=== PATIENT | female | born 1965 | race Caucasian/White ===

== ENCOUNTER → 2018-05-23 08:25 | Outpatient (CLI) | payer OTHER, SELFPAY ==
--- NOTE | 2018-05-23 | DI.MG.S_ITS ---
BILATERAL DIGITAL SCREENING MAMMOGRAM 3D/2D WITH CAD: 05/23/2018 CLINICAL: Routine screening. Comparison is made to exams dated: 05/15/2017 mammogram, 04/25/2016 mammogram, and 04/23/2015 mammogram - [facility]. The tissue of both breasts is predominantly fatty. Current study was also evaluated with a Computer Aided Detection (CAD) system. No significant masses, calcifications, or other findings are seen in either breast. There has been no significant interval change. IMPRESSION: NEGATIVE There is no mammographic evidence of malignancy. A 1 year screening mammogram is recommended. This exam was interpreted at Station ID: [id number]. NOTE: For mammograms, a report in lay terms will be sent to the patient. Approximately 15% of breast malignancies will not be visualized mammographically. In the management of a palpable breast mass, a negative mammogram must not discourage biopsy of a clinically suspicious lesion. Electronically Signed By: Salima [email or web address]/[email or web address]:05/23/2018 09:59:20 letter sent: Normal Exam ACR BI-RADS Category 1: Negative [id number]
== END ==
PROVIDERS: PCP Internal Medicine; Visit Provider Family Medicine
DX: Z12.31 Encounter for screening mammogram for malignant neoplasm of breast (principal)
CPT/HCPCS: 77063; 77067

== ENCOUNTER → 2018-08-14 10:08 | Outpatient (CLI) | payer OTHER, SELFPAY ==
[2018-08-14 10:50] LABS: Add Manual Diff / Slide Review NO; Basophils Percent Auto 0.9 % (0-2); Eosinophils Percent Auto 2.8 % (2-4); Hematocrit 39.8 % (36-46); Hemoglobin 13.4 g/dL (12.0-16.0); Lymphocytes Percent Auto 28.5 % (25-40); Mean Corpuscular HGB Conc 33.7 % (30-36); Mean Corpuscular Hemoglobin 30.6 PG (26-34); Mean Corpuscular Volume 90.7 fL (80-100); Monocytes Percent Auto 7.7 % (3-14); Neutrophils Absolute Auto 4700 /uL (3000-5900); Neutrophils Percent Auto 60.1 % (50-75); Platelet Count 350 X10^3/uL (150-400); Red Blood Cell Count 4.39 X10^6/uL (4.0-5.2); Red Cell Distribution Width 12.7 % (11.6-14.8); White Blood Cell Count 7.8 X10^3/uL (4.5-11.0)
[2018-08-14 10:58] LABS: Chloride 103 mmol/L (98-107); HEMOLYSIS < 15 (0-50)
[2018-08-14 10:59] LABS: Alanine Aminotransferase 28 IU/L (9-52); Albumin 4.4 g/dL (3.5-5.0); Albumin Globulin Ratio 1.4 (1.0-2.8); Alkaline Phosphatase 57 U/L (38-126); Aspartate Aminotransferase 20 IU/L (14-36); BUN Creatinine Ratio 41.7 (6-22); Bilirubin Total 0.3 mg/dL (0.2-1.3); Blood Urea Nitrogen 25 mg/dL (7-17); Calcium 9.9 mg/dL (8.4-10.2); Carbon Dioxide 32 mmol/L (22-32); Estimated Glomerular Filt Rate > 60.0 mL/min (>60); Globulin 3.1 g/dL (1.7-4.1); Glucose 96 mg/dL (70-100); Potassium 4.4 mmol/L (3.4-5.1); Sodium 144 mmol/L (137-145); Total Protein 7.5 g/dL (6.3-8.2)
[2018-08-14 11:51] LABS: Vitamin D 25 Hydroxy (D3) 44.5 ng/mL (30.0-100.0)
== END ==
PROVIDERS: PCP Family Medicine; Visit Provider Family Medicine
DX: R53.83 Other fatigue (principal)
CPT/HCPCS: 36415; 80053; 82306; 85025

== ENCOUNTER → 2019-01-22 14:11 | Outpatient (CLI) | payer OTHER, SELFPAY ==
[2019-01-22 15:37] LABS: Thyroid Stimulating Hormone 1.67 uIU/mL (0.47-4.68)
== END ==
PROVIDERS: PCP Family Medicine; Visit Provider Family Medicine
DX: E03.9 Hypothyroidism, unspecified (principal)
CPT/HCPCS: 36415; 84443

== ENCOUNTER → 2019-03-05 12:10 | Outpatient (CLI) | payer OTHER, SELFPAY ==
--- NOTE | 2019-03-05 12:11 | DI.RAD.S_ITS ---
PROCEDURE: XR CHEST 2V INDICATIONS: cough TECHNIQUE: 2 views of the chest were acquired. COMPARISON: [facility], , CHEST 1 VIEW, 02/17/2017, 2:59. FINDINGS: Surgical changes and devices: None. Lungs and pleura: Lungs are clear. No pleural effusions or pneumothorax. Mediastinum: Mediastinal contours are normal. Heart size is normal. Bones and chest wall: No suspicious bony abnormalities. Soft tissues appear unremarkable. IMPRESSION: No acute cardiopulmonary disease. Dictated by: Hiren Richard M.D. on 03/05/2019 at 13:32 Approved by: Hiren Richard M.D. on 03/05/2019 at 13:32
== END ==
PROVIDERS: PCP Family Medicine; Visit Provider Family Medicine
DX: R05 Cough (principal)
CPT/HCPCS: 71046

== ENCOUNTER → 2019-03-26 13:01 | Outpatient (CLI) | payer OTHER, SELFPAY ==
[2019-03-26 13:46] LABS: Add Manual Diff / Slide Review NO; Basophils Absolute Auto 100 /uL (0-100); Basophils Percent Auto 1.4 % (0-2); Eosinophils Absolute Auto 100 /uL (0-450); Eosinophils Percent Auto 1.7 % (2-4); Hematocrit 39.6 % (36-46); Hemoglobin 13.2 g/dL (12.0-16.0); Lymphocytes Absolute Auto 2000 /uL (1100-4500); Lymphocytes Percent Auto 28.7 % (25-40); Mean Corpuscular HGB Conc 33.3 % (30-36); Mean Corpuscular Hemoglobin 30.1 PG (26-34); Mean Corpuscular Volume 90.6 fL (80-100); Monocytes Absolute Auto 500 /uL (0-900); Monocytes Percent Auto 7.4 % (3-14); Neutrophils Absolute Auto 4300 /uL (1500-7000); Neutrophils Percent Auto 60.8 % (50-75); Platelet Count 386 X10^3/uL (150-400); Red Blood Cell Count 4.37 X10^6/uL (4.0-5.2); Red Cell Distribution Width 12.9 % (11.6-14.8); White Blood Cell Count 7.1 X10^3/uL (4.5-11.0)
[2019-03-26 14:40] LABS: Alanine Aminotransferase 30 IU/L (9-52); Albumin 4.3 g/dL (3.5-5.0); Albumin Globulin Ratio 1.4 (1.0-2.8); Alkaline Phosphatase 58 U/L (38-126); Aspartate Aminotransferase 23 IU/L (14-36); BUN Creatinine Ratio 32.9 (6-22); Bilirubin Total 0.3 mg/dL (0.2-1.3); Blood Urea Nitrogen 23 mg/dL (7-17); Calcium 9.9 mg/dL (8.4-10.2); Carbon Dioxide 28 mmol/L (22-32); Chloride 103 mmol/L (98-107); Estimated Glomerular Filt Rate > 60.0 mL/min (>60); Glucose 106 mg/dL (70-100); HEMOLYSIS < 15 (0-50); Potassium 4.4 mmol/L (3.4-5.1); Sodium 140 mmol/L (137-145); Total Protein 7.3 g/dL (6.3-8.2)
== END ==
PROVIDERS: Family Provider Surgery; PCP Family Medicine; Visit Provider Physician Assistant
DX: Z86.010 Personal history of colon polyps (principal); Z80.0 Family history of malignant neoplasm of digestive organs; K58.0 Irritable bowel syndrome with diarrhea; K21.9 Gastro-esophageal reflux disease without esophagitis; R13.10 Dysphagia, unspecified; K62.3 Rectal prolapse
CPT/HCPCS: 36415; 80053; 85025; 87177; 87493

== ENCOUNTER → 2019-05-28 09:22 | Outpatient (CLI) | payer OTHER, SELFPAY ==
--- NOTE | 2019-05-28 | DI.MG.S_ITS ---
BILATERAL DIGITAL SCREENING MAMMOGRAM 3D/2D WITH CAD: 05/28/2019 CLINICAL: Routine screening. Comparison is made to exams dated: 05/23/2018 mammogram, 05/15/2017 mammogram, 04/25/2016 mammogram, and 04/23/2015 mammogram - [facility]. The tissue of both breasts is predominantly fatty. Current study was also evaluated with a Computer Aided Detection (CAD) system. No significant masses, calcifications, or other findings are seen in either breast. There has been no significant interval change. IMPRESSION: NEGATIVE There is no mammographic evidence of malignancy. A 1 year screening mammogram is recommended. This exam was interpreted at Station ID: [id number]. NOTE: For mammograms, a report in lay terms will be sent to the patient. Approximately 15% of breast malignancies will not be visualized mammographically. In the management of a palpable breast mass, a negative mammogram must not discourage biopsy of a clinically suspicious lesion. Electronically Signed By: Kris connolly/alex:05/28/2019 17:03:35 letter sent: Normal Exam ACR BI-RADS Category 1: Negative [id number]
== END ==
PROVIDERS: PCP Family Medicine; Visit Provider Family Medicine
DX: Z12.31 Encounter for screening mammogram for malignant neoplasm of breast (principal)
CPT/HCPCS: 77063; 77067

== ENCOUNTER 2019-06-04 11:15 | Outpatient (RCR) | payer OTHER, SELFPAY ==
--- NOTE | 2019-05-22 10:04 | PT.OIE ---
Current Diagnoses Irritable bowel syndrome with diarrhea (05/22/19) Rectal prolapse (05/22/19) Past Medical History (Last Reviewed 10/23/18 @ 16:38 by Heladio Parkinson MD) Obstructive sleep apnea of adult (Chronic) Hypothyroidism (Chronic ~2003) Depression (Chronic 1998) Insomnia (Chronic 06/21/16) ADHD (attention deficit hyperactivity disorder) (Chronic 1962) Acne (Chronic 1975) Anxiety (Chronic 1998) Back tightness (Chronic) Chronic back pain (Chronic 1994) Chronic headaches (Chronic 1991) Fibromyalgia (Chronic 1997) GERD (gastroesophageal reflux disease) (Chronic 1997) Hayfever (Chronic ~1991) Hearing loss (Chronic 2011) IBS (irritable bowel syndrome) (Chronic 1962) Migraines (Chronic 2009) Neck tightness (Chronic) Plantar warts (Chronic 1991) Shoulder pain (Chronic 1994) Abnormal Pap smear of cervix (Resolved 1995) Chicken pox (Resolved) Colon polyps (Resolved) Precancerous changes of the cervix (Resolved 1995) Villous adenoma of right colon (Resolved 2010) Past Surgical History (Last Reviewed 10/23/18 @ 16:38 by Heladio Parkinson MD) Anesthesia (Resolved) History of colonoscopy (Resolved 08/2012) History of partial colectomy (Resolved 2010) Status post appendectomy (Resolved) Status post vaginal hysterectomy (Resolved 1995) Status post colectomy (2011) Provider Visit Care Team Role Provider Type Li Avila MD Primary Care Provider Physician Specialty: Family Practice Address: [address] [place] [address], [employer] Email: [email or web address] Hailey Chiang PA-C Attending Provider Non-Staff Specialty: Medical Address: [address] [place] [address], [facility] Email: Physical Therapy Initial Evaluation PT-OP-A Visit Information Start: 05/14/19 10:55 Freq: Status: Active Protocol: Document 05/14/19 11:15 [facility] (Rec: 05/21/19 13:09 [facility] [email or web address]) Out-Patient Physical Therapy Visit Information Visit Information Visit Type Initial Evaluation Visit Note 53 year old female with rectal prolapse and irritable bowel syndrome. She has history of a colon resection in 2011 and notes she has been gassy since this time and it is difficult for her to control flatulence. She reports stool incontinence without warming. She is scheduled for anterior posterior repair on 06/11/19 and is doing PT preoperatively to gain pelvic floor strength prior to surgery. Visit Start Time 11:15 Visit Stop Time 12:00 Total Visit Minutes 45 Visit Number 1 Evaluation Information Evaluation Date 05/14/19 PT-OP-B Current Condition Start: 05/14/19 10:55 Freq: Status: Active Protocol: Document 05/14/19 11:15 [facility] (Rec: 05/21/19 13:09 [facility] [email or web address]) Current Condition History of Current Condition Onset Date 2011 Current Complaints stool incontinence and rectal prolapse making it difficult to fully empty History of Current Condition 53 year old female with rectal prolapse and irritable bowel syndrome. She has history of a colon resection in 2011 and notes seh has been gassy since this time and it is difficult for her to control flattulance. She reports stool incontinence without warming. She is scheduled for anterior posterior repair on 06/11/19 and is doing PT preoperatively to gain pelvic floor strength prior to surgery. Treatment Goals Patient/Caregiver Goals To improve pelvic floor strength prior to surgery and eliminate stool incontinence Current Functional Impairments (Reported) Functional Limitations- Recreation/ inability to engage in Hobbies intercourse at this time due to pain and prolapse PT-OP-I Pelvic Floor Start: 05/14/19 10:55 Freq: Status: Active Protocol: Document 05/14/19 11:15 [facility] (Rec: 05/21/19 13:14 [facility] [email or web address]) Pelvic Floor Assessment Urine Pelvic Floor Surgery No Urinary Symptoms Prolapse Incomplete Emptying Other Urinary Symptoms constant leakage of urine of little drips throughout the day Leakage Size Small Other Leakage Causes constant leakage throughout the day and made worse with cough, sneeze, laugh Leaks Per Day constant Voiding Frequency 4 times Nocturia 1 Urine Pad Type Panty Liner Bowel Bowel Surgery Yes Bowel Symptoms Fecal Leakage Uncontrolled Flatulence Other Bowel Symptoms Gracy reports she feels as if she doesn't have the muscle control to stop flatulence or stool leakage. This began after her colon resection in 2011 [place] Stool Chart Type 1-7 6 [place] Stool Chart Comments soft stool with IBS Pelvic Clock Pelvic Clock 12-3 Atrophy Pelvic Clock 3-6 Atrophy Pelvic Clock 6-9 Atrophy Pelvic Clock 9-12 Atrophy Prolapse Cystocele Grade 2 Rectocele Grade 2 Contraction Ability Voluntary Contraction Weak Voluntary Relaxation Weak Manual Muscle Testing Left 1 Manual Muscle Testing Right 2 Manual Muscle Testing Anterior 1 Manual Muscle Testing Posterior 1 PT-OP-J Posture/Palpation/Skin Start: 05/14/19 10:55 Freq: Status: Active Protocol: Document 05/14/19 11:15 [facility] (Rec: 05/22/19 10:03 [facility] [email or web address]) Palpation Assessment Location Two Palpation Location piriformis L>R Palpation Findings Spasm Muscle Guarding Tenderness One Palpation Location tenderness to palpation bilateral coccyx Palpation Findings Soft Tissue Tightness Tenderness PT-OP-Q Treatments Start: 05/14/19 10:55 Freq: Status: Active Protocol: Document 05/14/19 11:30 [facility] (Rec: 05/22/19 09:54 [facility] [email or web address]) Therapeutic Exercises Supine Exercises 2 Supine Exercise Name ball squeeze to facilitate pelvic floor contraction 1 Supine Exercise Name pelvic floor long holds 10 sec hold x 10 second relax Side bilateral Reps/Minutes 3x 10 per day Self-Care/Home Management Treatment Education Patient Education Home Exercise Program Other Education ILU self colon massage PT-OP-T Assessment and Plan Start: 05/14/19 10:55 Freq: Status: Active Protocol: Document 05/14/19 11:15 [facility] (Rec: 05/22/19 10:03 [facility] [email or web address]) Physical Therapy Assessment Rehab Potential Rehabilitation Potential Good Evaluation Complexity Number of Personal Factors/Comorbidities 0 Number of Body Systems Impaired 1-2 Clinical Presentation at Evaluation Stable Impairments Impairments Activity Tolerance Functional Activities Pain Soft Tissue Mobility Strength Tone Other Impairments urinary and fecal incontinence Goals Three Impairment Gracy lacks a home program for pelvic floor and core strengthening Chipper Operator Goal (LTG) Gracy is independent with a home program for pelvic floor strengthening that sheis able to work on pre and post surgery LTG Duration 6-8 weeks Two Impairment poor endurance of the pelvic floor < 5 seconds Short Term Goal (STG) Gracy demonstrates improved endurance of her pelvic floor and she is able to sustain a pelvic floor contraction x 10 seconds in supine STG Duration 5 weeks One Impairment pelvic floor weakness 1/5 MMT anterior, left, posterior, 2/5 right Short Term Goal (STG) Gracy is able to facilitate all parts of her pelvic floor and improve her sensation of her pelvic floor STG Duration 4 weeks Longterm Goal (LTG) Gracy is educated on pelvic floor muscle strength and she is able to raise her strength by one muscle grade on MMT LTG Duration 8 weeks Assessment Summary Assessment Gracy presents to physical therapy today asd a pre op visit for pelvic floor strengthening. She will be having a rectocele repair June 11. With examinationt today, Gracy is very weak in her levator ani musculature. She test 1/5 MMT for anterior, left, and posterior patten and 2/5 MMT for right lateral wall. Her endurance is very limited < 5 seconds. She is tight in her piriformis musculature and experiences coccyx pain. She reports in the last couple of years she has began to notice that stool will slide out. She also reports that since her colon resection in 2011 she has uncontrolled flatulence. Gracy is a good candidate for PT for strengthening pre and post surgery. Physical Therapy Plan Frequency and Duration Frequency of Treatment 1x/Week Duration of Treatment 8 weeks Plan of Care Start Date 05/14/19 Plan of Care End Date 07/09/19 Therapeutic Interventions Therapeutic Interventions Home Exercise Program Manual Therapy Neuromuscular Re-education Patient/Caregiver Education Self-Care/Home Management Therapeutic Exercises Modalities Biofeedback Electric Stimulation Next Visit Focus/Plan Next Note Type Treatment Note Next Visit Plan Begin EMG biofeedback for pelvic floor neuro re- education next visit
--- NOTE | 2019-05-22 10:05 | PT.OPPOC ---
Current Diagnoses Irritable bowel syndrome with diarrhea (05/22/19) Rectal prolapse (05/22/19) Provider Visit Care Team Role Provider Type Li Avila MD Primary Care Provider Physician Specialty: Family Practice Address: [address] [place] [address], [id number] Email: [email or web address] Hailey Chiang PA-C Attending Provider Non-Staff Specialty: Medical Address: [address] [place] [address], [id number] Email: Plan Of Care PT-OP-T Assessment and Plan Start: 05/14/19 10:55 Freq: Status: Active Protocol: Document 05/14/19 11:15 [facility] (Rec: 05/22/19 10:03 [facility] [email or web address]) Physical Therapy Assessment Rehab Potential Rehabilitation Potential Good Evaluation Complexity Number of Personal Factors/Comorbidities 0 Number of Body Systems Impaired 1-2 Clinical Presentation at Evaluation Stable Impairments Impairments Activity Tolerance Functional Activities Pain Soft Tissue Mobility Strength Tone Other Impairments urinary and fecal incontinence Goals Three Impairment Gracy lacks a home program for pelvic floor and core strengthening Senior Living Goal (LTG) Gracy is independent with a home program for pelvic floor strengthening that she is able to work on pre and post surgery LTG Duration 6-8 weeks Two Impairment poor endurance of the pelvic floor < 5 seconds Short Term Goal (STG) Gracy demonstrates improved endurance of her pelvic floor and she is able to sustain a pelvic floor contraction x 10 seconds in supine STG Duration 5 weeks One Impairment pelvic floor weakness 1/5 MMT anterior, left, posterior, 2/5 right Short Term Goal (STG) Gracy is able to facilitate all parts of her pelvic floor and improve her sensation of her pelvic floor STG Duration 4 weeks Senior Living Goal (LTG) Gracy is educated on pelvic floor muscle strength and she is able to raise her strength by one muscle grade on MMT LTG Duration 8 weeks Assessment Summary Assessment Gracy presents to physical therapy today as a pre op visit for pelvic floor strengthening. She will be having a rectocele repair June 11. With examination today, Gracy is very weak in her levator ani musculature. She test 1/5 MMT for anterior, left, and posterior patten and 2/5 MMT for right lateral wall. Her endurance is very limited < 5 seconds. She is tight in her piriformis musculature and experiences coccyx pain. She reports in the last couple of years she has began to notice that stool will slide out. She also reports that since her colon resection in 2011 she has uncontrolled flatulence. Gracy is a good candidate for PT for strengthening pre and post surgery. Physical Therapy Plan Frequency and Duration Frequency of Treatment 1x/Week Duration of Treatment 8 weeks Plan of Care Start Date 05/14/19 Plan of Care End Date 07/09/19 Therapeutic Interventions Therapeutic Interventions Home Exercise Program Manual Therapy Neuromuscular Re-education Patient/Caregiver Education Self-Care/Home Management Therapeutic Exercises Modalities Biofeedback Electric Stimulation Next Visit Focus/Plan Next Note Type Treatment Note Next Visit Plan Begin EMG biofeedback for pelvic floor neuro re- education next visit Plan of Care Dates Plan of Care Start Date 05/14/19 Plan of Care End Date 07/09/19 Please Sign and Return: I have reviewed this Plan of Care and certify that the skilled therapy services above are required to meet the patient?s needs. Physician Signature Date Printed Name and Credentials Clinical Instructor Signature Printed Name and Credentials
--- NOTE | 2019-05-29 13:10 | PT.OTN ---
Current Diagnoses Irritable bowel syndrome with diarrhea (05/28/19) Rectal prolapse (05/28/19) Physical Therapy Treatment Note PT-OP-A Visit Information Start: 05/14/19 10:55 Freq: Status: Active Protocol: Document 05/28/19 13:02 [facility] (Rec: 05/29/19 13:08 [facility] [email or web address]) Out-Patient Physical Therapy Visit Information Visit Information Visit Type Treatment Note Visit Start Time 11:15 Visit Stop Time 12:00 Total Visit Minutes 45 Visit Number 2 Number of FUEL MANAGEMENT HANDLER Visits 0 PT-OP-B Current Condition Start: 05/14/19 10:55 Freq: Status: Active Protocol: Document 05/14/19 11:15 [facility] (Rec: 05/21/19 13:09 [facility] [email or web address]) Current Condition History of Current Condition Onset Date 2011 Current Complaints stool incontinence and rectal prolapse making it difficult to fully empty History of Current Condition 53 year old female with rectal prolapse and irritable bowel syndrome. She has history of a colon resection in 2011 and notes seh has been gassy since this time and it is difficult for her to control flattulance. She reports stool incontinence without warming. She is scheduled for anterior posterior repair on 06/11/19 and is doing PT preoperatively to gain pelvic floor strength prior to surgery. Treatment Goals Patient/Caregiver Goals To improve pelvic floor strength prior to surgery and eliminate stool incontinence Current Functional Impairments (Reported) Functional Limitations- Recreation/ inability to engage in Hobbies intercourse at this time due to pain and prolapse PT-OP-C Subjective Start: 05/14/19 10:55 Freq: Status: Active Protocol: Document 05/28/19 13:09 [facility] (Rec: 05/29/19 13:10 [facility] [email or web address]) OP-PT Subjective Patient Comments Patient Comments Gracy reports she has been working on her exercises. Her surgery is still scheduled for 06/11/19. She reports that the surgery will be the rectal repair only now and not include the bladder. She is experiencing tailbone pain as well that is workse as she goes up and down stairs Patient Reported Progress Same PT-OP-I Pelvic Floor Start: 05/14/19 10:55 Freq: Status: Active Protocol: Document 05/14/19 11:15 [facility] (Rec: 05/21/19 13:14 [facility] [email or web address]) Pelvic Floor Assessment Urine Pelvic Floor Surgery No Urinary Symptoms Prolapse Incomplete Emptying Other Urinary Symptoms constant leakage of urine of little drips throughout the day Leakage Size Small Other Leakage Causes constant leakage throughout the day and made worse with cough, sneeze, laugh Leaks Per Day constant Voiding Frequency 4 times Nocturia 1 Urine Pad Type Panty Liner Bowel Bowel Surgery Yes Bowel Symptoms Fecal Leakage Uncontrolled Flatulence Other Bowel Symptoms Gracy reports she feels as if she doesn't have the muscle control to stop flatulence or stool leakage. This began after her colon resection in 2011 [place] Stool Chart Type 1-7 6 [place] Stool Chart Comments soft stool with IBS Pelvic Clock Pelvic Clock 12-3 Atrophy Pelvic Clock 3-6 Atrophy Pelvic Clock 6-9 Atrophy Pelvic Clock 9-12 Atrophy Prolapse Cystocele Grade 2 Rectocele Grade 2 Contraction Ability Voluntary Contraction Weak Voluntary Relaxation Weak Manual Muscle Testing Left 1 Manual Muscle Testing Right 2 Manual Muscle Testing Anterior 1 Manual Muscle Testing Posterior 1 PT-OP-J Posture/Palpation/Skin Start: 05/14/19 10:55 Freq: Status: Active Protocol: Document 05/14/19 11:15 [facility] (Rec: 05/22/19 10:03 [facility] [email or web address]) Palpation Assessment Location Two Palpation Location piriformis L>R Palpation Findings Spasm Muscle Guarding Tenderness One Palpation Location tenderness to palpation bilateral coccyx Palpation Findings Soft Tissue Tightness Tenderness PT-OP-Q Treatments Start: 05/14/19 10:55 Freq: Status: Active Protocol: Document 05/28/19 13:02 [facility] (Rec: 05/29/19 13:08 [facility] [email or web address]) Therapeutic Exercises Supine Exercises 4 Supine Exercise Name roll outs with theraband Reps/Minutes 3 x 10 reps 3 Supine Exercise Name quick pelvic floor facilitation Reps/Minutes 10 reps 2 sec hold x 4 sec relaxation 2 Supine Exercise Name ball squeeze to facilitate pelvic floor contraction 1 Supine Exercise Name pelvic floor long holds 10 sec hold x 10 second relax Side bilateral Reps/Minutes 3x 10 per day Neuro Re-Education Treatment Other Activities 1 Details EMG biofeedback for pelvic neuromuscular re-ed Comments EMG biofeedback was initiated for pelvic floor neuro re-ed. Gracy was eduated on pelvic floor facilitation and nuero awareness of the pelvic floor. We worked on how to recruit her lateral and anterior patten of her levator ani musculature. PT-OP-T Assessment and Plan Start: 05/14/19 10:55 Freq: Status: Active Protocol: Document 05/28/19 13:02 [facility] (Rec: 05/29/19 13:08 [facility] [email or web address]) Physical Therapy Assessment Assessment Summary Assessment Average EMG facilitation ws 6. 1 uv and max was 30 uv today. Endurance training will be a focus and improving average contraction of the pelvic floor. Good tolerance for EMG biofeedback this visit Physical Therapy Plan Frequency and Duration Frequency of Treatment 1x/Week Duration of Treatment 8 weeks Plan of Care Start Date 05/14/19 Plan of Care End Date 07/09/19 Therapeutic Interventions Therapeutic Interventions Home Exercise Program Manual Therapy Neuromuscular Re-education Patient/Caregiver Education Self-Care/Home Management Therapeutic Exercises Modalities Biofeedback Electric Stimulation Next Visit Focus/Plan Next Note Type Treatment Note Next Visit Plan add in stretches for the tailbone pain Gracy is experiencing and continue to work on pelvic floor strengthening
--- NOTE | 2019-06-04 12:22 | PT.OTN ---
Current Diagnoses Irritable bowel syndrome with diarrhea (06/04/19) Rectal prolapse (06/04/19) Physical Therapy Treatment Note PT-OP-A Visit Information Start: 05/14/19 10:55 Freq: Status: Active Protocol: Document 06/04/19 12:14 [facility] (Rec: 06/04/19 12:22 [facility] [email or web address]) Out-Patient Physical Therapy Visit Information Visit Information Visit Type Treatment Note Visit Start Time 11:15 Visit Stop Time 12:00 Total Visit Minutes 45 Visit Number 3 Number of TOOL DESIGN CHECKER Visits 0 PT-OP-B Current Condition Start: 05/14/19 10:55 Freq: Status: Active Protocol: Document 05/14/19 11:15 [facility] (Rec: 05/21/19 13:09 [facility] [email or web address]) Current Condition History of Current Condition Onset Date 2011 Current Complaints stool incontinence and rectal prolapse making it difficult to fully empty History of Current Condition 53 year old female with rectal prolapse and irritable bowel syndrome. She has history of a colon resection in 2011 and notes seh has been gassy since this time and it is difficult for her to control flattulance. She reports stool incontinence without warming. She is scheduled for anterior posterior repair on 06/11/19 and is doing PT preoperatively to gain pelvic floor strength prior to surgery. Treatment Goals Patient/Caregiver Goals To improve pelvic floor strength prior to surgery and eliminate stool incontinence Current Functional Impairments (Reported) Functional Limitations- Recreation/ inability to engage in Hobbies intercourse at this time due to pain and prolapse PT-OP-C Subjective Start: 05/14/19 10:55 Freq: Status: Active Protocol: Document 06/04/19 12:14 [facility] (Rec: 06/04/19 12:22 [facility] [email or web address]) OP-PT Subjective Patient Comments Patient Comments Gracy has been working on her home exercise program. She has home care in now for her . Surgery is scheduled for June 11 PT-OP-I Pelvic Floor Start: 05/14/19 10:55 Freq: Status: Active Protocol: Document 05/14/19 11:15 [facility] (Rec: 05/21/19 13:14 [facility] [email or web address]) Pelvic Floor Assessment Urine Pelvic Floor Surgery No Urinary Symptoms Prolapse Incomplete Emptying Other Urinary Symptoms constant leakage of urine of little drips throughout the day Leakage Size Small Other Leakage Causes constant leakage throughout the day and made worse with cough, sneeze, laugh Leaks Per Day constant Voiding Frequency 4 times Nocturia 1 Urine Pad Type Panty Liner Bowel Bowel Surgery Yes Bowel Symptoms Fecal Leakage Uncontrolled Flatulence Other Bowel Symptoms Gracy reports she feels as if she doesn't have the muscle control to stop flatulence or stool leakage. This began after her colon resection in 2011 [place] Stool Chart Type 1-7 6 [place] Stool Chart Comments soft stool with IBS Pelvic Clock Pelvic Clock 12-3 Atrophy Pelvic Clock 3-6 Atrophy Pelvic Clock 6-9 Atrophy Pelvic Clock 9-12 Atrophy Prolapse Cystocele Grade 2 Rectocele Grade 2 Contraction Ability Voluntary Contraction Weak Voluntary Relaxation Weak Manual Muscle Testing Left 1 Manual Muscle Testing Right 2 Manual Muscle Testing Anterior 1 Manual Muscle Testing Posterior 1 PT-OP-J Posture/Palpation/Skin Start: 05/14/19 10:55 Freq: Status: Active Protocol: Document 05/14/19 11:15 [facility] (Rec: 05/22/19 10:03 [facility] [email or web address]) Palpation Assessment Location Two Palpation Location piriformis L>R Palpation Findings Spasm Muscle Guarding Tenderness One Palpation Location tenderness to palpation bilateral coccyx Palpation Findings Soft Tissue Tightness Tenderness PT-OP-Q Treatments Start: 05/14/19 10:55 Freq: Status: Active Protocol: Document 06/04/19 12:14 [facility] (Rec: 06/04/19 12:22 [facility] [email or web address]) Therapeutic Exercises Supine Exercises 5 Supine Exercise Name templates for eccentric control and lengthening 3 Supine Exercise Name quick pelvic floor facilitation Reps/Minutes 10 reps 2 sec hold x 4 sec relaxation 1 Supine Exercise Name pelvic floor long holds 10 sec hold x 10 second relax Side bilateral Reps/Minutes 3x 10 per day 10 second hold and 10 second relax Neuro Re-Education Treatment Other Activities 2 Details NMES x 10 min Comments NMES for pelvic floor facilitation Self-Care/Home Management Treatment Education Other Education body mechanics for lifting and pelvic floor facilitation with transfering her . I did talk to Gracy about trying to avoid lifting activities after her surgery to make the surgery more of a success for her. PT-OP-T Assessment and Plan Start: 05/14/19 10:55 Freq: Status: Active Protocol: Document 06/04/19 12:14 [facility] (Rec: 06/04/19 12:22 [facility] [email or web address]) Physical Therapy Assessment Assessment Summary Assessment Gracy did well with NMES today, she may benfit from a home rental after surgery. She is independent with her exercises now and will be discharged now as she is having surgery for posterior repair next week Physical Therapy Plan Discharge Physical Therapy Discharge Reasons Goals Met Discharge Comments Pt scheduled for surgery for rectal prolapse repair
== END 2019-06-06 10:18 | disposition home or self-care (01) ==
LOC: PHYS 11:15
PROVIDERS: PCP Family Medicine; Visit Provider Physician Assistant
DX: K58.0 Irritable bowel syndrome with diarrhea (principal); K62.3 Rectal prolapse
CPT/HCPCS: 97110; 97112; 97161

== ENCOUNTER 2019-07-28 10:57 | Emergency (ER) | payer OTHER, SELFPAY ==
[2019-07-28] VITALS (7 sets, daily range): BP systolic 99–121; BP diastolic 60–77; PULSE 80–102; RESP 12–22; TEMP 36.8; O2SAT 97–100; BMI 30.7
[2019-07-28 12:09] LABS: Add Manual Diff / Slide Review NO; Basophils Absolute Auto 100 /uL (0-100); Basophils Percent Auto 0.6 % (0-2); Eosinophils Absolute Auto 100 /uL (0-450); Hematocrit 36.2 % (36-46); Hemoglobin 12.2 g/dL (12.0-16.0); Lymphocytes Absolute Auto 2300 /uL (1100-4500); Lymphocytes Percent Auto 16.9 % (25-40); Mean Corpuscular HGB Conc 33.6 % (30-36); Mean Corpuscular Hemoglobin 30.1 PG (26-34); Mean Corpuscular Volume 89.6 fL (80-100); Monocytes Absolute Auto 1300 /uL (0-900); Neutrophils Absolute Auto 9600 /uL (1500-7000); Neutrophils Percent Auto 71.5 % (50-75); Platelet Count 325 X10^3/uL (150-400); Red Blood Cell Count 4.04 X10^6/uL (4.0-5.2); Red Cell Distribution Width 13.2 % (11.6-14.8); White Blood Cell Count 13.5 X10^3/uL (4.5-11.0)
[2019-07-28 12:17] LABS: INR 1.1 (0.9-1.3); Prothrombin Time 12.2 SECONDS (10.1-12.7)
[2019-07-28 12:19] LABS: PTT Partial Thromboplastin Tim 28 SECONDS (26.4-36.2)
[2019-07-28 12:22] LABS: Albumin 4.2 g/dL (3.5-5.0); Albumin Globulin Ratio 1.2 (1.0-2.8); Alkaline Phosphatase 70 U/L (38-126); Aspartate Aminotransferase 16 IU/L (14-36); Bilirubin Total 0.5 mg/dL (0.2-1.3); Blood Urea Nitrogen 16 mg/dL (7-17); Calcium 10.2 mg/dL (8.4-10.2); Carbon Dioxide 27 mmol/L (22-32); Chloride 100 mmol/L (98-107); Estimated Glomerular Filt Rate > 60.0 mL/min (>60); Globulin 3.4 g/dL (1.7-4.1); Glucose 105 mg/dL (70-100); HEMOLYSIS < 15 (0-50); Lipase 54 U/L (23-300); Potassium 3.1 mmol/L (3.4-5.1); Sodium 141 mmol/L (137-145); Total Protein 7.6 g/dL (6.3-8.2)
[2019-07-28 12:24] LABS: Lactate (Lactic Acid) 1.2 mmol/L (0.7-2.1)
[2019-07-28 12:30] LABS: Alanine Aminotransferase 15 IU/L (9-52)
[2019-07-28 13:16] LABS: Bacteria Urine Few (2-10); RBC Urine 1-5/HPF (0-5/HPF); Squamous Epithelial Cell Urine 1-5 /HPF (0-5/HPF); WBC Urine 1-5/HPF (0-5/HPF)
[2019-07-28 13:17] LABS: Culture Indicated Urine Specimen Cultured
--- NOTE | 2019-07-28 13:19 | DI.CT.S_ITS ---
PROCEDURE: CT ABDOMEN PELVIS W CON INDICATIONS: s/p mesh ventural mesh procedure. c/o fever and pain in cocy TECHNIQUE: After the administration of intravenous contrast, 5 mm thick sections acquired from the diaphragm to the symphysis. 5 mm coronal and sagittal reformats were acquired. For radiation dose reduction, the following was used: automated exposure control, adjustment of mA and/or kV according to patient size. COMPARISON: None. FINDINGS: Image quality: Excellent. ABDOMEN: Lung bases: Mild bibasilar atelectasis. Heart size is normal. Solid organs: Liver is normal in size and enhancement. There are a few scattered subcentimeter hepatic hypodensities which are too small to accurately characterize but likely represent cysts versus hemangiomas. Gallbladder gallbladder is decompressed.. Biliary system is non dilated. Pancreas enhances normally. Spleen is normal in size and enhancement. No adrenal nodules. Kidneys demonstrate normal size and enhancement, without hydronephrosis. Peritoneum and bowel: There are postoperative changes from prior appendectomy. Postoperative changes from prior partial colectomy with suture line noted in the right lower abdomen. Scattered colonic diverticula without acute diverticulitis. No evidence for bowel obstruction. Adjacent to the right side of the distal rectum, there is a heterogeneous oblong/irregular fluid collection containing fluid and small locules of air with moderate surrounding inflammatory stranding and a small amount of reactive pelvic free fluid. This measures approximately 3.7 cm x 1.9 cm in transverse dimension and 6.2 cm in AP dimension. There is incomplete enhancement. There is suggestion of a small separate component extending more cephalad and in close proximity to the anterior margin of the L5-S1 interspace. This may represent a decompressed loop of distal sigmoid colon with associated inflammatory stranding. Nodes and vessels: No retroperitoneal or mesenteric adenopathy by size criteria. Aorta and inferior vena cava are normal in size. Miscellaneous: No ventral hernias. PELVIS: Genitourinary: Bladder wall thickness is normal. Miscellaneous: No inguinal hernias or adenopathy. Bones: No suspicious bony lesions. No vertebral body compression fractures. IMPRESSION: 1. There is a 3.7 x 1.9 x 6.2 cm heterogeneous fluid collection adjacent to the right side of the proximal rectum and rectosigmoid junction, abutting the wall of the bowel. There is suggestion of a few locules of air. There is incomplete rim enhancement. Findings may represent phlegmon versus early abscess formation at the colorectal junction. There is also a second focus of inflammatory fluid with air extending from the colorectal junction to the anterior margin of the proximal sacrum near the level of L5-S1 which may represent another focus of phlegmon versus early abscess formation. There is moderate surrounding inflammatory stranding. Of note, patient reports recent colorectal mesh repair in the region for rectal prolapse. 2. Multiple hepatic hypodensities too small to accurately characterize but likely represent cysts versus hemangiomas. 3. Postoperative changes from previous hemicolectomy in the right lower abdomen. 4. Other chronic findings as above. Findings discussed with ordering provider, Jonathan Laird. Recommend surgical consultation. Dictated by: Oj Armijo M.D. on 07/28/2019 at 13:17 Approved by: Oj Armijo M.D. on 07/28/2019 at 13:45
[2019-07-28] MEDS: POTASSIUM CHLORIDE 20 MEQ TAB 40 MEQ PO (14:01)
[2019-07-28] MEDS: KETOROLAC 60 MG/2 ML VIAL 30 MG IV (14:03)
--- NOTE | 2019-07-28 15:15 | ED.ABDPAIN ---
HPI - Abdominal Pain <MARTIN Gross - Last Filed: 07/29/19 00:50> General Chief Complaint: Abdominal Pain Stated Complaint: Headaches, abd pain shooting down leg Time Seen by Provider: 07/28/19 12:04 Source: patient and family Mode of arrival: ambulatory Limitations: no limitations History of Present Illness HPI narrative: This is a 53-year-old female, nonsmoker, who presents to ED with her significant other with chief complain of tailbone pain with mild fever, Tmax as 100.6, and chills, nausea. Patient also states she has cramping bilateral low abdominal discomfort, diarrhea 4 days ago for 1 day which has resolved at this time. Patient reports pain increases with bending over and squatting and the pain radiates to up and down her posterior legs. Patient reports urinary frequency and voids small amount each time but there is no other urinary burning sensation and no abnormal vaginal discharge. On 06/25/19, she had ventral mesh rectopexy repair done for pre-existing rectal prolapse and fecal incontinence problem. 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 Related Data Home Medications Medication Instructions Recorded Confirmed Acetaminophen/Aspirin/Caffei 1 tab PO QDAY #0 11/08/12 02/05/19 (#EXCEDRIN 250 MG-250 MG-65 MG) dextroamphetamine-amphetamine ER 15 mg PO QPM cap 12/03/18 12/03/18 15 mg 24hr capsule,extend release duloxetine 30 mg capsule,delayed 30 mg PO DAILY 12/03/18 02/05/19 release nortriptyline 25 mg capsule 25 mg PO BEDTIME 12/03/18 02/05/19 dextroamphetamine-amphetamine ER 30 mg PO QAM cap 02/05/19 15 mg 24hr capsule,extend release nortriptyline 10 mg capsule 10 mg PO BEDTIME 03/06/19 03/06/19 Previous Rx's Medication Instructions Recorded hyoscyamine sulfate 0.125 mg 0.125 mg SUBLINGUAL PRN PRN #50 tab 05/03/18 disintegrating tablet pantoprazole 40 mg tablet,delayed 40 mg PO DAILY #90 tab 12/03/18 release levothyroxine 75 mcg tablet 75 mcg PO QAM #90 tab 01/23/19 duloxetine 60 mg capsule,delayed 60 mg PO DAILY #90 cap 02/08/19 release albuterol sulfate 90 mcg/actuation 2 puff INHALATION Q4-6H PRN #18 02/25/19 aerosol inhaler gram fluticasone propionate 110 1 puff INHALATION BID #12 gram 03/06/19 mcg/actuation HFA aerosol inhaler pilocarpine HCl 5 mg tablet 5 mg PO QID #120 tab 03/06/19 atorvastatin 10 mg tablet 10 mg PO HS #90 tab 03/29/19 Allergies Allergy/AdvReac Type Severity Reaction Status Date / Time adhesive [ADHESIVE] Allergy Unknown rash Unverified 07/28/19 11:30 COLONOSCOPY PREP Allergy Severe ITCHING Uncoded 07/28/19 11:30 Review of Systems <MARTIN Gross - Last Filed: 07/29/19 00:50> Review of Systems Narrative: General: See HPI HEENT: Denies sinus pain, ear pain, sore throat, difficulty swallowing, dizziness. Respiratory: Denies dyspnea, cough, wheezing, hemoptysis, sputum. Cardiovascular: Denies chest pain, palpitations, orthopnea, edema. Gastrointestinal: See HPI : Reports urinary frequency. Denies dysuria, incontinence, hematuria, urinary retention. Musculoskeletal: Denies weakness, joint pain or bony pain. Skin: Denies rash, skin lesions, or other. Neurologic: Denies weakness, headache, numbness, change in speech, confusion, seizures, incoordination. Psychiatric: No concerning psychosocial issues. 12-point review of systems is negative except for those stated above. PFS <MARTIN Gross - Last Filed: 07/29/19 00:50> Medical History Abnormal Pap smear of cervix (Resolved 1995) Acne (Chronic 1975) ADHD (attention deficit hyperactivity disorder) (Chronic 1962) Anxiety (Chronic 1998) Back tightness (Chronic) Chicken pox (Resolved) Chronic back pain (Chronic 1994) Chronic headaches (Chronic 1991) Colon polyps (Resolved) Depression (Chronic 1998) Fibromyalgia (Chronic 1997) GERD (gastroesophageal reflux disease) (Chronic 1997) Hayfever (Chronic ~1991) Hearing loss (Chronic 2011) Hypothyroidism (Chronic ~2003) IBS (irritable bowel syndrome) (Chronic 1962) Insomnia (Chronic 06/21/16) Migraines (Chronic 2009) Neck tightness (Chronic) Obstructive sleep apnea of adult (Chronic) Plantar warts (Chronic 1991) Precancerous changes of the cervix (Resolved 1995) Shoulder pain (Chronic 1994) Villous adenoma of right colon (Resolved 2010) Surgical History Anesthesia (Resolved) History of colonoscopy (Resolved 08/2012) History of partial colectomy (Resolved 2010) Status post appendectomy (Resolved) Status post colectomy (2012) Status post vaginal hysterectomy (Resolved 1995) Family History Brother Coronary artery disease Father Coronary artery disease Grandfather Stroke Grandmother Cancer Colon cancer Mother Cancer Mental health problem Anxiety Dementia Fibromyalgia Colon cancer Grandmother Diabetes mellitus Grandfather No problems noted. Family/Other Colon cancer Social History (Updated 11/27/18 @ 18:58 by MARTIN Manley) marital status: details: rebecca Parson number of children: 2 household members: spouse lives independently: Yes caregiver/support person: No housing: house Smoking Status: Never smoker substance use type: does not use additional social history: Eb is wheelchair bound with Multiple Sclerosis. Patient's best friend this year. Family History Brother Coronary artery disease Father Coronary artery disease Grandfather Stroke Grandmother Cancer Colon cancer Mother Cancer Mental health problem Anxiety Dementia Fibromyalgia Colon cancer Grandmother Diabetes mellitus Grandfather No problems noted. Family/Other Colon cancer Social History marital status: details: rebecca Parson number of children: 2 household members: spouse lives independently: Yes caregiver/support person: No housing: house Smoking Status: Never smoker substance use type: does not use additional social history: Eb is wheelchair bound with Multiple Sclerosis. Patient's best friend this year. Exam <MARTIN Gross - Last Filed: 07/29/19 00:50> Narrative Exam Narrative: GEN: Alert, oriented x 3, well appearing and nourished, and in no acute distress. Head: Normal cephalic, atraumatic. No scalp or temporal tenderness, palpable mass or rash. EYES: Pupils are equal, round, and reactive to light and accommodation. Extraocular muscles are intact bilaterally. There is no subconjunctival hemorrhage, exudate and sclera non-icteric. ENT: Bilateral auditory canals and tympanic membranes clear. Hearing grossly intact. Nose without bleeding, purulent discharge or deviation. Facial sinuses nontender to palpate. Mucous membrane moist, no mucosal lesion. Throat without erythema, tonsillar hypertrophy or exudate. Uvula in midline, airway patent. Neck: Trachea in midline. No JVD, non-tender without lymphadenopathy. No masses or thyroid megaly. Supple, non-tender and no meningeal signs. CARDIAC: Normal regular rate and rhythm without murmurs, gallops, or rubs. No chest wall tenderness. No peripheral edema, cyanosis or pallor. Capillary refill is less than 2 seconds. RESPIRATORY: Lungs are cleat to auscultate bilaterally. No cough, wheezes, rales, or rhonchi. No stridor, respiratory distress, increase work of breathing, or accessary muscle used. ABD: Tender to palpate in bilateral lower abdomen. Abdomen soft and non-distended. No guarding or rebound tenderness to palpate. Bowel sounds are normal in all 4 quadrants. There is no palpable masses or organomegaly. EXT: Reports bilateral posterior all thigh. There is no redness, swelling, ecchymosis noted. Full ROM of all extremities with no loss of sensation, strength, effusion or edema. SKIN: 4x surgical wounds on transverse abdomen without signs of infection. Warm, dry, normal color for patient. No erythema, lesions or rash over other visible areas. BACK: Tender to palpate and coccyx. No redness or swelling noted. Nontender without deformity or crepitance. No flank tenderness. NEUROLOGICAL: Alert and oriented to place, time and person. Sensation and motor function intact bilaterally. No facial droops, dysphasia. PSYCHIATRIC: Good judgement and reason, without hallucinations, abnormal affect or abnormal behaviors during the examination. Patient is not suicidal. Initial Vital Signs Initial Vital Signs: Vital Signs Temperature 98.2 F 07/28/19 11:28 Pulse Rate 102 H 07/28/19 11:28 Respiratory Rate 12 07/28/19 11:28 Blood Pressure 99/60 07/28/19 11:28 Pulse Oximetry 97 07/28/19 11:28 <Ashwini Stovall DO - Last Filed: 07/30/19 18:37> Initial Vital Signs Initial Vital Signs: Vital Signs Temperature 98.2 F 07/28/19 11:28 Pulse Rate 102 H 07/28/19 11:28 Respiratory Rate 12 07/28/19 11:28 Blood Pressure 99/60 07/28/19 11:28 Pulse Oximetry 97 07/28/19 11:28 Scores <MARTIN Gross - Last Filed: 07/29/19 00:50> GCS [place] coma scale eye opening: Spontaneous [place] coma scale verbal response: Orientated [place] coma scale motor response: Obey commands Francis coma scale total score: 15 Course <MARTIN Gross - Last Filed: 07/29/19 00:50> Orders Ordered: Discontinued Medications Metronidazole (Flagyl) 500 mg in 100 mls @ 100 mls/hr IV NOW ONE Stop: 07/28/19 16:15 Last Infusion: 07/28/19 17:19 Dose: 0 mls/hr Documented by: Admin: 07/28/19 16:14 Dose: 100 mls/hr Documented by: BOB Piperacillin/Tazobactam/Dextrose (Zosyn) 3.375 gm in 50 mls @ 100 mls/hr IV NOW ONE Stop: 07/28/19 15:45 Last Infusion: 07/28/19 16:15 Dose: 0 mls/hr Documented by: Admin: 07/28/19 15:27 Dose: 100 mls/hr Documented by: BOB Sodium Chloride (Normal Saline 0.9%) 1,000 mls @ 150 mls/hr IV CONT URSULA Last Infusion: 07/28/19 17:25 Dose: 150 mls/hr Documented by: Admin: 07/28/19 17:00 Dose: 150 mls/hr Documented by: BOB Ketorolac Tromethamine (Toradol) 30 mg IV NOW ONE Stop: 07/28/19 13:01 Last Admin: 07/28/19 14:03 Dose: 30 mg Documented by: BOB Potassium Chloride (Klor-Con M20) 40 meq PO NOW ONE Stop: 07/28/19 13:01 Last Admin: 07/28/19 14:01 Dose: 40 meq Documented by: BOB Vital Signs Vital signs: Vital Signs - 8 hr 07/28/19 17:02 Pulse Rate 90 Pulse Oximetry 100 <Ashwini Stovall DO - Last Filed: 07/30/19 18:37> Orders Ordered: Discontinued Medications Metronidazole (Flagyl) 500 mg in 100 mls @ 100 mls/hr IV NOW ONE Stop: 07/28/19 16:15 Last Infusion: 07/28/19 17:19 Dose: 0 mls/hr Documented by: Admin: 07/28/19 16:14 Dose: 100 mls/hr Documented by: BOB Piperacillin/Tazobactam/Dextrose (Zosyn) 3.375 gm in 50 mls @ 100 mls/hr IV NOW ONE Stop: 07/28/19 15:45 Last Infusion: 07/28/19 16:15 Dose: 0 mls/hr Documented by: Admin: 07/28/19 15:27 Dose: 100 mls/hr Documented by: BOB Sodium Chloride (Normal Saline 0.9%) 1,000 mls @ 150 mls/hr IV CONT URSULA Last Infusion: 07/28/19 17:25 Dose: 150 mls/hr Documented by: Admin: 07/28/19 17:00 Dose: 150 mls/hr Documented by: BOB Ketorolac Tromethamine (Toradol) 30 mg IV NOW ONE Stop: 07/28/19 13:01 Last Admin: 07/28/19 14:03 Dose: 30 mg Documented by: BOB Potassium Chloride (Klor-Con M20) 40 meq PO NOW ONE Stop: 07/28/19 13:01 Last Admin: 07/28/19 14:01 Dose: 40 meq Documented by: BOB Vital Signs Vital signs: Vital Signs - 8 hr 07/28/19 17:02 Pulse Rate 90 Pulse Oximetry 100 MDM - Abdominal Pain <MARTIN Gross - Last Filed: 07/29/19 00:50> Differential Diagnosis Differential diagnosis: Likely abdominal pain and other (post surgical abscess) Medical Records Attestation: I reviewed the patient's medical records. Lab Data Attestation: I reviewed the patient's lab results. Result diagrams: 07/28/19 11:40 07/28/19 11:40 Labs: Lab Results 07/28/19 07/28/19 07/28/19 Range/Units 11:40 11:40 11:40 WBC 13.5 H (4.5-11.0) X10^3/uL RBC 4.04 (4.0-5.2) X10^6/uL Hgb 12.2 (12.0-16.0) g/dL Hct 36.2 (36-46) % MCV 89.6 (80-100) fL MCH 30.1 (26-34) PG MCHC 33.6 (30-36) % RDW 13.2 (11.6-14.8) % Plt Count 325 (150-400) X10^3/uL Neut % (Auto) 71.5 (50-75) % Lymph % (Auto) 16.9 L (25-40) % [place] % (Auto) 10.0 (3-14) % Eos % (Auto) 1.0 L (2-4) % Baso % (Auto) 0.6 (0-2) % Neut # (Auto) 9600 H (6260-5732) /uL Lymph # (Auto) 2300 (4423-7112) /uL [place] # (Auto) 1300 H (0-900) /uL Eos # (Auto) 100 (0-450) /uL Baso # (Auto) 100 (0-100) /uL PT 12.2 (10.1-12.7) SECONDS INR 1.1 (0.9-1.3) APTT 28 (26.4-36.2) SECONDS Sodium 141 (137-145) mmol/L Potassium 3.1 L (3.4-5.1) mmol/L Chloride 100 (98-107) mmol/L Carbon Dioxide 27 (22-32) mmol/L BUN 16 (7-17) mg/dL Creatinine 0.50 L (0.52-1.04) mg/dL Estimated GFR > 60.0 (>60) mL/min BUN/Creatinine Ratio 32.0 H (6-22) Glucose 105 H (70-100) mg/dL Lactate (0.7-2.1) mmol/L Calcium 10.2 (8.4-10.2) mg/dL Total Bilirubin 0.5 (0.2-1.3) mg/dL AST 16 (14-36) IU/L ALT 15 (9-52) IU/L Alkaline Phosphatase 70 (38-126) U/L Total Protein 7.6 (6.3-8.2) g/dL Albumin 4.2 (3.5-5.0) g/dL Globulin 3.4 (1.7-4.1) g/dL Albumin/Globulin Ratio 1.2 (1.0-2.8) Lipase 54 (23-300) U/L Urine RBC (0-5/HPF) Urine WBC (0-5/HPF) Ur Squamous Epith Cells (0-5/HPF) Urine Bacteria (None) Ur Culture Indicated? 07/28/19 07/28/19 Range/Units 11:40 12:50 WBC (4.5-11.0) X10^3/uL RBC (4.0-5.2) X10^6/uL Hgb (12.0-16.0) g/dL Hct (36-46) % MCV (80-100) fL MCH (26-34) PG MCHC (30-36) % RDW (11.6-14.8) % Plt Count (150-400) X10^3/uL Neut % (Auto) (50-75) % Lymph % (Auto) (25-40) % [place] % (Auto) (3-14) % Eos % (Auto) (2-4) % Baso % (Auto) (0-2) % Neut # (Auto) (7735-4539) /uL Lymph # (Auto) (0553-1153) /uL [place] # (Auto) (0-900) /uL Eos # (Auto) (0-450) /uL Baso # (Auto) (0-100) /uL PT (10.1-12.7) SECONDS INR (0.9-1.3) APTT (26.4-36.2) SECONDS Sodium (137-145) mmol/L Potassium (3.4-5.1) mmol/L Chloride (98-107) mmol/L Carbon Dioxide (22-32) mmol/L BUN (7-17) mg/dL Creatinine (0.52-1.04) mg/dL Estimated GFR (>60) mL/min BUN/Creatinine Ratio (6-22) Glucose (70-100) mg/dL Lactate 1.2 (0.7-2.1) mmol/L Calcium (8.4-10.2) mg/dL Total Bilirubin (0.2-1.3) mg/dL AST (14-36) IU/L ALT (9-52) IU/L Alkaline Phosphatase (38-126) U/L Total Protein (6.3-8.2) g/dL Albumin (3.5-5.0) g/dL Globulin (1.7-4.1) g/dL Albumin/Globulin Ratio (1.0-2.8) Lipase (23-300) U/L Urine RBC 1-5/hpf (0-5/HPF) Urine WBC 1-5/hpf (0-5/HPF) Ur Squamous Epith Cells 1-5 /hpf (0-5/HPF) Urine Bacteria Few (2-10) H (None) Ur Culture Indicated? Specimen cultured Point of care testing: Urine Dip Bedside Urine Glucose Negative Bedside Urine Bilirubin - Negative Bedside Urine Ketone - Negative Urine Specific [place] 1.005 Bedside Urine Occult Blood + Bedside Urine pH 6.0 Bedside Urine Protein - Negative Bedside Urine Urobilinogen - Negative Bedside Urine Nitrite - Negative Bedside Urine Leukocytes + [address] scan - abdomen: Radiologist's impression: [address] [address] [address] Scan Report Signed Patient: Gracy Benites LMR#: [id number] : 1965Acct:[id number] Age/Sex: 53 / FDate of Service: 07/28/19 Loc: ED Accession Number: [id number] Procedure: CT abdomen pelvis w con Ordering Provider: Jonathan Laird PROCEDURE: CT ABDOMEN PELVIS W CON INDICATIONS: s/p mesh ventural mesh procedure. c/o fever and pain in cocy TECHNIQUE: After the administration of intravenous contrast, 5 mm thick sections acquired from the diaphragm to the symphysis. 5 mm coronal and sagittal reformats were acquired. For radiation dose reduction, the following was used: automated exposure control, adjustment of mA and/or kV according to patient size. COMPARISON: None. FINDINGS: Image quality: Excellent. ABDOMEN: Lung bases: Mild bibasilar atelectasis. Heart size is normal. Solid organs: Liver is normal in size and enhancement. There are a few scattered subcentimeter hepatic hypodensities which are too small to accurately characterize but likely represent cysts versus hemangiomas. Gallbladder gallbladder is decompressed.. Biliary system is non dilated. Pancreas enhances normally. Spleen is normal in size and enhancement. No adrenal nodules. Kidneys demonstrate normal size and enhancement, without hydronephrosis. Peritoneum and bowel: There are postoperative changes from prior appendectomy. Postoperative changes from prior partial colectomy with suture line noted in the right lower abdomen. Scattered colonic diverticula without acute diverticulitis. No evidence for bowel obstruction. Adjacent to the right side of the distal rectum, there is a heterogeneous oblong/irregular fluid collection containing fluid and small locules of air with moderate surrounding inflammatory stranding and a small amount of reactive pelvic free fluid. This measures approximately 3.7 cm x 1.9 cm in transverse dimension and 6.2 cm in AP dimension. There is incomplete enhancement. There is suggestion of a small separate component extending more cephalad and in close proximity to the anterior margin of the L5-S1 interspace. This may represent a decompressed loop of distal sigmoid colon with associated inflammatory stranding. Nodes and vessels: No retroperitoneal or mesenteric adenopathy by size criteria. Aorta and inferior vena cava are normal in size. Miscellaneous: No ventral hernias. PELVIS: Genitourinary: Bladder wall thickness is normal. Miscellaneous: No inguinal hernias or adenopathy. Bones: No suspicious bony lesions. No vertebral body compression fractures. IMPRESSION: 1. There is a 3.7 x 1.9 x 6.2 cm heterogeneous fluid collection adjacent to the right side of the proximal rectum and rectosigmoid junction, abutting the wall of the bowel. There is suggestion of a few locules of air. There is incomplete rim enhancement. Findings may represent phlegmon versus early abscess formation at the colorectal junction. There is also a second focus of inflammatory fluid with air extending from the colorectal junction to the anterior margin of the proximal sacrum near the level of L5-S1 which may represent another focus of phlegmon versus early abscess formation. There is moderate surrounding inflammatory stranding. Of note, patient reports recent colorectal mesh repair in the region for rectal prolapse. 2. Multiple hepatic hypodensities too small to accurately characterize but likely represent cysts versus hemangiomas. 3. Postoperative changes from previous hemicolectomy in the right lower abdomen. 4. Other chronic findings as above. Findings discussed with ordering provider, Jonathan Laird. Recommend surgical consultation. Dictated by: Oj Armijo M.D. on 07/28/2019 at 13:17 Approved by: Oj Armijo M.D. on 07/28/2019 at 13:45 [facility] [place] Narrative Medical decision making narrative: This patient had post surgical procedure of ventral mesh rectopexy repair done on 06/25/2019. She was doing relatively well and had a 1st follow-up postop appointment with PA at the office. According to the record, she had expressed mild weakness on her bilateral legs with sacrum/coccyx discomfort and MRI has been scheduled in 4 days to evaluate this. Since then, patient is having increasing discomfort on her sacrum/coccyx region with generalize not feeling well with mild fever and chills and nausea. Lab test shows white count of 13.5 with neutrophil of 9600. The potassium was 3.1 and he was replaced with 40 mEq of p.o. KCl. It showed +70 leukocytes esterase in her urine and and micro urine test shows few bacteria and is being cultured at this time. CT of abdomen pelvis test was done and radiologist you call the ED to inform that There is a 3.7 x 1.9 x 6.2 cm heterogeneous fluid collection adjacent to the right side of the proximal rectum and rectosigmoid junction, abutting the wall of the bowel. There is suggestion of a few locules of air. Also, a second focus of inflammatory fluid with air extending from the colorectal junction to the anterior margin of the proximal sacrum near the level of L5-S1 which may represent another focus of phlegmon versus early abscess formation. Dr. Donaldson, [facility] general surgeon, was contacted and was suggested to contact [facility] where she had a surgical procedure done to follow-up. Dr. Amezcua at [facility] kindly accepted the patient to manage her condition. Patient is being medicated with IV Flagyl, Zosyn and gentle hydration. Patient was medicated with Zofran and told are for discomfort which improved her nausea and discomfort at this time. Patient and significant other informed of CT findings and they both agree with treatment and transfer plan. All require paper documentation been completed and waiting for transfer team to arrive around at 5:30 p.m.. <Ashwini Stovall, DO - Last Filed: 07/30/19 18:37> Lab Data Labs: Lab Results 07/28/19 07/28/19 07/28/19 Range/Units 11:40 11:40 11:40 WBC 13.5 H (4.5-11.0) X10^3/uL RBC 4.04 (4.0-5.2) X10^6/uL Hgb 12.2 (12.0-16.0) g/dL Hct 36.2 (36-46) % MCV 89.6 (80-100) fL MCH 30.1 (26-34) PG MCHC 33.6 (30-36) % RDW 13.2 (11.6-14.8) % Plt Count 325 (150-400) X10^3/uL Neut % (Auto) 71.5 (50-75) % Lymph % (Auto) 16.9 L (25-40) % [place] % (Auto) 10.0 (3-14) % Eos % (Auto) 1.0 L (2-4) % Baso % (Auto) 0.6 (0-2) % Neut # (Auto) 9600 H (0507-6311) /uL Lymph # (Auto) 2300 (7591-0483) /uL [place] # (Auto) 1300 H (0-900) /uL Eos # (Auto) 100 (0-450) /uL Baso # (Auto) 100 (0-100) /uL PT 12.2 (10.1-12.7) SECONDS INR 1.1 (0.9-1.3) APTT 28 (26.4-36.2) SECONDS Sodium 141 (137-145) mmol/L Potassium 3.1 L (3.4-5.1) mmol/L Chloride 100 (98-107) mmol/L Carbon Dioxide 27 (22-32) mmol/L BUN 16 (7-17) mg/dL Creatinine 0.50 L (0.52-1.04) mg/dL Estimated GFR > 60.0 (>60) mL/min BUN/Creatinine Ratio 32.0 H (6-22) Glucose 105 H (70-100) mg/dL Lactate (0.7-2.1) mmol/L Calcium 10.2 (8.4-10.2) mg/dL Total Bilirubin 0.5 (0.2-1.3) mg/dL AST 16 (14-36) IU/L ALT 15 (9-52) IU/L Alkaline Phosphatase 70 (38-126) U/L Total Protein 7.6 (6.3-8.2) g/dL Albumin 4.2 (3.5-5.0) g/dL Globulin 3.4 (1.7-4.1) g/dL Albumin/Globulin Ratio 1.2 (1.0-2.8) Lipase 54 (23-300) U/L Urine RBC (0-5/HPF) Urine WBC (0-5/HPF) Ur Squamous Epith Cells (0-5/HPF) Urine Bacteria (None) Ur Culture Indicated? 07/28/19 07/28/19 Range/Units 11:40 12:50 WBC (4.5-11.0) X10^3/uL RBC (4.0-5.2) X10^6/uL Hgb (12.0-16.0) g/dL Hct (36-46) % MCV (80-100) fL MCH (26-34) PG MCHC (30-36) % RDW (11.6-14.8) % Plt Count (150-400) X10^3/uL Neut % (Auto) (50-75) % Lymph % (Auto) (25-40) % [place] % (Auto) (3-14) % Eos % (Auto) (2-4) % Baso % (Auto) (0-2) % Neut # (Auto) (6899-5011) /uL Lymph # (Auto) (9657-3798) /uL [place] # (Auto) (0-900) /uL Eos # (Auto) (0-450) /uL Baso # (Auto) (0-100) /uL PT (10.1-12.7) SECONDS INR (0.9-1.3) APTT (26.4-36.2) SECONDS Sodium (137-145) mmol/L Potassium (3.4-5.1) mmol/L Chloride (98-107) mmol/L Carbon Dioxide (22-32) mmol/L BUN (7-17) mg/dL Creatinine (0.52-1.04) mg/dL Estimated GFR (>60) mL/min BUN/Creatinine Ratio (6-22) Glucose (70-100) mg/dL Lactate 1.2 (0.7-2.1) mmol/L Calcium (8.4-10.2) mg/dL Total Bilirubin (0.2-1.3) mg/dL AST (14-36) IU/L ALT (9-52) IU/L Alkaline Phosphatase (38-126) U/L Total Protein (6.3-8.2) g/dL Albumin (3.5-5.0) g/dL Globulin (1.7-4.1) g/dL Albumin/Globulin Ratio (1.0-2.8) Lipase (23-300) U/L Urine RBC 1-5/hpf (0-5/HPF) Urine WBC 1-5/hpf (0-5/HPF) Ur Squamous Epith Cells 1-5 /hpf (0-5/HPF) Urine Bacteria Few (2-10) H (None) Ur Culture Indicated? Specimen cultured Point of care testing: Urine Dip Bedside Urine Glucose Negative Bedside Urine Bilirubin - Negative Bedside Urine Ketone - Negative Urine Specific [place] 1.005 Bedside Urine Occult Blood + Bedside Urine pH 6.0 Bedside Urine Protein - Negative Bedside Urine Urobilinogen - Negative Bedside Urine Nitrite - Negative Bedside Urine Leukocytes + 70 Esterase Discharge Plan Departure Patient Disposition: [facility] Clinical Impression: Abscess after procedure Postoperative surgical complication involving digestive system associated with digestive system procedure Qualifiers: Surgical complication type: unspecified Qualified Code(s): K91.89 - Other postprocedural complications and disorders of digestive system Discharge Date/Time: 07/28/19 17:28 Instructions: DI for Abdominal Pain-Adult Prescriptions: No Action nortriptyline 10 mg capsule 10 mg PO BEDTIME RF: 0 pilocarpine HCl 5 mg tablet 5 mg PO QID Qty: 120 RF: 2 Flovent HFA 110 mcg/actuation HFA aerosol inhaler 1 puff INHALATION BID Qty: 12 RF: 2 Acetaminophen/Aspirin/Caffei (#EXCEDRIN 250 MG-250 MG-65 MG) 1 tab PO QDAY Qty: 0 RF: 0 hyoscyamine sulfate 0.125 mg tablet,disintegrating 0.125 mg Sublingual PRN PRN (Reason: cramps) Qty: 50 RF: 1 levothyroxine [Synthroid] 75 mcg tablet 75 mcg PO QAM Qty: 90 RF: 1 duloxetine 60 mg capsule,delayed release(DR/EC) 60 mg PO DAILY Qty: 90 RF: 3 albuterol sulfate [Ventolin HFA] 90 mcg/actuation HFA aerosol inhaler 2 puff INHALATION Q4-6H PRN (Reason: cough) Qty: 18 RF: 0 atorvastatin [Lipitor] 10 mg tablet 10 mg PO HS Qty: 90 RF: 3 duloxetine 30 mg capsule,delayed release(DR/EC) 30 mg PO DAILY RF: 0 nortriptyline 25 mg capsule 25 mg PO BEDTIME RF: 0 dextroamphetamine-amphetamine [Adderall XR] 15 mg capsule,extended release 24hr 15 mg PO QPM RF: 0 pantoprazole 40 mg tablet,delayed release (DR/EC) 40 mg PO DAILY Qty: 90 RF: 3 dextroamphetamine-amphetamine [Adderall XR] 15 mg capsule,extended release 24hr 30 mg PO QAM RF: 0 Referrals: Li Avila MD [Primary Care Provider] -
[2019-07-28] MEDS: PIPERACILLIN-TAZO 3.375 GM/50 ML FROZ.PIGGY IV (15:27)
[2019-07-28] MEDS: metroNIDAZOLE 500 MG/100 ML PIGGYBACK 100 MG IV (16:14)
[2019-07-28] MEDS: SODIUM CHLORIDE 0.9% 1,000 ML 150 ML IV (17:00)
== END 2019-07-28 17:28 | disposition short-term general hospital (02) ==
PROVIDERS: Emergency Medicine; Emergency Provider Nurse Practitioner Family; Family Provider General Practice; PCP Family Medicine
DX: T81.49XA Infection following a procedure, other surgical site, initial encounter (principal); K91.89 Other postprocedural complications and disorders of digestive system
CPT/HCPCS: 36591; 74177; 80053; 81003; 81015; 83605; 83690; 85025; 85610; 85730; 87086; 96365; 96367; 96375; 99284; 99285; J1885; J2543; Q9967

== ENCOUNTER 2019-11-07 09:44 | Emergency (ER) | payer OTHER, SELFPAY ==
[2019-11-07] VITALS (7 sets, daily range): BP systolic 105–131; BP diastolic 56–71; PULSE 87–101; RESP 16; TEMP 36.9; O2SAT 96–100; BMI 29.1
[2019-11-07] MEDS: KETOROLAC 60 MG/2 ML VIAL 30 MG IV (12:06)
[2019-11-07] MEDS: ACETAMINOPHEN 325 MG TABLET 650 MG PO (12:06)
--- NOTE | 2019-11-07 12:10 | DI.MRI.S_ITS ---
PROCEDURE: MR LUMBAR SPINE WO/W CON INDICATIONS: leg weakness, urinary incontinence, severe pain in L sacrum TECHNIQUE: Noncontrast sagittal T1 spin echo and T2 fast spin echo, sagittal STIR, axial T1 and T2 fast spin echo through the lumbar spine. In cases with scoliosis, additional coronal T2 fast spin echo may be performed. After the administration of contrast, sagittal and axial T1 spin echo with fat saturation through the lumbar spine. COMPARISON: [facility], CT, CT KUB, 10/26/2019, 16:51. [facility], CT, CT PELVIS WITH CONTRAST, 08/15/2019, 12:59. [facility], MR, MR LUMBAR SPINE WITH/WITHOUT CONTRAST, 08/01/2019, 13:50. FINDINGS: Image quality: Excellent. Alignment and curvature: Trace anterolisthesis of L3 on 4. Marrow: New abnormal marrow edema and enhancement anteriorly in L5 and S1. Spinal cord: Conus medullaris terminates at the L1 level. Visualized spinal cord demonstrates normal signal, without suspicious enhancement. Paraspinous soft tissues: There has been interval development of increased enhancement along the ventral thecal sac at the L5-S1 level. There is chronic enhancement and postsurgical changes at the apex of the rectum which is in close proximity with the anterior aspect of S1. Mild enhancement along the presacral fascia is present. L1-L2: Normal appearance. L2-L3: Minor disc desiccation and circumferential disc bulge.. L3-L4: Trace anterolisthesis, mild disc height loss and desiccation. Moderate facet arthropathy and central canal stenosis. L4-L5: Mild disc height loss and broad-based right lateral/foraminal disc bulge resulting in mild right lateral recess and foraminal narrowing. Moderate facet arthropathy. L5-S1: The disc height is preserved. There has been interval development of bone edema along the anterior aspect of L5 and S1 as well as diffusely along the endplates. Mild circumferential disc bulge. Mild irregularity of the disc margin and moderate enhancement in the ruby-disc soft tissues including the ventral epidural fat. Mild enhancement extends along the exiting L5 nerve root sheaths, left greater than right. There is no mass effect on the lateral recess nerve roots or thecal sac. No discrete epidural fluid collection. IMPRESSION: 1. Marrow signal changes and enhancement suspicious for discitis/osteomyelitis involving the L5-S1 level. 2. There is enhancement along the posterior aspect of vertebral bodies at this level without mass effect, thecal sac, or nerve root compression. No definite epidural abscess at this point. 3. There are chronic inflammatory changes seen in the posterior pelvis including the rectum which may indicate an underlying etiology for potential infection. 4. Degenerative facet arthropathy mainly at the L3-4 and L4-5 levels without significant progression. 5. Findings called to MARTIN Gross in the emergency room at 1340 hrs. Dictated by: Rosio Golden M.D. on 11/07/2019 at 13:28 Approved by: Rosio Golden M.D. on 11/07/2019 at 13:55
--- NOTE | 2019-11-07 12:13 | PC.NURSE ---
Attempt to administer ordered medications. Pt cries when i tell her she is getting Tylenol. I explain that it will work in conjunction with the Tordol for her pain and that she can try the two together and we will reassess her pain after they have some time to work. Pt states she feels like she isn't getting what she wants and is not receiving the care she wants. I told her that the provider did order medications to help with her pain and that she did order the MRI as requested. Pt requests food and water because she hasn't eaten. I provided her with crackers and water and let her know we need to wait for the imaging prior to having anything else. pt verbalizes understanding of above and still continues to cry. I informed her will will reassess her pain in 30 minutes.
[2019-11-07 12:22] LABS: Add Manual Diff / Slide Review NO; Basophils Absolute Auto 100 /uL (0-100); Basophils Percent Auto 0.8 % (0-2); Eosinophils Absolute Auto 300 /uL (0-450); Eosinophils Percent Auto 2.6 % (2-4); Hematocrit 34.1 % (36-46); Hemoglobin 11.2 g/dL (12.0-16.0); Lymphocytes Absolute Auto 2300 /uL (1100-4500); Lymphocytes Percent Auto 21.5 % (25-40); Mean Corpuscular HGB Conc 32.9 % (30-36); Mean Corpuscular Hemoglobin 28.9 PG (26-34); Mean Corpuscular Volume 87.8 fL (80-100); Monocytes Absolute Auto 800 /uL (0-900); Monocytes Percent Auto 7.7 % (3-14); Neutrophils Absolute Auto 7200 /uL (1500-7000); Neutrophils Percent Auto 67.4 % (50-75); Platelet Count 488 X10^3/uL (150-400); Red Blood Cell Count 3.88 X10^6/uL (4.0-5.2); Red Cell Distribution Width 13.6 % (11.6-14.8); White Blood Cell Count 10.6 X10^3/uL (4.5-11.0)
[2019-11-07 12:27] LABS: Blood Urea Nitrogen 19 mg/dL (7-17); Calcium 9.1 mg/dL (8.4-10.2); Carbon Dioxide 29 mmol/L (22-32); Chloride 103 mmol/L (98-107); Estimated Glomerular Filt Rate > 60.0 mL/min (>60); Glucose 107 mg/dL (70-100); HEMOLYSIS < 15 (0-50); Potassium 4.1 mmol/L (3.4-5.1); Sodium 138 mmol/L (137-145)
--- NOTE | 2019-11-07 13:45 | ED_ITS ---
HPI - Back Pain/Injury <MARTIN Gross - Last Filed: 11/07/19 18:52> General Chief Complaint: Back Pain/Injury Stated Complaint: Back pain Time Seen by Provider: 11/07/19 11:35 Source: patient and EMS Mode of arrival: EMS Limitations: no limitations History of Present Illness HPI Narrative: This is a 54-year-old female, nonsmoker, who presents to ED with excruciating tailbone pain, worse in Left side, which has been going on for last several weeks. Patient reports pain increases with movement, sitting and even coughing. Patient reports occasional discomfort in right groin area. Patient reports increasing numbness to bilateral lower extremities. Patient reports she used to have leaky bladder but appears to be this is gotten worse and she has some urinary incontinence at times. Patient states it has been takes about 3 hours for her to get out of bed in the morning and has been using her 's walker at home due to pain. Patient denies fever, chills, nausea or vomiting. Patient just recently stop taking gabapentin due to it was causing bilateral foot burning sensation and also amitriptyline for fibromyalgia or symptoms. Patient reports nothing helps with the pain and she has been taking ibuprofen 800 mg as needed for pain which she started about 1.5 day ago. Patient has multiple abdominal surgeries in the past including appendectomy, hysterectomy, chronic IBS and recent ventral mesh rectopexy repair in 06/25/19 at [facility]. Patient states her back pain gotten worse after about a month after this surgery. Patient states she has an follow-up appointment with Dr. Dye at [facility] at the end of November and has Lumbar MRI order inplaced at [facility] a couple of days ago for this pain. Related Data Home Medications Medication Instructions Recorded Confirmed lisdexamfetamine 60 mg capsule 60 mg PO DAILY 08/30/19 11/07/19 atorvastatin [Lipitor] 10 mg PO BEDTIME 11/07/19 11/07/19 levothyroxine 75 mcg PO DAILY 11/07/19 11/07/19 Previous Rx's Medication Instructions Recorded duloxetine 60 mg capsule,delayed 60 mg PO DAILY #90 cap 02/08/19 release albuterol sulfate 90 mcg/actuation 2 puff INHALATION Q4-6H PRN #18 02/25/19 aerosol inhaler gram fluticasone propionate 110 1 puff INHALATION BID #12 gram 03/06/19 mcg/actuation HFA aerosol inhaler hyoscyamine sulfate 0.125 mg 0.125 mg SUBLINGUAL PRN PRN #50 tab 08/30/19 disintegrating tablet pantoprazole 40 mg tablet,delayed 40 mg PO DAILY #90 tab 08/30/19 release pilocarpine HCl 5 mg tablet 5 mg PO QID #120 tab 08/30/19 Allergies Allergy/AdvReac Type Severity Reaction Status Date / Time adhesive [ADHESIVE] Allergy Unknown rash Unverified 08/30/19 13:49 COLONOSCOPY PREP Allergy Severe ITCHING Uncoded 08/30/19 13:49 Review of Systems <MARTIN Gross - Last Filed: 11/07/19 18:52> Review of Systems Narrative: General: Denies fever, chills, fatigue, malaise, sweats. HEENT: Denies sinus pain, ear pain, sore throat, difficulty swallowing, dizziness. Respiratory: Denies dyspnea, cough, wheezing, hemoptysis, sputum. Cardiovascular: Denies chest pain, palpitations, orthopnea, edema. Gastrointestinal: Denies nausea, vomiting, abdominal pain, diarrhea, constipation, melena. : Denies dysuria, frequency, incontinence, hematuria, urinary retention. Musculoskeletal: See HPI Skin: Denies rash, skin lesions, or other. Neurologic: Denies weakness, headache, numbness, change in speech, confusion, seizures, incoordination. Psychiatric: No concerning psychosocial issues. 12-point review of systems is negative except for those stated above. Patient History <MARTIN Gross - Last Filed: 11/07/19 18:52> Medical History (Updated 11/07/19 @ 18:00 by MARTIN Gross) Abnormal Pap smear of cervix (Resolved 1995) Acne (Chronic 1975) ADHD (attention deficit hyperactivity disorder) (Chronic 1962) Anxiety (Chronic 1998) Back tightness (Chronic) Chicken pox (Resolved) Chronic back pain (Chronic 1994) Chronic headaches (Chronic 1991) Colon polyps (Resolved) Depression (Chronic 1998) Fibromyalgia (Chronic 1997) GERD (gastroesophageal reflux disease) (Chronic 1997) Hayfever (Chronic ~1991) Hearing loss (Chronic 2011) Hypothyroidism (Chronic ~2003) IBS (irritable bowel syndrome) (Chronic 1962) Insomnia (Chronic 06/21/16) Migraines (Chronic 2009) Neck tightness (Chronic) Obstructive sleep apnea of adult (Chronic) Plantar warts (Chronic 1991) Precancerous changes of the cervix (Resolved 1995) Prolapse of intestine (Acute) Shoulder pain (Chronic 1994) Villous adenoma of right colon (Resolved 2010) Surgical History Anesthesia (Resolved) History of colonoscopy (Resolved 08/2012) History of partial colectomy (Resolved 2010) History of rectopexy (Acute) Status post appendectomy (Resolved) Status post colectomy (2012) Status post vaginal hysterectomy (Resolved 1995) Family History Brother Coronary artery disease Father Coronary artery disease Grandfather Stroke Grandmother Cancer Colon cancer Mother Cancer Mental health problem Anxiety Dementia Fibromyalgia Colon cancer Grandmother Diabetes mellitus Grandfather No problems noted. Family/Other Colon cancer Social History marital status: details: rebecca Parson number of children: 2 household members: spouse lives independently: Yes caregiver/support person: No housing: house Smoking Status: Never smoker substance use type: does not use additional social history: Eb is wheelchair bound with Multiple Sclerosis. Patient's best friend this year. Smoking Status: Never smoker Substance Use Type: does not use Exam <MARTIN Gross - Last Filed: 11/07/19 18:52> Narrative Exam Narrative: GEN: Alert, oriented x 3, well appearing and nourished, and in no acute distress. Head: Normal cephalic, atraumatic. No scalp or temporal tenderness, palpable mass or rash. EYES: Pupils are equal, round, and reactive to light and accommodation. Extraocular muscles are intact bilaterally. There is no subconjunctival hemorrhage, exudate and sclera non-icteric. ENT: Bilateral auditory canals and tympanic membranes clear. Hearing grossly intact. Nose without bleeding, purulent discharge or deviation. Facial sinuses nontender to palpate. Mucous membrane moist, no mucosal lesion. Throat without erythema, tonsillar hypertrophy or exudate. Uvula in midline, airway patent. Neck: Trachea in midline. No JVD, non-tender without lymphadenopathy. No masses or thyroid megaly. Supple, non-tender and no meningeal signs. CARDIAC: Normal regular rate and rhythm without murmurs, gallops, or rubs. No chest wall tenderness. No peripheral edema, cyanosis or pallor. Capillary refill is less than 2 seconds. RESPIRATORY: Lungs are clear to auscultate bilaterally. No cough, wheezes, rale s, or rhonchi. No stridor, respiratory distress, increase work of breathing, or accessary muscle used. ABD: Abdomen soft, nontender and non-distended. No guarding or rebound tenderness to palpate. Bowel sounds are normal in all 4 quadrants. There is no palpable masses or organomegaly. EXT: Full painless ROM of all extremities with no loss of sensation, strength, effusion or edema. SKIN: Warm, dry, normal color for patient. No erythema, lesions or rash over visible areas. BACK: Tender on L sacrum to palpate without deformity or crepitance. No erythema, warmth, swelling noted. No flank tenderness. NEUROLOGICAL: Alert and oriented to place, time and person. Sensation and motor function intact bilaterally. No facial droops, dysphasia. PSYCHIATRIC: Good judgement and reason, without hallucinations, abnormal affect or abnormal behaviors during the examination. Patient is not suicidal. Initial Vital Signs Initial Vital Signs: Vital Signs Temperature 98.5 F 11/07/19 09:56 Pulse Rate 87 11/07/19 09:56 Respiratory Rate 16 11/07/19 09:56 Blood Pressure 114/61 11/07/19 09:56 Pulse Oximetry 97 11/07/19 09:56 <Ruma Esteves DO - Last Filed: 11/08/19 07:33> Initial Vital Signs Initial Vital Signs: Vital Signs Temperature 98.5 F 11/07/19 09:56 Pulse Rate 87 11/07/19 09:56 Respiratory Rate 16 11/07/19 09:56 Blood Pressure 114/61 11/07/19 09:56 Pulse Oximetry 97 11/07/19 09:56 Course <MARTIN Gross - Last Filed: 11/07/19 18:52> Course Course Narrative: Dr. Golden Radiologist called to inform MRI Lumbar test result concerning Discitis and Osteomylitis and changes noticed per MRI from 07/2019. Decision to Admit time: 13:46 Orders Ordered: Discontinued Medications Acetaminophen (Tylenol) 650 mg PO NOW ONE Stop: 11/07/19 12:00 Last Admin: 11/07/19 12:06 Dose: 650 mg Documented by: STEFF Diphenhydramine HCl (Benadryl) 25 mg IV NOW ONE Stop: 11/07/19 16:05 Last Admin: 11/07/19 16:07 Dose: 25 mg Documented by: STEFF Hydromorphone HCl (Dilaudid) 0.5 mg IV NOW ONE Stop: 11/07/19 16:05 Last Admin: 11/07/19 16:08 Dose: 0.5 mg Documented by: STEFF Sodium Chloride (Normal Saline 0.9%) 1,000 mls @ 150 mls/hr IV CONT URSULA Last Infusion: 11/07/19 18:00 Dose: 0 mls/hr Documented by: Admin: 11/07/19 14:09 Dose: 150 mls/hr Documented by: STEFF Ketorolac Tromethamine (Toradol) 30 mg IV NOW ONE Stop: 11/07/19 12:00 Last Admin: 11/07/19 12:06 Dose: 30 mg Documented by: STEFF Morphine Sulfate (Morphine) 4 mg IV NOW ONE Stop: 11/07/19 14:01 Last Admin: 11/07/19 14:10 Dose: 4 mg Documented by: STEFF Consultations Consultation #1: Dr. Borden informed about the MRI findings over the phone. He called back after speaking with back specialist and suggested that it'd be beneficial to have CT guided biopsy which [facility] does not offer. Contacted [facility] and spoke with DR. Escobar, hospitalist and instructed to call IR department. Spoke with Dr. Loya as IR in [facility]. After reviewing the MRI, he was suggested that the procedure could be done tomorrow and Dr. Loya would like to speak with Dr. Escobar directly to inform Dr. Escobar how to order the test for tomorrow. No IV antibiotic medication administration until the biopsy per Dr. escobar at this time. Vital Signs Vital signs: Vital Signs - 8 hr 11/07/19 11:00 11/07/19 12:00 11/07/19 13:10 Pulse Rate 88 88 101 H Blood Pressure [Left Arm] 116/66 131/71 117/70 Pulse Oximetry 100 99 98 11/07/19 13:30 11/07/19 15:00 11/07/19 16:30 Pulse Rate 90 89 89 Blood Pressure [Left Arm] 110/61 112/56 L 105/62 Pulse Oximetry 99 98 96 <Ruma Esteves, DO - Last Filed: 11/08/19 07:33> Orders Ordered: Discontinued Medications Acetaminophen (Tylenol) 650 mg PO NOW ONE Stop: 11/07/19 12:00 Last Admin: 11/07/19 12:06 Dose: 650 mg Documented by: STEFF Diphenhydramine HCl (Benadryl) 25 mg IV NOW ONE Stop: 11/07/19 16:05 Last Admin: 11/07/19 16:07 Dose: 25 mg Documented by: STEFF Hydromorphone HCl (Dilaudid) 0.5 mg IV NOW ONE Stop: 11/07/19 16:05 Last Admin: 11/07/19 16:08 Dose: 0.5 mg Documented by: STEFF Sodium Chloride (Normal Saline 0.9%) 1,000 mls @ 150 mls/hr IV CONT URSULA Last Infusion: 11/07/19 18:00 Dose: 0 mls/hr Documented by: Admin: 11/07/19 14:09 Dose: 150 mls/hr Documented by: STEFF Ketorolac Tromethamine (Toradol) 30 mg IV NOW ONE Stop: 11/07/19 12:00 Last Admin: 11/07/19 12:06 Dose: 30 mg Documented by: STEFF Morphine Sulfate (Morphine) 4 mg IV NOW ONE Stop: 11/07/19 14:01 Last Admin: 11/07/19 14:10 Dose: 4 mg Documented by: STEFF Vital Signs Vital signs: Vital Signs - 8 hr 11/07/19 11:00 11/07/19 12:00 11/07/19 13:10 Pulse Rate 88 88 101 H Blood Pressure [Left Arm] 116/66 131/71 117/70 Pulse Oximetry 100 99 98 11/07/19 13:30 11/07/19 15:00 11/07/19 16:30 Pulse Rate 90 89 89 Blood Pressure [Left Arm] 110/61 112/56 L 105/62 Pulse Oximetry 99 98 96 MDM - Back Pain/Injury <Jonathan Laird [employer] PRODUCT ADVISOR - Last Filed: 11/07/19 18:52> Differential Diagnosis Differential diagnosis: Likely lumbar radiculopathy and other (lumbar/sacral hemotoma, abcess) Medical Records Attestation: I reviewed the patient's medical records. Lab Data Attestation: I reviewed the patient's lab results. Result diagrams: 11/07/19 09:50 11/07/19 09:50 Labs: Lab Results 11/07/19 11/07/19 11/07/19 Range/Units 09:50 09:50 14:07 WBC 10.6 (4.5-11.0) X10^3/uL RBC 3.88 L (4.0-5.2) X10^6/uL Hgb 11.2 L (12.0-16.0) g/dL Hct 34.1 L (36-46) % MCV 87.8 (80-100) fL MCH 28.9 (26-34) PG MCHC 32.9 (30-36) % RDW 13.6 (11.6-14.8) % Plt Count 488 H (150-400) X10^3/uL Neut % (Auto) 67.4 (50-75) % Lymph % (Auto) 21.5 L (25-40) % [place] % (Auto) 7.7 (3-14) % Eos % (Auto) 2.6 (2-4) % Baso % (Auto) 0.8 (0-2) % Neut # (Auto) 7200 H (1926-9722) /uL Lymph # (Auto) 2300 (2675-2939) /uL [place] # (Auto) 800 (0-900) /uL Eos # (Auto) 300 (0-450) /uL Baso # (Auto) 100 (0-100) /uL ESR 53 H (0-20) MM/HR Sodium 138 (137-145) mmol/L Potassium 4.1 (3.4-5.1) mmol/L Chloride 103 (98-107) mmol/L Carbon Dioxide 29 (22-32) mmol/L BUN 19 H (7-17) mg/dL Creatinine 0.50 L (0.52-1.04) mg/dL Estimated GFR > 60.0 (>60) mL/min BUN/Creatinine Ratio 38.0 H (6-22) Glucose 107 H (70-100) mg/dL Lactate (0.7-2.1) mmol/L Calcium 9.1 (8.4-10.2) mg/dL C-Reactive Protein (<1.0) mg/dL Procalcitonin (<0.5) ng/mL 11/07/19 11/07/19 11/07/19 Range/Units 14:07 14:07 14:07 WBC (4.5-11.0) X10^3/uL RBC (4.0-5.2) X10^6/uL Hgb (12.0-16.0) g/dL Hct (36-46) % MCV (80-100) fL MCH (26-34) PG MCHC (30-36) % RDW (11.6-14.8) % Plt Count (150-400) X10^3/uL Neut % (Auto) (50-75) % Lymph % (Auto) (25-40) % [place] % (Auto) (3-14) % Eos % (Auto) (2-4) % Baso % (Auto) (0-2) % Neut # (Auto) (5015-5103) /uL Lymph # (Auto) (6873-4636) /uL [place] # (Auto) (0-900) /uL Eos # (Auto) (0-450) /uL Baso # (Auto) (0-100) /uL ESR (0-20) MM/HR Sodium (137-145) mmol/L Potassium (3.4-5.1) mmol/L Chloride (98-107) mmol/L Carbon Dioxide (22-32) mmol/L BUN (7-17) mg/dL Creatinine (0.52-1.04) mg/dL Estimated GFR (>60) mL/min BUN/Creatinine Ratio (6-22) Glucose (70-100) mg/dL Lactate 0.9 (0.7-2.1) mmol/L Calcium (8.4-10.2) mg/dL C-Reactive Protein 6.2 H (<1.0) mg/dL Procalcitonin < 0.05 (<0.5) ng/mL Urine Dip Bedside Urine Glucose Negative Bedside Urine Bilirubin - Negative Bedside Urine Ketone - Negative Urine Specific [place] 1.015 Bedside Urine Occult Blood +/- Bedside Urine pH 8.0 Bedside Urine Protein - Negative Bedside Urine Urobilinogen - Negative Bedside Urine Nitrite - Negative Bedside Urine Leukocytes - Negative Esterase Imaging Data MRI Lumbar w/ and w/o : Radiologist's Impression: [address] [address] Magnetic Resonance Report Signed Patient: Gracy Benites LMR#: [id number] : 1965Acct:[id number] Age/Sex: 54 / FDate of Service: 11/07/19 Loc: ED Accession Number: [id number] Procedure: MR lumbar spine wo/w con Ordering Provider: Jonathan Laird PROCEDURE: MR LUMBAR SPINE WO/W CON INDICATIONS: leg weakness, urinary incontinence, severe pain in L sacrum TECHNIQUE: Noncontrast sagittal T1 spin echo and T2 fast spin echo, sagittal STIR, axial T1 and T2 fast spin echo through the lumbar spine. In cases with scoliosis, additional coronal T2 fast spin echo may be performed. After the administration of contrast, sagittal and axial T1 spin echo with fat saturation through the lumbar spine. COMPARISON: [facility], CT, CT KUB, 10/26/2019, 16:51. [facility], CT, CT PELVIS WITH CONTRAST, 08/15/2019, 12:59. [facility], MR, MR LUMBAR SPINE WITH/WITHOUT CONTRAST, 08/01/2019, 13:50. FINDINGS: Image quality: Excellent. Alignment and curvature: Trace anterolisthesis of L3 on 4. Marrow: New abnormal marrow edema and enhancement anteriorly in L5 and S1. Spinal cord: Conus medullaris terminates at the L1 level. Visualized spinal cord demonstrates normal signal, without suspicious enhancement. Paraspinous soft tissues: There has been interval development of increased enhancement along the ventral thecal sac at the L5-S1 level. There is chronic enhancement and postsurgical changes at the apex of the rectum which is in close proximity with the anterior aspect of S1. Mild enhancement along the presacral fascia is present. L1-L2: Normal appearance. L2-L3: Minor disc desiccation and circumferential disc bulge.. L3-L4: Trace anterolisthesis, mild disc height loss and desiccation. Moderate facet arthropathy and central canal stenosis. L4-L5: Mild disc height loss and broad-based right lateral/foraminal disc bulge resulting in mild right lateral recess and foraminal narrowing. Moderate facet arthropathy. L5-S1: The disc height is preserved. There has been interval development of bone edema along the anterior aspect of L5 and S1 as well as diffusely along the endplates. Mild circumferential disc bulge. Mild irregularity of the disc margin and moderate enhancement in the ruby-disc soft tissues including the ventral epidural fat. Mild enhancement extends along the exiting L5 nerve root sheaths, left greater than right. There is no mass effect on the lateral recess nerve roots or thecal sac. No discrete epidural fluid collection. IMPRESSION: 1. Marrow signal changes and enhancement suspicious for discitis/osteomyelitis involving the L5-S1 level. 2. There is enhancement along the posterior aspect of vertebral bodies at this l evel without mass effect, thecal sac, or nerve root compression. No definite epidural abscess at this point. 3. There are chronic inflammatory changes seen in the posterior pelvis including the rectum which may indicate an underlying etiology for potential infection. 4. Degenerative facet arthropathy mainly at the L3-4 and L4-5 levels without significant progression. 5. Findings called to MARTIN Gross in the emergency room at 1340 hrs. Dictated by: Rosio Golden M.D. on 11/07/2019 at 13:28 Approved by: Rosio Golden M.D. on 11/07/2019 at 13:55 MDM Narrative Medical decision making narrative: This is a 54-year-old female who return to ED with similar pain in her sacrum area from 3 months ago but this has been worse last several days so much that she is difficult time getting out of bed or with ambulation.. Patient reports her pain has been excruciating, increased bilateral leg weakness and urinary incontinence. Patient denies constitutional symptoms. Patient had multiple occasions of CT and MRI test done in the past. Dr. Dye at [facility] ordered Lumbar MRI for the patient to f/u and has a f/u appointment at the end of November. Patient has history of IBS, ventral mesh rectopexy repair in 06/25/19 at [facility]. Today's lab test shows mildly decreased H/H of 11.2 and 34.1; neutrophils 7200. Chemistry test was unremarkable. CRP was 6.2 and ESR of 53 and normal lactate and procalcitonin. Lumbar MRI test showed marrow signal changes and enhancement of suspicious for diskitis versus osteomyelitis involving L5 through S1. There was no obvious mass noted. There is chronic inflammatory changes seen in the posterior pelvis including in the rectum area which may indicating underlying etiology for potential infection. Findings were discussed with Dr. Borden (orthopedist) and he had contacted medical logistics specialist prior to giving me a call back. Dr. Borden suggested CT guided biopsy on affected site for a proper treatment. Dr. Escobar at [facility] consulted and he kindly accepted patient's care with understanding of IR procedure tomorrow by Dr. Loya for disc aspiration. Patient's vital signs has been stable and afebrile. IV antibiotic medication is held till tomorrow's see procedure. Patient verbalized understanding with the care plan and agrees with the transfer to [facility] for further testing. All required documents has been completed. <Ruma Esteves, DO - Last Filed: 11/08/19 07:33> Lab Data Labs: Lab Results 11/07/19 11/07/19 11/07/19 Range/Units 09:50 09:50 14:07 WBC 10.6 (4.5-11.0) X10^3/uL RBC 3.88 L (4.0-5.2) X10^6/uL Hgb 11.2 L (12.0-16.0) g/dL Hct 34.1 L (36-46) % MCV 87.8 (80-100) fL MCH 28.9 (26-34) PG MCHC 32.9 (30-36) % RDW 13.6 (11.6-14.8) % Plt Count 488 H (150-400) X10^3/uL Neut % (Auto) 67.4 (50-75) % Lymph % (Auto) 21.5 L (25-40) % [place] % (Auto) 7.7 (3-14) % Eos % (Auto) 2.6 (2-4) % Baso % (Auto) 0.8 (0-2) % Neut # (Auto) 7200 H (9124-6275) /uL Lymph # (Auto) 2300 (8013-2895) /uL [place] # (Auto) 800 (0-900) /uL Eos # (Auto) 300 (0-450) /uL Baso # (Auto) 100 (0-100) /uL ESR 53 H (0-20) MM/HR Sodium 138 (137-145) mmol/L Potassium 4.1 (3.4-5.1) mmol/L Chloride 103 (98-107) mmol/L Carbon Dioxide 29 (22-32) mmol/L BUN 19 H (7-17) mg/dL Creatinine 0.50 L (0.52-1.04) mg/dL Estimated GFR > 60.0 (>60) mL/min BUN/Creatinine Ratio 38.0 H (6-22) Glucose 107 H (70-100) mg/dL Lactate (0.7-2.1) mmol/L Calcium 9.1 (8.4-10.2) mg/dL C-Reactive Protein (<1.0) mg/dL Procalcitonin (<0.5) ng/mL 11/07/19 11/07/19 11/07/19 Range/Units 14:07 14:07 14:07 WBC (4.5-11.0) X10^3/uL RBC (4.0-5.2) X10^6/uL Hgb (12.0-16.0) g/dL Hct (36-46) % MCV (80-100) fL MCH (26-34) PG MCHC (30-36) % RDW (11.6-14.8) % Plt Count (150-400) X10^3/uL Neut % (Auto) (50-75) % Lymph % (Auto) (25-40) % [place] % (Auto) (3-14) % Eos % (Auto) (2-4) % Baso % (Auto) (0-2) % Neut # (Auto) (2394-5080) /uL Lymph # (Auto) (1106-3030) /uL [place] # (Auto) (0-900) /uL Eos # (Auto) (0-450) /uL Baso # (Auto) (0-100) /uL ESR (0-20) MM/HR Sodium (137-145) mmol/L Potassium (3.4-5.1) mmol/L Chloride (98-107) mmol/L Carbon Dioxide (22-32) mmol/L BUN (7-17) mg/dL Creatinine (0.52-1.04) mg/dL Estimated GFR (>60) mL/min BUN/Creatinine Ratio (6-22) Glucose (70-100) mg/dL Lactate 0.9 (0.7-2.1) mmol/L Calcium (8.4-10.2) mg/dL C-Reactive Protein 6.2 H (<1.0) mg/dL Procalcitonin < 0.05 (<0.5) ng/mL Urine Dip Bedside Urine Glucose Negative Bedside Urine Bilirubin - Negative Bedside Urine Ketone - Negative Urine Specific [place] 1.015 Bedside Urine Occult Blood +/- Bedside Urine pH 8.0 Bedside Urine Protein - Negative Bedside Urine Urobilinogen - Negative Bedside Urine Nitrite - Negative Bedside Urine Leukocytes - Negative Esterase Discharge Plan Departure Patient Disposition: [facility] Clinical Impression: Acute osteomyelitis of lumbar spine Discharge Date/Time: 11/07/19 18:05 Prescriptions: No Action Flovent HFA 110 mcg/actuation HFA aerosol inhaler 1 puff INHALATION BID Qty: 12 RF: 2 Vyvanse 60 mg capsule 60 mg PO DAILY RF: 0 hyoscyamine sulfate 0.125 mg tablet,disintegrating 0.125 mg Sublingual PRN PRN (Reason: cramps) Qty: 50 RF: 1 pilocarpine HCl 5 mg tablet 5 mg PO QID Qty: 120 RF: 2 pantoprazole 40 mg tablet,delayed release (DR/EC) 40 mg PO DAILY Qty: 90 RF: 3 duloxetine 60 mg capsule,delayed release(DR/EC) 60 mg PO DAILY Qty: 90 RF: 3 albuterol sulfate [Ventolin HFA] 90 mcg/actuation HFA aerosol inhaler 2 puff INHALATION Q4-6H PRN (Reason: cough) Qty: 18 RF: 0 atorvastatin [Lipitor] 10 mg tablet 10 mg PO BEDTIME RF: 0 levothyroxine 75 mcg tablet 75 mcg PO DAILY RF: 0 Referrals: Li Avila MD [Primary Care Provider] -
[2019-11-07] MEDS: SODIUM CHLORIDE 0.9% 1,000 ML 150 ML IV (14:09)
[2019-11-07] MEDS: MORPHINE 4 MG/ML INJ IV (14:10)
[2019-11-07 14:29] LABS: Lactate (Lactic Acid) 0.9 mmol/L (0.7-2.1)
[2019-11-07 14:31] LABS: Erythrocyte Sedimentation Rate 53 MM/HR (0-20)
[2019-11-07 14:32] LABS: C-Reactive Protein Quant 6.2 mg/dL (<1.0)
[2019-11-07 14:49] LABS: Procalcitonin < 0.05 ng/mL (<0.5)
[2019-11-07] MEDS: diphenhydrAMINE 50 MG/ML VIAL 25 MG IV (16:07)
[2019-11-07] MEDS: HYDROMORPHONE 0.5 MG INJ IV (16:08)
--- NOTE | 2019-11-07 17:17 | PC.NURSE ---
Pt feeling generalized itching. Jonathan aware,will cotinue to monitor for signs of allergic reaction/ Pt aware to notify of any diffiulty breathing,swalloing or swelling
== END 2019-11-07 18:05 | disposition short-term general hospital (02) ==
PROVIDERS: Emergency Provider Nurse Practitioner Family; Family Provider General Practice; PCP Family Medicine
DX: M46.26 Osteomyelitis of vertebra, lumbar region (principal)
CPT/HCPCS: 36415; 72158; 80048; 81003; 83605; 84145; 85025; 85651; 86140; 87040; 96361; 96374; 96375; 99283; 99284; J1170; J1200; J1885; J2270

== ENCOUNTER → 2020-03-03 15:12 | Outpatient (CLI) | payer OTHER, SELFPAY ==
[2020-03-03 16:17] LABS: Appearance Urine UA CLEAR; Bilirubin Urine UA NEGATIVE (NEGATIVE); Color Urine UA YELLOW; Glucose Urine UA NEGATIVE (Negative); Ketones Urine UA TRACE (NEGATIVE); Leukocyte Esterase Urine UA 1+ (NEGATIVE); Nitrite Urine UA NEGATIVE (Negative); Occult Blood Urine UA 1+ (Negative); Protein Urine UA 1+ (Negative); Specific Gravity Urine UA >=1.030 (1.000-1.035); Urobilinogen Urine UA 0.2 E.U./dL (0.2)
[2020-03-03 16:40] LABS: Bacteria Urine Occasional (0-1); Culture Indicated Urine Specimen Cultured; Mucus Urine 2+ (Negative); RBC Urine 5-10/HPF (0-5/HPF); Squamous Epithelial Cell Urine 1-5 /HPF (0-5/HPF); Transitional Epi Cells Urine 1-5/HPF (0-5/HPF); WBC Urine 10-30/HPF (0-5/HPF)
== END ==
PROVIDERS: Family Provider General Practice; PCP Family Medicine; Referring Provider Family Medicine; Visit Provider Family Medicine
DX: R30.0 Dysuria (principal)
CPT/HCPCS: 81001; 87077; 87086; 87186

== ENCOUNTER → 2020-03-11 15:42 | Outpatient (CLI) | payer OTHER, SELFPAY ==
[2020-03-11 15:57] LABS: Bacteria Urine None Seen
[2020-03-11 16:33] LABS: Appearance Urine UA CLEAR; Bilirubin Urine UA NEGATIVE (NEGATIVE); Color Urine UA YELLOW; Glucose Urine UA NEGATIVE (Negative); Ketones Urine UA TRACE (NEGATIVE); Leukocyte Esterase Urine UA NEGATIVE (NEGATIVE); Nitrite Urine UA NEGATIVE (Negative); Occult Blood Urine UA 1+ (Negative); Protein Urine UA TRACE (Negative); Specific Gravity Urine UA 1.025 (1.000-1.035); Urobilinogen Urine UA 0.2 E.U./dL (0.2)
[2020-03-11 16:56] LABS: Calcium Oxalate Crystals Urine Many; RBC Urine 1-5/HPF (0-5/HPF); Squamous Epithelial Cell Urine 0-1 /HPF (0-5/HPF); WBC Urine 0-1/HPF (0-5/HPF)
[2020-03-11 16:57] LABS: Culture Indicated Urine Cult Not Indicated; Mucus Urine 1+ (Negative)
== END ==
PROVIDERS: Family Provider General Practice; PCP Family Medicine; Referring Provider Family Medicine; Visit Provider Family Medicine
DX: N39.0 Urinary tract infection, site not specified (principal)
CPT/HCPCS: 81001

== ENCOUNTER → 2020-03-17 09:09 | Outpatient (CLI) | payer OTHER, SELFPAY ==
--- NOTE | 2020-03-17 09:10 | DI.US.S_ITS ---
PROCEDURE: US RENAL COMPLETE INDICATIONS: CALCIUM IN URINE TECHNIQUE: Real-time scanning was performed of the kidneys and bladder, with image documentation. COMPARISON: US, ABDOMEN COMPLETE, 07/23/2010, 9:02. [facility], CT, CT KUB, 10/26/2019, 16:51. FINDINGS: Kidneys: Kidneys are normal in size. Right kidney measures 10.6 cm long; left kidney measures 10.6 cm long. Right renal cortical thickness is 1.7 cm; left renal cortical thickness is 1.7 cm. Renal cortical echotexture is normal. No hydronephrosis or nephrolithiasis. No suspicious solid mass lesions. Bladder: Pre-void bladder is empty. On pre-void images, neither ureteral jets are noted with color Doppler interrogation. (Of note, ureteral jets may not be detectable in up to 25% of cases due to insufficient differences in specific gravity between ureteral and bladder urine). Miscellaneous: No free pelvic fluid. IMPRESSION: Normal ultrasound appearance of kidneys. No renal stone or hydronephrosis seen on ultrasound. Dictated by: Hiren Richard M.D. on 03/17/2020 at 14:56 Approved by: Hiren Richard M.D. on 03/17/2020 at 14:59
== END ==
PROVIDERS: Family Provider General Practice; PCP Family Medicine; Referring Provider Family Medicine; Visit Provider Family Medicine
DX: R82.998 Other abnormal findings in urine (principal)
CPT/HCPCS: 76770

== ENCOUNTER → 2020-03-18 11:29 | Outpatient (CLI) | payer OTHER, SELFPAY ==
[2020-03-18 13:26] LABS: Cholesterol 186 mg/dL (140-199); HDL Cholesterol 48 mg/dL (40-60); LDL Cholesterol Calculated 107 mg/dL (<100); Triglycerides 153 mg/dL (35-150)
[2020-03-18 13:52] LABS: Thyroid Stimulating Hormone 0.57 uIU/mL (0.47-4.68)
== END ==
PROVIDERS: Family Provider General Practice; PCP Family Medicine; Referring Provider Family Medicine; Visit Provider Family Medicine
DX: E03.9 Hypothyroidism, unspecified (principal); E78.5 Hyperlipidemia, unspecified
CPT/HCPCS: 36415; 80061; 84443

== ENCOUNTER → 2020-03-26 16:03 | Outpatient (CLI) | payer OTHER, SELFPAY ==
[2020-03-26 17:40] LABS: Add Manual Diff / Slide Review NO; Basophils Absolute Auto 100 /uL (0-100); Basophils Percent Auto 0.9 % (0-2); Eosinophils Absolute Auto 200 /uL (0-450); Eosinophils Percent Auto 2.1 % (2-4); Hematocrit 36.1 % (36-46); Hemoglobin 12.1 g/dL (12.0-16.0); Lymphocytes Absolute Auto 2500 /uL (1100-4500); Lymphocytes Percent Auto 30.9 % (25-40); Mean Corpuscular HGB Conc 33.4 % (30-36); Mean Corpuscular Hemoglobin 28.9 PG (26-34); Mean Corpuscular Volume 86.4 fL (80-100); Monocytes Absolute Auto 600 /uL (0-900); Monocytes Percent Auto 7.7 % (3-14); Neutrophils Absolute Auto 4800 /uL (1500-7000); Neutrophils Percent Auto 58.4 % (50-75); Platelet Count 423 X10^3/uL (150-400); Red Blood Cell Count 4.17 X10^6/uL (4.0-5.2); Red Cell Distribution Width 14.8 % (11.6-14.8); White Blood Cell Count 8.2 X10^3/uL (4.5-11.0)
[2020-03-26 17:59] LABS: C-Reactive Protein Quant < 0.5 mg/dL (<1.0)
[2020-03-26 18:03] LABS: Erythrocyte Sedimentation Rate 21 MM/HR (0-20)
== END ==
PROVIDERS: Family Provider General Practice; PCP Family Medicine; Referring Provider Family Medicine; Visit Provider Family Medicine
DX: R30.0 Dysuria (principal); M46.26 Osteomyelitis of vertebra, lumbar region
CPT/HCPCS: 36415; 85025; 85651; 86140; 87077; 87086; 87186

== ENCOUNTER → 2020-03-31 12:31 | Outpatient (CLI) | payer OTHER, SELFPAY ==
--- NOTE | 2020-03-31 12:34 | DI.MRI.S_ITS ---
PROCEDURE: MR PELVIS WO/W CON INDICATIONS: ongoing coccyx pain, s/p rectoplexy TECHNIQUE: Coronal HASTE, sagittal breath-hold T2 FSE; axial T1 FSE with and without fat saturation through the pelvis. Optional long- and short-axis uterine nonbreath-hold T2 FSE through the uterus. Sagittal or axial dynamic VIBE during administration of contrast. Post-contrast axial or coronal VIBE/2-D FLASH with fat saturation from the iliac crests to the symphysis. Optional diffusion weighted imaging and ADC may be performed. COMPARISON: [facility], MR, MR PELVIS WITH/WITHOUT CONTRAST, 12/25/2019, 14:34. FINDINGS: Image quality: Excellent. Uterus: The uterus is surgically absent. No suspicious fluid collections adjacent to the vaginal cuff. Adnexa: There are probable small diminutive ovaries demonstrated bilaterally. No adnexal masses. Urinary system: The urinary bladder is partially distended. Distal ureters are non distended. Urethra appears normal in morphology. Nodes and vessels: No pelvic or inguinal adenopathy by size criteria. Iliac vessels are normal in size. Bowel and peritoneum: No pathologic free pelvic fluid. There is segmental wall thickening in the sigmoid colon and rectum with mucosal enhancement and mild pericolonic fat stranding. A mildly prominent left mesorectal lymph node measuring up to 0.4 cm is demonstrated. The findings likely represent an infectious or inflammatory colitis. Soft tissues: No inguinal hernias. There is pelvic floor relaxation noted in the absence of provocation. Bones: Marrow demonstrates normal overall signal. At L5-S1, there is persistent irregularity and abnormal enhancement along the endplates, decreased from the prior study. There is also interval decreased fluid within the L5-S1 disc space. Mild adjacent soft tissue edema and enhancement is also decreased. The findings are compatible with resolving discitis/osteomyelitis. No discrete paravertebral abscess collection identified. IMPRESSION: 1. Resolving discitis/osteomyelitis at L5-S1 with residual mild enhancement and irregularity along the endplates. No paravertebral abscess collections. 2. Segmental wall thickening of the rectosigmoid colon with mucosal enhancement and pericolonic fat stranding consistent with an infectious or inflammatory colitis. Dictated by: Sergio Cifuentes M.D. on 03/31/2020 at 17:13 Approved by: Sergio Cifuentes M.D. on 03/31/2020 at 17:23
--- NOTE | 2020-03-31 12:34 | DI.MRI.S_ITS ---
PROCEDURE: MR LUMBAR SPINE WO/W CON INDICATIONS: f/u osteomyelitis, ongoing pain TECHNIQUE: Noncontrast sagittal T1 spin echo and T2 fast spin echo, sagittal STIR, axial T1 and T2 fast spin echo through the lumbar spine. In cases with scoliosis, additional coronal T2 fast spin echo may be performed. After the administration of contrast, sagittal and axial T1 spin echo with fat saturation through the lumbar spine. COMPARISON: [facility], MR, L-SPINE WITHOUT CONTRAST, 07/15/2016, 16:42. [facility], MR, MR LUMBAR SPINE WO/W CON, 11/07/2019, 12:18. [facility], MR, MR PELVIS WO/W CON, 03/31/2020, 13:29. FINDINGS: Image quality: Diagnostic, with note made of motion artifact. Alignment and curvature: There is minimal anterolisthesis seen at the L4-L5 level. Marrow: Marrow is of normal overall signal. No acute vertebral body compression fractures. No suspicious marrow enhancement. Spinal cord: Conus medullaris terminates at the T12-L1 level. Visualized spinal cord demonstrates normal signal, without suspicious enhancement. Paraspinous soft tissues: No paravertebral masses are seen. There is mild to moderate enhancement seen within the soft tissue surrounding the L5-S1 level. T12-L1: Normal appearance. L1-L2: Normal appearance. L2-L3: No significant abnormality is seen. L3-L4: The disc height is well-preserved. Loss of disc signal is seen at this level. Moderate disc osteophyte complex is seen, with a central disc protrusion. At least moderate facet hypertrophy is seen. Fluid is seen within the facet joints themselves. Moderate bilateral neural foraminal narrowing is seen. Moderate to severe central canal narrowing is seen. When comparison is made with the prior examination, these findings are similar. L4-L5: The disc height is well-preserved. Loss of disc signal is seen at this level. Moderate generalized disc bulge is seen. Moderate facet joint hypertrophy is seen. Moderate bilateral neural foraminal narrowing is seen. When comparison is made with the prior examination, these findings are similar. L5-S1: Moderate loss of disc height is now seen. This disc level demonstrates decreased T1 weighted signal and increased T2-weighted/STIR signal as well as increased enhancement. There is abnormal enhancement seen of the endplates. Reactive marrow endplate changes are seen which are hypointense on T1-weighted imaging and hyperintense on T2 weighted imaging, which is most consistent with edema (Modic type I changes). There is generalized enhancement seen posterior to the disc level. Moderate disc bulge is seen. Mild facet joint hypertrophy is seen. Moderate bilateral neural foraminal narrowing is seen. Minimal central canal narrowing is seen. The abnormal findings at this disc level have progressed compared to the prior examination. IMPRESSION: At L5-S1, there is worsening discitis and osteomyelitis compared to the 11/07/19 examination. There is prominent generalized enhancement seen posterior to this disc level, which is similar to the prior examination and most likely related to enhancing venous plexus. Differential diagnosis includes epidural abscess, yet this is considered to be less likely based upon imaging appearance. Lower lumbar spine degenerative changes are seen, which do not appear progressed in the interval. Dictated by: Zacarias Darby M.D. on 03/31/2020 at 14:50 Approved by: Zacarias Darby M.D. on 03/31/2020 at 14:56
== END ==
PROVIDERS: Family Provider General Practice; PCP Family Medicine; Referring Provider Family Medicine; Visit Provider Family Medicine
DX: M46.26 Osteomyelitis of vertebra, lumbar region (principal); M46.47 Discitis, unspecified, lumbosacral region; M47.816 Spondylosis without myelopathy or radiculopathy, lumbar region; M47.817 Spondylosis without myelopathy or radiculopathy, lumbosacral region
CPT/HCPCS: 72158; 72197

== ENCOUNTER → 2020-04-13 14:46 | Outpatient (CLI) | payer OTHER, SELFPAY ==
[2020-04-13 16:19] LABS: BUN Creatinine Ratio 27.6 (6-22); Blood Urea Nitrogen 16 mg/dL (7-17); Calcium 9.6 mg/dL (8.4-10.2); Carbon Dioxide 28 mmol/L (22-32); Chloride 102 mmol/L (98-107); Estimated Glomerular Filt Rate > 60.0 mL/min (>60); Glucose 89 mg/dL (70-100); HEMOLYSIS < 15 (0-50); Potassium 3.9 mmol/L (3.4-5.1); Sodium 140 mmol/L (137-145)
== END ==
PROVIDERS: Family Provider General Practice; PCP Family Medicine; Referring Provider Family Medicine; Visit Provider Family Medicine
DX: E87.6 Hypokalemia (principal); A04.72 Enterocolitis due to Clostridium difficile, not specified as recurrent
CPT/HCPCS: 36415; 80048

== ENCOUNTER → 2020-04-17 13:12 | Outpatient (CLI) | payer OTHER, SELFPAY ==
[2020-04-17 14:35] LABS: C-Reactive Protein Quant < 0.5 mg/dL (<1.0)
[2020-04-17 15:03] LABS: Erythrocyte Sedimentation Rate 33 MM/HR (0-20)
== END ==
PROVIDERS: Family Provider General Practice; PCP Family Medicine; Referring Provider Internal Medicine; Visit Provider Internal Medicine
DX: M46.28 Osteomyelitis of vertebra, sacral and sacrococcygeal region (principal)
CPT/HCPCS: 36415; 85651; 86140

== ENCOUNTER → 2020-05-06 13:42 | Outpatient (CLI) | payer OTHER, SELFPAY ==
[2020-05-06 13:50] LABS: WBC Urine None Seen (0-5/HPF)
[2020-05-06 14:52] LABS: Appearance Urine UA CLEAR; Bilirubin Urine UA NEGATIVE (NEGATIVE); Color Urine UA YELLOW; Glucose Urine UA NEGATIVE (Negative); Ketones Urine UA NEGATIVE (NEGATIVE); Leukocyte Esterase Urine UA NEGATIVE (NEGATIVE); Nitrite Urine UA NEGATIVE (Negative); Occult Blood Urine UA TRACE-LYSED (Negative); Protein Urine UA NEGATIVE (Negative); Specific Gravity Urine UA 1.015 (1.000-1.035); Urobilinogen Urine UA 0.2 E.U./dL (0.2)
[2020-05-06 15:10] LABS: Amorphous Sediment Urine 2+; Bacteria Urine Few (2-10); Culture Indicated Urine Cult Not Indicated; RBC Urine 0-1/HPF (0-5/HPF); Squamous Epithelial Cell Urine 5-10 /HPF (0-5/HPF)
== END ==
PROVIDERS: Internal Medicine; Family Provider General Practice; PCP Family Medicine; Referring Provider Family Medicine; Visit Provider Family Medicine
DX: A04.72 Enterocolitis due to Clostridium difficile, not specified as recurrent (principal); R30.0 Dysuria
CPT/HCPCS: 81001; 87493

== ENCOUNTER → 2020-05-15 15:19 | Outpatient (CLI) | payer OTHER, SELFPAY ==
[2020-05-15 16:06] LABS: C-Reactive Protein Quant < 0.5 mg/dL (<1.0)
[2020-05-15 16:36] LABS: Erythrocyte Sedimentation Rate 18 MM/HR (0-20)
== END ==
PROVIDERS: Family Provider General Practice; PCP Family Medicine; Referring Provider Internal Medicine; Visit Provider Internal Medicine
DX: M46.28 Osteomyelitis of vertebra, sacral and sacrococcygeal region (principal)
CPT/HCPCS: 36415; 85651; 86140

== ENCOUNTER 2020-05-26 13:56 | Emergency (ER) | payer OTHER, SELFPAY ==
[2020-05-26 14:05] VITALS: BP 146/65; PULSE 98; RESP 16; TEMP 37; O2SAT 98; BMI 29.2
[2020-05-26 17:13] LABS: Adenovirus F 40/41 Not Detected (Not Detect); Astrovirus Not Detected (Not Detect); Campylobacter Not Detected (Not Detect); Clostridium difficile toxin AB Detected (Not Detect); Cryptosporidium Not Detected (Not Detect); Cyclospora cayetanensis Not Detected (Not Detect); Entamoeba histolytica Not Detected (Not Detect); Enteroaggregative E.coli Not Detected (Not Detect); Enteropathogenic E.coli Not Detected (Not Detect); Enterotoxigenic E.coli It/st Not Detected (Not Detect); Giardia lamblia Not Detected (Not Detect); Norovirus GI/GII Not Detected (Not Detect); Plesiomonsa shigelloides Not Detected (Not Detect); Rotavirus A Not Detected (Not Detect); Salmonella Not Detected (Not Detect); Sapovirus Not Detected (Not Detect); Shiga-like toxin-prod E.coli Not Detected (Not Detect); Shigella/Enteroinvasive E.coli Not Detected (Not Detect); Vibrio Not Detected (Not Detect); Vibrio cholerae Not Detected (Not Detect); Yersinia enterocolitica Not Detected (Not Detect)
[2020-05-26 17:20] VITALS: BP 129/68; PULSE 91; O2SAT 98
[2020-05-26] MEDS: SODIUM CHLORIDE 0.9% 1,000 ML 1000 ML IV (17:20)
[2020-05-26] MEDS: ONDANSETRON 4 MG/2 ML INJ IV (17:20)
[2020-05-26 17:29] LABS: Add Manual Diff / Slide Review NO; Basophils Absolute Auto 100 /uL (0-100); Basophils Percent Auto 0.9 % (0-2); Eosinophils Absolute Auto 600 /uL (0-450); Eosinophils Percent Auto 5.1 % (2-4); Hematocrit 35.1 % (36-46); Hemoglobin 11.3 g/dL (12.0-16.0); Lymphocytes Absolute Auto 2300 /uL (1100-4500); Lymphocytes Percent Auto 18.8 % (25-40); Mean Corpuscular HGB Conc 32.1 % (30-36); Mean Corpuscular Hemoglobin 27.9 PG (26-34); Mean Corpuscular Volume 86.7 fL (80-100); Monocytes Absolute Auto 900 /uL (0-900); Neutrophils Absolute Auto 8300 /uL (1500-7000); Neutrophils Percent Auto 68.2 % (50-75); Platelet Count 402 X10^3/uL (150-400); Red Blood Cell Count 4.05 X10^6/uL (4.0-5.2); Red Cell Distribution Width 15.5 % (11.6-14.8); White Blood Cell Count 12.3 X10^3/uL (4.5-11.0)
[2020-05-26 17:43] LABS: Lactate (Lactic Acid) 0.8 mmol/L (0.7-2.1)
[2020-05-26 17:44] LABS: Albumin 4.1 g/dL (3.5-5.0); Albumin Globulin Ratio 1.3 (1.0-2.8); Alkaline Phosphatase 66 U/L (38-126); Amylase 59 U/L (30-110); Aspartate Aminotransferase 21 IU/L (14-36); BUN Creatinine Ratio 44.4 (6-22); Bilirubin Total 0.3 mg/dL (0.2-1.3); Blood Urea Nitrogen 24 mg/dL (7-17); Calcium 9.4 mg/dL (8.4-10.2); Carbon Dioxide 27 mmol/L (22-32); Chloride 101 mmol/L (98-107); Estimated Glomerular Filt Rate > 60.0 mL/min (>60); Globulin 3.1 g/dL (1.7-4.1); Glucose 96 mg/dL (70-100); Lipase 67 U/L (23-300); Magnesium 1.8 mg/dL (1.6-2.3); Potassium 3.5 mmol/L (3.4-5.1); Sodium 136 mmol/L (137-145); Total Protein 7.2 g/dL (6.3-8.2)
--- NOTE | 2020-05-26 17:57 | DI.CT.S_ITS ---
PROCEDURE: CT ABDOMEN PELVIS W CON INDICATIONS: abd pain, hx cdiff TECHNIQUE: After the administration of intravenous contrast, 5 mm thick sections acquired from the diaphragm to the symphysis. 5 mm coronal and sagittal reformats were acquired. For radiation dose reduction, the following was used: automated exposure control, adjustment of mA and/or kV according to patient size. COMPARISON: [facility], CT, CT ABDOMEN PELVIS W CON, 07/28/2019, 13:43. FINDINGS: Image quality: Excellent. ABDOMEN: Lung bases: Bibasilar atelectasis. Heart size is normal. Solid organs: Liver is normal in size and enhancement. Multiple scattered hepatic hypodensities are stable. Gallbladder is unremarkable . Biliary system is non dilated. Pancreas enhances normally. Spleen is normal in size and enhancement. No adrenal nodules. Kidneys demonstrate normal size and enhancement, without hydronephrosis. Tiny punctate nonobstructing right nephrolith. Peritoneum and bowel: Stable postsurgical changes from previous hemicolectomy in the right lower abdomen. There is circumferential wall thickening of the descending colon, sigmoid colon, and rectum with mild pericolonic inflammatory stranding. Remainder of the visualized bowel loops demonstrate normal wall thickness and caliber. No free fluid or air. Nodes and vessels: No retroperitoneal or mesenteric adenopathy by size criteria. Aorta and inferior vena cava are normal in size. Miscellaneous: No ventral hernias. PELVIS: Genitourinary: Bladder wall thickness is normal. Miscellaneous: No inguinal hernias or adenopathy. Bones: No suspicious bony lesions. No acute vertebral body compression fractures. Progression of lower lumbar spondylosis most severe at L5-S1. IMPRESSION: 1. Colitis involving the descending colon, sigmoid colon and rectum, likely inflammatory/infectious in etiology. 2. Tiny punctate nonobstructing right nephrolith. Other chronic findings as above. Dictated by: Oj Armijo M.D. on 05/26/2020 at 18:53 Approved by: Oj Armijo M.D. on 05/26/2020 at 18:59
[2020-05-26 18:28] LABS: Bacteria Urine Few (2-10); Culture Indicated Urine Specimen Cultured; Mucus Urine 2+ (Negative); RBC Urine 5-10/HPF (0-5/HPF); Squamous Epithelial Cell Urine 1-5 /HPF (0-5/HPF); Transitional Epi Cells Urine 1-5/HPF (0-5/HPF); WBC Urine 5-10/HPF (0-5/HPF)
[2020-05-26 19:31] VITALS: BP 119/62; PULSE 89; RESP 18; O2SAT 99
--- NOTE | 2020-05-26 19:55 | ED_ITS ---
HPI - Abdominal Pain <Ashwini Camargomer, SYSTEMS DESIGN ENGINEER-BC - Last Filed: 05/26/20 20:02> General Chief Complaint: Abdominal Pain Stated Complaint: 'pretty sure my cdiff is back' Time Seen by Provider: 05/26/20 16:04 Source: patient Mode of arrival: Ambulatory Limitations: no limitations History of Present Illness HPI narrative: The patient is a 54-year-old female nonsmoker with history of C diff in osteomyelitis who presents with a chief complaint of ?I think I have C diff again.She states that she has had mucousy stools for the past week, and she got much worse on Monday. She was seen at an outside facility yesterday, who ordered lab work. She denies any fevers, does complain of nausea but no v omiting. She states she has had multiple mucousy stools today. She states she is plane developed C diff after a long course of IV antibiotics for osteomyelitis. She denies any current dysuria urgency or frequency. She denies any flank pain. She denies muscle aches at this point time. She denies any cough or congestion. She denies any chest pain or shortness of breath. The patient presents with her daughter, who is an RN Related Data Home Medications Medication Instructions Recorded Confirmed levothyroxine 75 mcg PO DAILY 11/07/19 05/11/20 duloxetine 60 mg capsule,delayed 90 mg PO DAILY cap 12/17/19 05/11/20 release methylphenidate HCl 20 mg biphasic 20 mg PO DAILY 12/17/19 05/11/20 50-50 capsule,extended release Previous Rx's Medication Instructions Recorded albuterol sulfate 90 mcg/actuation 2 puff INHALATION Q4-6H PRN #18 02/25/19 aerosol inhaler gram fluticasone propionate 110 1 puff INHALATION BID #12 gram 03/06/19 mcg/actuation HFA aerosol inhaler hyoscyamine sulfate 0.125 mg 0.125 mg SUBLINGUAL PRN PRN #50 tab 08/30/19 disintegrating tablet pantoprazole 40 mg tablet,delayed 40 mg PO DAILY #90 tab 08/30/19 release pilocarpine HCl 5 mg tablet 5 mg PO QID #360 tab 12/05/19 ondansetron 4 mg disintegrating 4 mg PO Q4H PRN #90 tab 12/10/19 tablet cyclobenzaprine 10 mg tablet 10 mg PO TID PRN #30 tab 12/20/19 ondansetron 4 mg PO Q6H PRN #20 tab 05/26/20 vancomycin 125 mg PO QID 10 Days #200 ml 05/26/20 Allergies Allergy/AdvReac Type Severity Reaction Status Date / Time vancomycin Allergy Intermediate ITCHING Verified 05/11/20 12:18 adhesive [ADHESIVE] Allergy Unknown rash Unverified 03/26/20 15:30 morphine AdvReac Mild pt Verified 05/11/20 12:18 becomes loopy COLONOSCOPY PREP Allergy Severe ITCHING Uncoded 03/26/20 15:30 Review of Systems <LUIS Sin - Last Filed: 05/26/20 20:02> Review of Systems Narrative: GENERAL: Denies chills, fatigue, malaise, fever, sweats. HEENT: Denies sinus pain, ear pain, sore throat, difficulty swallowing, dizziness. RESPIRATORY: Denies dyspnea, cough, wheezing, hemoptysis, sputum. CARDIOVASCULAR: Denies chest pain, palpitations, orthopnea, edema, GASTROINTESTINAL: See HPI : Denies dysuria, frequency, incontinence, hematuria, urinary retention. MUSCULOSKELETAL: denies weakness, joint pain, or bony pain SKIN: Denies rash, skin lesions, or other NEUROLOGIC: Denies weakness, headache, numbness, change in speech, confusion, seizures, incoordination. PSYCHIATRIC: No concerning psychosocial issues. 12 point review of systems is negative except for those stated above Patient History <LUIS Sin - Last Filed: 05/26/20 20:02> Medical History Abnormal Pap smear of cervix (Resolved 1995) Acne (Chronic 1975) ADHD (attention deficit hyperactivity disorder) (Chronic 1962) Anxiety (Chronic 1998) Back tightness (Chronic) Chicken pox (Resolved) Chronic back pain (Chronic 1994) Chronic headaches (Chronic 1991) Coccydynia (Acute) Colon polyps (Resolved) Depression (Chronic 1998) Facet arthropathy, lumbar (Acute) Fibromyalgia (Chronic 1997) GERD (gastroesophageal reflux disease) (Chronic 1997) Hayfever (Chronic ~1991) Hearing loss (Chronic 2011) Hypothyroidism (Chronic ~2003) IBS (irritable bowel syndrome) (Chronic 1962) Insomnia (Chronic 06/21/16) Migraines (Chronic 2009) Neck tightness (Chronic) Obstructive sleep apnea of adult (Chronic) Osteomyelitis of lumbar spine (Acute) Pelvic pain in female (Acute) Plantar warts (Chronic 1991) Precancerous changes of the cervix (Resolved 1995) Prolapse of intestine (Acute) Shoulder pain (Chronic 1994) Villous adenoma of right colon (Resolved 2010) Surgical History Anesthesia (Resolved) History of colonoscopy (Resolved 08/2012) History of partial colectomy (Resolved 2010) History of rectopexy (Acute) Status post appendectomy (Resolved) Status post colectomy (2012) Status post vaginal hysterectomy (Resolved 1995) Family History Brother Coronary artery disease Father Coronary artery disease Grandfather Stroke Grandmother Cancer Colon cancer Mother Cancer Mental health problem Anxiety Dementia Fibromyalgia Colon cancer Grandmother Diabetes mellitus Grandfather No problems noted. Family/Other Colon cancer Social History marital status: details: rebecca Parson number of children: 2 household members: spouse lives independently: Yes caregiver/support person: No housing: house Smoking Status: Never smoker substance use type: does not use additional social history: Eb is wheelchair bound with Multiple Sclerosis. Patient's best friend this year. Smoking Status: Never smoker Substance Use Type: does not use Exam <LUIS Sin - Last Filed: 05/26/20 20:02> Narrative Exam Narrative: GENERAL: This is a well-nourished, well-developed patient, in no acute distress HEAD: Atraumatic. Normocephalic. No temporal or scalp tenderness. EYES: Pupils equal round and reactive. Extraocular motions intact. No scleral icterus. No injection or drainage. ENT: Nose without bleeding, purulent drainage or septal hematoma. Throat without erythema, tonsillar hypertrophy or exudate. Uvula midline. Airway patent. NECK: Trachea midline. No JVD or lymphadenopathy. Supple, nontender, no meningeal signs. CARDIOVASCULAR: Regular rate and rhythm without murmurs, gallops, or rubs. RESPIRATORY: Clear to auscultation. Breath sounds equal bilaterally. No wheezes, rales, or rhonchi. GASTROINTESTINAL: Abdomen soft, diffusely tender, nondistended. No hepato-splenomegaly, or palpable masses. No guarding. Active bowel sounds all 4 quadrants EXTREMITIES: No clubbing, cyanosis, or edema. No joint tenderness, effusion, or edema noted. BACK: Nontender to palpation of CT or L-spine. No visual abnormality. No palpable step-offs or deformities NEURO: AOx3. SKIN: No rash or erythema on visible skin Initial Vital Signs Initial Vital Signs: Vital Signs Temperature 98.6 F 05/26/20 14:05 Pulse Rate 98 H 05/26/20 14:05 Respiratory Rate 16 05/26/20 14:05 Blood Pressure 146/65 H 05/26/20 14:05 Pulse Oximetry 98 05/26/20 14:05 <Iam Morse MD - Last Filed: 05/27/20 08:00> Initial Vital Signs Initial Vital Signs: Vital Signs Temperature 98.6 F 05/26/20 14:05 Pulse Rate 98 H 05/26/20 14:05 Respiratory Rate 16 05/26/20 14:05 Blood Pressure 146/65 H 05/26/20 14:05 Pulse Oximetry 98 05/26/20 14:05 Scores <LUIS Sin - Last Filed: 05/26/20 20:02> GCS [place] coma scale eye opening: Spontaneous [place] coma scale verbal response: Orientated Francis coma scale motor response: Obey commands [place] coma scale total score: 15 Course <LUIS Sin - Last Filed: 05/26/20 20:02> Orders Ordered: Discontinued Medications Sodium Chloride (Normal Saline 0.9%) 1,000 mls @ 1,000 mls/hr IV BOLUS ONE Stop: 05/26/20 17:33 Last Infusion: 05/26/20 19:38 Dose: 0 mls/hr Documented by: Admin: 05/26/20 17:20 Dose: 1,000 mls/hr Documented by: WES Ondansetron HCl (Zofran) 4 mg IV NOW ONE Stop: 05/26/20 16:35 Last Admin: 05/26/20 17:20 Dose: 4 mg Documented by: WES Vital Signs Vital signs: Vital Signs - 8 hr 05/26/20 14:05 05/26/20 17:20 05/26/20 19:31 Temperature 98.6 F Pulse Rate 98 H 91 H 89 Respiratory Rate 16 18 Blood Pressure 146/65 H 129/68 119/62 Pulse Oximetry 98 98 99 <Iam Morse MD - Last Filed: 05/27/20 08:00> Orders Ordered: Discontinued Medications Sodium Chloride (Normal Saline 0.9%) 1,000 mls @ 1,000 mls/hr IV BOLUS ONE Stop: 05/26/20 17:33 Last Infusion: 05/26/20 19:38 Dose: 0 mls/hr Documented by: Admin: 05/26/20 17:20 Dose: 1,000 mls/hr Documented by: WES Ondansetron HCl (Zofran) 4 mg IV NOW ONE Stop: 05/26/20 16:35 Last Admin: 05/26/20 17:20 Dose: 4 mg Documented by: WES Vital Signs Vital signs: Vital Signs - 8 hr 05/26/20 14:05 05/26/20 17:20 05/26/20 19:31 Temperature 98.6 F Pulse Rate 98 H 91 H 89 Respiratory Rate 16 18 Blood Pressure 146/65 H 129/68 119/62 Pulse Oximetry 98 98 99 MDM - Abdominal Pain <LUIS Sin - Last Filed: 05/26/20 20:02> Lab Data Result diagrams: 05/26/20 17:03 05/26/20 17:03 Labs: Lab Results 05/26/20 05/26/20 05/26/20 Range/Units 15:00 17:03 17:03 WBC 12.3 H (4.5-11.0) X10^3/uL RBC 4.05 (4.0-5.2) X10^6/uL Hgb 11.3 L (12.0-16.0) g/dL Hct 35.1 L (36-46) % MCV 86.7 (80-100) fL MCH 27.9 (26-34) PG MCHC 32.1 (30-36) % RDW 15.5 H (11.6-14.8) % Plt Count 402 H (150-400) X10^3/uL Neut % (Auto) 68.2 (50-75) % Lymph % (Auto) 18.8 L (25-40) % [place] % (Auto) 7.0 (3-14) % Eos % (Auto) 5.1 H (2-4) % Baso % (Auto) 0.9 (0-2) % Neut # (Auto) 8300 H (6248-7020) /uL Lymph # (Auto) 2300 (7646-0527) /uL [place] # (Auto) 900 (0-900) /uL Eos # (Auto) 600 H (0-450) /uL Baso # (Auto) 100 (0-100) /uL Sodium (137-145) mmol/L Potassium (3.4-5.1) mmol/L Chloride (98-107) mmol/L Carbon Dioxide (22-32) mmol/L BUN (7-17) mg/dL Creatinine (0.52-1.04) mg/dL Estimated GFR (>60) mL/min BUN/Creatinine Ratio (6-22) Glucose (70-100) mg/dL Lactate (0.7-2.1) mmol/L Calcium (8.4-10.2) mg/dL Magnesium (1.6-2.3) mg/dL Total Bilirubin (0.2-1.3) mg/dL AST (14-36) IU/L Alkaline Phosphatase (38-126) U/L Total Protein (6.3-8.2) g/dL Albumin (3.5-5.0) g/dL Globulin (1.7-4.1) g/dL Albumin/Globulin Ratio (1.0-2.8) Amylase 59 (30-110) U/L Lipase 67 (23-300) U/L Urine RBC (0-5/HPF) Urine WBC (0-5/HPF) Ur Squamous Epith Cells (0-5/HPF) Ur Transition Epith Cell (0-5/HPF) Urine Bacteria (None) Urine Mucus (Negative) Ur Culture Indicated? Stl C. cayetanensis PCR Not detected (Not Detect) Stool Rotavirus (PCR) Not detected (Not Detect) Stool Adenovirus (PCR) Not detected (Not Detect) Stool Astrovirus (PCR) Not detected (Not Detect) Stool Cryptosporidium PCR Not detected (Not Detect) Stl E.coli Shiga Tox PCR Not detected (Not Detect) St Sh/Enteroin Ecoli PCR Not detected (Not Detect) Stool E coli O157 PCR Not detected (Not Detect) Stl Enterotoxigenic E PCR Not detected (Not Detect) Stool EPEC (PCR) Not detected (Not Detect) Stl E. histolytica PCR Not detected (Not Detect) Stool Giardia Lamblia PCR Not detected (Not Detect) Stool Sapovirus (PCR) Not detected (Not Detect) Stl P. shigelloides PCR Not detected (Not Detect) St Y.enterocolitica PCR Not detected (Not Detect) Stool Vibrio (PCR) Not detected (Not Detect) Stl Vibrio cholerae PCR Not detected (Not Detect) Stl Enteroaggr Ecoli PCR Not detected (Not Detect) Stl Norovirus GI/GII PCR Not detected (Not Detect) Campylobacter (PCR) Not detected (Not Detect) C. difficile Tox (PCR) Detected H (Not Detect) Salmonella (PCR) Not detected (Not Detect) 05/26/20 05/26/20 05/26/20 Range/Units 17:03 17:03 17:50 WBC (4.5-11.0) X10^3/uL RBC (4.0-5.2) X10^6/uL Hgb (12.0-16.0) g/dL Hct (36-46) % MCV (80-100) fL MCH (26-34) PG MCHC (30-36) % RDW (11.6-14.8) % Plt Count (150-400) X10^3/uL Neut % (Auto) (50-75) % Lymph % (Auto) (25-40) % [place] % (Auto) (3-14) % Eos % (Auto) (2-4) % Baso % (Auto) (0-2) % Neut # (Auto) (3656-6038) /uL Lymph # (Auto) (9510-8956) /uL [place] # (Auto) (0-900) /uL Eos # (Auto) (0-450) /uL Baso # (Auto) (0-100) /uL Sodium 136 L (137-145) mmol/L Potassium 3.5 (3.4-5.1) mmol/L Chloride 101 (98-107) mmol/L Carbon Dioxide 27 (22-32) mmol/L BUN 24 H (7-17) mg/dL Creatinine 0.54 (0.52-1.04) mg/dL Estimated GFR > 60.0 (>60) mL/min BUN/Creatinine Ratio 44.4 H (6-22) Glucose 96 (70-100) mg/dL Lactate 0.8 (0.7-2.1) mmol/L Calcium 9.4 (8.4-10.2) mg/dL Magnesium 1.8 (1.6-2.3) mg/dL Total Bilirubin 0.3 (0.2-1.3) mg/dL AST 21 (14-36) IU/L Alkaline Phosphatase 66 (38-126) U/L Total Protein 7.2 (6.3-8.2) g/dL Albumin 4.1 (3.5-5.0) g/dL Globulin 3.1 (1.7-4.1) g/dL Albumin/Globulin Ratio 1.3 (1.0-2.8) Amylase (30-110) U/L Lipase (23-300) U/L Urine RBC 5-10/hpf H (0-5/HPF) Urine WBC 5-10/hpf H (0-5/HPF) Ur Squamous Epith Cells 1-5 /hpf (0-5/HPF) Ur Transition Epith Cell 1-5/hpf (0-5/HPF) Urine Bacteria Few (2-10) H (None) Urine Mucus 2+ H (Negative) Ur Culture Indicated? Specimen cultured Stl C. cayetanensis PCR (Not Detect) Stool Rotavirus (PCR) (Not Detect) Stool Adenovirus (PCR) (Not Detect) Stool Astrovirus (PCR) (Not Detect) Stool Cryptosporidium PCR (Not Detect) Stl E.coli Shiga Tox PCR (Not Detect) St Sh/Enteroin Ecoli PCR (Not Detect) Stool E coli O157 PCR (Not Detect) Stl Enterotoxigenic E PCR (Not Detect) Stool EPEC (PCR) (Not Detect) Stl E. histolytica PCR (Not Detect) Stool Giardia Lamblia PCR (Not Detect) Stool Sapovirus (PCR) (Not Detect) Stl P. shigelloides PCR (Not Detect) St Y.enterocolitica PCR (Not Detect) Stool Vibrio (PCR) (Not Detect) Stl Vibrio cholerae PCR (Not Detect) Stl Enteroaggr Ecoli PCR (Not Detect) Stl Norovirus GI/GII PCR (Not Detect) Campylobacter (PCR) (Not Detect) C. difficile Tox (PCR) (Not Detect) Salmonella (PCR) (Not Detect) Point of care testing: Urine Dip Bedside Urine Glucose Negative Bedside Urine Bilirubin - Negative Bedside Urine Ketone ++ 40 Urine Specific [place] 1.030 Bedside Urine Occult Blood ++ Bedside Urine pH 5.5 Bedside Urine Protein +/- 15 Bedside Urine Urobilinogen - Negative Bedside Urine Nitrite - Negative Bedside Urine Leukocytes - Negative Esterase Imaging Data CT scan - abdomen/pelvis: Radiologist's Impression: [address] [place] [id number] Scan Report Signed Patient: Gracy Benites LMR#: [id number] : 1965Acct:[id number] Age/Sex: 54 / FDate of Service: 05/26/20 Loc: ED Accession Number: [id number] Procedure: CT abdomen pelvis w con Ordering Provider: Ashwini Boss SYSTEMS DESIGN ENGINEER-BC PROCEDURE: CT ABDOMEN PELVIS W CON INDICATIONS: abd pain, hx cdiff TECHNIQUE: After the administration of intravenous contrast, 5 mm thick sections acquired from the diaphragm to the symphysis. 5 mm coronal and sagittal reformats were acquired. For radiation dose reduction, the following was used: automated exposure control, adjustment of mA and/or kV according to patient size. COMPARISON: [facility], CT, CT ABDOMEN PELVIS W CON, 07/28/2019, 13:43. FINDINGS: Image quality: Excellent. ABDOMEN: Lung bases: Bibasilar atelectasis. Heart size is normal. Solid organs: Liver is normal in size and enhancement. Multiple scattered hepatic hypodensities are stable. Gallbladder is unremarkable . Biliary system is non dilated. Pancreas enhances normally. Spleen is normal in size and enhancement. No adrenal nodules. Kidneys demonstrate normal size and enhancement, without hydronephrosis. Tiny punctate nonobstructing right nephrolith. Peritoneum and bowel: Stable postsurgical changes from previous hemicolectomy in the right lower abdomen. There is circumferential wall thickening of the descending colon, sigmoid colon, and rectum with mild pericolonic inflammatory stranding. Remainder of the visualized bowel loops demonstrate normal wall thickness and caliber. No free fluid or air. Nodes and vessels: No retroperitoneal or mesenteric adenopathy by size criteria. Aorta and inferior vena cava are normal in size. Miscellaneous: No ventral hernias. PELVIS: Genitourinary: Bladder wall thickness is normal. Miscellaneous: No inguinal hernias or adenopathy. Bones: No suspicious bony lesions. No acute vertebral body compression fractures. Progression of lower lumbar spondylosis most severe at L5-S1. IMPRESSION: 1. Colitis involving the descending colon, sigmoid colon and rectum, likely inflammatory/infectious in etiology. 2. Tiny punctate nonobstructing right nephrolith. Other chronic findings as above. Dictated by: Oj Armijo M.D. on 05/26/2020 at 18:53 Approved by: Oj Armijo M.D. on 05/26/2020 at 18:59 MDM Narrative Medical decision making narrative: The patient is a 54-year-old female who presents with a chief complaint of ?I think I have C diff. She does test positive for C diff, so I spoke with Infectious Disease. Dr. Patel was on-call for her infectious disease doctor, . Will start patient on oral vancomycin. She states she is allergic to capsules, and needs solution, which was ordered accordingly. She has no lactate, is able to eat and drink, does have a urine culture pending. She had some concerning findings on her urinalysis including bacteria, though denies any current symptoms we will hold off on urine culture at this point time. Discussed at length very strict return precautions the emergency department p.o. also encouraged follow-up with primary care provider and Infectious Disease tomorrow. Patient has no questions or concerns upon discharge and states understanding of return precautions as well as follow-up care <Iam Morse MD - Last Filed: 05/27/20 08:00> Lab Data Labs: Lab Results 05/26/20 05/26/20 05/26/20 Range/Units 15:00 17:03 17:03 WBC 12.3 H (4.5-11.0) X10^3/uL RBC 4.05 (4.0-5.2) X10^6/uL Hgb 11.3 L (12.0-16.0) g/dL Hct 35.1 L (36-46) % MCV 86.7 (80-100) fL MCH 27.9 (26-34) PG MCHC 32.1 (30-36) % RDW 15.5 H (11.6-14.8) % Plt Count 402 H (150-400) X10^3/uL Neut % (Auto) 68.2 (50-75) % Lymph % (Auto) 18.8 L (25-40) % [place] % (Auto) 7.0 (3-14) % Eos % (Auto) 5.1 H (2-4) % Baso % (Auto) 0.9 (0-2) % Neut # (Auto) 8300 H (4034-4856) /uL Lymph # (Auto) 2300 (6111-0157) /uL [place] # (Auto) 900 (0-900) /uL Eos # (Auto) 600 H (0-450) /uL Baso # (Auto) 100 (0-100) /uL Sodium (137-145) mmol/L Potassium (3.4-5.1) mmol/L Chloride (98-107) mmol/L Carbon Dioxide (22-32) mmol/L BUN (7-17) mg/dL Creatinine (0.52-1.04) mg/dL Estimated GFR (>60) mL/min BUN/Creatinine Ratio (6-22) Glucose (70-100) mg/dL Lactate (0.7-2.1) mmol/L Calcium (8.4-10.2) mg/dL Magnesium (1.6-2.3) mg/dL Total Bilirubin (0.2-1.3) mg/dL AST (14-36) IU/L Alkaline Phosphatase (38-126) U/L Total Protein (6.3-8.2) g/dL Albumin (3.5-5.0) g/dL Globulin (1.7-4.1) g/dL Albumin/Globulin Ratio (1.0-2.8) Amylase 59 (30-110) U/L Lipase 67 (23-300) U/L Urine RBC (0-5/HPF) Urine WBC (0-5/HPF) Ur Squamous Epith Cells (0-5/HPF) Ur Transition Epith Cell (0-5/HPF) Urine Bacteria (None) Urine Mucus (Negative) Ur Culture Indicated? Stl C. cayetanensis PCR Not detected (Not Detect) Stool Rotavirus (PCR) Not detected (Not Detect) Stool Adenovirus (PCR) Not detected (Not Detect) Stool Astrovirus (PCR) Not detected (Not Detect) Stool Cryptosporidium PCR Not detected (Not Detect) Stl E.coli Shiga Tox PCR Not detected (Not Detect) St Sh/Enteroin Ecoli PCR Not detected (Not Detect) Stool E coli O157 PCR Not detected (Not Detect) Stl Enterotoxigenic E PCR Not detected (Not Detect) Stool EPEC (PCR) Not detected (Not Detect) Stl E. histolytica PCR Not detected (Not Detect) Stool Giardia Lamblia PCR Not detected (Not Detect) Stool Sapovirus (PCR) Not detected (Not Detect) Stl P. shigelloides PCR Not detected (Not Detect) St Y.enterocolitica PCR Not detected (Not Detect) Stool Vibrio (PCR) Not detected (Not Detect) Stl Vibrio cholerae PCR Not detected (Not Detect) Stl Enteroaggr Ecoli PCR Not detected (Not Detect) Stl Norovirus GI/GII PCR Not detected (Not Detect) Campylobacter (PCR) Not detected (Not Detect) C. difficile Tox (PCR) Detected H (Not Detect) Salmonella (PCR) Not detected (Not Detect) 05/26/20 05/26/20 05/26/20 Range/Units 17:03 17:03 17:50 WBC (4.5-11.0) X10^3/uL RBC (4.0-5.2) X10^6/uL Hgb (12.0-16.0) g/dL Hct (36-46) % MCV (80-100) fL MCH (26-34) PG MCHC (30-36) % RDW (11.6-14.8) % Plt Count (150-400) X10^3/uL Neut % (Auto) (50-75) % Lymph % (Auto) (25-40) % [place] % (Auto) (3-14) % Eos % (Auto) (2-4) % Baso % (Auto) (0-2) % Neut # (Auto) (9651-7553) /uL Lymph # (Auto) (7017-0986) /uL [place] # (Auto) (0-900) /uL Eos # (Auto) (0-450) /uL Baso # (Auto) (0-100) /uL Sodium 136 L (137-145) mmol/L Potassium 3.5 (3.4-5.1) mmol/L Chloride 101 (98-107) mmol/L Carbon Dioxide 27 (22-32) mmol/L BUN 24 H (7-17) mg/dL Creatinine 0.54 (0.52-1.04) mg/dL Estimated GFR > 60.0 (>60) mL/min BUN/Creatinine Ratio 44.4 H (6-22) Glucose 96 (70-100) mg/dL Lactate 0.8 (0.7-2.1) mmol/L Calcium 9.4 (8.4-10.2) mg/dL Magnesium 1.8 (1.6-2.3) mg/dL Total Bilirubin 0.3 (0.2-1.3) mg/dL AST 21 (14-36) IU/L Alkaline Phosphatase 66 (38-126) U/L Total Protein 7.2 (6.3-8.2) g/dL Albumin 4.1 (3.5-5.0) g/dL Globulin 3.1 (1.7-4.1) g/dL Albumin/Globulin Ratio 1.3 (1.0-2.8) Amylase (30-110) U/L Lipase (23-300) U/L Urine RBC 5-10/hpf H (0-5/HPF) Urine WBC 5-10/hpf H (0-5/HPF) Ur Squamous Epith Cells 1-5 /hpf (0-5/HPF) Ur Transition Epith Cell 1-5/hpf (0-5/HPF) Urine Bacteria Few (2-10) H (None) Urine Mucus 2+ H (Negative) Ur Culture Indicated? Specimen cultured Stl C. cayetanensis PCR (Not Detect) Stool Rotavirus (PCR) (Not Detect) Stool Adenovirus (PCR) (Not Detect) Stool Astrovirus (PCR) (Not Detect) Stool Cryptosporidium PCR (Not Detect) Stl E.coli Shiga Tox PCR (Not Detect) St Sh/Enteroin Ecoli PCR (Not Detect) Stool E coli O157 PCR (Not Detect) Stl Enterotoxigenic E PCR (Not Detect) Stool EPEC (PCR) (Not Detect) Stl E. histolytica PCR (Not Detect) Stool Giardia Lamblia PCR (Not Detect) Stool Sapovirus (PCR) (Not Detect) Stl P. shigelloides PCR (Not Detect) St Y.enterocolitica PCR (Not Detect) Stool Vibrio (PCR) (Not Detect) Stl Vibrio cholerae PCR (Not Detect) Stl Enteroaggr Ecoli PCR (Not Detect) Stl Norovirus GI/GII PCR (Not Detect) Campylobacter (PCR) (Not Detect) C. difficile Tox (PCR) (Not Detect) Salmonella (PCR) (Not Detect) Point of care testing: Urine Dip Bedside Urine Glucose Negative Bedside Urine Bilirubin - Negative Bedside Urine Ketone ++ 40 Urine Specific [place] 1.030 Bedside Urine Occult Blood ++ Bedside Urine pH 5.5 Bedside Urine Protein +/- 15 Bedside Urine Urobilinogen - Negative Bedside Urine Nitrite - Negative Bedside Urine Leukocytes - Negative Esterase Discharge Plan Departure Patient Disposition: Home Clinical Impression: C. difficile colitis, Right nephrolithiasis Discharge Date/Time: 05/26/20 20:04 Instructions: DI for Clostridium difficile Infection Activity Restrictions/Additional Instructions: Thank you for trusting us with your care today. I am sorry you are feeling poorly and hope that you have a speedy recovery. As discussed, you tested positive for C difficile today. You had an incidental finding of a tiny stone in your right kidney. This should not be causing pain. Please follow-up with primary care provider as well as your infectious disease provider. I sent 2 prescriptions to [facility]. This includes vancomycin solution as you prefer and Zofran for nausea Please come back to the emergency department for any acute concerns. Prescriptions: New ondansetron 4 mg tablet,disintegrating 4 mg PO Q6H PRN (Reason: nausea and vomiting) Qty: 20 RF: 0 vancomycin 25 mg/mL recon soln 125 mg PO QID 10 Days Qty: 200 RF: 0 No Action Flovent HFA 110 mcg/actuation HFA aerosol inhaler 1 puff INHALATION BID Qty: 12 RF: 2 duloxetine 60 mg capsule,delayed release(DR/EC) 90 mg PO DAILY RF: 0 methylphenidate HCl [Ritalin LA] 20 mg capsule,ER biphasic 50-50 20 mg PO DAILY RF: 0 hyoscyamine sulfate 0.125 mg tablet,disintegrating 0.125 mg Sublingual PRN PRN (Reason: cramps) Qty: 50 RF: 1 pantoprazole 40 mg tablet,delayed release (DR/EC) 40 mg PO DAILY Qty: 90 RF: 3 albuterol sulfate [Ventolin HFA] 90 mcg/actuation HFA aerosol inhaler 2 puff INHALATION Q4-6H PRN (Reason: cough) Qty: 18 RF: 0 pilocarpine HCl 5 mg tablet 5 mg PO QID Qty: 360 RF: 3 ondansetron 4 mg tablet,disintegrating 4 mg PO Q4H PRN (Reason: nausea and vomiting) Qty: 90 RF: 1 cyclobenzaprine 10 mg tablet 10 mg PO TID PRN (Reason: muscle spasm) Qty: 30 RF: 1 levothyroxine 75 mcg tablet 75 mcg PO DAILY RF: 0 Referrals: Li Avila MD [Primary Care Provider] - Lillian Lew [Non-Staff] - <Iam Morse MD - Last Filed: 05/27/20 08:00> Cosign ED Attending Cosignature Attestation: I was immediately available in the department for consultation. This documentation has been reviewed and I agree with assessment and plan. Supervised by Iam Morse MD
[2020-05-27 14:36] LABS: Alanine Aminotransferase 15 IU/L (<35); HEMOLYSIS 15 (0-50)
== END 2020-05-26 20:04 | disposition home or self-care (01) ==
PROVIDERS: Emergency Provider Nurse Practitioner Family; Family Provider General Practice; PCP Family Medicine
DX: A04.71 Enterocolitis due to Clostridium difficile, recurrent (principal); N20.0 Calculus of kidney
CPT/HCPCS: 36415; 74177; 80053; 81003; 81015; 82150; 83605; 83690; 83735; 85025; 87086; 87507; 96361; 96374; 99284; J2405; Q9967

== ENCOUNTER → 2020-06-18 13:25 | Outpatient (CLI) | payer OTHER, SELFPAY ==
[2020-06-18 14:39] LABS: Hemoglobin A1C% w Est Avg Glu 5.8 % (4.0-6.0)
[2020-06-18 15:58] LABS: Vitamin B12 690 pg/mL (239-931)
== END ==
PROVIDERS: Family Provider General Practice; PCP Family Medicine; Referring Provider Family Medicine; Visit Provider Family Medicine
DX: R20.0 Anesthesia of skin (principal)
CPT/HCPCS: 36415; 82607; 83036

== ENCOUNTER → 2020-07-24 08:30 | Outpatient (CLI) | payer OTHER, SELFPAY ==
--- NOTE | 2020-07-24 08:40 | DI.MG.S_ITS ---
Patient Name: MILTON CHEEK date: 1965 Sex: F Attending Physician: Austin Indications: Date: 07/24/2020 08:34 At the request of: VINAY FUENTES Procedure: MM screening mammo BI BILATERAL DIGITAL SCREENING MAMMOGRAM 3D/2D WITH CAD: 07/24/2020 CLINICAL: Routine screening. Comparison is made to exams dated: 05/28/2019 mammogram, 05/23/2018 mammogram, and 05/15/2017 mammogram - [facility]. The tissue of both breasts is predominantly fatty. Current study was also evaluated with a Computer Aided Detection (CAD) system. No significant masses, calcifications, or other findings are seen in either breast. There has been no significant interval change. IMPRESSION: NEGATIVE There is no mammographic evidence of malignancy. A 1 year screening mammogram is recommended. This exam was interpreted at Station ID: [id number]. NOTE: For mammograms, a report in lay terms will be sent to the patient. Approximately 15% of breast malignancies will not be visualized mammographically. In the management of a palpable breast mass, a negative mammogram must not discourage biopsy of a clinically suspicious lesion. Electronically Signed By: Jim matt/alex:07/24/2020 08:55:44 letter sent: Normal Exam ACR BI-RADS Category 1: Negative [id number]
[2020-07-24 13:17] LABS: Clostridium Difficile Tox PCR Positive for C. diff
[2020-07-25 17:37] LABS: C difficie Toxins A and B, EIA Positive (Negative)
== END ==
PROVIDERS: Internal Medicine; Family Provider General Practice; PCP Family Medicine; Referring Provider Family Medicine; Visit Provider Family Medicine
DX: Z12.31 Encounter for screening mammogram for malignant neoplasm of breast (principal); A04.72 Enterocolitis due to Clostridium difficile, not specified as recurrent
CPT/HCPCS: 77063; 77067; 87493

== ENCOUNTER → 2020-09-03 10:55 | Oncology outpatient (ONC) | payer OTHER, SELFPAY ==
[2020-09-03 11:28] VITALS: BP 126/77; PULSE 104; RESP 18; TEMP 36.8; O2SAT 95
[2020-09-03] MEDS: SODIUM CHLORIDE 0.9% IV (12:12)
[2020-09-03] MEDS: BEZLOTOXUMAB IV (12:12)
== END ==
PROVIDERS: PCP Family Medicine; Referring Provider Internal Medicine; Visit Provider Internal Medicine
DX: A04.71 Enterocolitis due to Clostridium difficile, recurrent (principal)
CPT/HCPCS: 96413; 96415; J0565

== ENCOUNTER → 2020-09-23 14:38 | Outpatient (CLI) | payer OTHER, SELFPAY | PROVIDERS: PCP Family Medicine; Visit Provider Specialist | DX: R39.11 Hesitancy of micturition (principal) | CPT/HCPCS: 87086 ==

== ENCOUNTER 2020-10-29 10:30 | Outpatient (RCR) | payer OTHER, SELFPAY ==
--- NOTE | 2020-10-05 17:28 | PT.OIE ---
Current Diagnoses Pain in left shoulder (10/05/20) Sacrococcygeal disorders, not elsewhere classified (10/05/20) Low back pain (10/05/20) Past Medical History (Last Reviewed 05/26/20 @ 19:57 by Ashwini Boss [facility]) Abnormal Pap smear of cervix (1995) Acne (1975) ADHD (attention deficit hyperactivity disorder) (1962) Anxiety (1998) Back tightness Chicken pox Chronic back pain (1994) Chronic headaches (1991) Coccydynia Colon polyps Depression (1998) Facet arthropathy, lumbar Fibromyalgia (1997) GERD (gastroesophageal reflux disease) (1997) Hayfever (~1991) Hearing loss (2011) Hypothyroidism (~2003) IBS (irritable bowel syndrome) (1962) Insomnia (06/21/16) Migraines (2009) Neck tightness Obstructive sleep apnea of adult Osteomyelitis of lumbar spine Pelvic pain in female Plantar warts (1991) Precancerous changes of the cervix (1995) Prolapse of intestine Shoulder pain (1994) Villous adenoma of right colon (2010) Past Surgical History (Last Reviewed 05/26/20 @ 19:57 by Ashwini Boss [facility]) Anesthesia History of colonoscopy (08/2012) History of partial colectomy (2010) History of rectopexy Status post appendectomy Status post colectomy (2011) Status post vaginal hysterectomy (1995) Visit Care Team Role Provider Type Li Avila MD Attending Provider Physician Primary Care Provider Referring Provider Specialty: Family Practice Address: [address] [place] [address], [facility] Email: [email or web address] Physical Therapy Initial Evaluation PT-OP-A Visit Information Start: 10/05/20 14:54 Freq: Status: Active Protocol: Document 10/05/20 10:36 (Rec: 10/05/20 15:08 [email or web address]) Out-Patient Physical Therapy Visit Information Visit Information Visit Type Initial Evaluation Visit Start Time 10:36 Visit Stop Time 11:15 Total Visit Minutes 39 Visit Number 1 Number of MEDICAL LAB TECHNOLOGIST Visits 0 Evaluation Information Evaluation Date 10/05/20 Precautions Precautions fibromyalgia PT-OP-B Current Condition Start: 10/05/20 14:54 Freq: Status: Active Protocol: Document 10/05/20 10:36 (Rec: 10/05/20 15:08 [email or web address]) Current Condition History of Current Condition Onset Date many years ago Current Complaints Chronic LBP (R > L) and L shoulder pain History of Current Condition Pt is a 54yo female here for her chronic LBP (R>L) and L shoulder pain. Pt stated they both started after she had her colon lifted surgery in d/t previous uterus, cervix , appendix and part of colon removed from many years ago. She believes those events weakend her abdominal and trunk significantly. She also reports that when she bends over, she feels very tight and has significant discomfort in her lower back, sacral and hamstrings area ( (pain 4/10). She also has discomfort in the area when seated, particularly on firmer surface . She also reports that she has left shoulder pain and weakness since being hospitalized in November. Has difficulty to raise the arm above her head and shoulder internal rotation. Pt also has had multiple course of hospitalization d/t recurrent C-diff colitis multiple times. Prior Treatments and Tests Osteomyelitis of lumbar spine (Acute) History of colonoscopy ( Resolved 08/2012) History of partial colectomy ( Resolved 2010) History of rectopexy (Acute) Status post appendectomy ( Resolved) Status post colectomy (2012) Status post vaginal hysterectomy (Resolved 1995) Treatment Goals Patient/Caregiver Goals 1. To be able to bend over without much discomfort 2. Reduce her LBP and L shoulder pain during daily activities Prior Functional Status Baseline Function- ADL's Independent Baseline Function- Mobility Independent Current Functional Impairments (Reported) Functional Limitations- Mobility/Gait Pt stated she is mostly homebound d/t her weakness and pain. Pt needs to use her bed rail for supine to sit, use of hands to push off from knees for STS, bending over and recovering from a flexed trunk position. Personal Factors Other Personal Factors That May Effect Anxiety, ADD, depression Therapy/Recovery fibromyalgia social hx: Eb is wheelchair bound with Multiple Sclerosis. Patient's best friend this year PT-OP-C Subjective Start: 10/05/20 14:54 Freq: Status: Active Protocol: Document 10/05/20 10:36 (Rec: 10/05/20 17:27 [email or web address]) Patient Questionnaires Oswestry Low Back Index Oswestry Score 42 Oswestry Impairment 40 to 59% Impaired (Score 40- 59) Quick Dash- Upper Extremity Quick Dash UE Score 18 Quick Dash UE Impairment 1 to 19% Impaired (Score 1-19) OP-PT Pain Assessment Location LBP Intensity 4 Scale Used Numeric (0 - 10) Description Aching Frequency Frequent Pain Aggravating Factors Sitting,Bending,Lifting Pain Alleviating Factors Inactivity,Position L shoulder Intensity 3 Scale Used Numeric (0 - 10) Description Aching Frequency Frequent Pain Aggravating Factors Lifting Other Pain Aggravating Factors reaching overhead Pain Alleviating Factors Inactivity PT-OP-E Functional Tests Start: 10/05/20 14:54 Freq: Status: Active Protocol: Document 10/05/20 10:36 HH (Rec: 10/05/20 17:27 [email or web address]) Functional Tests Apley's Scratch Test Action 1- Left pain at AC joint area Action 1- Right no pain Action 2- Left T3 but slowly Action 2- Right T3 Action 3- Left T6 but slowly Action 3- Right T6 PT-OP-F Manual Assessment Start: 10/05/20 14:54 Freq: Status: Active Protocol: Document 10/05/20 10:36 HH (Rec: 10/05/20 17:27 [email or web address]) Manual Assessments Soft Tissue Assessment Soft Tissue Mobility Assessment significant tenderness at proximal gluteal insertion and adjacent area bilaterally L worse than R PT-OP-G Mobility & Gait Start: 10/05/20 14:54 Freq: Status: Active Protocol: Document 10/05/20 10:36 HH (Rec: 10/05/20 17:27 [email or web address]) OP Mobility Evaluation Bed Mobility Rolling pt roll to both side very slowly Supine to and from Sit log roll to SL position to push up slowly Transfers Sit to Stand with UE support on knees. PT-OP-K Range of Motion Start: 10/05/20 14:54 Freq: Status: Active Protocol: Document 10/05/20 10:36 HH (Rec: 10/05/20 17:27 [email or web address]) Lumbar Spine Range of Motion Lumbar Spine Active Percentage Testing Position Standing Comments toe touch test= 2 inches off floor with aberrant sign (UE support to descend and ascend) + knee bent lateral flexion to L= 20 inches lateral flexion to R= 18.5 inches extension= shoulders unable to clear heels pain for extension > flexion > L lateral flexion Shoulder Goniometric Range of Motion Shoulder Left Active Shoulder ROM WFL Yes Testing Position Standing Comments patient's ROM= WFL but move slowly d/t increase pain with painful arc Hip Goniometric Range of Motion Hip Right Active Hip ROM WFL Yes Straight Leg Raise 90 Internal Rotation 50 External Rotation 60 Comments figure 4 position - lateral knee = 2 inches off table Left Active Hip ROM WFL Yes Straight Leg Raise 90 Internal Rotation 60 External Rotation 45 Comments figure 4 position - lateral knee = 5 inches off table PT-OP-L Special Tests Start: 10/05/20 14:54 Freq: Status: Active Protocol: Document 10/05/20 10:36 (Rec: 10/05/20 17:27 [email or web address]) Special Tests Lumbar Spine Special Tests Prone Instability Test Comments unable to test d/t weak hip extensors Slump Test Results +VE B Comments reports pain/ pulling discomfort at LB Straight Leg Raise Test Results -ve B Shoulder Special Tests Neer Impingement Test Results +VE L IR/Horizontal ADD Impingement Test Results +VE L Empty Can Test Results +VE L PT-OP-M Strength Start: 10/05/20 14:54 Freq: Status: Active Protocol: Document 10/05/20 10:36 HH (Rec: 10/05/20 17:27 [email or web address]) Shoulder Strength Shoulder Manual Muscle Testing Right Flexion 4+ Good+ Extension 4+ Good+ Abduction (C5) 4+ Good+ Adduction 4+ Good+ External Rotation 4+ Good+ Internal Rotation 4+ Good+ Left Flexion 4 Good Extension 4+ Good+ Abduction (C5) 4- Good- Adduction 4- Good- External Rotation 3+ Fair+ Internal Rotation 4 Good Hip Strength Hip Manual Muscle Testing Right Flexion (L2) 4- Good- Extension (S1) 4- Good- Abduction 4- Good- Adduction 4- Good- Left Flexion (L2) 3+ Fair+ Extension (S1) 3 Fair Abduction 3+ Fair+ Adduction 3+ Fair+ Knee Strength Knee Manual Muscle Testing Right Flexion (S2) 4 Good Extension (L3) 4 Good Left Flexion (S2) 4- Good- Extension (L3) 4- Good- PT-OP-T Assessment and Plan Start: 10/05/20 14:54 Freq: Status: Active Protocol: Document 10/05/20 10:36 (Rec: 11/23/20 17:27 HH [email or web address]) Physical Therapy Assessment Rehab Potential Rehabilitation Potential Good Evaluation Complexity Number of Personal Factors/Comorbidities 3 or More Number of Body Systems Impaired 3 Clinical Presentation at Evaluation Stable Impairments Impairments Activity Tolerance,Balance, Functional Activities, Functional Mobility,Gait,Pain, Posture,ROM,Soft Tissue Mobility,Strength,Transfers Goals L shoulder Impairment pain with shoulder ABD, ER and reaching voer Mcfp Goal (LTG) pt will have no pain reaching overhead so she can reach for things in cupboard at home LTG Duration 10 weeks pain Impairment pt shows aberrant signs for bend over/ STS d/t pain Short Term Goal (STG) pt will be able to roll in bed and complete supine to sit with pain no more than 2/10 STG Duration 6 weeks Rn Call Center Goal (LTG) pt will be able to bend over and recover without using her UEs support on knees with no pain no more than 2/10. Therefore, she could perform functional activities such as cleaning, getting in and out of chairs. LTG Duration 12 weeks Quickdash Impairment pt scores 18 on quickdash for her L shoulder Mcfp Goal (LTG) pt will score <10 on quickdash for her L shoulder to indicated improved quality of life LTG Duration 12 weeks Oswestry LBP Impairment pt scores 42 on Oswestry Short Term Goal (STG) Pt will score < 35 for Oswestry LBP questionnaire to improve her quality of life STG Duration 6 weeks Mcfp Goal (LTG) Pt will score < 30 for Oswestry LBP questionnaire to improve her quality of life LTG Duration 12 weeks Assessment Summary Assessment This is a high complexity evaluation for this 54 yo female with complicated medical hx. (multiple abdominal surgeries, see above ). Pt's major c/o is LBP L>R and L shoulder pain. Upon assessment, pt presents high pain sensitivity mostly at SIJ region without radiating pain . She shows aberrant signs for bend over / STS activities. Pt does have limited L hip ER with tightness at L glutes and piriformis. In addition, pt has significant weakness for both hips (L>R) and poor abdominal and trunk strnegth. Besides, she also presents symptoms of L shoulder impingement whose pain is worse with shoulder IR, ABD. In my professional opinion, pt will benefit from skilled therapy but this is possibly going to be a long rehab d/t her ongoing medical conditions along with her complicated medical hx. POC includes manual therapy, improving L hip stability and strength, abdominand and trunk stability training, L shoulder strengthening in order for her to fully participate daily activities safely with min discomfort. Physical Therapy Plan Frequency and Duration Frequency of Treatment 2x/Week Duration of Treatment 12 weeks Plan of Care Start Date 10/05/20 Plan of Care End Date 01/03/21 Therapeutic Interventions Therapeutic Interventions Aquatic Therapy,Balance Training,Gait Training,Home Exercise Program,Joint Mobilizations,Manual Therapy, Neuromuscular Re-education, Orthotic/Prosthetic Management ,Patient/Caregiver Education, Self-Care/Home Management,Soft Tissue Mobilization,Taping, Therapeutic Activities, Therapeutic Exercises Modalities Biofeedback,Cold Pack/Ice Massage,Electric Stimulation, Hot Packs,Infrared Therapy, Traction- Mechanical, Ultrasound Next Visit Focus/Plan Next Note Type Treatment Note Next Visit Plan manual therapy on glute, piriformis, pecs, RTC L hip ER , figure 4 and knee opp chest stretch pelvic tilt bridging beverly
--- NOTE | 2020-10-05 17:28 | PT.OPPOC ---
Physical, Occupational & Speech Therapy At [facility] Current Diagnoses Pain in left shoulder (10/05/20) Sacrococcygeal disorders, not elsewhere classified (10/05/20) Low back pain (10/05/20) Visit Care Team Role Provider Type Li Avila MD Attending Provider Physician Primary Care Provider Referring Provider Specialty: Family Practice Address: [address] [place] [address], [place], [place], [facility] Email: [email or web address] Plan Of Care PT-OP-T Assessment and Plan Start: 10/05/20 14:54 Freq: Status: Active Protocol: Document 10/05/20 10:36 HH (Rec: 10/05/20 17:27 HH [email or web address]) Physical Therapy Assessment Rehab Potential Rehabilitation Potential Good Evaluation Complexity Number of Personal Factors/Comorbidities 3 or More Number of Body Systems Impaired 3 Clinical Presentation at Evaluation Stable Impairments Impairments Activity Tolerance,Balance, Functional Activities, Functional Mobility,Gait,Pain, Posture,ROM,Soft Tissue Mobility,Strength,Transfers Goals L shoulder Impairment pain with shoulder ABD, ER and reaching voer Milling Machine Operator Goal (LTG) pt will have no pain reaching overhead so she can reach for things in cupboard at home LTG Duration 10 weeks pain Impairment pt shows aberrant signs for bend over/ STS d/t pain Short Term Goal (STG) pt will be able to roll in bed and complete supine to sit with pain no more than 2/10 STG Duration 6 weeks Skilled Nursing Goal (LTG) pt will be able to bend over and recover without using her UEs support on knees with no pain no more than 2/10. Therefore, she could perform functional activities such as cleaning, getting in and out of chairs. LTG Duration 12 weeks Quickdash Impairment pt scores 18 on quickdash for her L shoulder Milling Machine Operator Goal (LTG) pt will score <10 on quickdash for her L shoulder to indicated improved quality of life LTG Duration 12 weeks Oswestry LBP Impairment pt scores 42 on Oswestry Short Term Goal (STG) Pt will score < 35 for Oswestry LBP questionnaire to improve her quality of life STG Duration 6 weeks Milling Machine Operator Goal (LTG) Pt will score < 30 for Oswestry LBP questionnaire to improve her quality of life LTG Duration 12 weeks Assessment Summary Assessment This is a high complexity evaluation for this 54 yo female with complicated medical hx. (multiple abdominal surgeries, see above ). Pt's major c/o is LBP L>R and L shoulder pain. Upon assessment, pt presents high pain sensitivity mostly at SIJ region without radiating pain . She shows aberrant signs for bend over / STS activities. Pt does have limited L hip ER with tightness at L glutes and piriformis. In addition, pt has significant weakness for both hips (L>R) and poor abdominal and trunk strnegth. Besides, she also presents symptoms of L shoulder impingement whose pain is worse with shoulder IR, ABD. In my professional opinion, pt will benefit from skilled therapy but this is possibly going to be a long rehab d/t her ongoing medical conditions along with her complicated medical hx. POC includes manual therapy, improving L hip stability and strength, abdominand and trunk stability training, L shoulder strengthening in order for her to fully participate daily activities safely with min discomfort. Physical Therapy Plan Frequency and Duration Frequency of Treatment 2x/Week Duration of Treatment 12 weeks Plan of Care Start Date 10/05/20 Plan of Care End Date 01/03/21 Therapeutic Interventions Therapeutic Interventions Aquatic Therapy,Balance Training,Gait Training,Home Exercise Program,Joint Mobilizations,Manual Therapy, Neuromuscular Re-education, Orthotic/Prosthetic Management ,Patient/Caregiver Education, Self-Care/Home Management,Soft Tissue Mobilization,Taping, Therapeutic Activities, Therapeutic Exercises Modalities Biofeedback,Cold Pack/Ice Massage,Electric Stimulation, Hot Packs,Infrared Therapy, Traction- Mechanical, Ultrasound Next Visit Focus/Plan Next Note Type Treatment Note Next Visit Plan manual therapy on glute, piriformis, pecs, RTC L hip ER , figure 4 and knee opp chest stretch pelvic tilt bridging beverly Plan of Care Dates Plan of Care Start Date 10/05/20 Plan of Care End Date 01/03/21 Electronically Signed by: Haroon Ortiz PT 10/05/20 [id number] Please Sign and Return: I have reviewed this Plan of Care and certify that the skilled therapy services above are required to meet the patient?s needs. Physician Signature Date Printed Name and Credentials Clinical Instructor Signature Printed Name and Credentials
--- NOTE | 2020-10-06 10:35 | PT.OTN ---
Current Diagnoses Pain in left shoulder (10/06/20) Sacrococcygeal disorders, not elsewhere classified (10/06/20) Low back pain (10/06/20) Physical Therapy Treatment Note PT-OP-A Visit Information Start: 10/05/20 14:54 Freq: Status: Active Protocol: Document 10/06/20 09:50 HH (Rec: 10/06/20 10:35 [id number]) Out-Patient Physical Therapy Visit Information Visit Information Visit Type Treatment Note Visit Start Time 09:48 Visit Stop Time 10:30 Total Visit Minutes 42 Visit Number 2 Number of FAMILY LIVING EDUCATOR Visits 0 PT-OP-B Current Condition Start: 10/05/20 14:54 Freq: Status: Active Protocol: Document 10/05/20 10:36 HH (Rec: 10/05/20 15:08 [email or web address]) Current Condition History of Current Condition Onset Date many years ago Current Complaints Chronic LBP (R > L) and L shoulder pain History of Current Condition Pt is a 54yo female here for her chronic LBP (R>L) and L shoulder pain. Pt stated they both started after she had her colon lifted surgery in d/t previous uterus, cervix , appendix and part of colon removed from many years ago. She believes those events weakend her abdominal and trunk significantly. She also reports that when she bends over, she feels very tight and has significant discomfort in her lower back, sacral and hamstrings area ( (pain 4/10). She also has discomfort in the area when seated, particularly on firmer surface . She also reports that she has left shoulder pain and weakness since being hospitalized in November. Has difficulty to raise the arm above her head and shoulder internal rotation. Pt also has had multiple course of hospitalization d/t recurrent C-diff colitis multiple times. Prior Treatments and Tests Osteomyelitis of lumbar spine (Acute) History of colonoscopy ( Resolved 08/2012) History of partial colectomy ( Resolved 2010) History of rectopexy (Acute) Status post appendectomy ( Resolved) Status post colectomy (2012) Status post vaginal hysterectomy (Resolved 1995) Treatment Goals Patient/Caregiver Goals 1. To be able to bend over without much discomfort 2. Reduce her LBP and L shoulder pain during daily activities Prior Functional Status Baseline Function- ADL's Independent Baseline Function- Mobility Independent Current Functional Impairments (Reported) Functional Limitations- Mobility/Gait Pt stated she is mostly homebound d/t her weakness and pain. Pt needs to use her bed rail for supine to sit, use of hands to push off from knees for STS, bending over and recovering from a flexed trunk position. Personal Factors Other Personal Factors That May Effect Anxiety, ADD, depression Therapy/Recovery fibromyalgia social hx: Eb is wheelchair bound with Multiple Sclerosis. Patient's best friend this year PT-OP-C Subjective Start: 10/05/20 14:54 Freq: Status: Active Protocol: Document 10/06/20 09:50 HH (Rec: 10/06/20 10:35 HH [id number]) OP-PT Subjective Patient Comments Patient Comments Im excited to start therapy PT-OP-E Functional Tests Start: 10/05/20 14:54 Freq: Status: Active Protocol: Document 10/05/20 10:36 HH (Rec: 10/05/20 17:27 HH [email or web address]) Functional Tests Apley's Scratch Test Action 1- Left pain at AC joint area Action 1- Right no pain Action 2- Left T3 but slowly Action 2- Right T3 Action 3- Left T6 but slowly Action 3- Right T6 PT-OP-F Manual Assessment Start: 10/05/20 14:54 Freq: Status: Active Protocol: Document 10/05/20 10:36 HH (Rec: 10/05/20 17:27 [email or web address]) Manual Assessments Soft Tissue Assessment Soft Tissue Mobility Assessment significant tenderness at proximal gluteal insertion and adjacent area bilaterally L worse than R PT-OP-G Mobility & Gait Start: 10/05/20 14:54 Freq: Status: Active Protocol: Document 10/05/20 10:36 HH (Rec: 10/05/20 17:27 [email or web address]) OP Mobility Evaluation Bed Mobility Rolling pt roll to both side very slowly Supine to and from Sit log roll to SL position to push up slowly Transfers Sit to Stand with UE support on knees. PT-OP-K Range of Motion Start: 10/05/20 14:54 Freq: Status: Active Protocol: Document 10/05/20 10:36 HH (Rec: 10/05/20 17:27 [email or web address]) Lumbar Spine Range of Motion Lumbar Spine Active Percentage Testing Position Standing Comments toe touch test= 2 inches off floor with aberrant sign (UE support to descend and ascend) + knee bent lateral flexion to L= 20 inches lateral flexion to R= 18.5 inches extension= shoulders unable to clear heels pain for extension > flexion > L lateral flexion Shoulder Goniometric Range of Motion Shoulder Left Active Shoulder ROM WFL Yes Testing Position Standing Comments patient's ROM= WFL but move slowly d/t increase pain with painful arc Hip Goniometric Range of Motion Hip Right Active Hip ROM WFL Yes Straight Leg Raise 90 Internal Rotation 50 External Rotation 60 Comments figure 4 position - lateral knee = 2 inches off table Left Active Hip ROM WFL Yes Straight Leg Raise 90 Internal Rotation 60 External Rotation 45 Comments figure 4 position - lateral knee = 5 inches off table PT-OP-L Special Tests Start: 10/05/20 14:54 Freq: Status: Active Protocol: Document 10/05/20 10:36 HH (Rec: 10/05/20 17:27 HH [email or web address]) Special Tests Lumbar Spine Special Tests Prone Instability Test Comments unable to test d/t weak hip extensors Slump Test Results +VE B Comments reports pain/ pulling discomfort at LB Straight Leg Raise Test Results -ve B Shoulder Special Tests Neer Impingement Test Results +VE L IR/Horizontal ADD Impingement Test Results +VE L Empty Can Test Results +VE L PT-OP-M Strength Start: 10/05/20 14:54 Freq: Status: Active Protocol: Document 10/05/20 10:36 HH (Rec: 10/05/20 17:27 HH [email or web address]) Shoulder Strength Shoulder Manual Muscle Testing Right Flexion 4+ Good+ Extension 4+ Good+ Abduction (C5) 4+ Good+ Adduction 4+ Good+ External Rotation 4+ Good+ Internal Rotation 4+ Good+ Left Flexion 4 Good Extension 4+ Good+ Abduction (C5) 4- Good- Adduction 4- Good- External Rotation 3+ Fair+ Internal Rotation 4 Good Hip Strength Hip Manual Muscle Testing Right Flexion (L2) 4- Good- Extension (S1) 4- Good- Abduction 4- Good- Adduction 4- Good- Left Flexion (L2) 3+ Fair+ Extension (S1) 3 Fair Abduction 3+ Fair+ Adduction 3+ Fair+ Knee Strength Knee Manual Muscle Testing Right Flexion (S2) 4 Good Extension (L3) 4 Good Left Flexion (S2) 4- Good- Extension (L3) 4- Good- PT-OP-Q Treatments Start: 10/05/20 14:54 Freq: Status: Active Protocol: Document 10/06/20 09:50 HH (Rec: 10/06/20 10:35 HH [id number]) Therapeutic Exercises Supine Exercises LTR Side bilateral Equipment Used for HEP Reps/Minutes 8 Comments cues on eccentric control knee to opp chest Supine Exercise Name piriformis stretch Side bilateral Reps/Minutes 10 sec x 5 tennis ball release Supine Exercise Name at glutes SIJ region Comments for HEP knee to chest Side bilateral Reps/Minutes 8 Comments for HEP Sidelying Exercises open book Side bilateral Reps/Minutes 8 x1 Comments for HEP clamshell Side bilateral Reps/Minutes 8 x1 Comments for HEP Manual Therapy Treatment Soft Tissue Mobilization RTC Mobilization Type Sustained Pressure,Trigger Point Release Intensity/Depth Moderate Body Position Sidelying Comments infraspinatus > teres minor glutes and pirirformis Mobilization Type Sustained Pressure,Trigger Point Release Intensity/Depth Moderate Body Position Sidelying Comments L SIJ region, significant tenderness noted. pecs Mobilization Type Sustained Pressure,Trigger Point Release Intensity/Depth Moderate Body Position Supine Comments mild tenderness noted. PT-OP-T Assessment and Plan Start: 10/05/20 14:54 Freq: Status: Active Protocol: Document 10/06/20 09:50 HH (Rec: 10/06/20 10:35 [id number]) Physical Therapy Assessment Goals L shoulder Impairment pain with shoulder ABD, ER and reaching voer Prison Goal (LTG) pt will have no pain reaching overhead so she can reach for things in cupboard at home LTG Duration 10 weeks pain Impairment pt shows aberrant signs for bend over/ STS d/t pain Short Term Goal (STG) pt will be able to roll in bed and complete supine to sit with pain no more than 2/10 STG Duration 6 weeks Prison Goal (LTG) pt will be able to bend over and recover without using her UEs support on knees with no pain no more than 2/10. Therefore, she could perform functional activities such as cleaning, getting in and out of chairs. LTG Duration 12 weeks Quickdash Impairment pt scores 18 on quickdash for her L shoulder Prison Goal (LTG) pt will score <10 on quickdash for her L shoulder to indicated improved quality of life LTG Duration 12 weeks Oswestry LBP Impairment pt scores 42 on Oswestry Short Term Goal (STG) Pt will score < 35 for Oswestry LBP questionnaire to improve her quality of life STG Duration 6 weeks Watch Engineer Goal (LTG) Pt will score < 30 for Oswestry LBP questionnaire to improve her quality of life LTG Duration 12 weeks Assessment Summary Assessment Pt korey session very well. She has significant tenderness to pressure at RTC, pecs and glutes /piriformis but she felt better at the end of session. Pt is very hypermobile with low muscle tone in general. Physical Therapy Plan Frequency and Duration Frequency of Treatment 2x/Week Duration of Treatment 12 weeks Plan of Care Start Date 10/05/20 Plan of Care End Date 01/03/21 Next Visit Focus/Plan Next Note Type Treatment Note Next Visit Plan manual therapy on glute, piriformis, pecs, RTC L hip ER , figure 4 and knee opp chest stretch pelvic tilt bridging beverly
--- NOTE | 2020-10-12 12:08 | PT.OTN ---
Current Diagnoses Pain in left shoulder (10/12/20) Sacrococcygeal disorders, not elsewhere classified (10/12/20) Low back pain (10/12/20) Physical Therapy Treatment Note PT-OP-A Visit Information Start: 10/05/20 14:54 Freq: Status: Active Protocol: Document 10/12/20 10:35 HH (Rec: 10/12/20 12:08 [id number]) Out-Patient Physical Therapy Visit Information Visit Information Visit Type Treatment Note Visit Start Time 10:34 Visit Stop Time 11:15 Total Visit Minutes 41 Visit Number 3 Number of DIRECTOR OF BUSINESS SERVICES Visits 0 PT-OP-B Current Condition Start: 10/05/20 14:54 Freq: Status: Active Protocol: Document 10/05/20 10:36 HH (Rec: 10/05/20 15:08 [email or web address]) Current Condition History of Current Condition Onset Date many years ago Current Complaints Chronic LBP (R > L) and L shoulder pain History of Current Condition Pt is a 54yo female here for her chronic LBP (R>L) and L shoulder pain. Pt stated they both started after she had her colon lifted surgery in d/t previous uterus, cervix , appendix and part of colon removed from many years ago. She believes those events weakend her abdominal and trunk significantly. She also reports that when she bends over, she feels very tight and has significant discomfort in her lower back, sacral and hamstrings area ( (pain 4/10). She also has discomfort in the area when seated, particularly on firmer surface . She also reports that she has left shoulder pain and weakness since being hospitalized in November. Has difficulty to raise the arm above her head and shoulder internal rotation. Pt also has had multiple course of hospitalization d/t recurrent C-diff colitis multiple times. Prior Treatments and Tests Osteomyelitis of lumbar spine (Acute) History of colonoscopy ( Resolved 08/2012) History of partial colectomy ( Resolved 2010) History of rectopexy (Acute) Status post appendectomy ( Resolved) Status post colectomy (2012) Status post vaginal hysterectomy (Resolved 1995) Treatment Goals Patient/Caregiver Goals 1. To be able to bend over without much discomfort 2. Reduce her LBP and L shoulder pain during daily activities Prior Functional Status Baseline Function- ADL's Independent Baseline Function- Mobility Independent Current Functional Impairments (Reported) Functional Limitations- Mobility/Gait Pt stated she is mostly homebound d/t her weakness and pain. Pt needs to use her bed rail for supine to sit, use of hands to push off from knees for STS, bending over and recovering from a flexed trunk position. Personal Factors Other Personal Factors That May Effect Anxiety, ADD, depression Therapy/Recovery fibromyalgia social hx: Eb is wheelchair bound with Multiple Sclerosis. Patient's best friend this year PT-OP-C Subjective Start: 10/05/20 14:54 Freq: Status: Active Protocol: Document 10/12/20 10:35 HH (Rec: 10/12/20 12:08 HH [id number]) OP-PT Subjective Patient Comments Patient Comments Laura seen an OMT on monday and all 2 treatments from PT and OMT allowed me to sleep on my L side for a little bit Patient Reported Progress Improving PT-OP-E Functional Tests Start: 10/05/20 14:54 Freq: Status: Active Protocol: Document 10/05/20 10:36 HH (Rec: 10/05/20 17:27 HH [email or web address]) Functional Tests Apley's Scratch Test Action 1- Left pain at AC joint area Action 1- Right no pain Action 2- Left T3 but slowly Action 2- Right T3 Action 3- Left T6 but slowly Action 3- Right T6 PT-OP-F Manual Assessment Start: 10/05/20 14:54 Freq: Status: Active Protocol: Document 10/05/20 10:36 HH (Rec: 10/05/20 17:27 HH [email or web address]) Manual Assessments Soft Tissue Assessment Soft Tissue Mobility Assessment significant tenderness at proximal gluteal insertion and adjacent area bilaterally L worse than R PT-OP-G Mobility & Gait Start: 10/05/20 14:54 Freq: Status: Active Protocol: Document 10/05/20 10:36 HH (Rec: 10/05/20 17:27 HH [email or web address]) OP Mobility Evaluation Bed Mobility Rolling pt roll to both side very slowly Supine to and from Sit log roll to SL position to push up slowly Transfers Sit to Stand with UE support on knees. PT-OP-K Range of Motion Start: 10/05/20 14:54 Freq: Status: Active Protocol: Document 10/05/20 10:36 HH (Rec: 10/05/20 17:27 HH [email or web address]) Lumbar Spine Range of Motion Lumbar Spine Active Percentage Testing Position Standing Comments toe touch test= 2 inches off floor with aberrant sign (UE support to descend and ascend) + knee bent lateral flexion to L= 20 inches lateral flexion to R= 18.5 inches extension= shoulders unable to clear heels pain for extension > flexion > L lateral flexion Shoulder Goniometric Range of Motion Shoulder Left Active Shoulder ROM WFL Yes Testing Position Standing Comments patient's ROM= WFL but move slowly d/t increase pain with painful arc Hip Goniometric Range of Motion Hip Right Active Hip ROM WFL Yes Straight Leg Raise 90 Internal Rotation 50 External Rotation 60 Comments figure 4 position - lateral knee = 2 inches off table Left Active Hip ROM WFL Yes Straight Leg Raise 90 Internal Rotation 60 External Rotation 45 Comments figure 4 position - lateral knee = 5 inches off table PT-OP-L Special Tests Start: 10/05/20 14:54 Freq: Status: Active Protocol: Document 10/05/20 10:36 HH (Rec: 10/05/20 17:27 HH [email or web address]) Special Tests Lumbar Spine Special Tests Prone Instability Test Comments unable to test d/t weak hip extensors Slump Test Results +VE B Comments reports pain/ pulling discomfort at LB Straight Leg Raise Test Results -ve B Shoulder Special Tests Neer Impingement Test Results +VE L IR/Horizontal ADD Impingement Test Results +VE L Empty Can Test Results +VE L PT-OP-M Strength Start: 10/05/20 14:54 Freq: Status: Active Protocol: Document 10/05/20 10:36 HH (Rec: 10/05/20 17:27 [email or web address]) Shoulder Strength Shoulder Manual Muscle Testing Right Flexion 4+ Good+ Extension 4+ Good+ Abduction (C5) 4+ Good+ Adduction 4+ Good+ External Rotation 4+ Good+ Internal Rotation 4+ Good+ Left Flexion 4 Good Extension 4+ Good+ Abduction (C5) 4- Good- Adduction 4- Good- External Rotation 3+ Fair+ Internal Rotation 4 Good Hip Strength Hip Manual Muscle Testing Right Flexion (L2) 4- Good- Extension (S1) 4- Good- Abduction 4- Good- Adduction 4- Good- Left Flexion (L2) 3+ Fair+ Extension (S1) 3 Fair Abduction 3+ Fair+ Adduction 3+ Fair+ Knee Strength Knee Manual Muscle Testing Right Flexion (S2) 4 Good Extension (L3) 4 Good Left Flexion (S2) 4- Good- Extension (L3) 4- Good- PT-OP-Q Treatments Start: 10/05/20 14:54 Freq: Status: Active Protocol: Document 10/12/20 10:35 HH (Rec: 10/12/20 12:08 HH [id number]) Cardio Equipment Recumbent Stepper (Sci-Fit) Duration (Minutes) 5 Resistance 5 Therapeutic Exercises Supine Exercises ab curl Equipment Used red therapy ball Reps/Minutes 8 x2 Comments cues on eccentric control LTR Side bilateral Equipment Used red therapy ball Reps/Minutes 8 x 2 Comments cues on eccentric control Sidelying Exercises open book Side bilateral Reps/Minutes 8 x2 Comments less discomfort at L chest today. clamshell Side bilateral Reps/Minutes 8 x1 Comments for HEP Manual Therapy Treatment Soft Tissue Mobilization RTC Mobilization Type Sustained Pressure,Trigger Point Release Intensity/Depth Moderate Body Position Sidelying Comments infraspinatus > teres minor improved pain sensitivity glutes and pirirformis Mobilization Type Sustained Pressure,Trigger Point Release Intensity/Depth Moderate Body Position Sidelying Comments L SIJ region, significant tenderness noted. pecs Mobilization Type Sustained Pressure,Trigger Point Release Intensity/Depth Moderate Body Position Supine Comments improved pain sensitivity PT-OP-T Assessment and Plan Start: 10/05/20 14:54 Freq: Status: Active Protocol: Document 10/12/20 10:35 HH (Rec: 10/12/20 12:08 [id number]) Physical Therapy Assessment Goals L shoulder Impairment pain with shoulder ABD, ER and reaching voer Residential Goal (LTG) pt will have no pain reaching overhead so she can reach for things in cupboard at home LTG Duration 10 weeks pain Impairment pt shows aberrant signs for bend over/ STS d/t pain Short Term Goal (STG) pt will be able to roll in bed and complete supine to sit with pain no more than 2/10 STG Duration 6 weeks Pnp Goal (LTG) pt will be able to bend over and recover without using her UEs support on knees with no pain no more than 2/10. Therefore, she could perform functional activities such as cleaning, getting in and out of chairs. LTG Duration 12 weeks Quickdash Impairment pt scores 18 on quickdash for her L shoulder Pnp Goal (LTG) pt will score <10 on quickdash for her L shoulder to indicated improved quality of life LTG Duration 12 weeks Oswestry LBP Impairment pt scores 42 on Oswestry Short Term Goal (STG) Pt will score < 35 for Oswestry LBP questionnaire to improve her quality of life STG Duration 6 weeks Pnp Goal (LTG) Pt will score < 30 for Oswestry LBP questionnaire to improve her quality of life LTG Duration 12 weeks Assessment Summary Assessment improved pain sensitivity on L shoulder today but pt cont to be very uncomfortable during bed mobility (rolling and supine to sit). Added supine ab curl and LTR for trunk stability therex. Physical Therapy Plan Frequency and Duration Frequency of Treatment 2x/Week Duration of Treatment 12 weeks Plan of Care Start Date 10/05/20 Plan of Care End Date 01/03/21 Next Visit Focus/Plan Next Note Type Treatment Note Next Visit Plan manual therapy on glute, piriformis, pecs, RTC L hip ER , figure 4 and knee opp chest stretch pelvic tilt bridging, leg press beverly
--- NOTE | 2020-10-15 11:28 | PT.OTN ---
Current Diagnoses Pain in left shoulder (10/15/20) Sacrococcygeal disorders, not elsewhere classified (10/15/20) Low back pain (10/15/20) Physical Therapy Treatment Note PT-OP-A Visit Information Start: 10/05/20 14:54 Freq: Status: Active Protocol: Document 10/15/20 10:36 HH (Rec: 10/15/20 11:28 [id number]) Out-Patient Physical Therapy Visit Information Visit Information Visit Type Treatment Note Visit Start Time 10:33 Visit Stop Time 11:15 Total Visit Minutes 42 Visit Number 4 Number of DATA PROCESSOR Visits 0 PT-OP-B Current Condition Start: 10/05/20 14:54 Freq: Status: Active Protocol: Document 10/05/20 10:36 (Rec: 10/05/20 15:08 [email or web address]) Current Condition History of Current Condition Onset Date many years ago Current Complaints Chronic LBP (R > L) and L shoulder pain History of Current Condition Pt is a 54yo female here for her chronic LBP (R>L) and L shoulder pain. Pt stated they both started after she had her colon lifted surgery in d/t previous uterus, cervix , appendix and part of colon removed from many years ago. She believes those events weakend her abdominal and trunk significantly. She also reports that when she bends over, she feels very tight and has significant discomfort in her lower back, sacral and hamstrings area ( (pain 4/10). She also has discomfort in the area when seated, particularly on firmer surface . She also reports that she has left shoulder pain and weakness since being hospitalized in November. Has difficulty to raise the arm above her head and shoulder internal rotation. Pt also has had multiple course of hospitalization d/t recurrent C-diff colitis multiple times. Prior Treatments and Tests Osteomyelitis of lumbar spine (Acute) History of colonoscopy ( Resolved 08/2012) History of partial colectomy ( Resolved 2010) History of rectopexy (Acute) Status post appendectomy ( Resolved) Status post colectomy (2012) Status post vaginal hysterectomy (Resolved 1995) Treatment Goals Patient/Caregiver Goals 1. To be able to bend over without much discomfort 2. Reduce her LBP and L shoulder pain during daily activities Prior Functional Status Baseline Function- ADL's Independent Baseline Function- Mobility Independent Current Functional Impairments (Reported) Functional Limitations- Mobility/Gait Pt stated she is mostly homebound d/t her weakness and pain. Pt needs to use her bed rail for supine to sit, use of hands to push off from knees for STS, bending over and recovering from a flexed trunk position. Personal Factors Other Personal Factors That May Effect Anxiety, ADD, depression Therapy/Recovery fibromyalgia social hx: Eb is wheelchair bound with Multiple Sclerosis. Patient's best friend this year PT-OP-C Subjective Start: 10/05/20 14:54 Freq: Status: Active Protocol: Document 10/15/20 10:36 HH (Rec: 10/15/20 11:28 [id number]) OP-PT Subjective Patient Comments Patient Comments Laying on the massage table is very uncomfortable PT-OP-E Functional Tests Start: 10/05/20 14:54 Freq: Status: Active Protocol: Document 10/05/20 10:36 HH (Rec: 10/05/20 17:27 [email or web address]) Functional Tests Apley's Scratch Test Action 1- Left pain at AC joint area Action 1- Right no pain Action 2- Left T3 but slowly Action 2- Right T3 Action 3- Left T6 but slowly Action 3- Right T6 PT-OP-F Manual Assessment Start: 10/05/20 14:54 Freq: Status: Active Protocol: Document 10/05/20 10:36 HH (Rec: 10/05/20 17:27 [email or web address]) Manual Assessments Soft Tissue Assessment Soft Tissue Mobility Assessment significant tenderness at proximal gluteal insertion and adjacent area bilaterally L worse than R PT-OP-G Mobility & Gait Start: 10/05/20 14:54 Freq: Status: Active Protocol: Document 10/05/20 10:36 HH (Rec: 10/05/20 17:27 [email or web address]) OP Mobility Evaluation Bed Mobility Rolling pt roll to both side very slowly Supine to and from Sit log roll to SL position to push up slowly Transfers Sit to Stand with UE support on knees. PT-OP-K Range of Motion Start: 10/05/20 14:54 Freq: Status: Active Protocol: Document 10/05/20 10:36 HH (Rec: 10/05/20 17:27 [email or web address]) Lumbar Spine Range of Motion Lumbar Spine Active Percentage Testing Position Standing Comments toe touch test= 2 inches off floor with aberrant sign (UE support to descend and ascend) + knee bent lateral flexion to L= 20 inches lateral flexion to R= 18.5 inches extension= shoulders unable to clear heels pain for extension > flexion > L lateral flexion Shoulder Goniometric Range of Motion Shoulder Left Active Shoulder ROM WFL Yes Testing Position Standing Comments patient's ROM= WFL but move slowly d/t increase pain with painful arc Hip Goniometric Range of Motion Hip Right Active Hip ROM WFL Yes Straight Leg Raise 90 Internal Rotation 50 External Rotation 60 Comments figure 4 position - lateral knee = 2 inches off table Left Active Hip ROM WFL Yes Straight Leg Raise 90 Internal Rotation 60 External Rotation 45 Comments figure 4 position - lateral knee = 5 inches off table PT-OP-L Special Tests Start: 10/05/20 14:54 Freq: Status: Active Protocol: Document 10/05/20 10:36 HH (Rec: 10/05/20 17:27 HH [email or web address]) Special Tests Lumbar Spine Special Tests Prone Instability Test Comments unable to test d/t weak hip extensors Slump Test Results +VE B Comments reports pain/ pulling discomfort at LB Straight Leg Raise Test Results -ve B Shoulder Special Tests Neer Impingement Test Results +VE L IR/Horizontal ADD Impingement Test Results +VE L Empty Can Test Results +VE L PT-OP-M Strength Start: 10/05/20 14:54 Freq: Status: Active Protocol: Document 10/05/20 10:36 HH (Rec: 10/05/20 17:27 HH [email or web address]) Shoulder Strength Shoulder Manual Muscle Testing Right Flexion 4+ Good+ Extension 4+ Good+ Abduction (C5) 4+ Good+ Adduction 4+ Good+ External Rotation 4+ Good+ Internal Rotation 4+ Good+ Left Flexion 4 Good Extension 4+ Good+ Abduction (C5) 4- Good- Adduction 4- Good- External Rotation 3+ Fair+ Internal Rotation 4 Good Hip Strength Hip Manual Muscle Testing Right Flexion (L2) 4- Good- Extension (S1) 4- Good- Abduction 4- Good- Adduction 4- Good- Left Flexion (L2) 3+ Fair+ Extension (S1) 3 Fair Abduction 3+ Fair+ Adduction 3+ Fair+ Knee Strength Knee Manual Muscle Testing Right Flexion (S2) 4 Good Extension (L3) 4 Good Left Flexion (S2) 4- Good- Extension (L3) 4- Good- PT-OP-Q Treatments Start: 10/05/20 14:54 Freq: Status: Active Protocol: Document 10/15/20 10:36 (Rec: 10/15/20 11:28 [id number]) Gym Equipment Shuttle Rebound SL squat Reps/Duration #37 Comments 8 x2 Therapeutic Exercises Supine Exercises PPT Side bilateral Reps/Minutes 12 x 2 Comments painful at sacrum with bridging. uni hip ER Side bilateral Equipment Used yellow band Reps/Minutes 10 x 2 Comments R = 30 % stronger. ab curl Equipment Used red therapy ball Reps/Minutes 8 x2 Comments cues on eccentric control LTR Side bilateral Equipment Used red therapy ball Reps/Minutes 8 x 2 Comments cues on eccentric control knee to chest Side bilateral Reps/Minutes 8 Comments for HEP Manual Therapy Treatment Soft Tissue Mobilization RTC Mobilization Type Sustained Pressure,Trigger Point Release Intensity/Depth Moderate Body Position Sidelying Comments infraspinatus > teres minor improved pain sensitivity glutes and pirirformis Mobilization Type Sustained Pressure,Trigger Point Release Intensity/Depth Moderate Body Position Sidelying Comments L SIJ region, significant tenderness noted. pecs Mobilization Type Sustained Pressure,Trigger Point Release Intensity/Depth Moderate Body Position Supine Comments improved pain sensitivity PT-OP-T Assessment and Plan Start: 10/05/20 14:54 Freq: Status: Active Protocol: Document 10/15/20 10:36 (Rec: 10/15/20 11:28 [id number]) Physical Therapy Assessment Goals L shoulder Impairment pain with shoulder ABD, ER and reaching voer Student Support Services Director Goal (LTG) pt will have no pain reaching overhead so she can reach for things in cupboard at home LTG Duration 10 weeks pain Impairment pt shows aberrant signs for bend over/ STS d/t pain Short Term Goal (STG) pt will be able to roll in bed and complete supine to sit with pain no more than 2/10 STG Duration 6 weeks Fpc Goal (LTG) pt will be able to bend over and recover without using her UEs support on knees with no pain no more than 2/10. Therefore, she could perform functional activities such as cleaning, getting in and out of chairs. LTG Duration 12 weeks Quickdash Impairment pt scores 18 on quickdash for her L shoulder Fpc Goal (LTG) pt will score <10 on quickdash for her L shoulder to indicated improved quality of life LTG Duration 12 weeks Oswestry LBP Impairment pt scores 42 on Oswestry Short Term Goal (STG) Pt will score < 35 for Oswestry LBP questionnaire to improve her quality of life STG Duration 6 weeks Fpc Goal (LTG) Pt will score < 30 for Oswestry LBP questionnaire to improve her quality of life LTG Duration 12 weeks Physical Therapy Plan Frequency and Duration Frequency of Treatment 2x/Week Duration of Treatment 12 weeks Plan of Care Start Date 10/05/20 Plan of Care End Date 01/03/21 Next Visit Focus/Plan Next Note Type Treatment Note Next Visit Plan manual therapy on glute, piriformis, pecs, RTC L hip ER , figure 4 and knee opp chest stretch pelvic tilt bridging, leg press beverly
--- NOTE | 2020-10-19 13:10 | PT.OTN ---
Current Diagnoses Pain in left shoulder (10/19/20) Sacrococcygeal disorders, not elsewhere classified (10/19/20) Low back pain (10/19/20) Physical Therapy Treatment Note PT-OP-A Visit Information Start: 10/05/20 14:54 Freq: Status: Active Protocol: Document 10/19/20 10:31 HH (Rec: 10/19/20 13:10 [email or web address]) Out-Patient Physical Therapy Visit Information Visit Information Visit Type Treatment Note Visit Start Time 10:32 Visit Stop Time 11:15 Total Visit Minutes 43 Visit Number 5 Number of WIGS SALESPERSON Visits 0 PT-OP-B Current Condition Start: 10/05/20 14:54 Freq: Status: Active Protocol: Document 10/05/20 10:36 HH (Rec: 10/05/20 15:08 [email or web address]) Current Condition History of Current Condition Onset Date many years ago Current Complaints Chronic LBP (R > L) and L shoulder pain History of Current Condition Pt is a 54yo female here for her chronic LBP (R>L) and L shoulder pain. Pt stated they both started after she had her colon lifted surgery in d/t previous uterus, cervix , appendix and part of colon removed from many years ago. She believes those events weakend her abdominal and trunk significantly. She also reports that when she bends over, she feels very tight and has significant discomfort in her lower back, sacral and hamstrings area ( (pain 4/10). She also has discomfort in the area when seated, particularly on firmer surface . She also reports that she has left shoulder pain and weakness since being hospitalized in November. Has difficulty to raise the arm above her head and shoulder internal rotation. Pt also has had multiple course of hospitalization d/t recurrent C-diff colitis multiple times. Prior Treatments and Tests Osteomyelitis of lumbar spine (Acute) History of colonoscopy ( Resolved 08/2012) History of partial colectomy ( Resolved 2010) History of rectopexy (Acute) Status post appendectomy ( Resolved) Status post colectomy (2012) Status post vaginal hysterectomy (Resolved 1995) Treatment Goals Patient/Caregiver Goals 1. To be able to bend over without much discomfort 2. Reduce her LBP and L shoulder pain during daily activities Prior Functional Status Baseline Function- ADL's Independent Baseline Function- Mobility Independent Current Functional Impairments (Reported) Functional Limitations- Mobility/Gait Pt stated she is mostly homebound d/t her weakness and pain. Pt needs to use her bed rail for supine to sit, use of hands to push off from knees for STS, bending over and recovering from a flexed trunk position. Personal Factors Other Personal Factors That May Effect Anxiety, ADD, depression Therapy/Recovery fibromyalgia social hx: Eb is wheelchair bound with Multiple Sclerosis. Patient's best friend this year PT-OP-C Subjective Start: 10/05/20 14:54 Freq: Status: Active Protocol: Document 10/19/20 10:31 HH (Rec: 10/19/20 13:10 [id number]) OP-PT Subjective Patient Comments Patient Comments I was doing okay from last time and my L shoulder and hip still tight Patient Reported Progress Same PT-OP-E Functional Tests Start: 10/05/20 14:54 Freq: Status: Active Protocol: Document 10/05/20 10:36 HH (Rec: 10/05/20 17:27 [email or web address]) Functional Tests Apley's Scratch Test Action 1- Left pain at AC joint area Action 1- Right no pain Action 2- Left T3 but slowly Action 2- Right T3 Action 3- Left T6 but slowly Action 3- Right T6 PT-OP-F Manual Assessment Start: 10/05/20 14:54 Freq: Status: Active Protocol: Document 10/05/20 10:36 HH (Rec: 10/05/20 17:27 HH [email or web address]) Manual Assessments Soft Tissue Assessment Soft Tissue Mobility Assessment significant tenderness at proximal gluteal insertion and adjacent area bilaterally L worse than R PT-OP-G Mobility & Gait Start: 10/05/20 14:54 Freq: Status: Active Protocol: Document 10/05/20 10:36 HH (Rec: 10/05/20 17:27 HH [email or web address]) OP Mobility Evaluation Bed Mobility Rolling pt roll to both side very slowly Supine to and from Sit log roll to SL position to push up slowly Transfers Sit to Stand with UE support on knees. PT-OP-K Range of Motion Start: 10/05/20 14:54 Freq: Status: Active Protocol: Document 10/05/20 10:36 HH (Rec: 10/05/20 17:27 [email or web address]) Lumbar Spine Range of Motion Lumbar Spine Active Percentage Testing Position Standing Comments toe touch test= 2 inches off floor with aberrant sign (UE support to descend and ascend) + knee bent lateral flexion to L= 20 inches lateral flexion to R= 18.5 inches extension= shoulders unable to clear heels pain for extension > flexion > L lateral flexion Shoulder Goniometric Range of Motion Shoulder Left Active Shoulder ROM WFL Yes Testing Position Standing Comments patient's ROM= WFL but move slowly d/t increase pain with painful arc Hip Goniometric Range of Motion Hip Right Active Hip ROM WFL Yes Straight Leg Raise 90 Internal Rotation 50 External Rotation 60 Comments figure 4 position - lateral knee = 2 inches off table Left Active Hip ROM WFL Yes Straight Leg Raise 90 Internal Rotation 60 External Rotation 45 Comments figure 4 position - lateral knee = 5 inches off table PT-OP-L Special Tests Start: 10/05/20 14:54 Freq: Status: Active Protocol: Document 10/05/20 10:36 HH (Rec: 10/05/20 17:27 HH [email or web address]) Special Tests Lumbar Spine Special Tests Prone Instability Test Comments unable to test d/t weak hip extensors Slump Test Results +VE B Comments reports pain/ pulling discomfort at LB Straight Leg Raise Test Results -ve B Shoulder Special Tests Neer Impingement Test Results +VE L IR/Horizontal ADD Impingement Test Results +VE L Empty Can Test Results +VE L PT-OP-M Strength Start: 10/05/20 14:54 Freq: Status: Active Protocol: Document 10/05/20 10:36 HH (Rec: 10/05/20 17:27 HH [email or web address]) Shoulder Strength Shoulder Manual Muscle Testing Right Flexion 4+ Good+ Extension 4+ Good+ Abduction (C5) 4+ Good+ Adduction 4+ Good+ External Rotation 4+ Good+ Internal Rotation 4+ Good+ Left Flexion 4 Good Extension 4+ Good+ Abduction (C5) 4- Good- Adduction 4- Good- External Rotation 3+ Fair+ Internal Rotation 4 Good Hip Strength Hip Manual Muscle Testing Right Flexion (L2) 4- Good- Extension (S1) 4- Good- Abduction 4- Good- Adduction 4- Good- Left Flexion (L2) 3+ Fair+ Extension (S1) 3 Fair Abduction 3+ Fair+ Adduction 3+ Fair+ Knee Strength Knee Manual Muscle Testing Right Flexion (S2) 4 Good Extension (L3) 4 Good Left Flexion (S2) 4- Good- Extension (L3) 4- Good- PT-OP-Q Treatments Start: 10/05/20 14:54 Freq: Status: Active Protocol: Document 10/19/20 10:31 (Rec: 10/19/20 13:10 [id number]) Cardio Equipment Upper Body Ergometer (UBE) Duration (Minutes) 5 RPM 60 Height 12 Gym Equipment Shuttle Rebound SL squat Reps/Duration #37 Comments 10 x2 Therapeutic Exercises Supine Exercises bridging 2 Equipment Used green ball at knees Reps/Minutes 10 x2 Comments half bridge with hip adductors engagement bridging Equipment Used yellow band on knees Reps/Minutes 1 0x2 Comments half bridge PPT Side bilateral Reps/Minutes 12 x 2 Comments painful at sacrum with bridging. uni hip ER Side bilateral Equipment Used yellow band Reps/Minutes 10 x 2 Comments R = 30 % stronger. ab curl Equipment Used red therapy ball Reps/Minutes 8 x2 Comments cues on eccentric control LTR Side bilateral Equipment Used red therapy ball Reps/Minutes 8 x 2 Comments cues on eccentric control Therapeutic Activity Therapeutic Activity log roll Name log roll and SL to sit Reps/Minutes 8 mins Comments educated pt to log roll at one unit followed by dangling her legs off table while SL to sit. Manual Therapy Treatment Soft Tissue Mobilization RTC Mobilization Type Sustained Pressure,Trigger Point Release Intensity/Depth Moderate Body Position Sidelying Comments infraspinatus > teres minor improved pain sensitivity glutes and pirirformis Mobilization Type Sustained Pressure,Trigger Point Release Intensity/Depth Moderate Body Position Sidelying Comments L SIJ region, significant tenderness noted. PT-OP-T Assessment and Plan Start: 10/05/20 14:54 Freq: Status: Active Protocol: Document 10/19/20 10:31 (Rec: 10/19/20 13:10 [id number]) Physical Therapy Assessment Goals L shoulder Impairment pain with shoulder ABD, ER and reaching voer Longterm Goal (LTG) pt will have no pain reaching overhead so she can reach for things in cupboard at home LTG Duration 10 weeks pain Impairment pt shows aberrant signs for bend over/ STS d/t pain Short Term Goal (STG) pt will be able to roll in bed and complete supine to sit with pain no more than 2/10 STG Duration 6 weeks Longterm Goal (LTG) pt will be able to bend over and recover without using her UEs support on knees with no pain no more than 2/10. Therefore, she could perform functional activities such as cleaning, getting in and out of chairs. LTG Duration 12 weeks Quickdash Impairment pt scores 18 on quickdash for her L shoulder Longterm Goal (LTG) pt will score <10 on quickdash for her L shoulder to indicated improved quality of life LTG Duration 12 weeks Oswestry LBP Impairment pt scores 42 on Oswestry Short Term Goal (STG) Pt will score < 35 for Oswestry LBP questionnaire to improve her quality of life STG Duration 6 weeks Rn Diabetes Goal (LTG) Pt will score < 30 for Oswestry LBP questionnaire to improve her quality of life LTG Duration 12 weeks Assessment Summary Assessment Pt reports she tolerated well from last visit. Added glute bridges today and she felt okay. Spent time educating pt to do log roll for bed mobility to minimize her pain at hip and low back. Physical Therapy Plan Frequency and Duration Frequency of Treatment 2x/Week Duration of Treatment 12 weeks Plan of Care Start Date 10/05/20 Plan of Care End Date 01/03/21 Next Visit Focus/Plan Next Note Type Treatment Note Next Visit Plan manual therapy on glute, piriformis, pecs, RTC L hip ER , figure 4 and knee opp chest stretch pelvic tilt bridging, leg press beverly
--- NOTE | 2020-10-22 11:25 | PT.OTN ---
Current Diagnoses Pain in left shoulder (10/22/20) Sacrococcygeal disorders, not elsewhere classified (10/22/20) Low back pain (10/22/20) Physical Therapy Treatment Note PT-OP-A Visit Information Start: 10/05/20 14:54 Freq: Status: Active Protocol: Document 10/22/20 10:36 HH (Rec: 10/22/20 11:25 [id number]) Out-Patient Physical Therapy Visit Information Visit Information Visit Type Treatment Note Visit Start Time 10:34 Visit Stop Time 11:16 Total Visit Minutes 42 Visit Number 6 Number of JAVA SYSTEMS ANALYST Visits 0 PT-OP-B Current Condition Start: 10/05/20 14:54 Freq: Status: Active Protocol: Document 10/05/20 10:36 HH (Rec: 10/05/20 15:08 [email or web address]) Current Condition History of Current Condition Onset Date many years ago Current Complaints Chronic LBP (R > L) and L shoulder pain History of Current Condition Pt is a 54yo female here for her chronic LBP (R>L) and L shoulder pain. Pt stated they both started after she had her colon lifted surgery in d/t previous uterus, cervix , appendix and part of colon removed from many years ago. She believes those events weakend her abdominal and trunk significantly. She also reports that when she bends over, she feels very tight and has significant discomfort in her lower back, sacral and hamstrings area ( (pain 4/10). She also has discomfort in the area when seated, particularly on firmer surface . She also reports that she has left shoulder pain and weakness since being hospitalized in November. Has difficulty to raise the arm above her head and shoulder internal rotation. Pt also has had multiple course of hospitalization d/t recurrent C-diff colitis multiple times. Prior Treatments and Tests Osteomyelitis of lumbar spine (Acute) History of colonoscopy ( Resolved 08/2012) History of partial colectomy ( Resolved 2010) History of rectopexy (Acute) Status post appendectomy ( Resolved) Status post colectomy (2012) Status post vaginal hysterectomy (Resolved 1995) Treatment Goals Patient/Caregiver Goals 1. To be able to bend over without much discomfort 2. Reduce her LBP and L shoulder pain during daily activities Prior Functional Status Baseline Function- ADL's Independent Baseline Function- Mobility Independent Current Functional Impairments (Reported) Functional Limitations- Mobility/Gait Pt stated she is mostly homebound d/t her weakness and pain. Pt needs to use her bed rail for supine to sit, use of hands to push off from knees for STS, bending over and recovering from a flexed trunk position. Personal Factors Other Personal Factors That May Effect Anxiety, ADD, depression Therapy/Recovery fibromyalgia social hx: Eb is wheelchair bound with Multiple Sclerosis. Patient's best friend this year PT-OP-C Subjective Start: 10/05/20 14:54 Freq: Status: Active Protocol: Document 10/22/20 10:36 HH (Rec: 10/22/20 11:25 [id number]) OP-PT Subjective Patient Comments Patient Comments I was a bit sore yesterday but i felt okay. I have been playing with my grandkids all day yesterday so i feel quite sore today PT-OP-E Functional Tests Start: 10/05/20 14:54 Freq: Status: Active Protocol: Document 10/05/20 10:36 HH (Rec: 10/05/20 17:27 HH [email or web address]) Functional Tests Apley's Scratch Test Action 1- Left pain at AC joint area Action 1- Right no pain Action 2- Left T3 but slowly Action 2- Right T3 Action 3- Left T6 but slowly Action 3- Right T6 PT-OP-F Manual Assessment Start: 10/05/20 14:54 Freq: Status: Active Protocol: Document 10/05/20 10:36 HH (Rec: 10/05/20 17:27 [email or web address]) Manual Assessments Soft Tissue Assessment Soft Tissue Mobility Assessment significant tenderness at proximal gluteal insertion and adjacent area bilaterally L worse than R PT-OP-G Mobility & Gait Start: 10/05/20 14:54 Freq: Status: Active Protocol: Document 10/05/20 10:36 HH (Rec: 10/05/20 17:27 [email or web address]) OP Mobility Evaluation Bed Mobility Rolling pt roll to both side very slowly Supine to and from Sit log roll to SL position to push up slowly Transfers Sit to Stand with UE support on knees. PT-OP-K Range of Motion Start: 10/05/20 14:54 Freq: Status: Active Protocol: Document 10/05/20 10:36 HH (Rec: 10/05/20 17:27 [email or web address]) Lumbar Spine Range of Motion Lumbar Spine Active Percentage Testing Position Standing Comments toe touch test= 2 inches off floor with aberrant sign (UE support to descend and ascend) + knee bent lateral flexion to L= 20 inches lateral flexion to R= 18.5 inches extension= shoulders unable to clear heels pain for extension > flexion > L lateral flexion Shoulder Goniometric Range of Motion Shoulder Left Active Shoulder ROM WFL Yes Testing Position Standing Comments patient's ROM= WFL but move slowly d/t increase pain with painful arc Hip Goniometric Range of Motion Hip Right Active Hip ROM WFL Yes Straight Leg Raise 90 Internal Rotation 50 External Rotation 60 Comments figure 4 position - lateral knee = 2 inches off table Left Active Hip ROM WFL Yes Straight Leg Raise 90 Internal Rotation 60 External Rotation 45 Comments figure 4 position - lateral knee = 5 inches off table PT-OP-L Special Tests Start: 10/05/20 14:54 Freq: Status: Active Protocol: Document 10/05/20 10:36 HH (Rec: 10/05/20 17:27 HH [email or web address]) Special Tests Lumbar Spine Special Tests Prone Instability Test Comments unable to test d/t weak hip extensors Slump Test Results +VE B Comments reports pain/ pulling discomfort at LB Straight Leg Raise Test Results -ve B Shoulder Special Tests Neer Impingement Test Results +VE L IR/Horizontal ADD Impingement Test Results +VE L Empty Can Test Results +VE L PT-OP-M Strength Start: 10/05/20 14:54 Freq: Status: Active Protocol: Document 10/05/20 10:36 HH (Rec: 10/05/20 17:27 [email or web address]) Shoulder Strength Shoulder Manual Muscle Testing Right Flexion 4+ Good+ Extension 4+ Good+ Abduction (C5) 4+ Good+ Adduction 4+ Good+ External Rotation 4+ Good+ Internal Rotation 4+ Good+ Left Flexion 4 Good Extension 4+ Good+ Abduction (C5) 4- Good- Adduction 4- Good- External Rotation 3+ Fair+ Internal Rotation 4 Good Hip Strength Hip Manual Muscle Testing Right Flexion (L2) 4- Good- Extension (S1) 4- Good- Abduction 4- Good- Adduction 4- Good- Left Flexion (L2) 3+ Fair+ Extension (S1) 3 Fair Abduction 3+ Fair+ Adduction 3+ Fair+ Knee Strength Knee Manual Muscle Testing Right Flexion (S2) 4 Good Extension (L3) 4 Good Left Flexion (S2) 4- Good- Extension (L3) 4- Good- PT-OP-Q Treatments Start: 10/05/20 14:54 Freq: Status: Active Protocol: Document 10/22/20 10:36 HH (Rec: 10/22/20 11:25 [id number]) Cardio Equipment Upper Body Ergometer (UBE) Duration (Minutes) 5 RPM 60 Height 12 Gym Equipment Shuttle Rebound SL squat Reps/Duration #37 Comments 10 x2 Therapeutic Exercises Supine Exercises bridging 2 Equipment Used green ball at knees Reps/Minutes 10 x2 Comments half bridge with hip adductors engagement bridging Equipment Used yellow band on knees Reps/Minutes 1 0x2 Comments half bridge uni hip ER Side bilateral Equipment Used yellow band Reps/Minutes 10 x 2 Comments R = 30 % stronger. ab curl Equipment Used red therapy ball Reps/Minutes 8 x2 Comments cues on eccentric control Sitting Exercises seated trunk flexion Sitting Exercise Name full trunk flexion Side bilateral Equipment Used ashby therapy ball Manual Therapy Treatment Soft Tissue Mobilization RTC Mobilization Type Sustained Pressure,Trigger Point Release Intensity/Depth Moderate Body Position Sidelying Comments infraspinatus > teres minor improved pain sensitivity glutes and pirirformis Mobilization Type Sustained Pressure,Trigger Point Release Intensity/Depth Moderate Body Position Sidelying Comments L SIJ region, significant tenderness noted. pecs Mobilization Type Sustained Pressure,Trigger Point Release Intensity/Depth Moderate Body Position Supine PT-OP-T Assessment and Plan Start: 10/05/20 14:54 Freq: Status: Active Protocol: Document 10/22/20 10:36 HH (Rec: 10/22/20 11:25 [id number]) Physical Therapy Assessment Goals L shoulder Impairment pain with shoulder ABD, ER and reaching voer Nursing Home Goal (LTG) pt will have no pain reaching overhead so she can reach for things in cupboard at home LTG Duration 10 weeks pain Impairment pt shows aberrant signs for bend over/ STS d/t pain Short Term Goal (STG) pt will be able to roll in bed and complete supine to sit with pain no more than 2/10 STG Duration 6 weeks Nursing Home Goal (LTG) pt will be able to bend over and recover without using her UEs support on knees with no pain no more than 2/10. Therefore, she could perform functional activities such as cleaning, getting in and out of chairs. LTG Duration 12 weeks Quickdash Impairment pt scores 18 on quickdash for her L shoulder Agency Manager Goal (LTG) pt will score <10 on quickdash for her L shoulder to indicated improved quality of life LTG Duration 12 weeks Oswestry LBP Impairment pt scores 42 on Oswestry Short Term Goal (STG) Pt will score < 35 for Oswestry LBP questionnaire to improve her quality of life STG Duration 6 weeks Nursing Home Goal (LTG) Pt will score < 30 for Oswestry LBP questionnaire to improve her quality of life LTG Duration 12 weeks Assessment Summary Assessment Pt has increased discomfort at her sacrum region today but she korey all therex very well. Pt tends to be very focused on her muscle aches throughout the body and needed reassurance often regarding benefits of exercising. Physical Therapy Plan Frequency and Duration Frequency of Treatment 2x/Week Duration of Treatment 12 weeks Plan of Care Start Date 10/05/20 Plan of Care End Date 01/03/21 Next Visit Focus/Plan Next Note Type Treatment Note Next Visit Plan manual therapy on glute, piriformis, pecs, RTC L hip ER , figure 4 and knee opp chest stretch pelvic tilt bridging, leg press beverly
--- NOTE | 2020-10-26 11:28 | PT.OTN ---
Current Diagnoses Pain in left shoulder (10/26/20) Sacrococcygeal disorders, not elsewhere classified (10/26/20) Low back pain (10/26/20) Physical Therapy Treatment Note PT-OP-A Visit Information Start: 10/05/20 14:54 Freq: Status: Active Protocol: Document 10/26/20 10:33 HH (Rec: 10/26/20 11:28 [id number]) Out-Patient Physical Therapy Visit Information Visit Information Visit Type Treatment Note Visit Start Time 11:18 Visit Stop Time 12:00 Total Visit Minutes 42 Visit Number 7 Number of PRINT MACHINE OPERATOR Visits 0 PT-OP-B Current Condition Start: 10/05/20 14:54 Freq: Status: Active Protocol: Document 10/05/20 10:36 HH (Rec: 10/05/20 15:08 [email or web address]) Current Condition History of Current Condition Onset Date many years ago Current Complaints Chronic LBP (R > L) and L shoulder pain History of Current Condition Pt is a 54yo female here for her chronic LBP (R>L) and L shoulder pain. Pt stated they both started after she had her colon lifted surgery in d/t previous uterus, cervix , appendix and part of colon removed from many years ago. She believes those events weakend her abdominal and trunk significantly. She also reports that when she bends over, she feels very tight and has significant discomfort in her lower back, sacral and hamstrings area ( (pain 4/10). She also has discomfort in the area when seated, particularly on firmer surface . She also reports that she has left shoulder pain and weakness since being hospitalized in November. Has difficulty to raise the arm above her head and shoulder internal rotation. Pt also has had multiple course of hospitalization d/t recurrent C-diff colitis multiple times. Prior Treatments and Tests Osteomyelitis of lumbar spine (Acute) History of colonoscopy ( Resolved 08/2012) History of partial colectomy ( Resolved 2010) History of rectopexy (Acute) Status post appendectomy ( Resolved) Status post colectomy (2012) Status post vaginal hysterectomy (Resolved 1995) Treatment Goals Patient/Caregiver Goals 1. To be able to bend over without much discomfort 2. Reduce her LBP and L shoulder pain during daily activities Prior Functional Status Baseline Function- ADL's Independent Baseline Function- Mobility Independent Current Functional Impairments (Reported) Functional Limitations- Mobility/Gait Pt stated she is mostly homebound d/t her weakness and pain. Pt needs to use her bed rail for supine to sit, use of hands to push off from knees for STS, bending over and recovering from a flexed trunk position. Personal Factors Other Personal Factors That May Effect Anxiety, ADD, depression Therapy/Recovery fibromyalgia social hx: Eb is wheelchair bound with Multiple Sclerosis. Patient's best friend this year PT-OP-C Subjective Start: 10/05/20 14:54 Freq: Status: Active Protocol: Document 10/26/20 10:33 HH (Rec: 10/26/20 11:28 HH [id number]) OP-PT Subjective Patient Comments Patient Comments I feel pretty good so far cause i can walk without being limping as much now. Patient Reported Progress Improving PT-OP-E Functional Tests Start: 10/05/20 14:54 Freq: Status: Active Protocol: Document 10/05/20 10:36 HH (Rec: 10/05/20 17:27 HH [email or web address]) Functional Tests Apley's Scratch Test Action 1- Left pain at AC joint area Action 1- Right no pain Action 2- Left T3 but slowly Action 2- Right T3 Action 3- Left T6 but slowly Action 3- Right T6 PT-OP-F Manual Assessment Start: 10/05/20 14:54 Freq: Status: Active Protocol: Document 10/05/20 10:36 HH (Rec: 10/05/20 17:27 HH [email or web address]) Manual Assessments Soft Tissue Assessment Soft Tissue Mobility Assessment significant tenderness at proximal gluteal insertion and adjacent area bilaterally L worse than R PT-OP-G Mobility & Gait Start: 10/05/20 14:54 Freq: Status: Active Protocol: Document 10/05/20 10:36 HH (Rec: 10/05/20 17:27 HH [email or web address]) OP Mobility Evaluation Bed Mobility Rolling pt roll to both side very slowly Supine to and from Sit log roll to SL position to push up slowly Transfers Sit to Stand with UE support on knees. PT-OP-K Range of Motion Start: 10/05/20 14:54 Freq: Status: Active Protocol: Document 10/05/20 10:36 HH (Rec: 10/05/20 17:27 [email or web address]) Lumbar Spine Range of Motion Lumbar Spine Active Percentage Testing Position Standing Comments toe touch test= 2 inches off floor with aberrant sign (UE support to descend and ascend) + knee bent lateral flexion to L= 20 inches lateral flexion to R= 18.5 inches extension= shoulders unable to clear heels pain for extension > flexion > L lateral flexion Shoulder Goniometric Range of Motion Shoulder Left Active Shoulder ROM WFL Yes Testing Position Standing Comments patient's ROM= WFL but move slowly d/t increase pain with painful arc Hip Goniometric Range of Motion Hip Right Active Hip ROM WFL Yes Straight Leg Raise 90 Internal Rotation 50 External Rotation 60 Comments figure 4 position - lateral knee = 2 inches off table Left Active Hip ROM WFL Yes Straight Leg Raise 90 Internal Rotation 60 External Rotation 45 Comments figure 4 position - lateral knee = 5 inches off table PT-OP-L Special Tests Start: 10/05/20 14:54 Freq: Status: Active Protocol: Document 10/05/20 10:36 HH (Rec: 10/05/20 17:27 HH [email or web address]) Special Tests Lumbar Spine Special Tests Prone Instability Test Comments unable to test d/t weak hip extensors Slump Test Results +VE B Comments reports pain/ pulling discomfort at LB Straight Leg Raise Test Results -ve B Shoulder Special Tests Neer Impingement Test Results +VE L IR/Horizontal ADD Impingement Test Results +VE L Empty Can Test Results +VE L PT-OP-M Strength Start: 10/05/20 14:54 Freq: Status: Active Protocol: Document 10/05/20 10:36 HH (Rec: 10/05/20 17:27 HH [email or web address]) Shoulder Strength Shoulder Manual Muscle Testing Right Flexion 4+ Good+ Extension 4+ Good+ Abduction (C5) 4+ Good+ Adduction 4+ Good+ External Rotation 4+ Good+ Internal Rotation 4+ Good+ Left Flexion 4 Good Extension 4+ Good+ Abduction (C5) 4- Good- Adduction 4- Good- External Rotation 3+ Fair+ Internal Rotation 4 Good Hip Strength Hip Manual Muscle Testing Right Flexion (L2) 4- Good- Extension (S1) 4- Good- Abduction 4- Good- Adduction 4- Good- Left Flexion (L2) 3+ Fair+ Extension (S1) 3 Fair Abduction 3+ Fair+ Adduction 3+ Fair+ Knee Strength Knee Manual Muscle Testing Right Flexion (S2) 4 Good Extension (L3) 4 Good Left Flexion (S2) 4- Good- Extension (L3) 4- Good- PT-OP-Q Treatments Start: 10/05/20 14:54 Freq: Status: Active Protocol: Document 10/26/20 10:33 (Rec: 10/26/20 11:28 [id number]) Cardio Equipment Upper Body Ergometer (UBE) Duration (Minutes) 5 RPM 60 Height 12 Gym Equipment Shuttle Rebound B squat Exercise Details # 50 Reps/Duration 10 x2 Comments with green ball in between legs SL squat Reps/Duration #37 Comments 10 x2 Therapeutic Exercises Supine Exercises bridging 2 Equipment Used green ball at knees Reps/Minutes 10 x2 Comments half bridge with hip adductors engagement uni hip ER Side bilateral Equipment Used Green band Reps/Minutes 10 x 2 Comments R = 30 % stronger. Sitting Exercises seated OH press Sitting Exercise Name PVC Side bilateral Reps/Minutes 8 x 2 seated SB Sitting Exercise Name R SB Side bilateral Reps/Minutes 8 x2 Comments pt feels L stretching. OH pulleys Sitting Exercise Name flexion and abduction Side bilateral Equipment Used pulleys Reps/Minutes 2 mins seated trunk flexion Sitting Exercise Name full trunk flexion Side bilateral Equipment Used ashby therapy ball Manual Therapy Treatment Soft Tissue Mobilization glutes and pirirformis Mobilization Type Sustained Pressure,Trigger Point Release Intensity/Depth Moderate Body Position Sidelying Comments L SIJ region, significant tenderness noted. pecs Mobilization Type Sustained Pressure,Trigger Point Release Intensity/Depth Moderate Body Position Supine PT-OP-T Assessment and Plan Start: 10/05/20 14:54 Freq: Status: Active Protocol: Document 10/26/20 10:33 (Rec: 10/26/20 11:28 [id number]) Physical Therapy Assessment Goals L shoulder Impairment pain with shoulder ABD, ER and reaching voer Nursing Home Goal (LTG) pt will have no pain reaching overhead so she can reach for things in cupboard at home LTG Duration 10 weeks pain Impairment pt shows aberrant signs for bend over/ STS d/t pain Short Term Goal (STG) pt will be able to roll in bed and complete supine to sit with pain no more than 2/10 STG Duration 6 weeks Operations Support Analyst Goal (LTG) pt will be able to bend over and recover without using her UEs support on knees with no pain no more than 2/10. Therefore, she could perform functional activities such as cleaning, getting in and out of chairs. LTG Duration 12 weeks Quickdash Impairment pt scores 18 on quickdash for her L shoulder Operations Support Analyst Goal (LTG) pt will score <10 on quickdash for her L shoulder to indicated improved quality of life LTG Duration 12 weeks Oswestry LBP Impairment pt scores 42 on Oswestry Short Term Goal (STG) Pt will score < 35 for Oswestry LBP questionnaire to improve her quality of life STG Duration 6 weeks Nursing Home Goal (LTG) Pt will score < 30 for Oswestry LBP questionnaire to improve her quality of life LTG Duration 12 weeks Assessment Summary Assessment Pt reports she has improved strength and walking stability . She also preformed better with log roll and supine to sit today. Added some shoulder ex today and she korey okay d/t fatigue. Physical Therapy Plan Frequency and Duration Frequency of Treatment 2x/Week Duration of Treatment 12 weeks Plan of Care Start Date 10/05/20 Plan of Care End Date 01/03/21 Next Visit Focus/Plan Next Note Type Treatment Note Next Visit Plan hip and leg focused next time
--- NOTE | 2020-10-29 12:10 | PT.OTN ---
Current Diagnoses Pain in left shoulder (10/29/20) Sacrococcygeal disorders, not elsewhere classified (10/29/20) Low back pain (10/29/20) Physical Therapy Treatment Note PT-OP-A Visit Information Start: 10/05/20 14:54 Freq: Status: Active Protocol: Document 10/29/20 10:31 HH (Rec: 10/29/20 12:10 [id number]) Out-Patient Physical Therapy Visit Information Visit Information Visit Type Treatment Note Visit Start Time 10:32 Visit Stop Time 11:15 Total Visit Minutes 43 Visit Number 8 Number of ARCHAEOLOGIST Visits 0 PT-OP-B Current Condition Start: 10/05/20 14:54 Freq: Status: Active Protocol: Document 10/05/20 10:36 HH (Rec: 10/05/20 15:08 [email or web address]) Current Condition History of Current Condition Onset Date many years ago Current Complaints Chronic LBP (R > L) and L shoulder pain History of Current Condition Pt is a 54yo female here for her chronic LBP (R>L) and L shoulder pain. Pt stated they both started after she had her colon lifted surgery in d/t previous uterus, cervix , appendix and part of colon removed from many years ago. She believes those events weakend her abdominal and trunk significantly. She also reports that when she bends over, she feels very tight and has significant discomfort in her lower back, sacral and hamstrings area ( (pain 4/10). She also has discomfort in the area when seated, particularly on firmer surface . She also reports that she has left shoulder pain and weakness since being hospitalized in November. Has difficulty to raise the arm above her head and shoulder internal rotation. Pt also has had multiple course of hospitalization d/t recurrent C-diff colitis multiple times. Prior Treatments and Tests Osteomyelitis of lumbar spine (Acute) History of colonoscopy ( Resolved 08/2012) History of partial colectomy ( Resolved 2010) History of rectopexy (Acute) Status post appendectomy ( Resolved) Status post colectomy (2012) Status post vaginal hysterectomy (Resolved 1995) Treatment Goals Patient/Caregiver Goals 1. To be able to bend over without much discomfort 2. Reduce her LBP and L shoulder pain during daily activities Prior Functional Status Baseline Function- ADL's Independent Baseline Function- Mobility Independent Current Functional Impairments (Reported) Functional Limitations- Mobility/Gait Pt stated she is mostly homebound d/t her weakness and pain. Pt needs to use her bed rail for supine to sit, use of hands to push off from knees for STS, bending over and recovering from a flexed trunk position. Personal Factors Other Personal Factors That May Effect Anxiety, ADD, depression Therapy/Recovery fibromyalgia social hx: Eb is wheelchair bound with Multiple Sclerosis. Patient's best friend this year PT-OP-C Subjective Start: 10/05/20 14:54 Freq: Status: Active Protocol: Document 10/29/20 10:31 HH (Rec: 10/29/20 12:10 [id number]) OP-PT Subjective Patient Comments Patient Comments I did feel sore yesterday but it does feel better today. Patient Reported Progress Improving PT-OP-E Functional Tests Start: 10/05/20 14:54 Freq: Status: Active Protocol: Document 10/05/20 10:36 HH (Rec: 10/05/20 17:27 HH [email or web address]) Functional Tests Apley's Scratch Test Action 1- Left pain at AC joint area Action 1- Right no pain Action 2- Left T3 but slowly Action 2- Right T3 Action 3- Left T6 but slowly Action 3- Right T6 PT-OP-F Manual Assessment Start: 10/05/20 14:54 Freq: Status: Active Protocol: Document 10/05/20 10:36 HH (Rec: 10/05/20 17:27 HH [email or web address]) Manual Assessments Soft Tissue Assessment Soft Tissue Mobility Assessment significant tenderness at proximal gluteal insertion and adjacent area bilaterally L worse than R PT-OP-G Mobility & Gait Start: 10/05/20 14:54 Freq: Status: Active Protocol: Document 10/05/20 10:36 HH (Rec: 10/05/20 17:27 HH [email or web address]) OP Mobility Evaluation Bed Mobility Rolling pt roll to both side very slowly Supine to and from Sit log roll to SL position to push up slowly Transfers Sit to Stand with UE support on knees. PT-OP-K Range of Motion Start: 10/05/20 14:54 Freq: Status: Active Protocol: Document 10/05/20 10:36 HH (Rec: 10/05/20 17:27 [email or web address]) Lumbar Spine Range of Motion Lumbar Spine Active Percentage Testing Position Standing Comments toe touch test= 2 inches off floor with aberrant sign (UE support to descend and ascend) + knee bent lateral flexion to L= 20 inches lateral flexion to R= 18.5 inches extension= shoulders unable to clear heels pain for extension > flexion > L lateral flexion Shoulder Goniometric Range of Motion Shoulder Left Active Shoulder ROM WFL Yes Testing Position Standing Comments patient's ROM= WFL but move slowly d/t increase pain with painful arc Hip Goniometric Range of Motion Hip Right Active Hip ROM WFL Yes Straight Leg Raise 90 Internal Rotation 50 External Rotation 60 Comments figure 4 position - lateral knee = 2 inches off table Left Active Hip ROM WFL Yes Straight Leg Raise 90 Internal Rotation 60 External Rotation 45 Comments figure 4 position - lateral knee = 5 inches off table PT-OP-L Special Tests Start: 10/05/20 14:54 Freq: Status: Active Protocol: Document 10/05/20 10:36 HH (Rec: 10/05/20 17:27 HH [email or web address]) Special Tests Lumbar Spine Special Tests Prone Instability Test Comments unable to test d/t weak hip extensors Slump Test Results +VE B Comments reports pain/ pulling discomfort at LB Straight Leg Raise Test Results -ve B Shoulder Special Tests Neer Impingement Test Results +VE L IR/Horizontal ADD Impingement Test Results +VE L Empty Can Test Results +VE L PT-OP-M Strength Start: 10/05/20 14:54 Freq: Status: Active Protocol: Document 10/05/20 10:36 HH (Rec: 10/05/20 17:27 HH [email or web address]) Shoulder Strength Shoulder Manual Muscle Testing Right Flexion 4+ Good+ Extension 4+ Good+ Abduction (C5) 4+ Good+ Adduction 4+ Good+ External Rotation 4+ Good+ Internal Rotation 4+ Good+ Left Flexion 4 Good Extension 4+ Good+ Abduction (C5) 4- Good- Adduction 4- Good- External Rotation 3+ Fair+ Internal Rotation 4 Good Hip Strength Hip Manual Muscle Testing Right Flexion (L2) 4- Good- Extension (S1) 4- Good- Abduction 4- Good- Adduction 4- Good- Left Flexion (L2) 3+ Fair+ Extension (S1) 3 Fair Abduction 3+ Fair+ Adduction 3+ Fair+ Knee Strength Knee Manual Muscle Testing Right Flexion (S2) 4 Good Extension (L3) 4 Good Left Flexion (S2) 4- Good- Extension (L3) 4- Good- PT-OP-Q Treatments Start: 10/05/20 14:54 Freq: Status: Active Protocol: Document 10/29/20 10:31 (Rec: 10/29/20 12:10 [id number]) Cardio Equipment Recumbent Stepper (Sci-Fit) Duration (Minutes) 5 Resistance 2 Seat Position 10 Therapeutic Exercises Supine Exercises bridging 2 Equipment Used green ball at knees Reps/Minutes 10 x2 Comments half bridge with hip adductors engagement bridging Equipment Used yellow band on knees Reps/Minutes 1 0x2 Comments half bridge uni hip ER Side bilateral Equipment Used Green band Reps/Minutes 10 x 2 Comments R = 30 % stronger. Sitting Exercises seated pelvic tilt Equipment Used on green therapy ball Reps/Minutes 10 x2 Standing Exercises hip abd Side bilateral Reps/Minutes 6 x2 Comments pt shows significant weakness and needed trunk lean for compensation marching in place Side bilateral Reps/Minutes 10 x2 Comments pt shows slight trendelenburg sign Manual Therapy Treatment Soft Tissue Mobilization RTC Mobilization Type Sustained Pressure,Trigger Point Release Intensity/Depth Moderate Body Position Sidelying Comments infraspinatus > teres minor improved pain sensitivity glutes and pirirformis Mobilization Type Sustained Pressure,Trigger Point Release Intensity/Depth Moderate Body Position Sidelying Comments L SIJ region, mod tenderness noted. PT-OP-T Assessment and Plan Start: 10/05/20 14:54 Freq: Status: Active Protocol: Document 10/29/20 10:31 (Rec: 10/29/20 12:10 [id number]) Physical Therapy Assessment Goals L shoulder Impairment pain with shoulder ABD, ER and reaching voer Mail Distribution Clerk Goal (LTG) pt will have no pain reaching overhead so she can reach for things in cupboard at home LTG Duration 10 weeks pain Impairment pt shows aberrant signs for bend over/ STS d/t pain Short Term Goal (STG) pt will be able to roll in bed and complete supine to sit with pain no more than 2/10 STG Duration 6 weeks [employer] Distribution Clerk Goal (LTG) pt will be able to bend over and recover without using her UEs support on knees with no pain no more than 2/10. Therefore, she could perform functional activities such as cleaning, getting in and out of chairs. LTG Duration 12 weeks Quickdash Impairment pt scores 18 on quickdash for her L shoulder Long-Term Goal (LTG) pt will score <10 on quickdash for her L shoulder to indicated improved quality of life LTG Duration 12 weeks Oswestry LBP Impairment pt scores 42 on Oswestry Short Term Goal (STG) Pt will score < 35 for Oswestry LBP questionnaire to improve her quality of life STG Duration 6 weeks Long-Term Goal (LTG) Pt will score < 30 for Oswestry LBP questionnaire to improve her quality of life LTG Duration 12 weeks Assessment Summary Assessment This session focused on LE today. Pt korey session well but noticed she has very poor hip abduction strength and SL stability. Pt tends to hyperextend her knees and use upper trunk to compensate for weak hip abduction ex. Physical Therapy Plan Frequency and Duration Frequency of Treatment 2x/Week Duration of Treatment 12 weeks Plan of Care Start Date 10/05/20 Plan of Care End Date 01/03/21 Next Visit Focus/Plan Next Note Type Treatment Note Next Visit Plan hip and leg focused next time
--- NOTE | 2021-03-17 09:20 | PT.OPDS ---
Current Diagnoses Pain in left shoulder (10/29/20) Sacrococcygeal disorders, not elsewhere classified (10/29/20) Low back pain (10/29/20) Visit Care Team Role Provider Type Li Avila MD Attending Provider Physician Primary Care Provider Referring Provider Specialty: Family Practice Address: [address] [place] [address], [facility] Email: [email or web address] Visit Number Visit Number 8 Discharge Summary PT-OP-T Assessment and Plan Start: 10/05/20 14:54 Freq: Status: Active Protocol: Document 03/17/21 09:19 (Rec: 03/17/21 09:20 [email or web address]) Physical Therapy Plan Discharge Physical Therapy Discharge Reasons No Longer Attending PT Discharge Comments pt no longer attending PT. DC today
== END 2021-03-17 14:09 ==
LOC: PHYS 10:30
PROVIDERS: PCP Family Medicine; Referring Provider Family Medicine; Visit Provider Family Medicine
DX: M25.512 Pain in left shoulder (principal); M54.5 Low back pain; M53.3 Sacrococcygeal disorders, not elsewhere classified
CPT/HCPCS: 97110; 97140; 97163; 97530

== ENCOUNTER → 2020-12-14 13:23 | Outpatient (CLI) | payer OTHER, SELFPAY ==
[2020-12-14 13:27] LABS: Bacteria Urine None Seen
[2020-12-14 15:19] LABS: Appearance Urine UA CLEAR; Bilirubin Urine UA NEGATIVE (NEGATIVE); Color Urine UA YELLOW; Glucose Urine UA NEGATIVE (Negative); Ketones Urine UA NEGATIVE (NEGATIVE); Leukocyte Esterase Urine UA TRACE (NEGATIVE); Nitrite Urine UA NEGATIVE (Negative); Occult Blood Urine UA TRACE-LYSED (Negative); Protein Urine UA TRACE (Negative); Specific Gravity Urine UA >=1.030 (1.000-1.035); Urobilinogen Urine UA 0.2 E.U./dL (0.2)
[2020-12-14 15:20] LABS: pH Urine UA 5.5 (4.5-8.0)
[2020-12-14 15:29] LABS: Amorphous Sediment Urine 2+; Calcium Oxalate Crystals Urine Many; Culture Indicated Urine Specimen Cultured; RBC Urine 1-5/HPF (0-5/HPF); WBC Urine 5-10/HPF (0-5/HPF)
== END ==
PROVIDERS: PCP Family Medicine; Referring Provider Family Medicine; Visit Provider Family Medicine
DX: R30.0 Dysuria (principal); R35.0 Frequency of micturition; R82.90 Unspecified abnormal findings in urine
CPT/HCPCS: 81001; 87077; 87086

== ENCOUNTER → 2020-12-25 16:15 | Outpatient (CLI) | payer OTHER, SELFPAY ==
[2020-12-25 17:00] LABS: Add Manual Diff / Slide Review NO; Basophils Absolute Auto 100 /uL (0-100); Basophils Percent Auto 0.8 % (0-2); Eosinophils Absolute Auto 200 /uL (0-450); Eosinophils Percent Auto 1.8 % (2-4); Hemoglobin 11.4 g/dL (12.0-16.0); Lymphocytes Absolute Auto 2300 /uL (1100-4500); Lymphocytes Percent Auto 25.4 % (25-40); Mean Corpuscular HGB Conc 32.6 % (30-36); Mean Corpuscular Hemoglobin 28.3 PG (26-34); Mean Corpuscular Volume 86.9 fL (80-100); Monocytes Absolute Auto 600 /uL (0-900); Monocytes Percent Auto 6.5 % (3-14); Neutrophils Absolute Auto 5900 /uL (1500-7000); Neutrophils Percent Auto 65.5 % (50-75); Platelet Count 358 X10^3/uL (150-400); Red Blood Cell Count 4.03 X10^6/uL (4.0-5.2); Red Cell Distribution Width 14.5 % (11.6-14.8); White Blood Cell Count 9.1 X10^3/uL (4.5-11.0)
[2020-12-25 17:07] LABS: Alanine Aminotransferase 17 IU/L (<35); Albumin 4.2 g/dL (3.5-5.0); Albumin Globulin Ratio 1.4 (1.0-2.8); Alkaline Phosphatase 61 U/L (38-126); Aspartate Aminotransferase 21 IU/L (14-36); BUN Creatinine Ratio 44.1 (6-22); Bilirubin Total 0.2 mg/dL (0.2-1.3); Blood Urea Nitrogen 26 mg/dL (7-17); Calcium 9.2 mg/dL (8.4-10.2); Carbon Dioxide 29 mmol/L (22-32); Chloride 105 mmol/L (98-107); Estimated Glomerular Filt Rate > 60.0 mL/min (>60); Globulin 3.1 g/dL (1.7-4.1); Glucose 99 mg/dL (70-100); HEMOLYSIS < 15 (0-50); Magnesium 1.9 mg/dL (1.6-2.3); Potassium 3.3 mmol/L (3.4-5.1); Sodium 138 mmol/L (137-145); Total Protein 7.3 g/dL (6.3-8.2)
[2020-12-25 18:25] LABS: Thyroid Stimulating Hormone 1.75 uIU/mL (0.47-4.68)
== END ==
PROVIDERS: PCP Family Medicine; Referring Provider Family Medicine; Visit Provider Family Medicine
DX: R25.2 Cramp and spasm (principal)
CPT/HCPCS: 36415; 80053; 83735; 84443; 85025

== ENCOUNTER → 2021-01-01 08:04 | Outpatient (CLI) | payer OTHER, SELFPAY ==
[2021-01-01 08:12] LABS: RBC Urine None Seen (0-5/HPF)
[2021-01-01 08:35] LABS: Appearance Urine UA CLEAR; Bilirubin Urine UA NEGATIVE (NEGATIVE); Color Urine UA YELLOW; Glucose Urine UA NEGATIVE (Negative); Ketones Urine UA NEGATIVE (NEGATIVE); Leukocyte Esterase Urine UA NEGATIVE (NEGATIVE); Nitrite Urine UA NEGATIVE (Negative); Occult Blood Urine UA NEGATIVE (Negative); Protein Urine UA NEGATIVE (Negative); Specific Gravity Urine UA 1.015 (1.000-1.035); Urobilinogen Urine UA 0.2 E.U./dL (0.2)
[2021-01-01 09:28] LABS: pH Urine UA 6.5 (4.5-8.0)
[2021-01-01 09:29] LABS: Bacteria Urine Occasional (0-1); Culture Indicated Urine Cult Not Indicated; WBC Urine 0-1/HPF (0-5/HPF)
== END ==
PROVIDERS: PCP Family Medicine; Referring Provider Family Medicine; Visit Provider Family Medicine
DX: R30.0 Dysuria (principal); N39.0 Urinary tract infection, site not specified
CPT/HCPCS: 81001; 87086

== ENCOUNTER → 2021-01-14 11:13 | Outpatient (CLI) | payer OTHER, SELFPAY ==
--- NOTE | 2021-01-14 11:14 | DI.US.S_ITS ---
PROCEDURE: US RENAL COMPLETE INDICATIONS: R abdominal pain, urinary urgency TECHNIQUE: Real-time scanning was performed of the kidneys and bladder, with image documentation. COMPARISON: [facility], , RENAL COMPLETE, 03/17/2020, 9:19. FINDINGS: Kidneys: Kidneys are normal in size. Right kidney measures 10.2 cm long; left kidney measures 11.5 cm long. Right renal cortical thickness is 1.6 cm; left renal cortical thickness is 1.8 cm. Renal cortical echotexture is normal. No hydronephrosis or nephrolithiasis. No suspicious solid mass lesions. 4 Bladder: Pre-void bladder volume is 19.0 mL. Post-void residual is 3.5 mL. Pre-void images demonstrate no intraluminal masses or stones. On pre-void images, neither ureteral jets are noted with color Doppler interrogation. (Of note, ureteral jets may not be detectable in up to 25% of cases due to insufficient differences in specific gravity between ureteral and bladder urine). Miscellaneous: No free pelvic fluid. IMPRESSION: No hydronephrosis or nephrolithiasis found. Normal bladder function. No urinary tract inflammation is seen. Dictated by: Ignacio Siegel M.D. on 01/14/2021 at 13:17 Approved by: Ignacio Siegel M.D. on 01/14/2021 at 13:48
== END ==
PROVIDERS: PCP Family Medicine; Referring Provider Family Medicine; Visit Provider Family Medicine
DX: R10.31 Right lower quadrant pain (principal); R39.15 Urgency of urination
CPT/HCPCS: 76770

== ENCOUNTER → 2021-03-17 12:27 | Outpatient (CLI) | payer OTHER, SELFPAY ==
--- NOTE | 2021-03-17 12:28 | DI.RAD.S_ITS ---
PROCEDURE: XR LUMBAR SPINE MIN 4V INDICATIONS: BACK PAIN TECHNIQUE: 5 views of the lumbar spine were acquired, including bilateral oblique views. COMPARISON: [facility], , L-SPINE 2-3 VIEWS, 06/21/2016, 10:02. FINDINGS: Bones: No fracture. Grade 1 anterolisthesis of L3 on L4. Trace anterolisthesis of L4 on L5. Multilevel spondylosis/endplate changes. Diffuse facet arthropathy. Moderate to severe narrowing of the L5-S1 disc space. Remaining disc spaces appear preserved. Soft tissues: Overlying bowel gas pattern is normal. No suspicious soft tissue calcifications. Oblique images: No pars defects. IMPRESSION: Multilevel spondylolisthesis as above. Interval progression of L5-S1 spondylosis and facet disease since 06/21/16. Dictated by: Asael Pearl M.D. on 03/17/2021 at 15:44 Approved by: Asael Pearl M.D. on 03/17/2021 at 15:45
== END ==
PROVIDERS: PCP Family Medicine; Referring Provider Physical Medicine & Rehabilitation; Visit Provider Physical Medicine & Rehabilitation
DX: M47.816 Spondylosis without myelopathy or radiculopathy, lumbar region (principal); M47.817 Spondylosis without myelopathy or radiculopathy, lumbosacral region; M46.26 Osteomyelitis of vertebra, lumbar region; M43.16 Spondylolisthesis, lumbar region; M53.3 Sacrococcygeal disorders, not elsewhere classified; R10.2 Pelvic and perineal pain
CPT/HCPCS: 72110; 99214

== ENCOUNTER → 2021-03-26 08:49 | Outpatient (CLI) | payer OTHER, SELFPAY ==
--- NOTE | 2021-03-26 08:51 | DI.MRI.S_ITS ---
PROCEDURE: MR PELIS WO/W CON INDICATIONS: HISTORY OF OSTEOMYELITIS, COCCYDYNIA TECHNIQUE: Noncontrast coronal oblique T1 and STIR, axial oblique T1 and STIR obtained through the sacrum. After the administration of contrast, axial/sagittal/coronal T1 with fat saturation through the sacrum. COMPARISON: [facility], CR, XR LUMBAR SPINE MIN 4V, 03/17/2021, 12:33. [facility], CT, CT ABDOMEN PELVIS W CON, 05/26/2020, 18:16. [facility], CT, CT ABDOMEN PELVIS WITH CONTRAST, 04/06/2020, 2:52. [facility], MR, MR PELVIS WO/W CON, 03/31/2020, 13:29. FINDINGS: Image quality: Post-contrast images limited by mild motion artifact as well as image noise. Patient was unable to tolerate repeat imaging. Bones: The visualized bone marrow demonstrates normal overall signal with heterogeneity of the visualized marrow likely representing hematopoietic marrow reconversion. No fractures or bone contusions. No definite bony erosions or periosteal reaction. Evaluation of the coccyx is limited on post-contrast images but precontrast imaging demonstrates no associated abnormal signal. The sacroiliac joints appear preserved without ankylosis. No periarticular edema, erosions, or sclerosis. There is mild bony irregularity along the L5-S1 endplates redemonstrated without associated bone marrow edema or enhancement. Findings are compatible with sequelae of prior discitis. There is mild to moderate loss of disc height at L5-S1 with mild enhancement of the disc. There is mild facet arthropathy at L5-S1. Soft tissues: No soft tissue masses identified in the visualized pelvis. The scanned muscles demonstrate normal overall bulk and internal signal. No intraperitoneal free fluid within the visualized pelvis. Visualized bowel loops appear normal in caliber. IMPRESSION: 1. No definite evidence of osteomyelitis in the sacrum, with evaluation slightly limited as described. 2. Bony irregularity along the L5-S1 endplates likely represents sequelae of prior discitis. No associated bone marrow edema or enhancement to suggest an acute osteomyelitis. Dictated by: Sergio Cifuentes M.D. on 03/26/2021 at 10:37 Approved by: Sergio Cifuentes M.D. on 03/26/2021 at 11:02
== END ==
PROVIDERS: PCP Family Medicine; Referring Provider Physical Medicine & Rehabilitation; Visit Provider Physical Medicine & Rehabilitation
DX: M53.3 Sacrococcygeal disorders, not elsewhere classified (principal); M47.816 Spondylosis without myelopathy or radiculopathy, lumbar region
CPT/HCPCS: 72197

== ENCOUNTER → 2021-04-05 08:27 | Outpatient (CLI) | payer OTHER, SELFPAY ==
[2021-04-05 16:03] LABS: COVID19 -Nasal RAPID Negative (Negative)
== END ==
PROVIDERS: PCP Family Medicine; Visit Provider Physical Medicine & Rehabilitation
DX: Z20.822 Contact with and (suspected) exposure to COVID-19 (principal)
CPT/HCPCS: 87635; C9803

== ENCOUNTER 2021-04-06 15:24 | Outpatient (CLI) | payer OTHER, SELFPAY ==
[2021-04-06] VITALS (7 sets, daily range): BP systolic 118–134; BP diastolic 58–83; PULSE 90–102; RESP 16–25; TEMP 36.8; O2SAT 97–100
--- NOTE | 2021-04-06 15:25 | DI.RAD.S_ITS ---
PROCEDURE: PAIN SI JOINT INJECTION INDICATIONS: COCCYX DYSFUNCTION COMPARISON: None. FINDINGS: Fluoroscopic spot filming was performed to verify placement of spinal needles at the coccyx level(s), as labeled on the films. Appropriate location(s) of the needle tip(s) was confirmed by injection of iodinated contrast. Dictated by: Asael Pearl M.D. on 04/06/2021 at 17:00 Approved by: Asael Pearl M.D. on 04/06/2021 at 17:01
--- NOTE | 2021-04-06 16:11 | PM.PROC.IR.1 ---
Date/Time/Diagnoses Date of procedure: 04/06/21 Time of procedure: 16:12 Pre-procedure diagnosis: Cocyx Joint Pain/DJD Post-procedure diagnosis: same Procedure Notes Procedure: Fluoroscopically guided contrast controlled cocyx joint injection Indications: The patient is referred by for treatment of coccydynia Physician: Heladio Hill Total Fluoroscopy time (seconds): 5 Total sedation minutes: 7 Complications: none Procedure in detail & Post-procedure care: DESCRIPTION OF PROCEDURE Fluoroscopic guided, contrast controlled coccyx injection Following review of allergies and review of potential side effects and complications, including, but not necessarily limited to, infection, allergic reaction, local tissue breakdown, temporary as well as permanent nerve injury, paralysis, stroke and possible , the patient indicated that they understood and agreed to proceed. An informed consent was signed by the patient, witnessed by a nurse, and placed in the patient's chart. Additionally, other treatment options including modalities, medications, and physical therapy were reviewed with the patient. After review of previous anaesthesic history and IV conscious sedation the patient was deemed safe to proceed with today?s procedure with IV conscious sedation as ASA class II designation. Safety time-out was performed to confirm patient ID, procedure to be performed and site of procedure. IV sedation was accomplished with a combination of 3mg of Versed administered by the RN after DO order, titrated to patient comfort during the course of the procedure while the patient remained responsive to all verbal commands. In the prone position following sterile prep and drape of the pelvic region, the hyper lucency on in the inferior aspect of the coccyx joint was identified fluoroscopically the skin was anesthetized be a 25 gauge 1 eventual with approximately 2cc of 1% lidocaine solution. At this point, a 22 gauge 3inch spinal needle was atraumatically introduced and advanced under fluoroscopic guidance into the inferior aspect of the left sacroiliac joint. Following negative aspiration, approximately 0.3cc of [id number]-300 was injected confirming intra-articular placement without vascular uptake. Radiographic data, including multiple fluoroscopic views of the pelvis, reveals a spinal needle in the coccyx. Subsequent view show flow contrast tear superiorly and inferiorly within the joint capsule without vascular intrathecal uptake. At this point a total of 1cc or 0.5% Marcaine was combined with 1cc of 6mg of betamethasone was injected without incident. The patient tolerated the procedure well without signs or symptoms of complications prior to transfer to the recovery area for further monitoring. The patient was then transferred to the recovery area with a bur observed for an appropriate time after the injection. The patient reverted a vas score of 7 prior to the procedure and postprocedure vas of 1. POSTOP INSTRUCTIONS The patient was provided with a pain like to continue to record the patient's response to the target specific procedure prior to the patient's follow-up visit with the referring physician. Additionally, specific post injection care instructions and a contact number to our office were provided if concerns arise regarding the possible complications associated with procedure are suspected.
[2021-04-06] MEDS: MIDAZOLAM 5 MG/5 ML VIAL IV (16:18)
[2021-04-06] MEDS: IOPAMIDOL 15 ML VIAL 3 ML INJ (16:20)
[2021-04-06] MEDS: BETAMETHASONE 30 MG/5 ML MDV 12 MG INJ (16:20)
[2021-04-06] MEDS: BUPIVACAINE 0.5% (PF) VIAL 2 ML INJ (16:21)
== END 2021-04-06 16:48 | disposition home or self-care (01) ==
PROVIDERS: PCP Family Medicine; Referring Provider Physical Medicine & Rehabilitation; Visit Provider Physical Medicine & Rehabilitation
DX: M53.3 Sacrococcygeal disorders, not elsewhere classified (principal); M47.898 Other spondylosis, sacral and sacrococcygeal region
CPT/HCPCS: 27096; J0702; J2250; J3010

== ENCOUNTER 2021-04-15 15:27 | Emergency (ER) | payer OTHER, SELFPAY ==
[2021-04-15 15:33] VITALS: BP 129/70; PULSE 120; RESP 14; TEMP 37.1; O2SAT 99; BMI 29.4
--- NOTE | 2021-04-15 15:38 | DI.RAD.S_ITS ---
PROCEDURE: XR CHEST 2V INDICATIONS: cough TECHNIQUE: 2 views of the chest were acquired. COMPARISON: [facility], CR, XR CHEST 2V, 03/05/2019, 12:19. FINDINGS: Surgical changes and devices: None. Lungs and pleura: Minimal patchy infiltrate, left lung base. No pleural effusions or pneumothorax. Mediastinum: Mediastinal contours are normal. Heart size is normal. Bones and chest wall: No suspicious bony abnormalities. Soft tissues appear unremarkable. IMPRESSION: Minimal patchy infiltrate, left lung base. Comment: Progress films are recommended until clear. Dictated by: Sadi Loya M.D. on 04/15/2021 at 16:31 Approved by: Sadi Loya M.D. on 04/15/2021 at 16:32
[2021-04-15 17:47] VITALS: BP 112/55; PULSE 104; RESP 20; O2SAT 96
[2021-04-15 18:00] VITALS: BP 103/55; PULSE 108; O2SAT 100
[2021-04-15 18:30] VITALS: BP 115/55; PULSE 102; O2SAT 99
[2021-04-15 18:46] LABS: COVID19 -Nasal RAPID Negative (Negative)
[2021-04-15 19:11] VITALS: PULSE 92; RESP 20; O2SAT 97
[2021-04-15] MEDS: ALBUTEROL HFA MDI 60 PUFF/8 GM INHALER INH (19:11)
[2021-04-15 19:54] VITALS: BP 116/56; PULSE 111; RESP 22; O2SAT 98
--- NOTE | 2021-04-15 20:01 | ED.URI ---
HPI - URI/Sore Throat <Ashwini Boss, HELPER/DRIVER-BC - Last Filed: 04/15/21 20:05> General Chief Complaint: Upper Respiratory Symptoms Stated Complaint: cough for a month, now productive Time Seen by Provider: 04/15/21 17:44 Source: patient Mode of arrival: Ambulatory Limitations: no limitations History of Present Illness HPI Narrative: The patient is a 55-year-old female nonsmoker with history of C diff who presents with a chief complaint of a cough for a month. She states that she saw somebody at a walk-in clinic prescribe antibiotics for sinus infection, though she was reluctant to start those antibiotics given her history of C diff. she denies any fevers muscle aches and chills, but states that she is tired and is having difficulty sleeping due to her cough. She tried to use her inhaler a few times to see if that would loosen up her cough, though states that it was so is not very helpful. She was tested for COVID about 10 days ago which was negative. She has been using neck: [id number] remedies to try to feel better. Related Data Home Medications Medication Instructions Recorded Confirmed duloxetine 60 mg capsule,delayed 90 mg PO DAILY cap 12/17/19 03/17/21 release Adderall DAILY 09/03/20 03/17/21 naltrexone 09/03/20 03/17/21 Previous Rx's Medication Instructions Recorded albuterol sulfate 90 mcg/actuation 2 puff INHALATION Q4-6H PRN #18 02/25/19 aerosol inhaler gram fluticasone propionate 110 1 puff INHALATION BID #12 gram 03/06/19 mcg/actuation HFA aerosol inhaler pilocarpine HCl 5 mg tablet 5 mg PO QID #360 tab 12/05/19 atorvastatin 20 mg tablet 20 mg PO BEDTIME #90 tab 06/05/20 ondansetron 8 mg disintegrating 8 mg PO Q4H PRN #90 tab 08/05/20 tablet hyoscyamine sulfate 0.125 mg See Rx Instructions .ROUTE 10/30/20 disintegrating tablet .COMPLEX #50 tab levothyroxine 75 mcg tablet See Rx Instructions .ROUTE 03/11/21 .COMPLEX #90 tab celecoxib 200 mg capsule 200 mg PO DAILY #90 cap 04/07/21 codeine-guaifenesin [Guaifenesin 10 ml PO Q4-6H PRN #120 ml 04/15/21 AC] doxycycline hyclate 100 mg PO BID #14 cap 04/15/21 Allergies Allergy/AdvReac Type Severity Reaction Status Date / Time vancomycin Allergy Intermediate ITCHING Verified 04/15/21 15:33 polyethylene glycol Allergy Verified 04/15/21 15:33 wheat Allergy Verified 04/15/21 15:33 morphine AdvReac Mild pt Verified 04/15/21 15:33 becomes loopy COLONOSCOPY PREP Allergy Severe ITCHING Uncoded 03/17/21 14:42 Review of Systems <LUIS Sin - Last Filed: 04/15/21 20:05> Review of Systems Narrative: GENERAL: Denies chills, fatigue, malaise, fever, sweats. HEENT: Denies sinus pain, ear pain, sore throat, difficulty swallowing, dizziness. RESPIRATORY: See HPI CARDIOVASCULAR: Denies chest pain, palpitations, orthopnea, edema, GASTROINTESTINAL: Denies nausea, vomiting, abdominal pain, diarrhea, constipation, melena. : Denies dysuria, frequency, incontinence, hematuria, urinary retention. MUSCULOSKELETAL: denies weakness, joint pain, or bony pain SKIN: Denies rash, skin lesions, or other NEUROLOGIC: Denies weakness, headache, numbness, change in speech, confusion, seizures, incoordination. PSYCHIATRIC: No concerning psychosocial issues. 12 point review of systems is negative except for those stated above Patient History <LUIS Sin - Last Filed: 04/15/21 20:05> Medical History Abnormal Pap smear of cervix (1995) Acne (1975) ADHD (attention deficit hyperactivity disorder) (1962) Anxiety (1998) Back tightness Chicken pox Chronic back pain (1994) Chronic headaches (1991) Coccydynia Colitis due to Clostridioides difficile Colon polyps Depression (1998) Facet arthropathy, lumbar Fibromyalgia (1997) GERD (gastroesophageal reflux disease) (1997) Hayfever (~1991) Hearing loss (2011) Hypothyroidism (~2003) IBS (irritable bowel syndrome) (1962) Insomnia (06/21/16) Migraines (2009) Neck tightness Obstructive sleep apnea of adult Osteomyelitis of lumbar spine Pelvic pain in female Plantar warts (1991) Precancerous changes of the cervix (1995) Prolapse of intestine Shoulder pain (1994) Villous adenoma of right colon (2010) Surgical History Anesthesia History of colonoscopy (08/2012) History of partial colectomy (2010) History of rectopexy Status post appendectomy Status post colectomy (2011) Status post vaginal hysterectomy (1995) Family History Brother Coronary artery disease Father Coronary artery disease Grandfather Stroke Grandmother Cancer Colon cancer Mother Cancer Mental health problem Anxiety Dementia Fibromyalgia Colon cancer Grandmother Diabetes mellitus Grandfather No problems noted. Family/Other Colon cancer Social History marital status: details: rebecca Parson number of children: 2 household members: spouse lives independently: Yes caregiver/support person: No housing: house Smoking Status: Never smoker substance use type: does not use additional social history: Eb is wheelchair bound with Multiple Sclerosis. Patient's best friend this year. Smoking Status: Never smoker alcohol intake frequency: holidays/special occasions only Substance Use Type: does not use Exam <LUIS Sin - Last Filed: 04/15/21 20:05> Narrative Exam Narrative: GENERAL: This is a well-nourished, well-developed patient, in no acute distress HEAD: Atraumatic. Normocephalic. No temporal or scalp tenderness. EYES: Pupils equal round and reactive. Extraocular motions intact. No scleral icterus. No injection or drainage. ENT: Nose without bleeding, purulent drainage or septal hematoma. Throat without erythema, tonsillar hypertrophy or exudate. Uvula midline. Airway patent. NECK: Trachea midline. No JVD or lymphadenopathy. Supple, nontender, no meningeal signs. CARDIOVASCULAR: Regular rate and rhythm RESPIRATORY: Coarse to auscultation. Breath sounds equal bilaterally. Profuse the cough, loosening during exam. Speaking full sentences. No acute distress. NEURO: AOx3. SKIN: No rash or erythema on visible skin Initial Vital Signs Initial Vital Signs: Vital Signs Temperature 98.8 F 04/15/21 15:33 Pulse Rate 120 H 06/03/21 15:33 Respiratory Rate 14 04/15/21 15:33 Blood Pressure 129/70 04/15/21 15:33 Pulse Oximetry 99 04/15/21 15:33 <DO Monique Beck Last Filed: 04/16/21 06:55> Initial Vital Signs Initial Vital Signs: Vital Signs Temperature 98.8 F 04/15/21 15:33 Pulse Rate 120 H 04/15/21 15:33 Respiratory Rate 14 04/15/21 15:33 Blood Pressure 129/70 04/15/21 15:33 Pulse Oximetry 99 04/15/21 15:33 Scores <LUIS Sin - Last Filed: 04/15/21 20:05> GCS Nitro coma scale eye opening: Spontaneous Nitro coma scale verbal response: Orientated Nitro coma scale motor response: Obey commands Francis coma scale total score: 15 Course <LUIS Sin - Last Filed: 04/15/21 20:05> Orders Ordered: Discontinued Medications Albuterol (Albuterol Hfa Mdi 60 Puff/8 Gm Inhaler) 2 puff INH NOW ONE Stop: 04/15/21 18:47 Last Admin: 04/15/21 19:11 Dose: 2 puff Documented by: TERESA Vital Signs Vital signs: Vital Signs - 8 hr 04/15/21 15:33 04/15/21 17:47 04/15/21 18:00 Temperature 98.8 F Pulse Rate 120 H 104 H 108 H Respiratory Rate 14 20 Blood Pressure 129/70 112/55 L 103/55 L Pulse Oximetry 99 96 100 04/15/21 18:30 04/15/21 19:11 04/15/21 19:54 Temperature Pulse Rate 102 H 92 H 111 H Respiratory Rate 20 22 Blood Pressure 115/55 L 116/56 L Pulse Oximetry 99 97 98 <DO Monique Beck Last Filed: 04/16/21 06:55> Orders Ordered: Discontinued Medications Albuterol (Albuterol Hfa Mdi 60 Puff/8 Gm Inhaler) 2 puff INH NOW ONE Stop: 04/15/21 18:47 Last Admin: 04/15/21 19:11 Dose: 2 puff Documented by: TERESA Vital Signs Vital signs: Vital Signs - 8 hr 04/15/21 15:33 04/15/21 17:47 04/15/21 18:00 Temperature 98.8 F Pulse Rate 120 H 104 H 108 H Respiratory Rate 14 20 Blood Pressure 129/70 112/55 L 103/55 L Pulse Oximetry 99 96 100 04/15/21 18:30 04/15/21 19:11 04/15/21 19:54 Temperature Pulse Rate 102 H 92 H 111 H Respiratory Rate 20 22 Blood Pressure 115/55 L 116/56 L Pulse Oximetry 99 97 98 MDM - URI/Sore Throat <Ashwini JUAN Boss-BC - Last Filed: 04/15/21 20:05> Lab Data Labs: Lab Results 04/15/21 Range/Units 18:16 SARS-CoV-2 (PCR) Negative (Negative) Imaging Data Chest x-ray: Radiologist's Impression: [address] [place] [id number] ReportSigned Patient: Gracy Benites LMR#: [id number]: 1965Acct:[id number]/Sex: 55 / FDate of Service: 04/15/21Loc: EDAccession Number: [id number] Procedure: XR chest 2V Ordering Provider: Blue Cade D.O. PROCEDURE: XR CHEST 2V INDICATIONS: cough TECHNIQUE: 2 views of the chest were acquired. COMPARISON: [facility], , XR CHEST 2V, 03/05/2019, 12:19. FINDINGS: Surgical changes and devices: None. Lungs and pleura: Minimal patchy infiltrate, left lung base. No pleural effusions or pneumothorax. Mediastinum: Mediastinal contours are normal. Heart size is normal. Bones and chest wall: No suspicious bony abnormalities. Soft tissues appear unremarkable. IMPRESSION: Minimal patchy infiltrate, left lung base. Comment: Progress films are recommended until clear. Dictated by: Sadi Loya M.D. on 04/15/2021 at 16:31 Approved by: Sadi Loya M.D. on 04/15/2021 at 16:32 [facility] Narrative Medical decision making narrative: The patient is a 55-year-old female who presents with a chief complaint of cough for a month. X-rays concerning for infiltrate left lower lobe. That combined with her profuse cough and fatigue and general malaise indicate pneumonia. Initiated treatment doxycycline. Patient states that she has another prescription for Dificid and will take that with her antibiotic. She was given guaifenesin with codeine to help sleep, saw a respiratory therapist in the emergency department to receive spacer teaching and has follow-up scheduled with her primary care provider on Monday. Fingers continue ykyv-wvt-[id number] remedies, pushing fluids and rest. Discussed all ED return precautions for any acute concerns. Patient has no questions or concerns upon discharge states understanding return precautions as well as follow-up care. Discussed risk of sun exposure antibiotic and patient states understanding <Blue Rayo, DO - Last Filed: 04/16/21 06:55> Lab Data Labs: Lab Results 04/15/21 Range/Units 18:16 SARS-CoV-2 (PCR) Negative (Negative) Discharge Plan Departure Patient Disposition: Home Clinical Impression: Pneumonia Qualifiers: Pneumonia type: due to unspecified organism Laterality: left Lung location: lower lobe of lung Qualified Code(s): J18.9 - Pneumonia, unspecified organism Instructions: DI for Pneumonia -- Adult Activity Restrictions/Additional Instructions: The thank you for trusting us with your care today As discussed, you have evidence of pneumonia in the left base of your lung I sent a prescription of an antibiotic to [facility]. Please take this with the other medications that has already been prescribed regarding her C diff. I also sent a prescription of cough syrup to help you sleep. Please use your inhaler every 4-6 hours as needed and able. Please use the spacer. Please come back to the emergency department for any acute concerns. Please follow-up with primary care provider as scheduled on Monday. Prescriptions: New doxycycline hyclate 100 mg capsule 100 mg PO BID Qty: 14 RF: 0 codeine-guaifenesin [Guaifenesin AC] 10-100 mg/5 mL liquid 10 ml PO Q4-6H PRN (Reason: cough) Qty: 120 RF: 0 No Action Flovent HFA 110 mcg/actuation HFA aerosol inhaler 1 puff INHALATION BID Qty: 12 RF: 2 duloxetine 60 mg capsule,delayed release(DR/EC) 90 mg PO DAILY RF: 0 atorvastatin 20 mg tablet 20 mg PO BEDTIME Qty: 90 RF: 3 albuterol sulfate [Ventolin HFA] 90 mcg/actuation HFA aerosol inhaler 2 puff INHALATION Q4-6H PRN (Reason: cough) Qty: 18 RF: 0 pilocarpine HCl 5 mg tablet 5 mg PO QID Qty: 360 RF: 3 ondansetron 8 mg tablet,disintegrating 8 mg PO Q4H PRN (Reason: nausea and vomiting) Qty: 90 RF: 1 hyoscyamine sulfate 0.125 mg tablet,disintegrating See Rx Instructions .ROUTE .COMPLEX Qty: 50 RF: 1 levothyroxine [Synthroid] 75 mcg tablet See Rx Instructions .ROUTE .COMPLEX Qty: 90 RF: 3 celecoxib [Celebrex] 200 mg capsule 200 mg PO DAILY Qty: 90 RF: 2 Adderall 30 mg tablet DAILY RF: 0 naltrexone 3 mg RF: 0 Referrals: Li Avila MD [Primary Care Provider] - <Blue Cade DO - Last Filed: 04/16/21 06:55> Cosign ED Attending Cosignature Attestation: Dr Cade Co-Sign Statement: I was available for consultation during this patient's emergency department visit. This chart is signed by myself for administrative purposes only. I did not have direct contact with this patient during this visit. They were seen independently by the APC.
== END 2021-04-15 19:55 | disposition home or self-care (01) ==
PROVIDERS: Emergency Provider Nurse Practitioner Family; PCP Family Medicine
DX: J18.9 Pneumonia, unspecified organism (principal); Z20.822 Contact with and (suspected) exposure to COVID-19
CPT/HCPCS: 71046; 87635; 94640; 99283; C9803; A9270

== ENCOUNTER → 2021-05-10 12:38 | Outpatient (CLI) | payer OTHER, SELFPAY ==
[2021-05-10 12:43] LABS: Bacteria Urine None Seen
[2021-05-10 13:08] LABS: Appearance Urine UA SL CLOUDY; Bilirubin Urine UA NEGATIVE (NEGATIVE); Color Urine UA YELLOW; Glucose Urine UA NEGATIVE (Negative); Ketones Urine UA NEGATIVE (NEGATIVE); Leukocyte Esterase Urine UA 2+ (NEGATIVE); Nitrite Urine UA NEGATIVE (Negative); Occult Blood Urine UA 3+ (Negative); Protein Urine UA 1+ (Negative); Specific Gravity Urine UA >=1.030 (1.000-1.035); Urobilinogen Urine UA 0.2 E.U./dL (0.2)
[2021-05-10 13:22] LABS: Calcium Oxalate Crystals Urine Moderate; Culture Indicated Urine Specimen Cultured; RBC Urine 10-30/HPF (0-5/HPF); WBC Urine 5-10/HPF (0-5/HPF)
== END ==
PROVIDERS: PCP Family Medicine; Referring Provider Family Medicine; Visit Provider Family Medicine
DX: R30.0 Dysuria (principal); R31.9 Hematuria, unspecified; R35.0 Frequency of micturition; R39.15 Urgency of urination
CPT/HCPCS: 81001; 87077; 87086; 87186

== ENCOUNTER → 2021-07-19 13:31 | Outpatient (CLI) | payer OTHER, SELFPAY ==
[2021-07-19 15:59] LABS: COVID19 -Nasal RAPID Negative (Negative)
== END ==
PROVIDERS: PCP Family Medicine; Visit Provider Nurse Practitioner Family
DX: Z01.812 Encounter for preprocedural laboratory examination (principal); Z20.822 Contact with and (suspected) exposure to COVID-19
CPT/HCPCS: 87635

== ENCOUNTER 2021-07-22 09:40 | Outpatient (CLI) | payer OTHER, SELFPAY ==
[2021-07-22] VITALS (9 sets, daily range): BP systolic 94–114; BP diastolic 53–66; PULSE 74–88; RESP 16–19; TEMP 36.8; O2SAT 95–100
--- NOTE | 2021-07-22 09:41 | DI.RAD.S_ITS ---
PROCEDURE: PAIN SI JOINT INJECTION ELBERT COMPARISON: [facility], MR, MR PELVIS WO/W CON, 03/26/2021, 9:17. [facility], CR, XR LUMBAR SPINE MIN 4V, 03/17/2021, 12:33. INDICATIONS: SACROILIAC DISORDER FINDINGS: 6 intraoperative images demonstrate localization and injection of the sacroiliac joints bilaterally. IMPRESSION: Fluoroscopy for pain management. Dictated by: Hiren Richard M.D. on 07/22/2021 at 17:42 Approved by: Hiren Richard M.D. on 07/22/2021 at 17:42
[2021-07-22] MEDS: fentaNYL 100 MCG/2 ML INJ 50 MCG IV (10:46)
[2021-07-22] MEDS: BUPIVACAINE 0.5% (PF) VIAL 5 ML INJ (10:51)
[2021-07-22] MEDS: IOPAMIDOL 15 ML VIAL 3 ML INJ (10:51)
[2021-07-22] MEDS: BETAMETHASONE 30 MG/5 ML MDV 12 MG INJ (10:51)
[2021-07-22] MEDS: MIDAZOLAM 5 MG/5 ML VIAL IV (10:55)
--- NOTE | 2021-07-22 11:01 | PM.PROC.IR.1 ---
Date/Time/Diagnoses Date of procedure: 07/22/21 Time of procedure: 11:01 Pre-procedure diagnosis: Sacroiliac joint pain/DJD Post-procedure diagnosis: same Procedure Notes Procedure: Fluoroscopic guided contrast controlled bilateral sacroiliac joint injection Indications: Gracy is referred by Dr. Avila for treatment of right sacroiliac joint DJD Physician: Heladio Hill Total Fluoroscopy time (seconds): 17 Total sedation minutes: 14 Complications: none Procedure in detail & Post-procedure care: Description of procedure Fluoroscopic guided, contrast controlled bilateral sacroiliac joint injection Following review of allergies and review of potential side effects and complications, including, but not necessarily limited to, infection, allergic reaction, local tissue breakdown, temporary as well as permanent nerve injury, paralysis, stroke and possible , the patient indicated that they understood and agreed to proceed. An informed consent was signed by the patient, witnessed by a nurse, and placed in the patient's chart. Additionally, other treatment options including modalities, medications, and physical therapy were reviewed with the patient. After review of previous anaesthesic history and IV conscious sedation the patient was deemed safe to proceed with today?s procedure with IV conscious sedation as ASA class II designation. Safety time-out was performed to confirm patient ID, procedure to be performed and site of procedure. IV sedation was accomplished with a combination of 3mg Versed and 50mcg of Fentanyl were administered by the RN after DO order, titrated to patient comfort during the course of the procedure while the patient remained responsive to all verbal commands In the prone position following sterile prep and drape of the pelvic region, the hyper lucency on in the inferior aspect of the sacroiliac joint was identified fluoroscopically the skin was anesthetized be a 25 gauge 1.5 inch needle with approximately 2cc of 1% lidocaine solution. At this point, a 22 gauge 3 in spinal needle was atraumatically introduced and advanced under fluoroscopic guidance into the inferior aspect of the right sacroiliac joint. Following negative aspiration, approximately 0.3cc of Isovue-300 was injected confirming intra-articular placement without vascular uptake. Radiographic data, including multiple fluoroscopic views of the pelvis, reveals a spinal needle in the sacroiliac joint hyper lucent zone. Subsequent view show flow contrast tear superiorly and inferiorly within the joint capsule without vascular intrathecal uptake. At this point a total of 1cc of 0.5% Marcaine was combined with 1cc of 6mg of betamethasone was injected without incident. Attention was then refocused the left sacroiliac joint where the procedure was replicated. The procedure tolerated the procedure well without signs or symptoms of complications prior to transfer to the recovery area continued monitoring without incident. The patient was then transferred to the recovery area with a bur observed for an appropriate time after the injection. The patient reverted a vas score of 7 prior to the procedure and post-procedure vas of 1. Postop instructions The patient was provided with a pain like to continue to record the patient's response to the target specific procedure prior to the patient's follow-up visit with the referring physician. Additionally, specific post injection care instructions and a contact number to our office were provided if concerns arise regarding the possible complications associated with procedure are suspected.
== END 2021-07-22 11:32 | disposition home or self-care (01) ==
LOC: RAD 09:40
PROVIDERS: PCP Family Medicine; Referring Provider Physical Medicine & Rehabilitation; Visit Provider Physical Medicine & Rehabilitation
DX: M53.3 Sacrococcygeal disorders, not elsewhere classified (principal); M46.1 Sacroiliitis, not elsewhere classified
CPT/HCPCS: 27096; 99152; J0702; J2250; J3010

== ENCOUNTER → 2021-07-26 08:18 | Outpatient (CLI) | payer OTHER, SELFPAY ==
[2021-07-26 08:52] LABS: Add Manual Diff / Slide Review NO; Basophils Absolute Auto 100 /uL (0-100); Basophils Percent Auto 0.5 % (0-2); Eosinophils Absolute Auto 200 /uL (0-450); Eosinophils Percent Auto 1.5 % (2-4); Hematocrit 35.9 % (36-46); Hemoglobin 11.3 g/dL (12.0-16.0); Lymphocytes Absolute Auto 4200 /uL (1100-4500); Lymphocytes Percent Auto 37.2 % (25-40); Mean Corpuscular HGB Conc 31.6 % (30-36); Mean Corpuscular Hemoglobin 27.5 PG (26-34); Mean Corpuscular Volume 86.9 fL (80-100); Monocytes Absolute Auto 800 /uL (0-900); Monocytes Percent Auto 6.7 % (3-14); Neutrophils Absolute Auto 6100 /uL (1500-7000); Neutrophils Percent Auto 54.1 % (50-75); Platelet Count 458 X10^3/uL (150-400); Red Blood Cell Count 4.13 X10^6/uL (4.0-5.2); Red Cell Distribution Width 14.1 % (11.6-14.8); White Blood Cell Count 11.3 X10^3/uL (4.5-11.0)
[2021-07-26 09:03] LABS: Alanine Aminotransferase 19 IU/L (<35); Albumin 4.3 g/dL (3.5-5.0); Albumin Globulin Ratio 1.4 (1.0-2.8); Alkaline Phosphatase 54 U/L (38-126); Aspartate Aminotransferase 22 IU/L (14-36); BUN Creatinine Ratio 47.2 (6-22); Bilirubin Total 0.4 mg/dL (0.2-1.3); Blood Urea Nitrogen 25 mg/dL (7-17); Calcium 9.3 mg/dL (8.4-10.2); Carbon Dioxide 29 mmol/L (22-32); Chloride 105 mmol/L (98-107); Cholesterol 182 mg/dL (140-199); Estimated Glomerular Filt Rate > 60.0 mL/min (>60); Globulin 3.1 g/dL (1.7-4.1); Glucose 93 mg/dL (70-100); HDL Cholesterol 60 mg/dL (40-60); HEMOLYSIS < 15 (0-50); LDL Cholesterol Calculated 84 mg/dL (<100); Potassium 4.1 mmol/L (3.4-5.1); Sodium 139 mmol/L (137-145); Total Protein 7.4 g/dL (6.3-8.2); Triglycerides 191 mg/dL (35-150)
[2021-07-26 11:04] LABS: Thyroid Stimulating Hormone 4.86 uIU/mL (0.47-4.68)
== END ==
PROVIDERS: PCP Family Medicine; Referring Provider Family Medicine; Visit Provider Family Medicine
DX: R23.2 Flushing (principal); E78.5 Hyperlipidemia, unspecified
CPT/HCPCS: 36415; 80053; 80061; 84443; 85025

== ENCOUNTER → 2021-08-14 14:50 | Outpatient (CLI) | payer OTHER, SELFPAY ==
--- NOTE | 2021-08-14 | DI.MG.S_ITS ---
BILATERAL DIGITAL SCREENING MAMMOGRAM 3D/2D WITH CAD: 08/14/2021 CLINICAL: Routine screening. Comparison is made to exams dated: 07/24/2020 mammogram, 05/28/2019 mammogram, and 05/23/2018 mammogram - [facility]. The tissue of both breasts is predominantly fatty. Current study was also evaluated with a Computer Aided Detection (CAD) system. No significant masses, calcifications, or other findings are seen in either breast. There has been no significant interval change. IMPRESSION: NEGATIVE There is no mammographic evidence of malignancy. A 1 year screening mammogram is recommended. This exam was interpreted at Station ID: [id number]. NOTE: For mammograms, a report in lay terms will be sent to the patient. Approximately 15% of breast malignancies will not be visualized mammographically. In the management of a palpable breast mass, a negative mammogram must not discourage biopsy of a clinically suspicious lesion. Electronically Signed By: Griffin Rolon M.D., jr/alex:08/16/2021 08:39:03 letter sent: Normal Exam ACR BI-RADS Category 1: Negative [id number]
== END ==
PROVIDERS: PCP Family Medicine; Referring Provider Family Medicine; Visit Provider Family Medicine
DX: Z12.31 Encounter for screening mammogram for malignant neoplasm of breast (principal)
CPT/HCPCS: 77063; 77067

== ENCOUNTER → 2021-09-10 11:44 | Outpatient (CLI) | payer OTHER, SELFPAY ==
[2021-09-10 12:35] LABS: Add Manual Diff / Slide Review NO; Basophils Absolute Auto 100 /uL (0-100); Basophils Percent Auto 1.1 % (0-2); Eosinophils Absolute Auto 200 /uL (0-450); Eosinophils Percent Auto 2.7 % (2-4); Hematocrit 34.8 % (36-46); Hemoglobin 11.3 g/dL (12.0-16.0); Lymphocytes Absolute Auto 1900 /uL (1100-4500); Lymphocytes Percent Auto 29.6 % (25-40); Mean Corpuscular HGB Conc 32.4 % (30-36); Mean Corpuscular Hemoglobin 27.9 PG (26-34); Monocytes Absolute Auto 500 /uL (0-900); Monocytes Percent Auto 7.3 % (3-14); Neutrophils Absolute Auto 3800 /uL (1500-7000); Neutrophils Percent Auto 59.3 % (50-75); Platelet Count 410 X10^3/uL (150-400); Red Blood Cell Count 4.05 X10^6/uL (4.0-5.2); Red Cell Distribution Width 14.7 % (11.6-14.8); White Blood Cell Count 6.4 X10^3/uL (4.5-11.0)
[2021-09-10 13:57] LABS: Thyroid Stimulating Hormone 0.415 uIU/mL (0.47-4.68)
== END ==
PROVIDERS: PCP Family Medicine; Referring Provider Family Medicine; Visit Provider Family Medicine
DX: E03.9 Hypothyroidism, unspecified (principal)
CPT/HCPCS: 36415; 84443; 85025

== ENCOUNTER → 2021-11-09 16:25 | Outpatient (CLI) | payer OTHER, SELFPAY ==
[2021-11-09 17:47] LABS: Influenza A - CEPHEID Flu A NEGATIVE (NEGATIVE); Influenza B - CEPHEID Flu B NEGATIVE (NEGATIVE)
[2021-11-09 17:54] LABS: COVID19 - ADMIT (NP swab/PCR) POSITIVE (Negative)
== END ==
PROVIDERS: Family Provider Family Medicine; PCP Family Medicine; Visit Provider Physician Assistant
DX: R05.9 Cough, unspecified (principal); R30.9 Painful micturition, unspecified; R35.0 Frequency of micturition
CPT/HCPCS: 87086; 87502; U0003

== ENCOUNTER → 2021-11-09 17:58 | Outpatient (CLI) | payer OTHER, SELFPAY ==
--- NOTE | 2021-11-09 18:01 | DI.RAD.S_ITS ---
PROCEDURE: XR CHEST 2V INDICATIONS: chest congestion COVID+ TECHNIQUE: 2 views of the chest were acquired. COMPARISON: [facility], CR, XR CHEST 2V, 04/15/2021, 15:52. FINDINGS: Surgical changes and devices: None. Lungs and pleura: Lungs are clear. No pleural effusions or pneumothorax. Mediastinum: Mediastinal contours are normal. Heart size is normal. Bones and chest wall: No suspicious bony abnormalities. Soft tissues appear unremarkable. IMPRESSION: Unremarkable chest radiographs_ Approved by: Oral Zarate M.D. on 11/09/2021 at 17:37
== END ==
PROVIDERS: Family Provider Family Medicine; PCP Family Medicine; Referring Provider Physician Assistant; Visit Provider Physician Assistant
DX: U07.1 COVID-19 (principal); R05.8 Other specified cough; R30.9 Painful micturition, unspecified; R35.0 Frequency of micturition
CPT/HCPCS: 71046; 87086; 87502; U0003

== ENCOUNTER → 2021-12-13 09:26 | Outpatient (CLI) | payer OTHER, SELFPAY ==
[2021-12-13 10:22] LABS: COVID19 -Nasal RAPID Negative (Negative)
== END ==
PROVIDERS: Family Provider Family Medicine; PCP Family Medicine; Referring Provider Internal Medicine; Visit Provider Internal Medicine
DX: Z20.822 Contact with and (suspected) exposure to COVID-19 (principal)
CPT/HCPCS: 87635; C9803

== ENCOUNTER → 2021-12-14 06:54 | Outpatient (CLI) | payer OTHER, SELFPAY ==
--- NOTE | 2021-12-22 07:35 | PM.PFT.1 ---
Pulmonary Function Test Referral & Results Date Patient Seen: 12/14/21 Requesting provider: Li Avila Indication: Recurrent bronchitis Results: The spirometry demonstrates an FVC of 3.44 L which is 85% of predicted. The FEV1 was measured at 2.98 L which is 97% of predicted. The FEV1/FVC ratio was 86 which is 113% of predicted. Following the administration of bronchodilator there was no appreciable change to above normal numbers Lung volumes show an SVC of 3.69 L which is 91% of predicted. The diffusing capacity was measured at 20.69 which is 80% of predicted. The maximum voluntary ventilation was minimally reduced Interpretation: This study demonstrates normal spirometry There may be a minimal reduction in diffusing capacity suggesting the possibility of disease at the capillary alveolar level, unless patient is anemic The minimally reduced maximum voluntary ventilation in the setting of normal spirometry would suggest the possibility of neuromuscular disease as well Clinical correlation suggested
== END ==
PROVIDERS: Family Provider Family Medicine; PCP Family Medicine; Referring Provider Family Medicine; Visit Provider Family Medicine
DX: J40 Bronchitis, not specified as acute or chronic (principal)
CPT/HCPCS: 94060; 94726; 94729

== ENCOUNTER → 2022-02-07 07:13 | Outpatient (CLI) | payer OTHER, SELFPAY ==
--- NOTE | 2022-02-07 07:16 | DI.MRI.S_ITS ---
PROCEDURE: MR LUMBAR SPINE WO/W CON INDICATIONS: Chronic progressive low back pain, history of diskitis L5-S1 TECHNIQUE: Noncontrast sagittal T1 spin echo and T2 fast spin echo, sagittal STIR, axial T1 and T2 fast spin echo through the lumbar spine. In cases with scoliosis, additional coronal T2 fast spin echo may be performed. After the administration of contrast, sagittal and axial T1 spin echo with fat saturation through the lumbar spine. COMPARISON: [facility], MR, MR LUMBAR SPINE WITH/WITHOUT CONTRAST, 11/22/2019, 12:16. [facility], MR, MR LUMBAR SPINE WITH/WITHOUT CONTRAST, 11/12/2019, 7:13. [facility], , MR LUMBAR SPINE WO/W CON, 11/07/2019, 12:18. [facility], MR, MR LUMBAR SPINE WITH/WITHOUT CONTRAST, 08/01/2019, 13:50. [facility], MR, MR LUMBAR SPINE WO/W CON, 03/31/2020, 13:16. [facility], CR, XR LUMBAR SPINE MIN 4V, 03/17/2021, 12:33. [facility], MR, L-SPINE WITHOUT CONTRAST, 07/15/2016, 16:42. FINDINGS: Image quality: Excellent. Alignment and curvature: There is normal bony alignment. Marrow: Marrow is of normal overall signal. No acute vertebral body compression fractures. No suspicious marrow enhancement. Spinal cord: Conus medullaris terminates at the T12-L1 level. Visualized spinal cord demonstrates normal signal, without suspicious enhancement. Paraspinous soft tissues: No paravertebral masses or abnormal enhancement. T12-L1: Normal appearance. L1-L2: Normal appearance. L2-L3: The disc height is well-preserved. Loss of disc signal is seen at this level. Mild generalized disc bulge is seen. There is a focal annular fissure seen posteriorly. Mild facet joint hypertrophy is seen. Mild to moderate bilateral neural foraminal narrowing can be seen. Moderate central canal narrowing is seen. When comparison is made with the prior images, these findings are similar. L3-L4: The disc height is well-preserved. Loss of disc signal is seen at this level. Moderate generalized disc bulge is seen. There is a superimposed central disc protrusion. At least moderate facet hypertrophy is seen. Associated hypertrophy of the ligamentum flavum can be seen. Fluid is seen within the facet joints themselves. There is at least moderate bilateral neural foraminal narrowing seen. Moderate to severe central canal narrowing is seen, as on series 5, image 21. These degenerative changes are minimally worse than on the prior MRI. L4-L5: The disc height is well-preserved. Loss of disc signal is seen at this level. At least moderate disc bulge is seen, which is eccentric to the right. Moderate to prominent facet hypertrophy is seen. There is moderate to severe bilateral neural foraminal narrowing seen, right worse than left. There is a degree of compression seen upon the exiting nerve roots. Moderate central canal narrowing is seen. These degenerative changes are overall slightly worse than on the most recent MRI. L5-S1: Moderate to severe loss of disc height and disc signal can be seen. Reactive marrow endplate changes are seen, which are hyperintense on T1-weighted and T2-weighted imaging and most consistent with fatty metaplasia (Modic type II changes). At least moderate disc bulge is seen, which is eccentric to the left. Mild to moderate facet hypertrophy is seen. There is [id number] left-sided and mild right-sided neural foraminal narrowing. No central canal narrowing is seen. The loss of disc height and the endplate fatty metaplasia are worse than in 2020. IMPRESSION: Multiple levels of lumbar spine degenerative change are seen, which are overall slightly worse than on the most recent prior 2020 MRI examination. No abnormal enhancement is seen. Dictated by: Zacarias Darby M.D. on 02/07/2022 at 9:03 Approved by: Zacarias Darby M.D. on 02/07/2022 at 9:11
== END ==
PROVIDERS: Family Provider Family Medicine; PCP Family Medicine; Referring Provider Physical Medicine & Rehabilitation; Visit Provider Physical Medicine & Rehabilitation
DX: M46.26 Osteomyelitis of vertebra, lumbar region (principal); M47.816 Spondylosis without myelopathy or radiculopathy, lumbar region; M47.817 Spondylosis without myelopathy or radiculopathy, lumbosacral region
CPT/HCPCS: 72158

== ENCOUNTER → 2022-03-14 11:34 | Outpatient (CLI) | payer OTHER, SELFPAY ==
[2022-03-14 14:10] LABS: COVID19 -Nasal RAPID Negative (Negative)
== END ==
PROVIDERS: Family Provider Family Medicine; PCP Family Medicine; Visit Provider Physical Medicine & Rehabilitation
DX: Z20.822 Contact with and (suspected) exposure to COVID-19 (principal)
CPT/HCPCS: 87635; C9803

== ENCOUNTER 2022-03-15 10:33 | Outpatient (CLI) | payer OTHER, SELFPAY ==
[2022-03-15] VITALS (8 sets, daily range): BP systolic 110–123; BP diastolic 56–80; PULSE 81–90; RESP 16–18; TEMP 37.1; O2SAT 97–100
--- NOTE | 2022-03-15 11:15 | DI.RAD.S_ITS ---
PROCEDURE: PAIN L INTERLAMINAR/CAUDAL INJ INDICATIONS: SPONDYLOSIS COMPARISON: [facility], XA, PAIN SI JOINT INJECTION ELBERT, 07/22/2021, 10:51. [facility], MR, MR LUMBAR SPINE WO/W CON, 02/07/2022, 7:31. FINDINGS: Fluoroscopic spot filming was performed to verify placement of a spinal needle at the L3-L4 level, as labeled on the films. Appropriate location of the needle tip was confirmed by injection of iodinated contrast. IMPRESSION: Intraprocedural examination within normal limits. Dictated by: Zacarias Darby M.D. on 03/15/2022 at 11:26 Approved by: Zacarias Darby M.D. on 03/15/2022 at 11:26
[2022-03-15] MEDS: MIDAZOLAM 2 MG/2 ML VIAL IV (11:52)
[2022-03-15] MEDS: BUPIVACAINE 0.25% (PF) VIAL 2 ML INJ (11:56)
[2022-03-15] MEDS: IOPAMIDOL 15 ML VIAL 3 ML INJ (11:56)
[2022-03-15] MEDS: BETAMETHASONE 30 MG/5 ML MDV 6 MG INJ (11:57)
[2022-03-15] MEDS: DEXAMETHASONE 10 MG/ML VIAL 20 MG INJ (11:57)
--- NOTE | 2022-03-15 12:04 | P.PCN_ITS ---
Date/Time/Diagnoses Date of procedure: 03/15/22 Time of procedure: 12:05 Pre-procedure diagnosis: 1. HNP WITH RADICULAR FEATURES, 2. MULTILEVEL CENTRAL STENOSIS, Post-procedure diagnosis: same Procedure Notes Procedure: 1. FLUOROSCOPICALLY GUIDED CONTRAST CONTROLLED INTERLAMINAR EPIDURAL STEROID INJECTION - L3/4 Indications: Gracy is referred by Dr. Avila for treatment of Bilateral Foraminal Stenosis L>R LE symptoms. Physician: Heladio Hill Total Fluoroscopy time (seconds): 7 Total sedation minutes: 8 Complications: none Procedure in detail & Post-procedure care: FINDINGS Multilevel Central Spinal Stenosis with Nerve Root Compression DESCRIPTION OF PROCEDURE Fluoroscopically guided, contrast-controlled L3/4 translaminar epidural steroid injection. Following review of allergy and review of potential side effects and complications, including, but not necessarily limited to, infection, allergic reaction, local tissue breakdown, temporary as well as permanent nerve injury, paralysis, stroke and possible , the patient indicated that the patient understood and agreed to proceed. An informed consent document was signed by the patient, witnessed by a nurse, and placed in the patient's chart. Additionally, other treatment options including modalities, medications, and physical therapy were reviewed with the patient. After review of previous anaesthesic history and IV conscious sedation the patient was deemed safe to proceed with today?s procedure with IV conscious sedation as ASA class II designation. Safety time-out was performed to confirm patient ID, procedure to be performed and site of procedure. IV sedation was accomplished with a combination of 2mg of Versed was administered by the RN after DO order, titrated to patient comfort during the course of the procedure while the patient remained responsive to all verbal commands. In the prone position, following sterile prep and drape of the lumbar region, the L3/4 translaminar space was identified fluoroscopically. The skin was anesthetized via a 25-gauge, 1.5-inch needle with 1% lidocaine solution. At this point, a 22-gauge short bevel spinal needle was atraumatically introduced and advanced under fluoroscopic guidance into the region of the L3/4 translaminar space. Depth was confirmed on lateral view. Radiological data, including multiple fluoroscopic views of the lumbar spine, reveal a spinal needle at the L3/4 translaminar space. Lateral views then show placement of the needle in the epidural space. Subsequent views show contrast material flowing superiorly and inferiorly in the epidural space. No vascular or intrathecal uptake is observed. At this point, using loss of resistance technique with saline and air, the epidural space was entered. This was confirmed following negative aspiration with injection of approximately 1.5 cc of Isovue 200, showing excellent epidural flow without vascular or intrathecal uptake. At this point, 1cc of 1% lidocaine solution combined with 3cc or 20mg of dexamethasone and 6mg of betamethasone was injected without incident. The patient tolerated the procedure well without signs or symptoms of complications prior to transfer to the recovery area continued monitoring without incident. The patient was then transferred to the recovery area where they were observed for an appropriate period of time after the injection. The patient reported a VAS score of 6 prior to the procedure and a post- procedure VAS of 0. POST OP INSTRUCTIONS The patient was provided a Pain Log to continue to record their response to the target-specific procedure prior to follow-up visit with their referring physician. Additionally, specific post-injection care instructions and a contact number to our office were provided if concerns arise regarding possible complications associated with the procedure are suspected.
== END 2022-03-15 12:30 | disposition home or self-care (01) ==
LOC: RAD 10:34
PROVIDERS: Family Provider Family Medicine; PCP Family Medicine; Referring Provider Physical Medicine & Rehabilitation; Visit Provider Physical Medicine & Rehabilitation
DX: M51.16 Intervertebral disc disorders with radiculopathy, lumbar region (principal); M48.061 Spinal stenosis, lumbar region without neurogenic claudication
CPT/HCPCS: 62323; J0702; J1100; J2250

== ENCOUNTER 2022-03-30 20:22 | Emergency (ER) | payer OTHER, SELFPAY ==
[2022-03-30 20:28] VITALS: BP 150/73; PULSE 86; RESP 18; TEMP 36.6; O2SAT 100; BMI 29.9
[2022-03-30 20:29] VITALS: PULSE 93; O2SAT 100
[2022-03-30 20:30] VITALS: BP 150/73; PULSE 88; O2SAT 99
--- NOTE | 2022-03-30 20:36 | DI.RAD.S_ITS ---
PROCEDURE: XR CHEST 1V INDICATIONS: chest pain TECHNIQUE: One view of the chest was acquired. COMPARISON: [facility], CR, XR CHEST 2V, 11/09/2021, 19:07. FINDINGS: Surgical changes and devices: None. Lungs and pleura: Lungs are clear. No pleural effusions or pneumothorax. Mediastinum: Mediastinal contours appear normal. Heart size is normal. Bones and chest wall: No suspicious bony lesions. Overlying soft tissues appear unremarkable. IMPRESSION: 1. No acute cardiopulmonary disease. Dictated by: Sergio Cifuentes M.D. on 03/30/2022 at 21:10 Approved by: Sergio Cifuentes M.D. on 03/30/2022 at 21:12
[2022-03-30 20:53] LABS: Add Manual Diff / Slide Review NO; Basophils Absolute Auto 100 /uL (0-100); Eosinophils Absolute Auto 300 /uL (0-450); Eosinophils Percent Auto 2.3 % (2-4); Hematocrit 32.8 % (36-46); Hemoglobin 10.8 g/dL (12.0-16.0); Lymphocytes Absolute Auto 3500 /uL (1100-4500); Lymphocytes Percent Auto 31.2 % (25-40); Mean Corpuscular HGB Conc 32.9 % (30-36); Mean Corpuscular Hemoglobin 27.7 PG (26-34); Mean Corpuscular Volume 84.1 fL (80-100); Monocytes Absolute Auto 700 /uL (0-900); Monocytes Percent Auto 6.6 % (3-14); Neutrophils Absolute Auto 6600 /uL (1500-7000); Neutrophils Percent Auto 58.9 % (50-75); Platelet Count 384 X10^3/uL (150-400); White Blood Cell Count 11.2 X10^3/uL (4.5-11.0)
[2022-03-30 21:00] VITALS: BP 121/73; PULSE 79; RESP 19; O2SAT 100
[2022-03-30 21:06] LABS: Bacteria Urine Occasional (0-1); Culture Indicated Urine Cult Not Indicated; Mucus Urine 1+ (Negative); RBC Urine 5-10/HPF (0-5/HPF); Squamous Epithelial Cell Urine 0-1 /HPF (0-5/HPF); WBC Urine 1-5/HPF (0-5/HPF)
[2022-03-30 21:07] LABS: Alanine Aminotransferase 40 IU/L (<35); Albumin 4.4 g/dL (3.5-5.0); Albumin Globulin Ratio 1.3 (1.0-2.8); Alkaline Phosphatase 61 U/L (38-126); Aspartate Aminotransferase 40 IU/L (14-36); BUN Creatinine Ratio 44.3 (6-22); Bilirubin Total 0.4 mg/dL (0.2-1.3); Blood Urea Nitrogen 31 mg/dL (7-17); Calcium 8.9 mg/dL (8.4-10.2); Carbon Dioxide 26 mmol/L (22-32); Chloride 103 mmol/L (98-107); Creatine Kinase 46 U/L (30-135); Estimated Glomerular Filt Rate > 60 mL/min (>60); Globulin 3.5 g/dL (1.7-4.1); Glucose 104 mg/dL (70-100); HEMOLYSIS 19 (0-50); Lipase 96 U/L (23-300); Magnesium 2.1 mg/dL (1.6-2.3); Potassium 3.9 mmol/L (3.4-5.1); Sodium 137 mmol/L (137-145); Total Protein 7.9 g/dL (6.3-8.2)
--- NOTE | 2022-03-30 21:12 | PC.NURSE ---
Pt reports a fluter in her chest, but states not my heart.
--- NOTE | 2022-03-30 21:16 | ED_ITS ---
HPI - Chest Pain General Chief Complaint: Chest Pain Stated Complaint: chest pain, back pain Time Seen by Provider: 03/30/22 21:15 Source: patient and family Mode of arrival: Ambulatory Limitations: no limitations Limitations: no limitations History of Present Illness HPI narrative: Prior to arrival here, patient was sitting at home watching TV. She developed midthoracic back pain, the radiated around to her sternum. She got up to move around. Pain resolved after 20 minutes. With the symptoms she experienced no dyspnea, dizziness, weakness or diaphoresis. She had no episodes of near- syncope. She denies recent illness. She has no headache, no sore throat no fever. She is nonsmoker. She does take albuterol. She has no underlying cardiac disease. She has a significant family history of her dad dying younger than the age of 50 due to coronary artery disease. Related Data Home Medications Medication Instructions Recorded Confirmed duloxetine 60 mg capsule,delayed 90 mg PO DAILY cap 12/17/19 02/23/22 release Adderall DAILY 09/03/20 02/23/22 naltrexone 09/03/20 02/23/22 famotidine 20 mg tablet (Pepcid) 20 mg PO BID 01/31/22 02/23/22 Previous Rx's Medication Instructions Recorded pilocarpine HCl 5 mg tablet 5 mg PO QID #360 tab 12/05/19 ondansetron 8 mg disintegrating 8 mg PO Q4H PRN #90 tab 08/05/20 tablet estradiol 10 mcg vaginal tablet 10 mcg VAGINAL .COMPLEX #20 tab 06/04/21 atorvastatin 20 mg tablet 20 mg PO BEDTIME #90 tab 07/16/21 Synthroid 75 mcg tablet 75 mcg PO DAILY #90 tab NS 10/05/21 (levothyroxine) albuterol sulfate 90 mcg/actuation 2 puff INHALATION Q4-6H PRN #18 11/04/21 aerosol inhaler (Ventolin HFA) gram fluticasone propionate 110 1 puff INHALATION BID #12 gram 11/08/21 mcg/actuation HFA aerosol inhaler (Flovent HFA) triamcinolone acetonide 0.1 % 1 applic TOPICAL BID #30 g 11/24/21 topical cream cyclobenzaprine 10 mg tablet 10 mg PO BID PRN #60 tab 01/31/22 fidaxomicin 200 mg tablet (Dificid) 200 mg PO BID PRN #12 tab 01/31/22 baclofen 10 mg tablet 10 mg PO TID #60 tab 02/23/22 diazepam 10 mg tablet (Valium) 10 mg PO .COMPLEX PRN #10 tab MDD 03/16/22 3 tabs Allergies Allergy/AdvReac Type Severity Reaction Status Date / Time vancomycin Allergy Intermediate ITCHING Verified 03/30/22 20:36 polyethylene glycol Allergy Verified 03/30/22 20:36 wheat Allergy Verified 03/30/22 20:36 nonoxynol 9 AdvReac Severe severe Verified 03/30/22 20:36 [From [place] Plus Spermicidal itching Jelly] morphine AdvReac Mild pt Verified 03/30/22 20:36 becomes loopy COLONOSCOPY PREP Allergy Severe ITCHING Uncoded 02/23/22 11:48 Review of Systems Constitutional Constitutional: Reports as per HPI, Denies anorexia, Denies body ache(s), Denies chills, Denies fatigue, Denies fever(s) and Denies night sweats Eyes Eyes: Denies change in vision ENT Ears, Nose, Mouth, and Throat: Denies vertigo, Denies dizziness, Denies otalgia, Denies neck pain and Denies sore throat Cardiovascular Cardiovascular: Denies chest pain, Denies syncope, Denies rapid heart rate and Denies dyspnea Respiratory Respiratory: Denies cough and Denies dyspnea Gastrointestinal Gastrointestinal: Denies abdominal pain, Denies dyspepsia and Denies nausea Musculoskeletal Musculoskeletal: Reports as per HPI, Reports back pain, Denies muscle weakness and Denies neck pain Integumentary/Breasts Skin/Breast: Denies rash Neurologic Neurologic: Denies vertigo, Denies dizziness and Denies syncope Endocrine Endocrine: Denies fatigue Hematologic/Lymphatic On Anticoagulants: No Patient History Medical History Abnormal Pap smear of cervix (1995) Acne (1975) ADHD (attention deficit hyperactivity disorder) (1962) Adhesive arachnoiditis Anxiety (1998) Back tightness Chicken pox Chronic back pain (1994) Chronic headaches (1991) Coccydynia Colitis due to Clostridioides difficile Colon polyps Depression (1998) Facet arthropathy, lumbar Fibromyalgia (1997) GERD (gastroesophageal reflux disease) (1997) Hayfever (~1991) Hearing loss (2011) Herniated nucleus pulposus, L3-4 left Hypothyroidism (~2003) IBS (irritable bowel syndrome) (1962) Insomnia (06/21/16) Migraines (2009) Neck tightness Obstructive sleep apnea of adult Osteomyelitis of lumbar spine Pelvic pain in female Plantar warts (1991) Precancerous changes of the cervix (1995) Prolapse of intestine Sacroiliac joint dysfunction Shoulder pain (1994) Villous adenoma of right colon (2010) Surgical History Anesthesia History of colonoscopy (08/2012) History of partial colectomy (2010) History of rectopexy Status post appendectomy Status post colectomy (2011) Status post vaginal hysterectomy (1995) Family History Brother Coronary artery disease Father Coronary artery disease Grandfather Stroke Grandmother Cancer Colon cancer Mother Cancer Mental health problem Anxiety Dementia Fibromyalgia Colon cancer Grandmother Diabetes mellitus Grandfather No problems noted. Family/Other Colon cancer Social History marital status: details: rebecca Parson number of children: 2 household members: spouse lives independently: Yes caregiver/support person: No housing: house Smoking Status: Never smoker substance use type: does not use additional social history: Eb is wheelchair bound with Multiple Sclerosis. Patient's best friend this year. Smoking Status: Never smoker alcohol intake frequency: holidays/special occasions only Substance Use Type: does not use Exam Initial Vital Signs Initial Vital Signs: Vital Signs Temperature 98 F 03/30/22 20:28 Pulse Rate 86 03/30/22 20:28 Respiratory Rate 18 03/30/22 20:28 Blood Pressure 150/73 H 03/30/22 20:28 Pulse Oximetry 100 03/30/22 20:28 Const General: cooperative, healthy appearing, comfortable, well developed and well groomed [facility] Head: normal to inspection, normocephalic and atraumatic Eyes General: Yes appearance normal, both eyes and all related structures Pupils: PERRL EOM: EOM intact bilaterally Neck Neck: No lymphadenopathy and No JVD Chest Chest: normal inspection of the chest Other: No sternal tenderness with palpation. Resp Effort & Inspection: normal respiratory effort Auscultation: clear to auscultation bilaterally Cardio Rate: regular rate Rhythm: regular rhythm Heart Sounds: S1 normal, S2 normal, no murmurs and no rubs GI Inspection: normal to inspection Palpation: soft and No tender Auscultation: normal bowel sounds Back/Spine/Pelvis Back: normal to inspection, No back tenderness and No crepitance Skin General: no rashes or lesions noted Neuro General: patient alert, patient awake, patient oriented x3 and no focal motor deficits Extrem General: normal to inspection, full ROM, no pedal edema and no calf tenderness Psych Mental Status: mental status grossly normal Course Orders Ordered: ED Orders 03/30/22 20:20 Urine Microscopic Stat 03/30/22 20:24 Complete Blood Count AUTO DIFF Stat Comprehensive Metabolic Panel Stat Lipase Stat Magnesium Stat Troponin & CK Cardiac Panel Stat 03/30/22 20:36 XR chest 1V Stat EKG-12 Lead Stat Discontinued Medications Aspirin (Aspirin 81 Mg Chew Tab) 324 mg PO NOW ONE Stop: 03/30/22 20:37 Last Admin: 03/30/22 20:39 Dose: Not Given Documented by: JUDE Vital Signs Vital signs: Vital Signs - 8 hr 03/30/22 20:28 03/30/22 20:29 03/30/22 20:30 Temperature 98 F Pulse Rate 86 93 H 88 Respiratory Rate 18 Blood Pressure 150/73 H 150/73 H Pulse Oximetry 100 100 99 03/30/22 21:00 03/30/22 21:30 Temperature Pulse Rate 79 82 Respiratory Rate 19 18 Blood Pressure 121/73 122/68 Pulse Oximetry 100 97 MDM - Chest Pain Lab Data Result diagrams: 03/30/22 20:24 03/30/22 20:24 Labs: Lab Results 03/30/22 03/30/22 03/30/22 Range/Units 20:20 20:24 20:24 WBC 11.2 H (4.5-11.0) X10^3/uL RBC 3.90 L (4.0-5.2) X10^6/uL Hgb 10.8 L (12.0-16.0) g/dL Hct 32.8 L (36-46) % MCV 84.1 (80-100) fL MCH 27.7 (26-34) PG MCHC 32.9 (30-36) % RDW 17.0 H (11.6-14.8) % Plt Count 384 (150-400) X10^3/uL Neut % (Auto) 58.9 (50-75) % Lymph % (Auto) 31.2 (25-40) % Kerr % (Auto) 6.6 (3-14) % Eos % (Auto) 2.3 (2-4) % Baso % (Auto) 1.0 (0-2) % Neut # (Auto) 6600 (1966-9949) /uL Lymph # (Auto) 3500 (0836-0267) /uL Kerr # (Auto) 700 (0-900) /uL Eos # (Auto) 300 (0-450) /uL Baso # (Auto) 100 (0-100) /uL Sodium 137 (137-145) mmol/L Potassium 3.9 (3.4-5.1) mmol/L Chloride 103 (98-107) mmol/L Carbon Dioxide 26 (22-32) mmol/L BUN 31 H (7-17) mg/dL Creatinine 0.70 (0.52-1.04) mg/dL Estimated GFR > 60 (>60) mL/min BUN/Creatinine Ratio 44.3 H (6-22) Glucose 104 H (70-100) mg/dL Calcium 8.9 (8.4-10.2) mg/dL Magnesium 2.1 (1.6-2.3) mg/dL Total Bilirubin 0.4 (0.2-1.3) mg/dL AST 40 H (14-36) IU/L ALT 40 H (<35) IU/L Alkaline Phosphatase 61 (38-126) U/L Total Creatine Kinase 46 (30-135) U/L CK-MB (CK-2) TNP CK-MB (CK-2) Rel Index TNP Troponin I < 0.012 (0.01-0.034) ng/mL Total Protein 7.9 (6.3-8.2) g/dL Albumin 4.4 (3.5-5.0) g/dL Globulin 3.5 (1.7-4.1) g/dL Albumin/Globulin Ratio 1.3 (1.0-2.8) Lipase 96 (23-300) U/L Urine RBC 5-10/hpf H (0-5/HPF) Urine WBC 1-5/hpf (0-5/HPF) Ur Squamous Epith Cells 0-1 /hpf (0-5/HPF) Urine Bacteria Occasional (0-1) (None) Urine Mucus 1+ H (Negative) Ur Culture Indicated? Cult not indicated Urine Dip Bedside Urine Glucose Negative Bedside Urine Bilirubin - Negative Bedside Urine Ketone +/- 5 Urine Specific [place] 1.030 Bedside Urine Occult Blood + Bedside Urine pH 6 Bedside Urine Protein +/- 15 Bedside Urine Urobilinogen - Negative Bedside Urine Nitrite - Negative Bedside Urine Leukocytes - Negative Esterase Imaging Data Chest x-ray: Radiologist's Impression: No acute cardiopulmonary process. ECG Data Attestation: I personally reviewed and interpreted this ECG as follows: (Normal sinus rhythm rate 79 beats per minute. Normal intervals. No ectopy. No acute ST T wave changes. Normal study.) Discharge Plan Departure Patient Disposition: Home Clinical Impression: Back pain Instructions: DI for Atypical Chest Pain Activity Restrictions/Additional Instructions: Your exam is reassuring. There is no evidence of active cardiac disease. Take Tylenol as needed for back pain. Due to your father's history, I would suggest follow-up with your PCM and discuss a possible cardiac stress test. Return here if symptoms return, especially if symptoms worsen. Prescriptions: No Action duloxetine 60 mg capsule,delayed release(DR/EC) 90 mg PO DAILY 0RF atorvastatin 20 mg tablet 20 mg PO BEDTIME Qty: 90 3RF triamcinolone acetonide 0.1 % cream 1 applic topical BID Qty: 30 2RF pilocarpine HCl 5 mg tablet 5 mg PO QID Qty: 360 3RF ondansetron 8 mg tablet,disintegrating 8 mg PO Q4H PRN (Reason: nausea and vomiting) Qty: 90 1RF levothyroxine [Synthroid] 75 mcg tablet 75 mcg PO DAILY Qty: 90 3RF albuterol sulfate [Ventolin HFA] 90 mcg/actuation HFA aerosol inhaler 2 puff INHALATION Q4-6H PRN (Reason: cough) Qty: 18 2RF Flovent HFA 110 mcg/actuation HFA aerosol inhaler 1 puff INHALATION BID Qty: 12 2RF diazepam [Valium] 10 mg tablet 10 mg PO .COMPLEX MDD 3 tabs PRN (Reason: 1-2 prior to MRI and for possible steroid flare) Qty: 10 0RF Rx Instructions: 10 mg PO PRN; estradiol 10 mcg tablet 10 mcg vaginal .COMPLEX Qty: 20 8RF Rx Instructions: 10 mcg vaginal; Place 1 tablet in vagina every night for 2 weeks then twice weekly Adderall 30 mg tablet DAILY 0RF Rx Instructions: 30 mg in the morning, PRN 15 mg evening naltrexone 3 mg 0RF famotidine [Pepcid] 20 mg tablet 20 mg PO BID 0RF Dificid 200 mg tablet 200 mg PO BID PRN (Reason: C diff infecton) Qty: 12 0RF cyclobenzaprine 10 mg tablet 10 mg PO BID PRN (Reason: muscle spasm) Qty: 60 1RF Hold Instructions: Home Medication placed on hold at Doctor's office baclofen 10 mg tablet 10 mg PO TID Qty: 60 1RF Referrals: Li Avila MD [Primary Care Provider] -
[2022-03-30 21:19] LABS: Troponin I < 0.012 ng/mL (0.01-0.034)
[2022-03-30 21:30] VITALS: BP 122/68; PULSE 82; RESP 18; O2SAT 97
== END 2022-03-30 21:53 | disposition home or self-care (01) ==
PROVIDERS: Emergency Provider Emergency Medicine; Family Provider Family Medicine; PCP Family Medicine
DX: M54.6 Pain in thoracic spine (principal); R07.9 Chest pain, unspecified
CPT/HCPCS: 36415; 71045; 80053; 81003; 81015; 82550; 83690; 83735; 84484; 85025; 93005; 93010; 99284

== ENCOUNTER → 2022-05-23 10:11 | Outpatient (CLI) | payer OTHER, SELFPAY ==
--- NOTE | 2022-05-23 10:12 | DI.RAD.S_ITS ---
PROCEDURE: XR CERVICAL SPINE 4V OR 5V INDICATIONS: Cervical radiculopathy TECHNIQUE: 5 views of the cervical spine acquired. COMPARISON: None. FINDINGS: Bones: Loss of normal cervical lordosis. 3 mm of anterolisthesis of C3 on C4. 4 mm of anterolisthesis of C4 on C5. 3 mm of anterolisthesis of C7 on T1. Multilevel disc space narrowing and endplate osteophyte formation. Facet hypertrophy throughout the cervical spine. Moderate foraminal stenoses bilaterally at C3-C4, C4-C5, C5-C6, and C6-C7. Soft tissues: No prevertebral soft tissue swelling. IMPRESSION: 1. Multilevel degenerative disc and facet disease. 2. No acute fracture. No osseous lesion. If symptoms and/or clinical suspicion for pathology persist, further assessment with repeat, or advanced imaging (e.g., CT, MRI, or bone scan) may be helpful for further assessment. Dictated by: Erica San M.D. on 05/23/2022 at 12:57 Approved by: Erica San M.D. on 05/23/2022 at 12:58
--- NOTE | 2022-05-23 10:12 | DI.RAD.S_ITS ---
PROCEDURE: XR LUMBAR SPINE MIN 4V INDICATIONS: Lumbar radiculopathy history of osteomyelitis TECHNIQUE: 5 views of the lumbar spine were acquired, including bilateral oblique views. COMPARISON: [facility], CR, XR LUMBAR SPINE MIN 4V, 03/17/2021, 12:33. FINDINGS: Bones: 5 nonrib-bearing vertebrae are present. There is 3 millimeter anterolisthesis of L3 on L4 and 6 millimeter anterolisthesis of L4 on L5 unchanged from prior study. No vertebral body compression fractures. Degenerative endplate changes and mild bilateral facet arthrosis at L2-3 through L5-S1 levels are seen. No suspicious bony lesions. Soft tissues: Overlying bowel gas pattern is normal. No suspicious soft tissue calcifications. Oblique images: No obvious pars defects. IMPRESSION: Stable grade 1 anterolisthesis of L3 on L4 and L4 on L5. No acute compression fracture. No obvious pars defects. Mild degenerative disc disease throughout lumbar spine. Dictated by: Tomy Ingram M.D. on 05/23/2022 at 12:39 Approved by: Tomy Ingram M.D. on 05/23/2022 at 12:41
== END ==
PROVIDERS: Family Provider Family Medicine; PCP Family Medicine; Referring Provider Physical Medicine & Rehabilitation; Visit Provider Physical Medicine & Rehabilitation
DX: M50.10 Cervical disc disorder with radiculopathy, unspecified cervical region (principal); M43.12 Spondylolisthesis, cervical region; M46.26 Osteomyelitis of vertebra, lumbar region; M51.26 Other intervertebral disc displacement, lumbar region; M53.3 Sacrococcygeal disorders, not elsewhere classified; M43.16 Spondylolisthesis, lumbar region; M47.816 Spondylosis without myelopathy or radiculopathy, lumbar region; M47.817 Spondylosis without myelopathy or radiculopathy, lumbosacral region; M48.02 Spinal stenosis, cervical region; G03.9 Meningitis, unspecified; R20.2 Paresthesia of skin
CPT/HCPCS: 72050; 72110; 99215

== ENCOUNTER → 2022-05-24 14:05 | Outpatient (CLI) | payer OTHER, SELFPAY ==
[2022-05-24 14:45] LABS: COVID19 -Nasal RAPID Negative (Negative)
--- NOTE | 2022-05-24 15:32 | PM.TREADMILL ---
Cardiac Stress Test Report Referral & Results Date Patient Seen: 05/24/22 Time Patient Seen: 15:33 Requesting provider: Li Avila Indication: chest pain Rest ECG: Sinus rhythm Procedure Note: Standard Raf protocol, 4:14, 4.5 METS Reduced exercise capacity, CINDY 37% Normal hemodynamic response to exercise; Accelerated heart rate response to exercise No chest pain or anginal symptoms No significant ST changes with peak exercise No ectopy Test stopped due to lower back pain Impression: Normal exercise stress test Please note: Actual ECG tracings can be found in the PACS system.
--- NOTE | 2022-05-24 20:57 | DI.NM.S_ITS ---
DATE OF SERVICE: 05/24/2022 PROCEDURE PERFORMED: Exercise stress test. INDICATION: Chest pain/back pain. CARDIAC STRESS: The patient underwent exercise stress test under the supervision of an attending staff. The patient walked on Raf protocol for 4 minutes and 14 seconds, achieved 94 percent of target heart rate. Baseline blood pressure 142/80 mmHg and peak blood pressure 158/90 mmHg. Because of the lower back pain, she could not walk much. Baseline rhythm was sinus. During exercise, there were no convincing ischemic changes. No anginal symptoms. No significant arrhythmias. CONCLUSION: Exercise stress test is negative for inducible ischemia. Enhanced chronotropic response. Normal blood pressure response. Diminished exercise tolerance because of lower back pain. She was not able to walk further. Achieved 7 METs of workload and functional aerobic impairment positive 37 percent. No significant arrhythmias seen. Correlate clinically. Kamari Gracy - YANIRA/vilma/yudy doc#: [id number]/job#: [id number] dd: 05/24/2022 17:39:00 dt: 05/24/2022 20:46:00 DICTATING /COPIES TO: Tommie Webb MD COPIES MNE: WINSOME;
== END ==
PROVIDERS: Family Provider Family Medicine; PCP Family Medicine; Referring Provider Family Medicine; Visit Provider Family Medicine
DX: R07.9 Chest pain, unspecified (principal); M54.50 Low back pain, unspecified
CPT/HCPCS: 87635; 93017

== ENCOUNTER → 2022-06-13 15:50 | Outpatient (CLI) | payer OTHER, SELFPAY ==
--- NOTE | 2022-06-13 15:51 | DI.MRI.S_ITS ---
PROCEDURE: MR CERVICAL SPINE WO CON INDICATIONS: Cervical radiculopathy TECHNIQUE: Noncontrast sagittal T1 spin echo and T2 fast spin echo, sagittal STIR, foraminal oblique sagittal T2 fast spin echo, and axial gradient echo or T2 fast spin echo through the cervical spine. COMPARISON: [facility], MR, MR CERVICAL SPINE WITH/WITHOUT CONTRAST, 10/30/2019, 9:08. FINDINGS: Image quality: Excellent. Alignment and Curvature: Alignment is not significantly changed. There is reversal of normal cervical lordosis. Again noted is anterolisthesis of C4 on C5 measuring 5 mm. There is retrolisthesis of C6 on C7 measuring 3 mm. Bone Marrow: Marrow demonstrates normal overall signal. Spinal Cord: Visualized spinal cord has normal size and signal. No cerebellar tonsillar herniation. Paraspinous Soft Tissues: No paravertebral masses. Prevertebral soft tissues are normal in thickness. C2-C3: Bilateral facet hypertrophy, right greater than left. No canal stenosis or foraminal stenosis. C3-C4: Mild disc bulge. No canal stenosis. Bilateral facet hypertrophy, including marked left facet hypertrophy. No canal stenosis. Moderate left foraminal narrowing with flattening deformity on the exiting left C4 nerve root. C4-C5: Bilateral facet hypertrophy, exuberant on the right and severe on the left. 5 mm anterolisthesis of C4 on C5. Posterior disc bulge. Flattening deformity on the ventral cord. AP diameter of the canal measures 1.0 cm. Severe right foraminal narrowing with right foraminal C5 nerve root impingement. C5-C6: Diffuse posterior disc bulge with mild superimposed left paracentral disc protrusion, flattening the cord. AP diameter of the central canal is 9.1 mm. The stenosis of the left side of the canal is greater than that. Bilateral facet arthropathy. Mild right foraminal narrowing. Severe left foraminal narrowing with left foraminal C6 nerve root impingement. C6-C7: Diffuse disc bulge. AP diameter of the canal is 8.4 mm. Bilateral facet hypertrophy. Moderate to severe right foraminal narrowing with mild impingement on the exiting right C7 nerve root. Moderate left foraminal narrowing with flattening deformity on the exiting left C7 nerve root. C7-T1: No canal stenosis or foraminal stenosis. IMPRESSION: 1. Severe cervical spondylitic change with extensive multilevel cervical facet arthropathy and 5 mm of anterolisthesis C4 on C5. 2. Interestingly, canal stenosis is only borderline at C4-C5. 3. Canal stenosis is mild to moderate at C5-C6 and moderate at C6-C7. 4. Significant multilevel foraminal narrowing as described above. Findings include foraminal nerve root impingement on the right at C4-C5, on the left at C5-C6, and on the right at C6-C7 Dictated by: Sadi Loya M.D. on 06/13/2022 at 16:13 Approved by: Sadi Loya M.D. on 06/13/2022 at 16:48
--- NOTE | 2022-06-13 15:51 | DI.MRI.S_ITS ---
PROCEDURE: MR LUMBAR SPINE WO/W CON INDICATIONS: History of osteomyelitis TECHNIQUE: Noncontrast sagittal T1 spin echo and T2 fast spin echo, sagittal STIR, axial T1 and T2 fast spin echo through the lumbar spine. In cases with scoliosis, additional coronal T2 fast spin echo may be performed. After the administration of contrast, sagittal and axial T1 spin echo with fat saturation through the lumbar spine. COMPARISON: [facility], MR, MR LUMBAR SPINE WO/W CON, 03/31/2020, 13:16. [facility], MR, MR LUMBAR SPINE WITH/WITHOUT CONTRAST, 11/22/2019, 12:16. [facility], MR, MR LUMBAR SPINE WITH/WITHOUT CONTRAST, 11/12/2019, 7:13. [facility], MR, MR LUMBAR SPINE WO/W CON, 02/07/2022, 7:31. [facility], CR, XR LUMBAR SPINE MIN 4V, 05/23/2022, 10:11. [facility], MR, MR LUMBAR SPINE WO/W CON, 11/07/2019, 12:18. FINDINGS: Image quality: Excellent. Alignment and curvature: There is normal bony alignment. Marrow: Marrow is of normal overall signal. No acute vertebral body compression fractures. No suspicious marrow enhancement. Spinal cord: Conus medullaris terminates at the L1 level. Visualized spinal cord demonstrates normal signal, without suspicious enhancement. Paraspinous soft tissues: No paravertebral masses or abnormal enhancement. T12-L1: Normal appearance. L1-L2: Normal appearance. L2-L3: The disc height is well-preserved. Loss of disc signal is seen at this level. Moderate generalized disc bulge is seen. Moderate facet joint hypertrophy is seen. Moderate bilateral neural foraminal narrowing is seen. Mild to moderate central canal narrowing is seen. No significant change from the prior. L3-L4: The disc height is well-preserved. Loss of disc signal is seen at this level. Moderate generalized disc bulge is seen. There is a superimposed central disc protrusion. Moderate to prominent facet hypertrophy is seen. Associated hypertrophy of the ligamentum flavum can be seen. There is at least moderate bilateral neural foraminal narrowing seen. Moderate to severe central canal narrowing is seen, as on series 6, image 22. When comparison is made with the prior images, these findings are similar. L4-L5: The disc height is well-preserved. Loss of disc signal is seen at this level. Moderate disc bulge is seen, which is eccentric to the right. Moderate to prominent facet hypertrophy is seen. There is fluid within the right facet joint. There is moderate to severe bilateral neural foraminal narrowing seen, with an associated a degree of compression seen upon the exiting nerve roots. Moderate central canal narrowing is seen. No significant change from the prior. L5-S1: At least moderate loss of disc height and disc signal can be seen. Reactive marrow endplate changes are seen, which are hyperintense on T1-weighted and T2-weighted imaging and most consistent with fatty metaplasia (Modic type II changes). Moderate generalized disc bulge is seen. Mild facet joint hypertrophy is seen. Mild to moderate bilateral neural foraminal narrowing can be seen. No central canal narrowing is seen. When comparison is made with the prior images, these findings are similar. IMPRESSION: No suspicious bone marrow signal or enhancement can be seen to suggest osteomyelitis. Multiple levels of lumbar spine degenerative change are seen, which are similar to the prior MRI. Several sites of significant neural foraminal narrowing can be seen, with associated exiting nerve root compression. Dictated by: Zacarias Darby M.D. on 06/13/2022 at 18:48 Approved by: Zacarias Darby M.D. on 06/13/2022 at 18:52
== END ==
PROVIDERS: Family Provider Family Medicine; PCP Family Medicine; Referring Provider Physical Medicine & Rehabilitation; Visit Provider Physical Medicine & Rehabilitation
DX: M47.22 Other spondylosis with radiculopathy, cervical region (principal); M48.02 Spinal stenosis, cervical region; M47.816 Spondylosis without myelopathy or radiculopathy, lumbar region; M48.061 Spinal stenosis, lumbar region without neurogenic claudication; M46.26 Osteomyelitis of vertebra, lumbar region; M53.3 Sacrococcygeal disorders, not elsewhere classified; M51.26 Other intervertebral disc displacement, lumbar region
CPT/HCPCS: 72141; 72158

== ENCOUNTER → 2022-06-22 09:01 | Outpatient (CLI) | payer OTHER, SELFPAY ==
[2022-06-22 11:03] LABS: Thyroid Stimulating Hormone 3.54 uIU/mL (0.47-4.68)
[2022-06-22 20:46] LABS: Cholesterol 195 mg/dL (140-199); HDL Cholesterol 48 mg/dL (40-60); LDL Cholesterol Calculated 114 mg/dL (<100); Triglycerides 167 mg/dL (35-150)
== END ==
PROVIDERS: Family Provider Family Medicine; PCP Family Medicine; Referring Provider Family Medicine; Visit Provider Family Medicine
DX: E03.9 Hypothyroidism, unspecified (principal); E78.00 Pure hypercholesterolemia, unspecified; Z13.9 Encounter for screening, unspecified
CPT/HCPCS: 36415; 80061; 84443

== ENCOUNTER 2022-08-16 09:58 | Outpatient (CLI) | payer OTHER, SELFPAY ==
[2022-08-16] VITALS (8 sets, daily range): BP systolic 107–134; BP diastolic 65–78; PULSE 76–91; RESP 16–22; TEMP 37.2; O2SAT 96–100
--- NOTE | 2022-08-16 09:59 | DI.RAD.S_ITS ---
PROCEDURE: PAIN L INTERLAMINAR/CAUDAL INJ INDICATIONS: SPONDYLOSIS COMPARISON: [facility], XA, PAIN L INTERLAMINAR/CAUDAL INJ, 03/15/2022, 11:55. FINDINGS: Fluoroscopic spot filming was performed to verify placement of spinal needles at the L3-4 level, as labeled on the films. Appropriate location of the needle tip was confirmed by injection of iodinated contrast. IMPRESSION: Spot fluoroscopic images demonstrate appropriate needle positioning. Dictated by: Jim Enriquez M.D. on 08/17/2022 at 8:38 Approved by: Jim Enriquez M.D. on 08/17/2022 at 8:40
[2022-08-16] MEDS: MIDAZOLAM 2 MG/2 ML VIAL IV (11:38)
[2022-08-16] MEDS: IOPAMIDOL 15 ML VIAL 3 ML INJ (11:41)
[2022-08-16] MEDS: DEXAMETHASONE 10 MG/ML VIAL 20 MG INJ (11:42)
[2022-08-16] MEDS: BUPIVACAINE 0.25% (PF) VIAL 2 ML INJ (11:42)
[2022-08-16] MEDS: BETAMETHASONE 30 MG/5 ML MDV 6 MG INJ (11:42)
--- NOTE | 2022-08-16 11:53 | P.PCN_ITS ---
Date/Time/Diagnoses Date of procedure: 08/16/22 Time of procedure: 11:53 Pre-procedure diagnosis: 1. HNP WITH RADICULAR FEATURES, 2. MULTILEVEL CENTRAL STENOSIS, Post-procedure diagnosis: same Procedure Notes Procedure: 1. FLUOROSCOPICALLY GUIDED CONTRAST CONTROLLED INTERLAMINAR EPIDURAL STEROID INJECTION - L3/4 Indications: Gracy is referred by Dr. Avila for treatment of Bilateral Foraminal Stenosis L>R LE symptoms. Physician: Heladio Hill Total Fluoroscopy time (seconds): 7 Total sedation minutes: 10 Complications: none Procedure in detail & Post-procedure care: FINDINGS Multilevel Central Spinal Stenosis with Nerve Root Compression DESCRIPTION OF PROCEDURE Fluoroscopically guided, contrast-controlled L3/4 translaminar epidural steroid injection. Following review of allergy and review of potential side effects and complications, including, but not necessarily limited to, infection, allergic reaction, local tissue breakdown, temporary as well as permanent nerve injury, paralysis, stroke and possible , the patient indicated that the patient understood and agreed to proceed. An informed consent document was signed by the patient, witnessed by a nurse, and placed in the patient's chart. Additionally, other treatment options including modalities, medications, and physical therapy were reviewed with the patient. After review of previous anaesthesic history and IV conscious sedation the patient was deemed safe to proceed with today?s procedure with IV conscious sedation as ASA class II designation. Safety time-out was performed to confirm p atient ID, procedure to be performed and site of procedure. IV sedation was accomplished with a combination of 2mg of Versed was administered by the RN after DO order, titrated to patient comfort during the course of the procedure while the patient remained responsive to all verbal commands. In the prone position, following sterile prep and drape of the lumbar region, the L3/4 translaminar space was identified fluoroscopically. The skin was anesthetized via a 25-gauge, 1.5-inch needle with 1% lidocaine solution. At this point, a 22-gauge short bevel spinal needle was atraumatically introduced and advanced under fluoroscopic guidance into the region of the L3/4 translaminar space. Depth was confirmed on lateral view. Radiological data, including multiple fluoroscopic views of the lumbar spine, reveal a spinal needle at the L3/4 translaminar space. Lateral views then show placement of the needle in the epidural space. Subsequent views show contrast material flowing superiorly and inferiorly in the epidural space. No vascular or intrathecal uptake is observed. At this point, using loss of resistance technique with saline and air, the epidural space was entered. This was confirmed following negative aspiration with injection of approximately 1.5 cc of Isovue 200, showing excellent epidural flow without vascular or intrathecal uptake. At this point, 1cc of 1% lidocaine solution combined with 3cc or 20mg of dexamethasone and 6mg of betamethasone was injected without incident. The patient tolerated the procedure well without signs or symptoms of complications prior to transfer to the recovery area continued monitoring without incident. The patient was then transferred to the recovery area where they were observed for an appropriate period of time after the injection. The patient reported a VAS score of 6 prior to the procedure and a post- procedure VAS of 0. POST OP INSTRUCTIONS The patient was provided a Pain Log to continue to record their response to the target-specific procedure prior to follow-up visit with their referring physician. Additionally, specific post-injection care instructions and a contact number to our office were provided if concerns arise regarding possible complications associated with the procedure are suspected.
== END 2022-08-16 12:17 | disposition home or self-care (01) ==
PROVIDERS: Family Provider Family Medicine; PCP Family Medicine; Referring Provider Physical Medicine & Rehabilitation; Visit Provider Physical Medicine & Rehabilitation
DX: M51.16 Intervertebral disc disorders with radiculopathy, lumbar region (principal); M48.061 Spinal stenosis, lumbar region without neurogenic claudication
CPT/HCPCS: 62323; 99152; J0702; J1100; J2250; J3490

== ENCOUNTER → 2022-09-29 14:55 | Outpatient (CLI) | payer OTHER, SELFPAY ==
[2022-09-29 15:56] LABS: Influenza A - CEPHEID Flu A NEGATIVE (NEGATIVE); Influenza B - CEPHEID Flu B NEGATIVE (NEGATIVE); Respiratory Syncytial Virus Negative (Negative)
[2022-09-29 16:09] LABS: COVID-19 CEPHEID 4-PLEX PCR Negative (Negative)
== END ==
PROVIDERS: Family Provider Family Medicine; PCP Family Medicine; Visit Provider Nurse Practitioner Family
DX: R05.9 Cough, unspecified (principal)
CPT/HCPCS: 0241U

== ENCOUNTER → 2022-09-29 15:07 | Outpatient (CLI) | payer OTHER, SELFPAY ==
--- NOTE | 2022-09-29 15:09 | DI.RAD.S_ITS ---
PROCEDURE: XR CHEST 2V INDICATIONS: Cough TECHNIQUE: 2 views of the chest were acquired. COMPARISON: [facility], CR, XR CHEST 2V, 11/09/2021, 19:07. FINDINGS: Surgical changes and devices: None. Lungs and pleura: Lungs are clear. No pleural effusions or pneumothorax. Mediastinum: Mediastinal contours are normal. Heart size is normal. Bones and chest wall: No suspicious bony abnormalities. Soft tissues appear unremarkable. IMPRESSION: No acute cardiopulmonary process demonstrated radiographically. Dictated by: Griffin Rolon M.D. on 09/29/2022 at 16:04 Approved by: Griffin Rolon M.D. on 09/29/2022 at 16:05
== END ==
PROVIDERS: Family Provider Family Medicine; PCP Family Medicine; Referring Provider Nurse Practitioner Family; Visit Provider Nurse Practitioner Family
DX: R05.9 Cough, unspecified (principal)
CPT/HCPCS: 0241U; 71046

== ENCOUNTER → 2022-10-25 13:34 | Outpatient (CLI) | payer OTHER, SELFPAY ==
--- NOTE | 2022-10-25 13:36 | DI.RAD.S_ITS ---
PROCEDURE: XR HIP W PEL IF DONE RT 2V INDICATIONS: RIGHT HIP PAIN TECHNIQUE: AP pelvis with lateral view(s) of the right hip(s). COMPARISON: None. FINDINGS: Bones: No fractures or dislocations. Pelvic ring appears intact. No suspicious bony lesions. Mild osseous hypertrophy noted in the hips bilaterally compatible with osteoarthritis. Soft tissues: The visualized bowel gas pattern is normal. No suspicious soft tissue calcifications. IMPRESSION: Mild osteoarthritis. Dictated by: Elsa Leigh MD, PhD on 10/25/2022 at 14:32 Approved by: Elsa Leigh MD, PhD on 10/25/2022 at 14:32
== END ==
PROVIDERS: Family Provider Family Medicine; PCP Family Medicine; Referring Provider Physical Medicine & Rehabilitation; Visit Provider Physical Medicine & Rehabilitation
DX: M25.551 Pain in right hip (principal); M16.11 Unilateral primary osteoarthritis, right hip
CPT/HCPCS: 73502

== ENCOUNTER → 2022-11-21 12:43 | Outpatient (CLI) | payer OTHER, SELFPAY ==
--- NOTE | 2022-11-21 | DI.RAD.S_ITS ---
PROCEDURE: [place] HIP INJECTION MR/CT RT INDICATIONS: RIGHT LABRAL TEAR TECHNIQUE: The indications, alternatives, benefits, risks, and complications of the procedure were explained to the patient. Written informed consent was obtained and placed in the chart. The hip was examined fluoroscopically with the legs fixed in slight internal rotation, and a site for needle placement chosen for entry into the hip joint from an anterior approach. Care was taken to locate the common femoral artery and vein beforehand. The skin was prepped and draped in a sterile fashion, and 1% Lidocaine infiltrated from skin down to joint capsule. A spinal needle was inserted into the joint, and a small amount of iodinated contrast media injected to confirm intra-articular placement of the needle tip. This was followed by approximately 10 mL dilute solution of a gadolinium containing MR contrast agent. The needle was removed and a dressing was applied. The patient was given postprocedural instructions and sent to the MR suite for imaging. COMPARISON: [facility], CR, XR HIP W PEL IF DONE RT 2V, 10/25/2022, 13:45. FINDINGS: A single fluoroscopic spot image demonstrates intra-articular location of injected iodinated contrast. IMPRESSION: Successful fluoroscopically guided administration of dilute Gadolinium solution into the hip joint for MR arthrogram. Approved by: Jim Enriquez M.D. on 11/21/2022 at 15:31
--- NOTE | 2022-11-21 13:40 | DI.MRI.S_ITS ---
PROCEDURE: MR HIP RT W CON INDICATIONS: RIGHT LABRAL TEAR TECHNIQUE: After the administration of 10 mL of dilute intra-articular Gadolinium contrast, coronal STIR of the bony pelvis; coronal and oblique axial T1 spin echo with fat saturation, axial T2 fast spin echo with fat saturation, sagittal T1 spin echo with and without fat saturation of the involved hip. COMPARISON: [facility], CR, XR HIP W PEL IF DONE RT 2V, 10/25/2022, 13:45. [facility], RF, [place] HIP INJECTION MR/CT RT, 11/21/2022, 13:38. FINDINGS: Image quality: Excellent. Bones and joints: Bone marrow of the pelvic ring and proximal femurs show normal signal throughout. No intraosseous lesions or fractures. No avascular necrosis of the femoral heads. There is disc desiccation and facet hypertrophy in the included portions of the lumbar spine. Tendons and ligaments: The gluteus medius and minimus tendons demonstrate mild distal tendinosis. Small amount of overlying trochanteric bursal fluid is present. The proximal iliotibial band appears intact. The iliopsoas tendon appears intact, without adjacent bursal fluid collections. The origin of the hamstring tendon is intact at the ischial tuberosity. The direct and indirect heads of the rectus femoris muscle origin appear intact. Labrum and cartilage: There is nondisplaced tearing of the anterior to superior acetabular labrum with uptake of intra-articular contrast material. Multifocal cartilage irregularity is seen throughout the superior aspect of the right hip, including full-thickness cartilage loss anterior superiorly. Cystic changes are seen within the adjacent portion of the anterosuperior acetabulum and also extend into the soft tissues anterior to the acetabulum. Extraosseous portion measures approximately 1.8 x 1.2 x 1.5 cm. The cysts fill with intra-articular contrast material. There appears to be a separate communicating anterior paralabral cyst measuring approximately 0.7 x 0.6 x 0.3 cm. Soft tissues: A noncommunicating fluid collection is seen along the it to aspect of the iliopsoas tendon at the level of the inferior hip joint measuring approximately 14 x 8 mm on axial images that may represent an iliopsoas bursal effusion or ganglion cyst. Visualized muscles demonstrate normal bulk and internal signal. Quadratus femoris muscle demonstrates no internal edema to suggest ischiofemoral impingement. The proximal sciatic neurovascular bundle appears intact. The included portions of the pelvis demonstrate no acute abnormality. IMPRESSION: 1. Complex nondisplaced tearing of the anterior to superior acetabular labrum. A communicating anterior paralabral cyst measures up to 7 mm. 2. Full-thickness cartilage loss at the anterosuperior aspect of the right hip. Cystic changes are seen within the adjacent anterosuperior acetabulum with extraosseous extension of the cyst anterior to the acetabulum measuring up to 18 mm in extraosseous extent. The cyst fills with contrast material, and may represent a partially-intraosseous ganglion cyst versus dissecting paralabral cyst. Background moderate chondromalacia is seen in the right hip. 3. Noncommunicating 14 mm fluid collection inferomedial to the right hip adjacent to the iliopsoas tendon may represent a dissecting ganglion cyst or iliopsoas bursal effusion. 4. Mild distal gluteus medius and minimus tendinosis. 5. Degenerative changes are noted in the lumbar spine. Approved by: Jim Enriquez M.D. on 11/21/2022 at 16:48
== END ==
PROVIDERS: Family Provider Family Medicine; PCP Family Medicine; Referring Provider Physical Medicine & Rehabilitation; Visit Provider Physical Medicine & Rehabilitation
DX: M16.11 Unilateral primary osteoarthritis, right hip (principal); S73.191A Other sprain of right hip, initial encounter; M24.851 Other specific joint derangements of right hip, not elsewhere classified; M94.251 Chondromalacia, right hip; M47.816 Spondylosis without myelopathy or radiculopathy, lumbar region
CPT/HCPCS: 27093; 73722; 77002

== ENCOUNTER → 2022-12-16 15:07 | Outpatient (CLI) | payer OTHER, SELFPAY ==
--- NOTE | 2022-12-16 | DI.MG.S_ITS ---
BILATERAL DIGITAL SCREENING MAMMOGRAM 3D/2D WITH CAD: 12/16/2022 CLINICAL: Routine screening. Comparison is made to exams dated: 08/14/2021 mammogram, 07/24/2020 mammogram, and 05/28/2019 mammogram - [facility]. There are scattered areas of fibroglandular density in both breasts (category b / 25%-50% glandular tissue). Current study was also evaluated with a Computer Aided Detection (CAD) system. No significant masses, calcifications, or other findings are seen in either breast. There has been no significant interval change. IMPRESSION: NEGATIVE There is no mammographic evidence of malignancy. A 1 year screening mammogram is recommended. Based on the Tyrer Cuzick model (a risk assessment model) the patient's lifetime risk is 6.2% and her 10 year risk is 2.4%. According to the ACR, ACS, and NCCN guidelines, an annual breast MRI exam along with mammogram is recommended if the patient's lifetime risk is 20% or greater. This exam was interpreted at Station ID: [id number]. NOTE: For mammograms, a report in lay terms will be sent to the patient. Approximately 15% of breast malignancies will not be visualized mammographically. In the management of a palpable breast mass, a negative mammogram must not discourage biopsy of a clinically suspicious lesion. Electronically Signed By: Salima alfonso/alex:12/16/2022 17:10:07 letter sent: Normal Exam ACR BI-RADS Category 1: Negative [id number]
== END ==
PROVIDERS: Family Provider Family Medicine; PCP Family Medicine; Referring Provider Family Medicine; Visit Provider Family Medicine
DX: Z12.31 Encounter for screening mammogram for malignant neoplasm of breast (principal)
CPT/HCPCS: 77063; 77067

== ENCOUNTER → 2023-01-16 08:36 | Outpatient (CLI) | payer OTHER, SELFPAY ==
[2023-01-16 10:02] LABS: Alanine Aminotransferase 17 IU/L (<35); Albumin 4.5 g/dL (3.5-5.0); Albumin Globulin Ratio 1.2 (1.0-2.8); Alkaline Phosphatase 81 U/L (38-126); Aspartate Aminotransferase 19 IU/L (14-36); Bilirubin Total 0.5 mg/dL (0.2-1.3); Blood Urea Nitrogen 23 mg/dL (7-17); Calcium 9.4 mg/dL (8.4-10.2); Carbon Dioxide 31 mmol/L (22-32); Chloride 101 mmol/L (98-107); Estimated Glomerular Filt Rate > 60 mL/min (>60); Globulin 3.7 g/dL (1.7-4.1); Glucose 100 mg/dL (70-100); HEMOLYSIS < 15 (0-50); Potassium 4.3 mmol/L (3.4-5.1); Sodium 140 mmol/L (137-145); Total Protein 8.2 g/dL (6.3-8.2)
== END ==
PROVIDERS: Family Provider Family Medicine; PCP Family Medicine; Referring Provider Family Medicine; Visit Provider Family Medicine
DX: E03.9 Hypothyroidism, unspecified (principal); F32.5 Major depressive disorder, single episode, in full remission; K58.9 Irritable bowel syndrome, unspecified; M79.7 Fibromyalgia
CPT/HCPCS: 36415; 80053

== ENCOUNTER → 2023-01-18 15:04 | Outpatient (CLI) | payer OTHER, SELFPAY ==
[2023-01-18 15:22] LABS: Add Manual Diff / Slide Review NO; Basophils Absolute Auto 100 /uL (0-100); Basophils Percent Auto 1.3 % (0-2); Eosinophils Absolute Auto 500 /uL (0-450); Eosinophils Percent Auto 4.9 % (2-4); Hematocrit 37.9 % (36-46); Hemoglobin 11.9 g/dL (12.0-16.0); Lymphocytes Absolute Auto 1900 /uL (1100-4500); Lymphocytes Percent Auto 20.7 % (25-40); Mean Corpuscular HGB Conc 31.5 % (30-36); Mean Corpuscular Hemoglobin 27.5 PG (26-34); Mean Corpuscular Volume 87.4 fL (80-100); Monocytes Absolute Auto 500 /uL (0-900); Monocytes Percent Auto 5.2 % (3-14); Neutrophils Absolute Auto 6200 /uL (1500-7000); Neutrophils Percent Auto 67.9 % (50-75); Platelet Count 414 X10^3/uL (150-400); Red Blood Cell Count 4.34 X10^6/uL (4.0-5.2); Red Cell Distribution Width 15.7 % (11.6-14.8); White Blood Cell Count 9.2 X10^3/uL (4.5-11.0)
== END ==
PROVIDERS: Family Provider Family Medicine; PCP Physician Assistant; Visit Provider Physician Assistant
DX: Z01.812 Encounter for preprocedural laboratory examination (principal)
CPT/HCPCS: 85025

== ENCOUNTER → 2023-07-31 14:32 | Outpatient (CLI) | payer OTHER, SELFPAY ==
--- NOTE | 2023-07-31 14:33 | DI.RAD.S_ITS ---
PROCEDURE: XR SACROILIAC JOINT MIN 3V INDICATIONS: SI joint pain TECHNIQUE: 3 views of the sacroiliac joints were acquired. COMPARISON: None. FINDINGS: Bones: No bony erosions or ankylosis. No suspicious bony lesions. No fractures. Mild sacroiliac joint degeneration bilaterally ([place] 1). No ankylosis. Right hip arthroplasty. Soft tissues: Overlying bowel gas pattern is normal. No suspicious soft tissue densities. IMPRESSION: 1. 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 Dictated by: Hiren Richard M.D. on 07/31/2023 at 16:48 Approved by: Hiren Richard M.D. on 07/31/2023 at 16:49
== END ==
PROVIDERS: Family Provider Family Medicine; PCP Family Medicine; Referring Provider Family Medicine; Visit Provider Family Medicine
DX: M46.1 Sacroiliitis, not elsewhere classified (principal); M53.3 Sacrococcygeal disorders, not elsewhere classified; G89.29 Other chronic pain
CPT/HCPCS: 72202

== ENCOUNTER → 2023-08-03 09:11 | Outpatient (CLI) | payer OTHER, SELFPAY ==
[2023-08-03 09:58] LABS: Hemoglobin A1C% w Est Avg Glu 5.8 % (4.0-6.0)
[2023-08-03 11:24] LABS: Alanine Aminotransferase 20 IU/L (<35); Albumin 4.1 g/dL (3.5-5.0); Albumin Globulin Ratio 1.3 (1.0-2.8); Alkaline Phosphatase 65 U/L (38-126); Aspartate Aminotransferase 21 IU/L (14-36); BUN Creatinine Ratio 32.2 (6-22); Bilirubin Total 0.4 mg/dL (0.2-1.3); Blood Urea Nitrogen 19 mg/dL (7-17); Calcium 9.4 mg/dL (8.4-10.2); Carbon Dioxide 27 mmol/L (22-32); Chloride 105 mmol/L (98-107); Cholesterol 152 mg/dL (140-199); Estimated Glomerular Filt Rate > 60 mL/min (>60); Globulin 3.1 g/dL (1.7-4.1); Glucose 101 mg/dL (70-100); HDL Cholesterol 46 mg/dL (40-60); HEMOLYSIS < 15 (0-50); LDL Cholesterol Calculated 79 mg/dL (<100); Potassium 3.8 mmol/L (3.4-5.1); Sodium 140 mmol/L (137-145); Total Protein 7.2 g/dL (6.3-8.2); Triglycerides 134 mg/dL (35-150)
[2023-08-03 11:58] LABS: Thyroid Stimulating Hormone 4.29 uIU/mL (0.47-4.68)
[2023-08-03 12:12] LABS: Vitamin B12 774 pg/mL (239-931)
== END ==
PROVIDERS: Family Provider Family Medicine; PCP Family Medicine; Referring Provider Family Medicine; Visit Provider Family Medicine
DX: R53.83 Other fatigue (principal); E66.9 Obesity, unspecified; Z13.220 Encounter for screening for lipoid disorders; E03.9 Hypothyroidism, unspecified
CPT/HCPCS: 36415; 80053; 80061; 82607; 83036; 84443

== ENCOUNTER → 2023-08-11 18:50 | Outpatient (CLI) | payer OTHER, SELFPAY ==
--- NOTE | 2023-08-11 18:52 | DI.MRI.S_ITS ---
PROCEDURE: MR PELVIS WO CON INDICATIONS: SI joint pain TECHNIQUE: Noncontrast axial and oblique coronal T1 spin echo and STIR through the sacroiliac joints. COMPARISON: None. FINDINGS: Image quality: Excellent. Bones: The sacroiliac joints appear intact. No adjacent bone marrow edema to suggest active sacroiliitis. No bony ankylosis. No suspicious marrow space occupying lesions. Soft tissues: No presacral masses. Rectum appears normal in caliber and wall thickness. No pathologic free pelvic fluid. IMPRESSION: No MRI evidence of sacroiliitis. Dictated by: Flakito Gordon M.D. on 08/14/2023 at 11:03 Approved by: Flakito Gordon M.D. on 08/14/2023 at 11:04
== END ==
PROVIDERS: Family Provider Family Medicine; PCP Family Medicine; Referring Provider Family Medicine; Visit Provider Family Medicine
DX: M53.3 Sacrococcygeal disorders, not elsewhere classified (principal)
CPT/HCPCS: 72195

== ENCOUNTER 2023-09-14 08:28 | Outpatient (CLI) | payer OTHER, SELFPAY ==
[2023-09-14] VITALS (11 sets, daily range): BP systolic 98–119; BP diastolic 57–63; PULSE 91–97; RESP 16–20; TEMP 36.5; O2SAT 93–99
--- NOTE | 2023-09-14 08:30 | DI.RAD.S_ITS ---
PROCEDURE: PAIN SI JOINT INJECTION ELBERT INDICATIONS: SACRAL DJD COMPARISON: [facility], XA, PAIN SI JOINT INJECTION ELBERT, 07/22/2021, 10:51. FINDINGS: Fluoroscopic spot filming was performed to verify placement of spinal needles at the SI joint level(s), as labeled on the films. Appropriate location(s) of the needle tip(s) was confirmed by injection of iodinated contrast. IMPRESSION: Single fluoroscopic image demonstrates SI joint injection. Please see procedure note for details. Dictated by: Jm Solorio M.D. on 09/14/2023 at 11:52 Approved by: Jm Solorio M.D. on 09/14/2023 at 12:11
[2023-09-14] MEDS: MIDAZOLAM 2 MG/2 ML VIAL IV (09:00)
[2023-09-14] MEDS: BUPIVACAINE 0.5% (PF) 10 ML VIAL 5 ML SUBCUT (09:12)
[2023-09-14] MEDS: fentaNYL 100 MCG/2 ML INJ 50 MCG IV (09:12)
[2023-09-14] MEDS: LIDOCAINE 1% 20 ML INJ (09:12)
[2023-09-14] MEDS: DEXAMETHASONE 10 MG/ML VIAL 20 MG INJ (09:14)
[2023-09-14] MEDS: iopamidoL 15 ML VIAL 3 ML INJ (09:14)
--- NOTE | 2023-09-14 09:32 | PM.PROC.IR.1 ---
Date/Time/Diagnoses Date of procedure: 09/14/23 Time of procedure: 09:32 Pre-procedure diagnosis: Sacroiliac joint pain/DJD Post-procedure diagnosis: same Procedure Notes Procedure: Fluoroscopic guided contrast controlled bilateral sacroiliac joint injection Indications: Gracy is referred by Dr. Avila for treatment of bilateral sacroiliac joint DJD Physician: Heladio Hill Total Fluoroscopy time (seconds): 21 Total sedation minutes: 20 Complications: none Procedure in detail & Post-procedure care: Description of procedure Fluoroscopic guided, contrast controlled bilateral sacroiliac joint injection Following review of allergies and review of potential side effects and complications, including, but not necessarily limited to, infection, allergic reaction, local tissue breakdown, temporary as well as permanent nerve injury, paralysis, stroke and possible , the patient indicated that they understood and agreed to proceed. An informed consent was signed by the patient, witnessed by a nurse, and placed in the patient's chart. Additionally, other treatment options including modalities, medications, and physical therapy were reviewed with the patient. After review of previous anaesthesic history and IV conscious sedation the patient was deemed safe to proceed with today?s procedure with IV conscious sedation as ASA class II designation. Safety time-out was performed to confirm patient ID, procedure to be performed and site of procedure. IV sedation was accomplished with a combination of 2mg Versed and 50mcg of Fentanyl were administered by the RN after DO order, titrated to patient comfort during the course of the procedure while the patient remained responsive to all verbal commands In the prone position following sterile prep and drape of the pelvic region, the hyper lucency on in the inferior aspect of the sacroiliac joint was identified fluoroscopically the skin was anesthetized be a 25 gauge 1.5 inch needle with approximately 2cc of 1% lidocaine solution. At this point, a 22 gauge 3 in spinal needle was atraumatically introduced and advanced under fluoroscopic guidance into the inferior aspect of the right sacroiliac joint. Following negative aspiration, approximately 0.3cc of Isovue-300 was injected confirming intra-articular placement without vascular uptake. Radiographic data, including multiple fluoroscopic views of the pelvis, reveals a spinal needle in the sacroiliac joint hyper lucent zone. Subsequent view show flow contrast tear superiorly and inferiorly within the joint capsule without vascular intrathecal uptake. At this point a total of 1cc of 0.5% Marcaine was combined with 1cc of 10mg of dexamethasone was injected without incident. Attention was then refocused the left sacroiliac joint where the procedure was replicated. The procedure tolerated the procedure well without signs or symptoms of complications prior to transfer to the recovery area continued monitoring without incident. The patient was then transferred to the recovery area with a bur observed for an appropriate time after the injection. The patient reverted a vas score of 7 prior to the procedure and post-procedure vas of 1. Postop instructions The patient was provided with a pain like to continue to record the patient's response to the target specific procedure prior to the patient's follow-up visit with the referring physician. Additionally, specific post injection care instructions and a contact number to our office were provided if concerns arise regarding the possible complications associated with procedure are suspected.
== END 2023-09-14 09:48 | disposition home or self-care (01) ==
PROVIDERS: Family Provider Family Medicine; PCP Family Medicine; Referring Provider Physical Medicine & Rehabilitation; Visit Provider Physical Medicine & Rehabilitation
DX: M53.3 Sacrococcygeal disorders, not elsewhere classified (principal); M46.1 Sacroiliitis, not elsewhere classified
CPT/HCPCS: 27096; 99152; J1100; J1200; J2250; J3010

== ENCOUNTER 2023-10-30 16:38 | Emergency (ER) | payer OTHER, SELFPAY ==
[2023-10-30] VITALS (9 sets, daily range): BP systolic 122; BP diastolic 66; PULSE 88–126; RESP 18–30; TEMP 36.6; O2SAT 91–95; BMI 33.3
--- NOTE | 2023-10-30 16:45 | ED_ITS ---
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 She started taking the pills today just a couple of hours prior to arrival. She has not vomited. She is feeling entirely well prior to the onset of taking this medication. Past history remarkable for spine disease and reflux disease and others. Related Data Home Medications Medication Instructions Recorded Confirmed duloxetine 60 mg capsule,delayed 90 mg PO DAILY 12/17/19 10/18/23 release famotidine 20 mg tablet (Pepcid) 20 mg PO BID 01/31/22 10/18/23 dextroamphetamine-amphetamine ER 15 mg PO DAILY 07/04/22 10/18/23 15 mg 24hr capsule,extend release (Adderall XR) cevimeline 30 mg capsule 1 cap PO 3XD 08/30/23 10/18/23 Previous Rx's Medication Instructions Recorded fidaxomicin 200 mg tablet (Dificid) 200 mg PO BID PRN C diff infecton 01/31/22 #12 tabs tacrolimus 0.1 % topical ointment 1 applic topical BID #30 grams 06/17/22 epinephrine 0.3 mg/0.3 mL 0.3 mg (0.3 mL) IM ONCE #2 ea 12/13/22 injection, auto-injector albuterol sulfate 90 mcg/actuation 2 puff inhalation Q4-6H PRN cough 01/27/23 aerosol inhaler (Ventolin HFA) #18 grams hyoscyamine sulfate 0.125 mg 0.125 mg sublingual PRN PRN cramps 04/24/23 disintegrating tablet #50 tabs ondansetron 8 mg disintegrating 8 mg PO Q4H PRN nausea and 04/24/23 tablet vomiting #90 tabs levothyroxine 75 mcg tablet 75 mcg PO DAILY #90 tabs 06/16/23 nystatin 100,000 unit/gram topical 1 applic topical TID #60 grams 07/24/23 powder estradiol 10 mcg vaginal tablet 10 mcg vaginal .COMPLEX Vaginal 07/31/23 atrophy #20 tabs sodium sul 1.479 gram-potas ch See Rx Instructions PO PER PKG DIR 08/24/23 0.188 gram-magnes sul 0.225 gram #24 tabs tablet (Sutab) cyclobenzaprine 10 mg tablet 10 mg PO BID PRN muscle spasm #60 08/30/23 tabs pilocarpine HCl 5 mg tablet 5 mg PO QID #360 tabs 09/18/23 atorvastatin 20 mg tablet 20 mg PO ONCE PM #90 tabs 10/02/23 budesonide 180 mcg/actuation 1 - 2 inh inhalation BID #2 ea 10/27/23 breath activated powder inhaler (Pulmicort Flexhaler) levalbuterol tartrate 45 1 puff inhalation Q4-6H PRN 10/27/23 mcg/actuation aerosol inhaler shortness of breath or wheezing #15 grams pregabalin 150 mg capsule 150 mg PO BID #180 caps 10/27/23 Allergies Allergy/AdvReac Type Severity Reaction Status Date / Time vancomycin Allergy Intermediate ITCHING Verified 10/30/23 16:44 magnesium sulfate Allergy Anaphylaxis Verified 10/30/23 16:44 [From Sutab] polyethylene glycol Allergy Verified 10/30/23 16:44 potassium chloride Allergy Anaphylaxis Verified 10/30/23 16:44 [From Sutab] sodium sulfate [From Sutab] Allergy Anaphylaxis Verified 10/30/23 16:44 wheat Allergy Verified 10/30/23 16:44 nonoxynol 9 AdvReac Severe severe Verified 10/30/23 16:44 [From [place] Plus Spermicidal itching Jelly] morphine AdvReac Mild pt Verified 10/30/23 16:44 becomes loopy COLONOSCOPY PREP Allergy Severe ITCHING Uncoded 10/18/23 12:07 Patient History <Marin Ruggiero MD - Last Filed: 10/30/23 17:14> Medical History (Updated 10/30/23 @ 20:08 by Vale Carmichael MD) Primary stress urinary incontinence Degenerative joint disease (DJD) of hip Cervical radiculopathy Herniated nucleus pulposus, L3-4 left Adhesive arachnoiditis Sacroiliac joint dysfunction Colitis due to Clostridioides difficile Coccydynia Pelvic pain in female Facet arthropathy, lumbar Osteomyelitis of lumbar spine Prolapse of intestine Obstructive sleep apnea of adult Villous adenoma of right colon (2010) Back tightness Neck tightness Colon polyps GERD (gastroesophageal reflux disease) (1997) IBS (irritable bowel syndrome) (1962) Abnormal Pap smear of cervix (1995) Hearing loss (2011) Chicken pox Acne (1975) Plantar warts (1991) Chronic back pain (1994) Fibromyalgia (1997) ADHD (attention deficit hyperactivity disorder) (1962) Chronic headaches (1991) Migraines (2009) Anxiety (1998) Depression (1998) Hayfever (~1991) Shoulder pain (1994) Hypothyroidism (~2003) Precancerous changes of the cervix (1995) Insomnia (06/21/16) Surgical History History of rectopexy History of colonoscopy (08/2012) History of partial colectomy (2010) Anesthesia Status post appendectomy Status post vaginal hysterectomy (1995) Status post colectomy (2011) Family History Brother Coronary artery disease Father Coronary artery disease Grandfather Stroke Grandmother Cancer Colon cancer Mother Cancer Mental health problem Anxiety Dementia Fibromyalgia Colon cancer Grandmother Diabetes mellitus Grandfather No problems noted. Family/Other Colon cancer Social History marital status: details: rebecca Parson number of children: 2 household members: spouse lives independently: Yes caregiver/support person: No housing: house Smoking Status: Never smoker substance use type: does not use additional social history: Eb is wheelchair bound with Multiple Sclerosis. Patient's best friend this year. Smoking Status: Never smoker alcohol intake frequency: holidays/special occasions only Substance Use Type: does not use Exam <Marin Ruggiero MD - Last Filed: 10/30/23 17:14> Narrative Exam Narrative: GENERAL: Alert, cooperative in some moderate distress. HEAD: Atraumatic. Normocephalic. EYES: Sclera are clear without icterus. Extraocular movements are full. ENT: No rhinorrhea. Oropharynx is moist. Mouth exam is benign. NECK: Supple. Full range of motion. CARDIOVASCULAR: Normal rate and rhythm without murmur gallop or rub. RESPIRATORY: Clear to auscultation. Breath sounds equal bilaterally. No wheezes, rales, or rhonchi. GASTROINTESTINAL: Abdomen soft, non-tender, nondistended. EXTREMITIES: No edema, full range of motion. No obvious trauma. BACK: Normal inspection, no CVA tenderness. NEURO: Nonfocal examination, normal speech SKIN: No rash or erythema of visible areas PSYCH: Normally oriented. Normal range of affect. Appropriate behavior Initial Vital Signs Initial Vital Signs: Vital Signs Temperature 98 F 10/30/23 16:44 Pulse Rate 126 H 10/30/23 16:44 Respiratory Rate 30 H 10/30/23 16:44 Pulse Oximetry 91 10/30/23 16:44 Oxygen Delivery Method Room Air 10/30/23 16:44 <Vale Carmichael MD - Last Filed: 10/30/23 20:09> Initial Vital Signs Initial Vital Signs: Vital Signs Temperature 98 F 10/30/23 16:44 Pulse Rate 126 H 10/30/23 16:44 Respiratory Rate 30 H 10/30/23 16:44 Pulse Oximetry 91 10/30/23 16:44 Oxygen Delivery Method Room Air 10/30/23 16:44 Course <Marin Ruggiero MD - Last Filed: 10/30/23 17:14> Orders Ordered: ED Orders 10/30/23 16:59 EKG-12 Lead Stat Famotidine (Famotidine 20 Mg/2 Ml Vial) 20 mg IV NOW URSULA Last Admin: 10/30/23 16:53 Dose: 20 mg Documented By: KODAK Discontinued Medications Diphenhydramine HCl (Diphenhydramine 50 Mg/Ml Vial) 25 mg IV NOW ONE Stop: 10/30/23 16:51 Last Admin: 10/30/23 16:53 Dose: 25 mg Documented By: KF Diphenhydramine HCl (Diphenhydramine 50 Mg/Ml Vial) 25 mg IV NOW ONE Stop: 10/30/23 17:38 Last Admin: 10/30/23 17:42 Dose: 25 mg Documented By: KF Methylprednisolone (Methylprednisolone 125 Mg/2 Ml Vial) 60 mg IV NOW ONE Stop: 10/30/23 16:50 Last Admin: 10/30/23 16:53 Dose: 60 mg Documented By: KF Vital Signs Vital signs: Vital Signs - 8 hr 10/30/23 16:44 10/30/23 17:05 10/30/23 17:30 Temperature 98 F Pulse Rate 126 H 88 97 H Respiratory Rate 30 H Pulse Oximetry 91 92 93 Oxygen Delivery Method Room Air Room Air 10/30/23 18:00 10/30/23 18:30 10/30/23 19:00 Temperature Pulse Rate 95 H 91 H 93 H Respiratory Rate Pulse Oximetry 95 93 93 Oxygen Delivery Method 10/30/23 19:30 Temperature Pulse Rate 95 H Respiratory Rate 18 Pulse Oximetry 92 Oxygen Delivery Method Room Air <Vale Carmichael MD - Last Filed: 10/30/23 20:09> Orders Ordered: ED Orders 10/30/23 16:59 EKG-12 Lead Stat Famotidine (Famotidine 20 Mg/2 Ml Vial) 20 mg IV NOW URSULA Last Admin: 10/30/23 16:53 Dose: 20 mg Documented By: KODAK Discontinued Medications Diphenhydramine HCl (Diphenhydramine 50 Mg/Ml Vial) 25 mg IV NOW ONE Stop: 10/30/23 16:51 Last Admin: 10/30/23 16:53 Dose: 25 mg Documented By: KODAK Diphenhydramine HCl (Diphenhydramine 50 Mg/Ml Vial) 25 mg IV NOW ONE Stop: 10/30/23 17:38 Last Admin: 10/30/23 17:42 Dose: 25 mg Documented By: KODAK Methylprednisolone (Methylprednisolone 125 Mg/2 Ml Vial) 60 mg IV NOW ONE Stop: 10/30/23 16:50 Last Admin: 10/30/23 16:53 Dose: 60 mg Documented By: KODAK Vital Signs Vital signs: Vital Signs - 8 hr 10/30/23 16:44 10/30/23 17:05 10/30/23 17:30 Temperature 98 F Pulse Rate 126 H 88 97 H Respiratory Rate 30 H Pulse Oximetry 91 92 93 Oxygen Delivery Method Room Air Room Air 10/30/23 18:00 10/30/23 18:30 10/30/23 19:00 Temperature Pulse Rate 95 H 91 H 93 H Respiratory Rate Pulse Oximetry 95 93 93 Oxygen Delivery Method 10/30/23 19:30 Temperature Pulse Rate 95 H Respiratory Rate 18 Pulse Oximetry 92 Oxygen Delivery Method Room Air MDM - Allergic Reaction <Marin Ruggiero MD - Last Filed: 10/30/23 17:14> ECG Data Interpretation: ECG obtained at 4:59 p.m. shows sinus rhythm at 88 beats per minute with a QTC of 447. This ECG is normal. <Vale Carmichael MD - Last Filed: 10/30/23 20:09> [facility] Narrative Medical decision making narrative: CC: Itching in the lower extremities after starting her colonoscopy prep. Complicating co-morbidities: Prior allergic reactions to polyethylene glycol Data collected from: patient Medical records reviewed: Family medicine note from July of 2023 is reviewed Differential considered: Allergic reaction, anaphylaxis, peripheral neuropathy Exam documented above, pertinent findings include: Fairly benign exam with no wheezing or airway compromise Lab Test results independently reviewed as above. Pertinent findings: Labs were not felt to be indicated today Treatments: Patient was treated for allergic reaction with 125 mg of IV Solu- Medrol, 50 mg followed by an additional 25 mg of IV Benadryl, 20 mg of IV famotidine. Patient responded nicely to all of these interventions and subcutaneous epi was not felt to be required Re-evaluations: Patient is doing significantly better. No airway compromise. Minor amounts of itching over the bottom of her feet. At this point I do believe she is safe for discharge home Discussion: 58-year-old woman with allergic reaction to bowel prep. Scheduled for routine colonoscopy tomorrow. She is had similar allergic reactions to bowel preps before. She is only got about longterm through the bowel prep and is unsure how to proceed with colonoscopy as scheduled tomorrow. I recommended not continuing the prep which consists of oral magnesium and potassium and does not seem to contain any polyethylene glycol. If she feels that the initial dose was enough to get her to water clear liquid stools she can come back in the morning for her colonoscopy. If it is not clearing I suggested she call the surgeon in the morning and explain the issues with failed prep and allergic reaction. In terms of the allergic reaction I have recommended a nonsedating antihistamine daily for the next 7 days, Benadryl as needed and will give her 5 additional days of 20 mg of prednisone. Clear instructions on when and how to return to the emergency department if there is worsening allergic symptoms this evening. Questions are answered and she is safe for discharge Critical Care Time <Marin Ruggiero MD - Last Filed: 10/30/23 17:14> Critical Care Time Attestation: Patient with apparent allergic reaction but without hemodynamic instability, airway compromise, mouth swelling or gut symptoms comes to the ED. we will treat with all allergy medicines minus the epinephrine for now. Discharge Plan Departure Patient Disposition: Home Clinical Impression: Allergic reaction Qualifiers: Encounter type: initial encounter Qualified Code(s): T78.40XA - Allergy, unspec ified, initial encounter Instructions: DI for Anaphylaxis, DI for Adverse Drug Reaction -- Allergic Activity Restrictions/Additional Instructions: Thank you for coming in today You clearly are having a reaction to the current bowel prep. Again, in reviewing the medication I am not seeing any polyethylene glycol or derivatives in this prep. In the emergency department you were given IV steroids, Pepcid and Benadryl. Your symptoms did seem to improve and we did not give you any epinephrine. For the next 7 days I would recommend a nonsedating antihistamine such as loratadine (brand names include Claritin, Saige, Zyrtec) You can use Benadryl as needed for itching I am also going to give you a prescription for 5 additional days of prednisone to make sure that you do not have any recurrent symptoms I have given you discharge instructions on allergic reactions as well as anaphylaxis. Today you are not meeting criteria for anaphylaxis but if you continue to have issues, feel any swelling itching or abnormal sensations in the back of your throat or notice any difficulty breathing you do need to return to the ER urgently. Regarding your schedule colonoscopy tomorrow. If the initial version of the prep was enough to clear your colon you can proceed with the scheduled colonoscopy. If not you will need to let the surgeon know about the failed prep and reschedule with plan B for colon prep. Prescriptions: No Action duloxetine 60 mg capsule,delayed release(DR/EC) 90 mg PO DAILY tacrolimus 0.1 % ointment 1 applic topical BID Qty: 30 2RF estradiol 10 mcg tablet 10 mcg vaginal .COMPLEX Qty: 20 8RF Rx Instructions: 10 mcg vaginal; Place 1 tablet in vagina every night for 2 weeks then twice weekly epinephrine 0.3 mg/0.3 mL auto-injector 0.3 mg IM ONCE Qty: 2 2RF Rx Instructions: as a single dose; may repeat once hyoscyamine sulfate 0.125 mg tablet,disintegrating 0.125 mg Sublingual PRN PRN (Reason: cramps) Qty: 50 1RF Rx Instructions: DISSOLVE 1 TABLET SUBLINGUALLY EVERY 4 HOURS NEEDED FOR CRAMPING ondansetron 8 mg tablet,disintegrating 8 mg PO Q4H PRN (Reason: nausea and vomiting) Qty: 90 1RF levothyroxine 75 mcg tablet 75 mcg PO DAILY Qty: 90 3RF nystatin 100,000 unit/gram powder 1 applic TOP TID Qty: 60 3RF Sutab 1.479-0.188- 0.225 gram tablet See Rx Instructions PO PER PKG DIR Qty: 24 0RF Rx Instructions: take as directed by Physician pilocarpine HCl 5 mg tablet 5 mg PO QID Qty: 360 3RF atorvastatin 20 mg tablet 20 mg PO ONCE PM Qty: 90 3RF pregabalin 150 mg capsule 150 mg PO BID Qty: 180 3RF levalbuterol tartrate 45 mcg/actuation HFA aerosol inhaler 1 puff inhalation Q4-6H PRN (Reason: shortness of breath or wheezing) Qty: 15 3RF Pulmicort Flexhaler 180 mcg/actuation aerosol powdr breath activated 1 - 2 inh inhalation BID Qty: 2 3RF albuterol sulfate [Ventolin HFA] 90 mcg/actuation HFA aerosol inhaler 2 puff INHALATION Q4-6H PRN (Reason: cough) Qty: 18 2RF famotidine [Pepcid] 20 mg tablet 20 mg PO BID Dificid 200 mg tablet 200 mg PO BID PRN (Reason: C diff infecton) Qty: 12 0RF cevimeline 30 mg capsule 1 cap PO 3XD cyclobenzaprine 10 mg tablet 10 mg PO BID PRN (Reason: muscle spasm) Qty: 60 1RF dextroamphetamine-amphetamine [Adderall XR] 15 mg capsule,extended release 24hr 15 mg PO DAILY Referrals: Li Avila MD [Primary Care Provider] - Stand Alone Forms: Patient Portal/API
[2023-10-30] MEDS: diphenhydrAMINE 50 MG/ML VIAL 25 MG IV ×2 (16:53→17:42)
[2023-10-30] MEDS: FAMOTIDINE 20 MG/2 ML VIAL IV (16:53)
[2023-10-30] MEDS: methylPREDNISolone 125 MG/2 ML VIAL 60 MG IV (16:53)
--- NOTE | 2023-10-31 12:44 | PC.NURSE ---
Pt called & states she did not get prednisone prescription post discharge. Prednisone 20 mg po daily x 5 days called into [facility] per pt request.
== END 2023-10-30 20:12 | disposition home or self-care (01) ==
PROVIDERS: Emergency Provider Family Medicine Addiction Medicine; Family Provider Family Medicine; PCP Family Medicine
DX: R07.89 Other chest pain (principal); R42 Dizziness and giddiness; R11.0 Nausea; T50.905A Adverse effect of unspecified drugs, medicaments and biological substances, initial encounter
CPT/HCPCS: 36415; 93005; 93010; 96374; 96375; 96376; 99284; J1200; J2930

== ENCOUNTER → 2023-12-26 10:59 | Outpatient (CLI) | payer OTHER, SELFPAY ==
--- NOTE | 2023-12-26 11:00 | DI.MG.S_ITS ---
BILATERAL DIGITAL SCREENING MAMMOGRAM 3D/2D WITH CAD: 12/26/2023 CLINICAL: Routine screening. Family history of breast cancer. Comparison is made to exams dated: 12/16/2022 mammogram, 08/14/2021 mammogram, and 07/24/2020 mammogram - [facility]. Both breasts are almost entirely fatty (category a/<25% glandular tissue). Current study was also evaluated with a Computer Aided Detection (CAD) system. No significant masses, calcifications, or other findings are seen in either breast. There has been no significant interval change. IMPRESSION: NEGATIVE There is no mammographic evidence of malignancy. A 1 year screening mammogram is recommended. Based on the Tyrer Cuzick model (a risk assessment model) the patient's lifetime risk is 4.0% and her 10 year risk is 1.6%. According to the ACR, ACS, and NCCN guidelines, an annual breast MRI exam along with mammogram is recommended if the patient's lifetime risk is 20% or greater. This exam was interpreted at Station ID: [id number]. NOTE: For mammograms, a report in lay terms will be sent to the patient. Approximately 15% of breast malignancies will not be visualized mammographically. In the management of a palpable breast mass, a negative mammogram must not discourage biopsy of a clinically suspicious lesion. Electronically Signed By: Salima alfonso/alex:12/26/2023 12:23:16 letter sent: Normal Exam ACR BI-RADS Category 1: Negative [id number]
== END ==
LOC: MAMMO 11:00
PROVIDERS: Family Provider Family Medicine; PCP Family Medicine; Referring Provider Family Medicine; Visit Provider Family Medicine
DX: Z12.31 Encounter for screening mammogram for malignant neoplasm of breast (principal); Z80.3 Family history of malignant neoplasm of breast
CPT/HCPCS: 77063; 77067

== ENCOUNTER → 2024-02-28 10:26 | Outpatient (CLI) | payer OTHER, SELFPAY ==
--- NOTE | 2024-02-28 10:26 | DI.RAD.S_ITS ---
PROCEDURE: XR DEXA AXIAL SKELETON INDICATIONS: bone density screening COMPARISON: None. FINDINGS: Lumbar Spine: Bone mineral density 0.889 g/cm2, T score -1.4. Left Hip: Bone mineral density 0.751 g/cm2, T score -1.6. Left Femoral Neck: Bone mineral density 0.617 g/cm2, T score -2.1. Left Forearm: Bone mineral density 0.527 g/cm2, T score -2.8. Fracture Risk Calculation (when applicable): 10-year fracture risk of a major osteoporotic fracture 9.2% and of a hip fracture 1.1%. (T score greater or equal to -1.0 to: NORMAL) (T score from -1.1 to -2.4: OSTEOPENIA) (T score less than or equal to -2.5: OSTEOPOROSIS) IMPRESSION: Left forearm osteoporosis. Dictated by: Mack Terry M.D. on 02/29/2024 at 11:16 Approved by: Mack Terry M.D. on 02/29/2024 at 11:17
== END ==
LOC: RAD 10:26
PROVIDERS: Family Provider Family Medicine; PCP Family Medicine; Referring Provider Family Medicine; Visit Provider Family Medicine
DX: M81.0 Age-related osteoporosis without current pathological fracture (principal)
CPT/HCPCS: 77080; 77081

== ENCOUNTER → 2024-03-04 12:19 | Outpatient (CLI) | payer OTHER, SELFPAY ==
[2024-03-05 10:57] LABS: Fecal Immunochemical Test Negative (Negative)
== END ==
LOC: LAB 12:20
PROVIDERS: Family Provider Family Medicine; PCP Family Medicine; Referring Provider Family Medicine; Visit Provider Family Medicine
DX: Z12.11 Encounter for screening for malignant neoplasm of colon (principal)
CPT/HCPCS: 82274

== ENCOUNTER 2024-04-24 09:45 | Outpatient (RCR) | payer OTHER, SELFPAY ==
--- NOTE | 2024-02-13 13:40 | PT.OIE ---
Current Diagnoses Unilateral primary osteoarthritis, right hip (02/13/24) Low back pain, unspecified (02/13/24) Muscle weakness (generalized) (02/13/24) Difficulty in walking, not elsewhere classified (02/13/24) Abnormal posture (02/13/24) Presence of right artificial hip joint (02/13/24) Past Medical History (Last Reviewed 12/06/23 @ 10:00 by Heladio Hill DO) Abnormal Pap smear of cervix (1995) Acne (1975) ADHD (attention deficit hyperactivity disorder) (1962) Adhesive arachnoiditis Anxiety (1998) Back tightness Cervical radiculopathy Chicken pox Chronic back pain (1994) Chronic headaches (1991) Coccydynia Colitis due to Clostridioides difficile Colon polyps Degenerative joint disease (DJD) of hip Depression (1998) Facet arthropathy, lumbar Fibromyalgia (1997) GERD (gastroesophageal reflux disease) (1997) Hayfever (~1991) Hearing loss (2011) Herniated nucleus pulposus, L3-4 left Hypothyroidism (~2003) IBS (irritable bowel syndrome) (1962) Insomnia (06/21/16) Migraines (2009) Neck tightness Obstructive sleep apnea of adult Osteomyelitis of lumbar spine Pelvic pain in female Plantar warts (1991) Precancerous changes of the cervix (1995) Primary stress urinary incontinence Prolapse of intestine Sacroiliac joint dysfunction Shoulder pain (1994) Villous adenoma of right colon (2010) Past Surgical History (Last Reviewed 12/06/23 @ 10:00 by Heladio Hill DO) Anesthesia History of colonoscopy (08/2012) History of partial colectomy (2010) History of rectopexy Status post appendectomy Status post colectomy (2011) Status post vaginal hysterectomy (1995) Visit Care Team Role Provider Type Li Avila MD Family Provider Physician Primary Care Provider Specialty: Family Practice Address: [address] [place] [address], [id number] Email: [email or web address] Cristian Gallardo MD Attending Provider Non-Staff Referring Provider Specialty: Orthopedic Surgery Address: [address] [place] [address], [id number] Email: Physical Therapy Initial Evaluation PT-OP-A Visit Information Start: 02/01/24 13:27 Freq: Status: Active Protocol: Document 02/13/24 11:19 [facility] (Rec: 02/13/24 13:40 [facility] [id number]) Out-Patient Physical Therapy Visit Information Visit Information Visit Type Initial Evaluation Visit Start Time 11:22 Visit Stop Time 12:08 Visit Number 1 Number of ADMISSIONS DEAN Visits 0 PT-OP-B Current Condition Start: 02/01/24 13:27 Freq: Status: Active Protocol: Document 02/13/24 11:19 [facility] (Rec: 02/13/24 13:40 [facility] [id number]) Current Condition History of Current Condition Current Complaints LBP & R hip groin pain History of Current Condition Pt reports had R hip replaced last February. Prior to surgery had sharp pains and that is much better and now still has groin pains that hasn't fully gone away and can last weeks. She is not very physical. Her has MS and she helps him. She is working on having someone come in to help him. She had her colon lifted in jun 2019 and got osteomyletis and was in hospital for 2 weeks. She has soreness in LB and buttocks since. She bends over and it tightens up. SHe has difficulty bridging in bed and it feels like there is no strength. She gets cramps in legs more often since hip replacement. Pt has dx of fibromyalgia. Pt has bladder incontence. She did have a prolapse which is why colon was lifted and that improved bowel incontinence. Bladder incontinence lisette w/coughing and sneezing and did have pelvic floor PT and it made only a little difference. Last year it has been worse but has been present for years. Has had a piece of her colon removed early and has uterus and cervix removed 1995 d/t pre cancer. per OBGYN note: ystocele, rectocele, and vaginal vault prolapse Mixed incontinence Increased urethrovesical angle with Valsalva Sees specialist in [place] May 06 for this. She used to love walking and only has done a couple smaller ones and that thightens up her back. Treatment Goals Patient/Caregiver Goals Get a little stronger; start walking again. Dec groin pain PT-OP-C Subjective Start: 02/01/24 13:27 Freq: Status: Active Protocol: Document 02/13/24 11:19 [facility] (Rec: 02/13/24 13:40 [facility] [id number]) OP-PT Pain Assessment Location LB Pain Location Details lumbar to buttocks Description Tightness,With Movement Pain Aggravating Factors Activity,Standing,Walking, Bending,Lifting Pain Alleviating Factors Heat R hip Pain Location Details groin Frequency Intermittent Pain Duration can last after starts Variations/Patterns lock in buttocks region Pain Aggravating Factors Bending Other Pain Aggravating Factors unknown PT-OP-F Manual Assessment Start: 02/01/24 13:27 Freq: Status: Active Protocol: Document 02/13/24 11:19 [facility] (Rec: 02/13/24 13:40 [facility] [id number]) Manual Assessments Soft Tissue Assessment Soft Tissue Mobility Assessment pain down ITB w/laying on R side. signficant restriction at hip scar & R lower abdomen scar Other Manual Assessments Other Manual Assessments Gait:dec stance time RLE and inc lumbar rot w/push off on R ; SLS: 9 sec L, 6sec R PT-OP-J Posture/Palpation/Skin Start: 02/01/24 13:27 Freq: Status: Active Protocol: Document 02/13/24 11:19 [facility] (Rec: 02/13/24 13:40 [facility] [id number]) Posture Evaluation Stef Postural Classification System Stef Postural Classifications Posterior/Posterior Lumbar Protective Mechanism Left AP 0 Lumbar Protective Mechanism Right AP 0 Lumbar Protective Mechanism Left PA 0 Lumbar Protective Mechanism Right PA 0 Comments Posture Comments R iliac higher, equal greater trochanter, IR of femur L>R, R pelvic shear ;inc ext at TL junction PT-OP-K Range of Motion Start: 02/01/24 13:27 Freq: Status: Active Protocol: Document 02/13/24 11:19 [facility] (Rec: 02/13/24 13:40 [facility] [id number]) Hip Goniometric Range of Motion Hip Left Active Flexion w/Knee Flexed 110 Abduction 41 Internal Rotation 40 External Rotation 26 Comments pulling on ant thigh Right Active Flexion w/Knee Flexed 100 Abduction 23 Internal Rotation 22 External Rotation 28 Comments groin pain w/flex PT-OP-L Special Tests Start: 02/01/24 13:27 Freq: Status: Active Protocol: Document 02/13/24 11:19 [facility] (Rec: 02/13/24 13:40 [facility] [id number]) Special Tests Lumbar Spine Special Tests Slump Test Results neg B PT-OP-M Strength Start: 02/01/24 13:27 Freq: Status: Active Protocol: Document 02/13/24 11:19 [facility] (Rec: 02/13/24 13:40 [facility] [id number]) Hip Strength Hip Manual Muscle Testing Right Flexion (L2) 3 Fair Extension (S1) 3 Fair Abduction 3+ Fair+ External Rotation 3+ Fair+ Internal Rotation 3+ Fair+ Comments pain IR Left Flexion (L2) 3+ Fair+ Extension (S1) 3 Fair Abduction 4- Good- External Rotation 3+ Fair+ Internal Rotation 4+ Good+ Knee Strength Knee Manual Muscle Testing Right Flexion (S2) 4- Good- Extension (L3) 4 Good Left Flexion (S2) 4 Good Extension (L3) 4 Good Ankle/Foot Strength Ankle and Foot Manual Muscle Testing Right Dorsiflexion (L4) 5 Normal Plantarflexion (S1) 3 Fair Left Dorsiflexion (L4) 5 Normal Plantarflexion (S1) 3 Fair Comments 1 heel raise B feels crampy PT-OP-Q Treatments Start: 02/01/24 13:27 Freq: Status: Active Protocol: Document 02/13/24 11:19 [facility] (Rec: 02/13/24 13:40 [facility] [id number]) Self-Care/Home Management Treatment Education Other Education 8 min: dsicussed w/pt how scar tissue could be affecting hip pain (abdomen and hip scar tissue), edu that aqua aerobics will be a great exercise for her and encouraged pt to pursue this. Informed back pain may be related to hip pain as she has significant shift of her pelvis in standing PT-OP-T Assessment and Plan Start: 02/01/24 13:27 Freq: Status: Active Protocol: Document 02/13/24 11:19 [facility] (Rec: 02/13/24 13:40 [facility] [id number]) Physical Therapy Assessment Rehab Potential Rehabilitation Potential Good Evaluation Complexity Number of Personal Factors/Comorbidities 3 or More Number of Body Systems Impaired 4 or More Clinical Presentation at Evaluation Unstable Impairments Impairments Activity Tolerance,Balance, Functional Activities, Functional Mobility,Gait,Pain, Posture,ROM,Soft Tissue Mobility,Strength,Transfers Other Concerns Barriers to Rehabilitation high copay so despite that pt can benefit from 2x/wk plan for 1x/week d/t afforability; pt caregiver to so limits her activity Goals pain Group Home Goal (LTG) Pt will report no pain in ant hip w/activity LTG Duration 05/07/24 3 Impairment dec core strength and LE strength Short Term Goal (STG) Pt will be indep w/HEP STG Duration 03/27 Senior Human Resources Representative Goal (LTG) Pt will score at least 4+/5 on all BLE MMT and 3/5 LPM in all planes to show inc stability to allow greater ease w/activity. LTG Duration 05/07 2 Senior Human Resources Representative Goal (LTG) pt will be able to resume walking and be able to walk at least 1.5 mile with changes in elevation w/o hip or back pain greater than 2/10 LTG Duration 05/07 1 Impairment LEFS Impairment 38/80 Short Term Goal (STG) Pt will have improved LEFS to at least 45/80 to show improved functional ability. STG Duration 03/22 Senior Human Resources Representative Goal (LTG) Pt will have improved LEFS to at least 55/80 to show improved functional ability. LTG Duration 05/07/24 Assessment Summary Assessment Pt presents w/complex history of pain w/c/o R ant hip pain that persisted after ant hip replacement last year along w/ B back and glute pain and weakenss that started after osteomyletis to her back after bowel lift in 2019. She also has hx of other abdominal surgeries w/significant scaring and urinary incontinence still an issue. She has a referal down to a specialist in [place] from her OBGYN here and will see them at the end of April. 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 She has been less active d/t needing to be close to him and home for him. 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 Pt would benefit from skilled PT to address these issues and improve pt funciton. Physical Therapy Plan Frequency and Duration Frequency of Treatment 1x/Week Duration of treatment (weeks) 12 Plan of Care Start Date 02/13/24 Plan of Care End Date 05/07/24 Therapeutic Interventions Therapeutic Interventions Balance Training,Gait Training ,Home Exercise Program,Joint Mobilizations,Manual Therapy, Neuromuscular Re-education, Orthotic/Prosthetic Management ,Patient/Caregiver Education, Self-Care/Home Management,Soft Tissue Mobilization,Taping, Therapeutic Activities, Therapeutic Exercises Modalities Cold Pack/Ice Massage,Hot Packs Next Visit Focus/Plan Next Note Type Treatment Note Next Visit Plan start core progression: SL isometric if able, BKFO, vivian, fallon press standing hip flexor stretch ( nico test) manual: manual to scar ( abdomen and hip), hip inf glide, innominate mobilization
--- NOTE | 2024-02-13 13:40 | PT.OPPOC ---
Physical, Occupational & Speech Therapy At [facility] Current Diagnoses Unilateral primary osteoarthritis, right hip (02/13/24) Low back pain, unspecified (02/13/24) Muscle weakness (generalized) (02/13/24) Difficulty in walking, not elsewhere classified (02/13/24) Abnormal posture (02/13/24) Presence of right artificial hip joint (02/13/24) Visit Care Team Role Provider Type Li Avila MD Family Provider Physician Primary Care Provider Specialty: Family Practice Address: [address] [place] [address], [facility] [place], [address] Email: [email or web address] Cristian Gallardo MD Attending Provider Non-Staff Referring Provider Specialty: Orthopedic Surgery Address: [address] [place] [address], [id number] Email: Plan Of Care PT-OP-T Assessment and Plan Start: 02/01/24 13:27 Freq: Status: Active Protocol: Document 02/13/24 11:19 [facility] (Rec: 02/13/24 13:40 [facility] [id number]) Physical Therapy Assessment Rehab Potential Rehabilitation Potential Good Evaluation Complexity Number of Personal Factors/Comorbidities 3 or More Number of Body Systems Impaired 4 or More Clinical Presentation at Evaluation Unstable Impairments Impairments Activity Tolerance,Balance, Functional Activities, Functional Mobility,Gait,Pain, Posture,ROM,Soft Tissue Mobility,Strength,Transfers Other Concerns Barriers to Rehabilitation high copay so despite that pt can benefit from 2x/wk plan for 1x/week d/t afforability; pt caregiver to so limits her activity Goals pain Halfway Goal (LTG) Pt will report no pain in ant hip w/activity LTG Duration 05/07/24 3 Impairment dec core strength and LE strength Short Term Goal (STG) Pt will be indep w/HEP STG Duration 03/27 Assistant Health Educator Goal (LTG) Pt will score at least 4+/5 on all BLE MMT and 3/5 LPM in all planes to show inc stability to allow greater ease w/activity. LTG Duration 05/07 2 Assistant Health Educator Goal (LTG) pt will be able to resume walking and be able to walk at least 1.5 mile with changes in elevation w/o hip or back pain greater than 2/10 LTG Duration 05/07 1 Impairment LEFS Impairment 38/80 Short Term Goal (STG) Pt will have improved LEFS to at least 45/80 to show improved functional ability. STG Duration 03/22 Halfway Goal (LTG) Pt will have improved LEFS to at least 55/80 to show improved functional ability. LTG Duration 05/07/24 Assessment Summary Assessment Pt presents w/complex history of pain w/c/o R ant hip pain that persisted after ant hip replacement last year along w/ B back and glute pain and weakenss that started after osteomyletis to her back after bowel lift in 2019. She also has hx of other abdominal surgeries w/significant scaring and urinary incontinence still an issue. She has a referal down to a specialist in [place] from her OBGYN here and will see them at the end of April. 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 She has been less active d/t needing to be close to him and home for him. 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 Pt would benefit from skilled PT to address these issues and improve pt funciton. Physical Therapy Plan Frequency and Duration Frequency of Treatment 1x/Week Duration of treatment (weeks) 12 Plan of Care Start Date 02/13/24 Plan of Care End Date 05/07/24 Therapeutic Interventions Therapeutic Interventions Balance Training,Gait Training ,Home Exercise Program,Joint Mobilizations,Manual Therapy, Neuromuscular Re-education, Orthotic/Prosthetic Management ,Patient/Caregiver Education, Self-Care/Home Management,Soft Tissue Mobilization,Taping, Therapeutic Activities, Therapeutic Exercises Modalities Cold Pack/Ice Massage,Hot Packs Next Visit Focus/Plan Next Note Type Treatment Note Next Visit Plan start core progression: SL isometric if able, BKFO, marches, palorain press standing hip flexor stretch ( nico test) manual: manual to scar ( abdomen and hip), hip inf glide, innominate mobilization Plan of Care Dates Plan of Care Start Date 02/13/24 Plan of Care End Date 05/07/24 Electronically Signed by: Li Durand, PT 02/13/24 3336 If you are in agreement with this Plan of Care, please return a signed and dated copy. I have reviewed this Plan of Care and certify that the skilled therapy services above are required to meet the patient?s needs. Physician Signature Date Printed Name and Credentials Clinical Instructor Signature Printed Name and Credentials
--- NOTE | 2024-02-20 12:45 | PT.OTN ---
Current Diagnoses Unilateral primary osteoarthritis, right hip (02/20/24) Low back pain, unspecified (02/20/24) Muscle weakness (generalized) (02/20/24) Difficulty in walking, not elsewhere classified (02/20/24) Abnormal posture (02/20/24) Presence of right artificial hip joint (02/20/24) Physical Therapy Treatment Note PT-OP-A Visit Information Start: 02/01/24 13:27 Freq: Status: Active Protocol: Document 02/20/24 10:19 AB (Rec: 02/20/24 12:45 AB [id number]) Out-Patient Physical Therapy Visit Information Visit Information Visit Type Treatment Note Visit Note Access Code [email or web address] Visit Start Time 10:36 Visit Stop Time 11:19 Visit Number 2 Number of ADAPTIVE PHYSICAL EDUCATION SPECIALIST Visits 1 PT-OP-B Current Condition Start: 02/01/24 13:27 Freq: Status: Active Protocol: Document 02/13/24 11:19 [facility] (Rec: 02/13/24 13:40 [facility] [id number]) Current Condition History of Current Condition Current Complaints LBP & R hip groin pain History of Current Condition Pt reports had R hip replaced last February. Prior to surgery had sharp pains and that is much better and now still has groin pains that hasn't fully gone away and can last weeks. She is not very physical. Her has MS and she helps him. She is working on having someone come in to help him. She had her colon lifted in jun 2019 and got osteomyletis and was in hospital for 2 weeks. She has soreness in LB and buttocks since. She bends over and it tightens up. SHe has difficulty bridging in bed and it feels like there is no strength. She gets cramps in legs more often since hip replacement. Pt has dx of fibromyalgia. Pt has bladder incontence. She did have a prolapse which is why colon was lifted and that improved bowel incontinence. Bladder incontinence lisette w/coughing and sneezing and did have pelvic floor PT and it made only a little difference. Last year it has been worse but has been present for years. Has had a piece of her colon removed early and has uterus and cervix removed 1995 d/t pre cancer. per OBGYN note: ystocele, rectocele, and vaginal vault prolapse Mixed incontinence Increased urethrovesical angle with Valsalva Sees specialist in [place] May 06 for this. She used to love walking and only has done a couple smaller ones and that thightens up her back. Treatment Goals Patient/Caregiver Goals Get a little stronger; start walking again. Dec groin pain PT-OP-C Subjective Start: 02/01/24 13:27 Freq: Status: Active Protocol: Document 02/20/24 10:19 AB (Rec: 02/20/24 12:45 AB [id number]) OP-PT Subjective Patient Comments Patient Comments Patient reports the bladder is worse, has had a cough, has to wear a diaper at night. PT-OP-F Manual Assessment Start: 02/01/24 13:27 Freq: Status: Active Protocol: Document 02/13/24 11:19 [facility] (Rec: 02/13/24 13:40 [facility] [id number]) Manual Assessments Soft Tissue Assessment Soft Tissue Mobility Assessment pain down ITB w/laying on R side. signficant restriction at hip scar & R lower abdomen scar Other Manual Assessments Other Manual Assessments Gait:dec stance time RLE and inc lumbar rot w/push off on R ; SLS: 9 sec L, 6sec R PT-OP-J Posture/Palpation/Skin Start: 02/01/24 13:27 Freq: Status: Active Protocol: Document 02/13/24 11:19 [facility] (Rec: 02/13/24 13:40 [facility] [id number]) Posture Evaluation Stef Postural Classification System Stef Postural Classifications Posterior/Posterior Lumbar Protective Mechanism Left AP 0 Lumbar Protective Mechanism Right AP 0 Lumbar Protective Mechanism Left PA 0 Lumbar Protective Mechanism Right PA 0 Comments Posture Comments R iliac higher, equal greater trochanter, IR of femur L>R, R pelvic shear ;inc ext at TL junction PT-OP-K Range of Motion Start: 02/01/24 13:27 Freq: Status: Active Protocol: Document 02/13/24 11:19 [facility] (Rec: 02/13/24 13:40 [facility] [id number]) Hip Goniometric Range of Motion Hip Left Active Flexion w/Knee Flexed 110 Abduction 41 Internal Rotation 40 External Rotation 26 Comments pulling on ant thigh Right Active Flexion w/Knee Flexed 100 Abduction 23 Internal Rotation 22 External Rotation 28 Comments groin pain w/flex PT-OP-L Special Tests Start: 02/01/24 13:27 Freq: Status: Active Protocol: Document 02/13/24 11:19 [facility] (Rec: 02/13/24 13:40 [facility] [id number]) Special Tests Lumbar Spine Special Tests Slump Test Results neg B PT-OP-M Strength Start: 02/01/24 13:27 Freq: Status: Active Protocol: Document 02/13/24 11:19 [facility] (Rec: 02/13/24 13:40 [facility] [id number]) Hip Strength Hip Manual Muscle Testing Right Flexion (L2) 3 Fair Extension (S1) 3 Fair Abduction 3+ Fair+ External Rotation 3+ Fair+ Internal Rotation 3+ Fair+ Comments pain IR Left Flexion (L2) 3+ Fair+ Extension (S1) 3 Fair Abduction 4- Good- External Rotation 3+ Fair+ Internal Rotation 4+ Good+ Knee Strength Knee Manual Muscle Testing Right Flexion (S2) 4- Good- Extension (L3) 4 Good Left Flexion (S2) 4 Good Extension (L3) 4 Good Ankle/Foot Strength Ankle and Foot Manual Muscle Testing Right Dorsiflexion (L4) 5 Normal Plantarflexion (S1) 3 Fair Left Dorsiflexion (L4) 5 Normal Plantarflexion (S1) 3 Fair Comments 1 heel raise B feels crampy PT-OP-Q Treatments Start: 02/01/24 13:27 Freq: Status: Active Protocol: Document 02/20/24 10:19 AB (Rec: 02/20/24 12:45 AB [id number]) Therapeutic Exercises Supine Exercises abdominal bracing with heel slide Side bilateral Reps/Minutes X10 Comments verbal cues to extend 2/[address] with the heel slide abdominial bracing with marching Reps/Minutes 1 Comments not korey difficulty holding the positoin bent knee fall out Side bilateral Reps/Minutes X10 Comments verbal and tactile cues Standing Exercises Pallof press Side bilateral Resistance light blue band Reps/Minutes X10 Comments verbal cues Standing hip flexor stretch Standing Exercise Name holding mat at counter height Side bilateral Reps/Minutes X2 each LE Comments verbal cues Manual Therapy Treatment Soft Tissue Mobilization right hip flexor at groin and scar tissue Mobilization Type Cross-Friction,Rolling Intensity/Depth Moderate Body Position Hooklying Comments monitored for pain, and patient ed to perform self STM to same area Joint Mobilizations right hip Direction inferior Grade III Body Position Hooklying Reps/Duration 8X3 Manual Techniques MET for right AI left PI and pubic shotgun Body Location SI Body Position Hooklying Reps/Duration 6 X 6 seconds each Comments verbal cues PT-OP-T Assessment and Plan Start: 02/01/24 13:27 Freq: Status: Active Protocol: Document 02/20/24 10:19 AB (Rec: 02/20/24 12:45 AB [id number]) Physical Therapy Assessment Goals pain Detention Goal (LTG) Pt will report no pain in ant hip w/activity LTG Duration 05/07/24 3 Impairment dec core strength and LE strength Short Term Goal (STG) Pt will be indep w/HEP STG Duration 03/27 Detention Goal (LTG) Pt will score at least 4+/5 on all BLE MMT and 3/5 LPM in all planes to show inc stability to allow greater ease w/activity. LTG Duration 05/07 2 Impairment Urinary leakage that is occuring frequently throughout the day and pt is waking up wet at night Detention Goal (LTG) pt will be able to resume walking and be able to walk at least 1.5 mile with changes in elevation w/o hip or back pain greater than 2/10 LTG Duration 05/07 1 Impairment LEFS Impairment 38/80 Short Term Goal (STG) Pt will have improved LEFS to at least 45/80 to show improved functional ability. STG Duration 510 Dock Hand Goal (LTG) Pt will have improved LEFS to at least 55/80 to show improved functional ability. LTG Duration 05/07/24 Assessment Summary Assessment Gracy reports no change in pain end of session. End of session, Gracy reports she has no stairs at home and found herself pulling herself up stairs with UE's when spouse was in hospital and she too the stairs. Physical Therapy Plan Frequency and Duration Frequency of Treatment 1x/Week Duration of treatment (weeks) 12 Plan of Care Start Date 02/13/24 Plan of Care End Date 05/07/24 Next Visit Focus/Plan Next Note Type Treatment Note Next Visit Plan Assess stairs, reports pain is the same end of session. start core progression: SL isometric if able, Review BKFO, reassess korey to marches, paloff press review standing hip flexor stretch (nico test) manual: manual to scar ( abdomen and hip), hip inf glide, innominate mobilization [ End ]
--- NOTE | 2024-03-04 12:46 | PT.OTN ---
Current Diagnoses Unilateral primary osteoarthritis, right hip (03/04/24) Low back pain, unspecified (03/04/24) Muscle weakness (generalized) (03/04/24) Difficulty in walking, not elsewhere classified (03/04/24) Abnormal posture (03/04/24) Presence of right artificial hip joint (03/04/24) Physical Therapy Treatment Note PT-OP-A Visit Information Start: 02/01/24 13:27 Freq: Status: Active Protocol: Document 03/04/24 11:14 AB (Rec: 03/04/24 12:45 AB [id number]) Out-Patient Physical Therapy Visit Information Visit Information Visit Type Treatment Note Visit Note Access Code [id number] Visit Start Time 11:40 Visit Stop Time 12:11 Visit Number 3 Number of TON CONTAINER SHIPPER Visits 2 PT-OP-B Current Condition Start: 02/01/24 13:27 Freq: Status: Active Protocol: Document 02/13/24 11:19 [facility] (Rec: 02/13/24 13:40 [facility] [id number]) Current Condition History of Current Condition Current Complaints LBP & R hip groin pain History of Current Condition Pt reports had R hip replaced last February. Prior to surgery had sharp pains and that is much better and now still has groin pains that hasn't fully gone away and can last weeks. She is not very physical. Her has MS and she helps him. She is working on having someone come in to help him. She had her colon lifted in jun 2019 and got osteomyletis and was in hospital for 2 weeks. She has soreness in LB and buttocks since. She bends over and it tightens up. SHe has difficulty bridging in bed and it feels like there is no strength. She gets cramps in legs more often since hip replacement. Pt has dx of fibromyalgia. Pt has bladder incontence. She did have a prolapse which is why colon was lifted and that improved bowel incontinence. Bladder incontinence lisette w/coughing and sneezing and did have pelvic floor PT and it made only a little difference. Last year it has been worse but has been present for years. Has had a piece of her colon removed early and has uterus and cervix removed 1995 d/t pre cancer. per OBGYN note: ystocele, rectocele, and vaginal vault prolapse Mixed incontinence Increased urethrovesical angle with Valsalva Sees specialist in [place] May 06 for this. She used to love walking and only has done a couple smaller ones and that thightens up her back. Treatment Goals Patient/Caregiver Goals Get a little stronger; start walking again. Dec groin pain PT-OP-C Subjective Start: 02/01/24 13:27 Freq: Status: Active Protocol: Document 03/04/24 11:14 AB (Rec: 03/04/24 12:45 AB [id number]) OP-PT Subjective Patient Comments Patient Comments Patient reports she is a little better, has been walking a little more each day is walking about 3/4 of a mile a day now. PT-OP-F Manual Assessment Start: 02/01/24 13:27 Freq: Status: Active Protocol: Document 02/13/24 11:19 [facility] (Rec: 02/13/24 13:40 [facility] [id number]) Manual Assessments Soft Tissue Assessment Soft Tissue Mobility Assessment pain down ITB w/laying on R side. signficant restriction at hip scar & R lower abdomen scar Other Manual Assessments Other Manual Assessments Gait:dec stance time RLE and inc lumbar rot w/push off on R ; SLS: 9 sec L, 6sec R PT-OP-J Posture/Palpation/Skin Start: 02/01/24 13:27 Freq: Status: Active Protocol: Document 02/13/24 11:19 [facility] (Rec: 02/13/24 13:40 [facility] [id number]) Posture Evaluation [facility] Postural Classification System Stef Postural Classifications Posterior/Posterior Lumbar Protective Mechanism Left AP 0 Lumbar Protective Mechanism Right AP 0 Lumbar Protective Mechanism Left PA 0 Lumbar Protective Mechanism Right PA 0 Comments Posture Comments R iliac higher, equal greater trochanter, IR of femur L>R, R pelvic shear ;inc ext at TL junction PT-OP-K Range of Motion Start: 02/01/24 13:27 Freq: Status: Active Protocol: Document 02/13/24 11:19 [facility] (Rec: 02/13/24 13:40 [facility] [id number]) Hip Goniometric Range of Motion Hip Left Active Flexion w/Knee Flexed 110 Abduction 41 Internal Rotation 40 External Rotation 26 Comments pulling on ant thigh Right Active Flexion w/Knee Flexed 100 Abduction 23 Internal Rotation 22 External Rotation 28 Comments groin pain w/flex PT-OP-L Special Tests Start: 02/01/24 13:27 Freq: Status: Active Protocol: Document 02/13/24 11:19 [facility] (Rec: 02/13/24 13:40 [facility] [id number]) Special Tests Lumbar Spine Special Tests Slump Test Results neg B PT-OP-M Strength Start: 02/01/24 13:27 Freq: Status: Active Protocol: Document 02/13/24 11:19 [facility] (Rec: 02/13/24 13:40 [facility] [id number]) Hip Strength Hip Manual Muscle Testing Right Flexion (L2) 3 Fair Extension (S1) 3 Fair Abduction 3+ Fair+ External Rotation 3+ Fair+ Internal Rotation 3+ Fair+ Comments pain IR Left Flexion (L2) 3+ Fair+ Extension (S1) 3 Fair Abduction 4- Good- External Rotation 3+ Fair+ Internal Rotation 4+ Good+ Knee Strength Knee Manual Muscle Testing Right Flexion (S2) 4- Good- Extension (L3) 4 Good Left Flexion (S2) 4 Good Extension (L3) 4 Good Ankle/Foot Strength Ankle and Foot Manual Muscle Testing Right Dorsiflexion (L4) 5 Normal Plantarflexion (S1) 3 Fair Left Dorsiflexion (L4) 5 Normal Plantarflexion (S1) 3 Fair Comments 1 heel raise B feels crampy PT-OP-Q Treatments Start: 02/01/24 13:27 Freq: Status: Active Protocol: Document 03/04/24 11:14 AB (Rec: 03/04/24 12:45 AB [id number]) Therapeutic Exercises Supine Exercises abdominal bracing with heel slide Side bilateral Reps/Minutes X2 Comments verbal cues to extend 2/[address] with the heel slide bent knee fall out Reps/Minutes 5 Comments verbal and tactile cues Standing Exercises Pallof press Side bilateral Resistance light blue band Reps/Minutes 5 Comments Verbal and visual cues patient ed push is only fwd Standing hip flexor stretch Side right Reps/Minutes X1 Comments verbal cues Therapeutic Activity Therapeutic Activity ascending and descending 6 inch stairs with rails Reps/Minutes X2 four six inch steps Comments verbal cues to activate gluteal muscles when ascending and to position hand fwd on rails when descending. Manual Therapy Treatment Soft Tissue Mobilization STM right lumbar paraspinals Mobilization Type Sustained Pressure Intensity/Depth Moderate Body Position Sidelying STM right piriformis Mobilization Type Cross-Friction,Rolling Intensity/Depth Moderate Body Position Sidelying right hip flexor at groin and scar tissue Mobilization Type Cross-Friction,Rolling Intensity/Depth Moderate Body Position Hooklying Comments monitored for pain, and patient ed to perform self STM to same area Joint Mobilizations right hip Direction inferior Grade III Body Position Hooklying Reps/Duration 5X3 Manual Techniques MET for right AI left PI and pubic shotgun Body Location SI Body Position Hooklying Reps/Duration 6 X 6 seconds each Comments verbal cues PT-OP-T Assessment and Plan Start: 02/01/24 13:27 Freq: Status: Active Protocol: Document 03/04/24 11:14 AB (Rec: 03/04/24 12:45 AB [id number]) Physical Therapy Assessment Goals pain Snf Goal (LTG) Pt will report no pain in ant hip w/activity LTG Duration 05/07/24 3 Impairment dec core strength and LE strength Short Term Goal (STG) Pt will be indep w/HEP STG Duration 03/27 Trial Management Associate Goal (LTG) Pt will score at least 4+/5 on all BLE MMT and 3/5 LPM in all planes to show inc stability to allow greater ease w/activity. LTG Duration 05/07 2 Impairment Urinary leakage that is occuring frequently throughout the day and pt is waking up wet at night Trial Management Associate Goal (LTG) pt will be able to resume walking and be able to walk at least 1.5 mile with changes in elevation w/o hip or back pain greater than 2/10 LTG Duration 05/07 1 Impairment LEFS Impairment 38/80 Short Term Goal (STG) Pt will have improved LEFS to at least 45/80 to show improved functional ability. STG Duration 5 Trial Management Associate Goal (LTG) Pt will have improved LEFS to at least 55/80 to show improved functional ability. LTG Duration 05/07/24 Assessment Summary Assessment Patient reports she feels fine end of session. This session was limited by time due to patient's late arrival, with patient commenting she wrote down her appt was for 11:45. Physical Therapy Plan Frequency and Duration Frequency of Treatment 1x/Week Duration of treatment (weeks) 12 Plan of Care Start Date 02/13/24 Plan of Care End Date 05/07/24 Next Visit Focus/Plan Next Note Type Treatment Note Next Visit Plan Review/progress core progression: SL isometric if able, Review BKFO, reassess korey to [place] press review standing hip flexor stretch (nico test) manual: manual to scar ( abdomen and hip), hip inf glide, innominate mobilization [ End ]
--- NOTE | 2024-03-13 10:37 | PT.OTN ---
Current Diagnoses Unilateral primary osteoarthritis, right hip (03/13/24) Low back pain, unspecified (03/13/24) Muscle weakness (generalized) (03/13/24) Difficulty in walking, not elsewhere classified (03/13/24) Abnormal posture (03/13/24) Presence of right artificial hip joint (03/13/24) Physical Therapy Treatment Note PT-OP-A Visit Information Start: 02/01/24 13:27 Freq: Status: Active Protocol: Document 03/13/24 09:52 [facility] (Rec: 03/13/24 10:36 [facility] [id number]) Out-Patient Physical Therapy Visit Information Visit Information Visit Type Treatment Note Visit Note Access Code [email or web address] Visit Start Time 09:53 Visit Stop Time 10:31 Visit Number 4 Number of FISHER SEAL Visits 0 PT-OP-B Current Condition Start: 02/01/24 13:27 Freq: Status: Active Protocol: Document 02/13/24 11:19 [facility] (Rec: 02/13/24 13:40 [facility] [id number]) Current Condition History of Current Condition Current Complaints LBP & R hip groin pain History of Current Condition Pt reports had R hip replaced last February. Prior to surgery had sharp pains and that is much better and now still has groin pains that hasn't fully gone away and can last weeks. She is not very physical. Her has MS and she helps him. She is working on having someone come in to help him. She had her colon lifted in jun 2019 and got osteomyletis and was in hospital for 2 weeks. She has soreness in LB and buttocks since. She bends over and it tightens up. SHe has difficulty bridging in bed and it feels like there is no strength. She gets cramps in legs more often since hip replacement. Pt has dx of fibromyalgia. Pt has bladder incontence. She did have a prolapse which is why colon was lifted and that improved bowel incontinence. Bladder incontinence lisette w/coughing and sneezing and did have pelvic floor PT and it made only a little difference. Last year it has been worse but has been present for years. Has had a piece of her colon removed early and has uterus and cervix removed 1995 d/t pre cancer. per OBGYN note: ystocele, rectocele, and vaginal vault prolapse Mixed incontinence Increased urethrovesical angle with Valsalva Sees specialist in [place] May 06 for this. She used to love walking and only has done a couple smaller ones and that thightens up her back. Treatment Goals Patient/Caregiver Goals Get a little stronger; start walking again. Dec groin pain PT-OP-C Subjective Start: 02/01/24 13:27 Freq: Status: Active Protocol: Document 03/13/24 09:52 [facility] (Rec: 03/13/24 10:36 [facility] [id number]) OP-PT Subjective Patient Comments Patient Comments pt reports CABRAL for the past month and chiro has trouble getting it right. Chiro has been unable to get hips level. PT-OP-F Manual Assessment Start: 02/01/24 13:27 Freq: Status: Active Protocol: Document 02/13/24 11:19 [facility] (Rec: 02/13/24 13:40 [facility] [id number]) Manual Assessments Soft Tissue Assessment Soft Tissue Mobility Assessment pain down ITB w/laying on R side. signficant restriction at hip scar & R lower abdomen scar Other Manual Assessments Other Manual Assessments Gait:dec stance time RLE and inc lumbar rot w/push off on R ; SLS: 9 sec L, 6sec R PT-OP-J Posture/Palpation/Skin Start: 02/01/24 13:27 Freq: Status: Active Protocol: Document 02/13/24 11:19 [facility] (Rec: 02/13/24 13:40 [facility] [id number]) Posture Evaluation Stef Postural Classification System Stef Postural Classifications Posterior/Posterior Lumbar Protective Mechanism Left AP 0 Lumbar Protective Mechanism Right AP 0 Lumbar Protective Mechanism Left PA 0 Lumbar Protective Mechanism Right PA 0 Comments Posture Comments R iliac higher, equal greater trochanter, IR of femur L>R, R pelvic shear ;inc ext at TL junction PT-OP-K Range of Motion Start: 02/01/24 13:27 Freq: Status: Active Protocol: Document 02/13/24 11:19 [facility] (Rec: 02/13/24 13:40 [facility] [id number]) Hip Goniometric Range of Motion Hip Left Active Flexion w/Knee Flexed 110 Abduction 41 Internal Rotation 40 External Rotation 26 Comments pulling on ant thigh Right Active Flexion w/Knee Flexed 100 Abduction 23 Internal Rotation 22 External Rotation 28 Comments groin pain w/flex PT-OP-L Special Tests Start: 02/01/24 13:27 Freq: Status: Active Protocol: Document 02/13/24 11:19 [facility] (Rec: 02/13/24 13:40 [facility] [id number]) Special Tests Lumbar Spine Special Tests Slump Test Results neg B PT-OP-M Strength Start: 02/01/24 13:27 Freq: Status: Active Protocol: Document 02/13/24 11:19 [facility] (Rec: 02/13/24 13:40 [facility] [id number]) Hip Strength Hip Manual Muscle Testing Right Flexion (L2) 3 Fair Extension (S1) 3 Fair Abduction 3+ Fair+ External Rotation 3+ Fair+ Internal Rotation 3+ Fair+ Comments pain IR Left Flexion (L2) 3+ Fair+ Extension (S1) 3 Fair Abduction 4- Good- External Rotation 3+ Fair+ Internal Rotation 4+ Good+ Knee Strength Knee Manual Muscle Testing Right Flexion (S2) 4- Good- Extension (L3) 4 Good Left Flexion (S2) 4 Good Extension (L3) 4 Good Ankle/Foot Strength Ankle and Foot Manual Muscle Testing Right Dorsiflexion (L4) 5 Normal Plantarflexion (S1) 3 Fair Left Dorsiflexion (L4) 5 Normal Plantarflexion (S1) 3 Fair Comments 1 heel raise B feels crampy PT-OP-Q Treatments Start: 02/01/24 13:27 Freq: Status: Active Protocol: Document 03/13/24 09:52 [facility] (Rec: 03/13/24 10:36 [facility] [id number]) Manual Therapy Treatment Soft Tissue Mobilization HS Body Location R Mobilization Type Rolling Intensity/Depth Moderate Body Position Hooklying Comments w/AAROM flex add Body Location R add Mobilization Type Rolling,Strumming Intensity/Depth Superficial Body Position Sidelying Joint Mobilizations lumbar Comments UPA L L5 and transverse L prone sacrum Joint R caudal FM & UPA R Grade II innominate Comments R caudal, L ER right hip Comments R inf FM Neuro Re-Education Treatment Other Activities facilitation Reps/Duration 10 min Comments core facilitation w/traction into LEs in diagonals-more difficulty w/R to L diagonal w /dec core activitation more sluggish PT-OP-T Assessment and Plan Start: 02/01/24 13:27 Freq: Status: Active Protocol: Document 03/13/24 09:52 [facility] (Rec: 03/13/24 10:36 [facility] [id number]) Physical Therapy Assessment Goals pain Half-Way Goal (LTG) Pt will report no pain in ant hip w/activity LTG Duration 05/07/24 3 Impairment dec core strength and LE strength Short Term Goal (STG) Pt will be indep w/HEP STG Duration 03/27 Green House Manager Goal (LTG) Pt will score at least 4+/5 on all BLE MMT and 3/5 LPM in all planes to show inc stability to allow greater ease w/activity. LTG Duration 05/07 2 Impairment Urinary leakage that is occuring frequently throughout the day and pt is waking up wet at night Half-Way Goal (LTG) pt will be able to resume walking and be able to walk at least 1.5 mile with changes in elevation w/o hip or back pain greater than 2/10 LTG Duration 05/07 1 Impairment LEFS Impairment 38/80 Short Term Goal (STG) Pt will have improved LEFS to at least 45/80 to show improved functional ability. STG Duration 03/22 Green House Manager Goal (LTG) Pt will have improved LEFS to at least 55/80 to show improved functional ability. LTG Duration 05/07/24 Assessment Summary Assessment Pt had improved pelvis height after manual treatment today. Improved ability to get core facilitation w/L to R but R to L diagnonalespecially on LLE thru traction had dec response Physical Therapy Plan Frequency and Duration Frequency of Treatment 1x/Week Duration of treatment (weeks) 12 Plan of Care Start Date 02/13/24 Plan of Care End Date 05/07/24 Next Visit Focus/Plan Next Note Type Treatment Note Next Visit Plan Review/progress core progression: SL isometric if able, Review BKFO, reassess korey to [place] press review standing hip flexor stretch (nico test) manual: manual to scar ( abdomen and hip),innominate mobilization [ End ]
--- NOTE | 2024-03-22 12:52 | PT.OTN ---
Current Diagnoses Unilateral primary osteoarthritis, right hip (03/22/24) Low back pain, unspecified (03/22/24) Muscle weakness (generalized) (03/22/24) Difficulty in walking, not elsewhere classified (03/22/24) Abnormal posture (03/22/24) Presence of right artificial hip joint (03/22/24) Physical Therapy Treatment Note PT-OP-A Visit Information Start: 02/01/24 13:27 Freq: Status: Active Protocol: Document 03/22/24 08:11 [facility] (Rec: 03/22/24 09:47 [facility] [id number]) Out-Patient Physical Therapy Visit Information Visit Information Visit Type Treatment Note Visit Note Access Code [email or web address] Visit Start Time 09:03 Visit Stop Time 09:46 Visit Number 4 Number of MONITORING MANAGER Visits 1 PT-OP-B Current Condition Start: 02/01/24 13:27 Freq: Status: Active Protocol: Document 02/13/24 11:19 [facility] (Rec: 02/13/24 13:40 [facility] [id number]) Current Condition History of Current Condition Current Complaints LBP & R hip groin pain History of Current Condition Pt reports had R hip replaced last February. Prior to surgery had sharp pains and that is much better and now still has groin pains that hasn't fully gone away and can last weeks. She is not very physical. Her has MS and she helps him. She is working on having someone come in to help him. She had her colon lifted in jun 2019 and got osteomyletis and was in hospital for 2 weeks. She has soreness in LB and buttocks since. She bends over and it tightens up. SHe has difficulty bridging in bed and it feels like there is no strength. She gets cramps in legs more often since hip replacement. Pt has dx of fibromyalgia. Pt has bladder incontence. She did have a prolapse which is why colon was lifted and that improved bowel incontinence. Bladder incontinence lisette w/coughing and sneezing and did have pelvic floor PT and it made only a little difference. Last year it has been worse but has been present for years. Has had a piece of her colon removed early and has uterus and cervix removed 1995 d/t pre cancer. per OBGYN note: ystocele, rectocele, and vaginal vault prolapse Mixed incontinence Increased urethrovesical angle with Valsalva Sees specialist in [place] May 06 for this. She used to love walking and only has done a couple smaller ones and that thightens up her back. Treatment Goals Patient/Caregiver Goals Get a little stronger; start walking again. Dec groin pain PT-OP-C Subjective Start: 02/01/24 13:27 Freq: Status: Active Protocol: Document 03/22/24 08:11 [facility] (Rec: 03/22/24 09:47 [facility] [id number]) OP-PT Subjective Patient Comments Patient Comments Patient reports (gestures to SI area) locks up while positioned in a lift assisting spouse. Patient reports she did not do her exercises due to spouse fell 5X this week. Patient reports SI/back pain left sided today. PT-OP-F Manual Assessment Start: 02/01/24 13:27 Freq: Status: Active Protocol: Document 02/13/24 11:19 [facility] (Rec: 02/13/24 13:40 [facility] [id number]) Manual Assessments Soft Tissue Assessment Soft Tissue Mobility Assessment pain down ITB w/laying on R side. signficant restriction at hip scar & R lower abdomen scar Other Manual Assessments Other Manual Assessments Gait:dec stance time RLE and inc lumbar rot w/push off on R ; SLS: 9 sec L, 6sec R PT-OP-J Posture/Palpation/Skin Start: 02/01/24 13:27 Freq: Status: Active Protocol: Document 02/13/24 11:19 [facility] (Rec: 02/13/24 13:40 [facility] [id number]) Posture Evaluation Stef Postural Classification System Stef Postural Classifications Posterior/Posterior Lumbar Protective Mechanism Left AP 0 Lumbar Protective Mechanism Right AP 0 Lumbar Protective Mechanism Left PA 0 Lumbar Protective Mechanism Right PA 0 Comments Posture Comments R iliac higher, equal greater trochanter, IR of femur L>R, R pelvic shear ;inc ext at TL junction PT-OP-K Range of Motion Start: 02/01/24 13:27 Freq: Status: Active Protocol: Document 02/13/24 11:19 [facility] (Rec: 02/13/24 13:40 [facility] [id number]) Hip Goniometric Range of Motion Hip Left Active Flexion w/Knee Flexed 110 Abduction 41 Internal Rotation 40 External Rotation 26 Comments pulling on ant thigh Right Active Flexion w/Knee Flexed 100 Abduction 23 Internal Rotation 22 External Rotation 28 Comments groin pain w/flex PT-OP-L Special Tests Start: 02/01/24 13:27 Freq: Status: Active Protocol: Document 02/13/24 11:19 [facility] (Rec: 02/13/24 13:40 [facility] [id number]) Special Tests Lumbar Spine Special Tests Slump Test Results neg B PT-OP-M Strength Start: 02/01/24 13:27 Freq: Status: Active Protocol: Document 02/13/24 11:19 [facility] (Rec: 02/13/24 13:40 [facility] [id number]) Hip Strength Hip Manual Muscle Testing Right Flexion (L2) 3 Fair Extension (S1) 3 Fair Abduction 3+ Fair+ External Rotation 3+ Fair+ Internal Rotation 3+ Fair+ Comments pain IR Left Flexion (L2) 3+ Fair+ Extension (S1) 3 Fair Abduction 4- Good- External Rotation 3+ Fair+ Internal Rotation 4+ Good+ Knee Strength Knee Manual Muscle Testing Right Flexion (S2) 4- Good- Extension (L3) 4 Good Left Flexion (S2) 4 Good Extension (L3) 4 Good Ankle/Foot Strength Ankle and Foot Manual Muscle Testing Right Dorsiflexion (L4) 5 Normal Plantarflexion (S1) 3 Fair Left Dorsiflexion (L4) 5 Normal Plantarflexion (S1) 3 Fair Comments 1 heel raise B feels crampy PT-OP-Q Treatments Start: 02/01/24 13:27 Freq: Status: Active Protocol: Document 03/22/24 08:11 [facility] (Rec: 03/22/24 09:47 [facility] [id number]) Therapeutic Exercises Supine Exercises figure 4 stretch Side bilateral Reps/Minutes 60 seconds each LE piriformis stretch Side bilateral Reps/Minutes 60 X 1 each LE Bryant stretche edge of mat Side left Reps/Minutes 60 seconds X 2 Comments with AROM knee flexion bent knee fall out Reps/Minutes 10 Comments Verbal cues to brace as LE moves away from core Therapeutic Activity Therapeutic Activity Positioning to assist spouse Reps/Minutes X1 Comments Pt demonstrates lift as position she uses to assist spouse with LE's. Patient seated on stool and cued to reach as if assisting spouse. Also, performed seated scooting with patient and assisting patient for Pt ed movement pattern for using slide board with spouse. Patient also performed scooting with push up blocks for ed in assisting spouse. Manual Therapy Treatment Soft Tissue Mobilization STM right lumbar paraspinals Body Location left this session Mobilization Type Sustained Pressure Intensity/Depth Moderate Body Position Sidelying STM right piriformis Body Location left this session Mobilization Type Cross-Friction,Rolling Intensity/Depth Moderate Body Position Sidelying right hip flexor at groin and scar tissue Body Location left this session Mobilization Type Cross-Friction,Rolling Intensity/Depth Moderate Body Position Hooklying Comments monitored for pain, and patient ed to perform self STM to same area Manual Techniques MET for right AI left PI and pubic shotgun Body Location SI Body Position Hooklying Reps/Duration 6 X 6 seconds each Comments verbal cues PT-OP-T Assessment and Plan Start: 02/01/24 13:27 Freq: Status: Active Protocol: Document 03/22/24 08:11 [facility] (Rec: 03/22/24 09:47 [facility] [id number]) Physical Therapy Assessment Goals pain Penitentiary Goal (LTG) Pt will report no pain in ant hip w/activity LTG Duration 05/07/24 3 Impairment dec core strength and LE strength Short Term Goal (STG) Pt will be indep w/HEP STG Duration 03/27 Casing Blower Goal (LTG) Pt will score at least 4+/5 on all BLE MMT and 3/5 LPM in all planes to show inc stability to allow greater ease w/activity. LTG Duration 05/07 2 Impairment Urinary leakage that is occuring frequently throughout the day and pt is waking up wet at night Penitentiary Goal (LTG) pt will be able to resume walking and be able to walk at least 1.5 mile with changes in elevation w/o hip or back pain greater than 2/10 LTG Duration 05/07 1 Impairment LEFS Impairment 38/80 Short Term Goal (STG) Pt will have improved LEFS to at least 45/80 to show improved functional ability. STG Duration 03/22 Casing Blower Goal (LTG) Pt will have improved LEFS to at least 55/80 to show improved functional ability. LTG Duration 05/07/24 Assessment Summary Assessment Patient reports the pressure left sided back/SI area is less. No new exercises added this session due to patient unable to perform HEP due to spouse having X 5 falls. Physical Therapy Plan Frequency and Duration Frequency of Treatment 1x/Week Duration of treatment (weeks) 12 Plan of Care Start Date 02/13/24 Plan of Care End Date 05/07/24 Next Visit Focus/Plan Next Note Type Treatment Note Next Visit Plan Review/progress core progression: SL isometric if able, Review BKFO, reassess korey to [place] press review standing hip flexor stretch (bryant test) manual: manual to scar ( abdomen and hip),innominate mobilization/trial of glute med activation [ End ] [id number]
--- NOTE | 2024-03-27 12:44 | PT.OTN ---
Current Diagnoses Unilateral primary osteoarthritis, right hip (03/27/24) Low back pain, unspecified (03/27/24) Muscle weakness (generalized) (03/27/24) Difficulty in walking, not elsewhere classified (03/27/24) Abnormal posture (03/27/24) Presence of right artificial hip joint (03/27/24) Physical Therapy Treatment Note PT-OP-A Visit Information Start: 02/01/24 13:27 Freq: Status: Active Protocol: Document 03/27/24 09:41 AB (Rec: 03/27/24 12:44 AB [id number]) Out-Patient Physical Therapy Visit Information Visit Information Visit Type Treatment Note Visit Note Access Code [email or web address] Visit Start Time 10:32 Visit Stop Time 11:13 Visit Number 5 Number of MANAGER OPERATIONS AND PROCUREMENT Visits 2 PT-OP-B Current Condition Start: 02/01/24 13:27 Freq: Status: Active Protocol: Document 02/13/24 11:19 [facility] (Rec: 02/13/24 13:40 [facility] [id number]) Current Condition History of Current Condition Current Complaints LBP & R hip groin pain History of Current Condition Pt reports had R hip replaced last February. Prior to surgery had sharp pains and that is much better and now still has groin pains that hasn't fully gone away and can last weeks. She is not very physical. Her has MS and she helps him. She is working on having someone come in to help him. She had her colon lifted in jun 2019 and got osteomyletis and was in hospital for 2 weeks. She has soreness in LB and buttocks since. She bends over and it tightens up. SHe has difficulty bridging in bed and it feels like there is no strength. She gets cramps in legs more often since hip replacement. Pt has dx of fibromyalgia. Pt has bladder incontence. She did have a prolapse which is why colon was lifted and that improved bowel incontinence. Bladder incontinence lisette w/coughing and sneezing and did have pelvic floor PT and it made only a little difference. Last year it has been worse but has been present for years. Has had a piece of her colon removed early and has uterus and cervix removed 1995 d/t pre cancer. per OBGYN note: ystocele, rectocele, and vaginal vault prolapse Mixed incontinence Increased urethrovesical angle with Valsalva Sees specialist in [place] May 06 for this. She used to love walking and only has done a couple smaller ones and that thightens up her back. Treatment Goals Patient/Caregiver Goals Get a little stronger; start walking again. Dec groin pain PT-OP-C Subjective Start: 02/01/24 13:27 Freq: Status: Active Protocol: Document 03/27/24 09:41 AB (Rec: 03/27/24 12:44 AB [id number]) OP-PT Subjective Patient Comments Patient Comments Patient reports feeling elderly companion post previous session. Patient reports walking on an incline increased her pain. PT-OP-F Manual Assessment Start: 02/01/24 13:27 Freq: Status: Active Protocol: Document 02/13/24 11:19 [facility] (Rec: 02/13/24 13:40 [facility] [id number]) Manual Assessments Soft Tissue Assessment Soft Tissue Mobility Assessment pain down ITB w/laying on R side. signficant restriction at hip scar & R lower abdomen scar Other Manual Assessments Other Manual Assessments Gait:dec stance time RLE and inc lumbar rot w/push off on R ; SLS: 9 sec L, 6sec R PT-OP-J Posture/Palpation/Skin Start: 02/01/24 13:27 Freq: Status: Active Protocol: Document 02/13/24 11:19 [facility] (Rec: 02/13/24 13:40 [facility] [id number]) Posture Evaluation Stef Postural Classification System Stef Postural Classifications Posterior/Posterior Lumbar Protective Mechanism Left AP 0 Lumbar Protective Mechanism Right AP 0 Lumbar Protective Mechanism Left PA 0 Lumbar Protective Mechanism Right PA 0 Comments Posture Comments R iliac higher, equal greater trochanter, IR of femur L>R, R pelvic shear ;inc ext at TL junction PT-OP-K Range of Motion Start: 02/01/24 13:27 Freq: Status: Active Protocol: Document 02/13/24 11:19 [facility] (Rec: 02/13/24 13:40 [facility] [id number]) Hip Goniometric Range of Motion Hip Left Active Flexion w/Knee Flexed 110 Abduction 41 Internal Rotation 40 External Rotation 26 Comments pulling on ant thigh Right Active Flexion w/Knee Flexed 100 Abduction 23 Internal Rotation 22 External Rotation 28 Comments groin pain w/flex PT-OP-L Special Tests Start: 02/01/24 13:27 Freq: Status: Active Protocol: Document 02/13/24 11:19 [facility] (Rec: 02/13/24 13:40 [facility] [id number]) Special Tests Lumbar Spine Special Tests Slump Test Results neg B PT-OP-M Strength Start: 02/01/24 13:27 Freq: Status: Active Protocol: Document 02/13/24 11:19 [facility] (Rec: 02/13/24 13:40 [facility] [id number]) Hip Strength Hip Manual Muscle Testing Right Flexion (L2) 3 Fair Extension (S1) 3 Fair Abduction 3+ Fair+ External Rotation 3+ Fair+ Internal Rotation 3+ Fair+ Comments pain IR Left Flexion (L2) 3+ Fair+ Extension (S1) 3 Fair Abduction 4- Good- External Rotation 3+ Fair+ Internal Rotation 4+ Good+ Knee Strength Knee Manual Muscle Testing Right Flexion (S2) 4- Good- Extension (L3) 4 Good Left Flexion (S2) 4 Good Extension (L3) 4 Good Ankle/Foot Strength Ankle and Foot Manual Muscle Testing Right Dorsiflexion (L4) 5 Normal Plantarflexion (S1) 3 Fair Left Dorsiflexion (L4) 5 Normal Plantarflexion (S1) 3 Fair Comments 1 heel raise B feels crampy PT-OP-Q Treatments Start: 02/01/24 13:27 Freq: Status: Active Protocol: Document 03/27/24 09:41 AB (Rec: 03/27/24 12:44 AB [id number]) Therapeutic Exercises Supine Exercises figure 4 stretch Side bilateral Reps/Minutes 60 seconds each LE piriformis stretch Side bilateral Reps/Minutes 60 X 1 each LE Bryant stretche edge of mat Side bilateral Reps/Minutes 60 seconds X 2 Comments with AROM knee flexion Sitting Exercises hip abduction with band Reps/Minutes one one minute hold for activation Standing Exercises ambulation with weight overhead Equipment Used 2lb each UE Reps/Minutes 15 feet Comments reports increased right hip pain sit to stand with band Reps/Minutes X10 Comments Verbal and visual cues, patient ed self tactile cues for hip hinge Manual Therapy Treatment Soft Tissue Mobilization STM right lumbar paraspinals Body Location left this session Mobilization Type Sustained Pressure Intensity/Depth Moderate Body Position Sidelying STM right piriformis Body Location left Mobilization Type Cross-Friction,Rolling, Sustained Pressure Intensity/Depth Moderate Body Position Sidelying Manual Techniques MET for right AI left PI and pubic shotgun Body Position Hooklying Reps/Duration 6 X 6 seconds each Comments verbal cues, assist with dowel PT-OP-T Assessment and Plan Start: 02/01/24 13:27 Freq: Status: Active Protocol: Document 03/27/24 09:41 AB (Rec: 03/27/24 12:44 AB [id number]) Physical Therapy Assessment Goals pain Fpc Goal (LTG) Pt will report no pain in ant hip w/activity LTG Duration 05/07/24 3 Impairment dec core strength and LE strength Short Term Goal (STG) Pt will be indep w/HEP STG Duration 03/27 Business Services Representative Goal (LTG) Pt will score at least 4+/5 on all BLE MMT and 3/5 LPM in all planes to show inc stability to allow greater ease w/activity. LTG Duration 05/07 2 Impairment Urinary leakage that is occuring frequently throughout the day and pt is waking up wet at night Fpc Goal (LTG) pt will be able to resume walking and be able to walk at least 1.5 mile with changes in elevation w/o hip or back pain greater than 2/10 LTG Duration 05/07 1 Impairment LEFS Impairment 38/80 Short Term Goal (STG) Pt will have improved LEFS to at least 45/80 to show improved functional ability. STG Duration 03/22 Fpc Goal (LTG) Pt will have improved LEFS to at least 55/80 to show improved functional ability. LTG Duration 05/07/24 Assessment Summary Assessment Patient reports pain is the same end of session. Physical Therapy Plan Frequency and Duration Frequency of Treatment 1x/Week Duration of treatment (weeks) 12 Plan of Care Start Date 02/13/24 Plan of Care End Date 05/07/24 Therapeutic Interventions Therapeutic Interventions Balance Training,Gait Training ,Home Exercise Program,Joint Mobilizations,Manual Therapy, Neuromuscular Re-education, Orthotic/Prosthetic Management ,Patient/Caregiver Education, Self-Care/Home Management,Soft Tissue Mobilization,Taping, Therapeutic Activities, Therapeutic Exercises Modalities Cold Pack/Ice Massage,Hot Packs Next Visit Focus/Plan Next Note Type Treatment Note Next Visit Plan Review/progress core progression: SL isometric if able, Review BKFO, reassess korey to marches, paloff press review standing hip flexor stretch (bryant test) manual: manual to scar ( abdomen and hip),innominate mobilization [ End ]
--- NOTE | 2024-04-03 14:29 | PT.OTN ---
Current Diagnoses Unilateral primary osteoarthritis, right hip (04/03/24) Low back pain, unspecified (04/03/24) Muscle weakness (generalized) (04/03/24) Difficulty in walking, not elsewhere classified (04/03/24) Abnormal posture (04/03/24) Presence of right artificial hip joint (04/03/24) Physical Therapy Treatment Note PT-OP-A Visit Information Start: 02/01/24 13:27 Freq: Status: Active Protocol: Document 04/03/24 10:27 [facility] (Rec: 04/03/24 12:26 [facility] [id number]) Out-Patient Physical Therapy Visit Information Visit Information Visit Type Progress Note Visit Note Access Code [email or web address] Visit Start Time 10:44 Visit Stop Time 11:17 Visit Number 6 Number of COTTON FARMWORKER Visits 0 PT-OP-B Current Condition Start: 02/01/24 13:27 Freq: Status: Active Protocol: Document 02/13/24 11:19 [facility] (Rec: 02/13/24 13:40 [facility] [id number]) Current Condition History of Current Condition Current Complaints LBP & R hip groin pain History of Current Condition Pt reports had R hip replaced last February. Prior to surgery had sharp pains and that is much better and now still has groin pains that hasn't fully gone away and can last weeks. She is not very physical. Her has MS and she helps him. She is working on having someone come in to help him. She had her colon lifted in jun 2019 and got osteomyletis and was in hospital for 2 weeks. She has soreness in LB and buttocks since. She bends over and it tightens up. SHe has difficulty bridging in bed and it feels like there is no strength. She gets cramps in legs more often since hip replacement. Pt has dx of fibromyalgia. Pt has bladder incontence. She did have a prolapse which is why colon was lifted and that improved bowel incontinence. Bladder incontinence lisette w/coughing and sneezing and did have pelvic floor PT and it made only a little difference. Last year it has been worse but has been present for years. Has had a piece of her colon removed early and has uterus and cervix removed 1995 d/t pre cancer. per OBGYN note: ystocele, rectocele, and vaginal vault prolapse Mixed incontinence Increased urethrovesical angle with Valsalva Sees specialist in [place] May 06 for this. She used to love walking and only has done a couple smaller ones and that thightens up her back. Treatment Goals Patient/Caregiver Goals Get a little stronger; start walking again. Dec groin pain PT-OP-C Subjective Start: 02/01/24 13:27 Freq: Status: Active Protocol: Document 04/03/24 10:27 [facility] (Rec: 04/03/24 12:26 [facility] [id number]) OP-PT Subjective Patient Comments Patient Comments Has been doing pool twice a week now. walking 15 min (.25- .5 mile) 2x week now. It is okay as long as there is no incline PT-OP-F Manual Assessment Start: 02/01/24 13:27 Freq: Status: Active Protocol: Document 02/13/24 11:19 [facility] (Rec: 02/13/24 13:40 [facility] [id number]) Manual Assessments Soft Tissue Assessment Soft Tissue Mobility Assessment pain down ITB w/laying on R side. signficant restriction at hip scar & R lower abdomen scar Other Manual Assessments Other Manual Assessments Gait:dec stance time RLE and inc lumbar rot w/push off on R ; SLS: 9 sec L, 6sec R PT-OP-J Posture/Palpation/Skin Start: 02/01/24 13:27 Freq: Status: Active Protocol: Document 04/03/24 10:27 [facility] (Rec: 04/03/24 12:26 [facility] [id number]) Posture Evaluation [facility] Postural Classification System Lumbar Protective Mechanism Left AP 1 Lumbar Protective Mechanism Right AP 1 Lumbar Protective Mechanism Left PA 1 Lumbar Protective Mechanism Right PA 2 PT-OP-K Range of Motion Start: 02/01/24 13:27 Freq: Status: Active Protocol: Document 02/13/24 11:19 [facility] (Rec: 02/13/24 13:40 [facility] [id number]) Hip Goniometric Range of Motion Hip Left Active Flexion w/Knee Flexed 110 Abduction 41 Internal Rotation 40 External Rotation 26 Comments pulling on ant thigh Right Active Flexion w/Knee Flexed 100 Abduction 23 Internal Rotation 22 External Rotation 28 Comments groin pain w/flex PT-OP-L Special Tests Start: 02/01/24 13:27 Freq: Status: Active Protocol: Document 02/13/24 11:19 [facility] (Rec: 02/13/24 13:40 [facility] [id number]) Special Tests Lumbar Spine Special Tests Slump Test Results neg B PT-OP-M Strength Start: 02/01/24 13:27 Freq: Status: Active Protocol: Document 04/03/24 10:27 [facility] (Rec: 04/03/24 12:26 [facility] [id number]) Hip Strength Hip Manual Muscle Testing Right Flexion (L2) 4- Good- Extension (S1) 3+ Fair+ Abduction 4- Good- External Rotation 4- Good- Internal Rotation 4+ Good+ Left Flexion (L2) 4 Good Extension (S1) 4- Good- Abduction 4 Good External Rotation 4- Good- Internal Rotation 5 Normal Knee Strength Knee Manual Muscle Testing Right Flexion (S2) 4 Good Extension (L3) 5 Normal Left Flexion (S2) 4 Good Extension (L3) 5 Normal Ankle/Foot Strength Ankle and Foot Manual Muscle Testing Right Dorsiflexion (L4) 5 Normal Plantarflexion (S1) 3 Fair Left Dorsiflexion (L4) 5 Normal Plantarflexion (S1) 3 Fair Comments 1 heel raise w/knee bend B feels crampy PT-OP-Q Treatments Start: 02/01/24 13:27 Freq: Status: Active Protocol: Document 04/03/24 10:27 [facility] (Rec: 04/03/24 12:26 [facility] [id number]) Therapeutic Exercises Other Exercises isometrics Other Exercise Name MMT & LPM Side bilateral Reps/Minutes 7 min Gait Training Gait Activity gait Comments resisted gait w/dowel 2x50ft wt shifts Comments wt shifts in mirror B x11 min- working on wt accpetance Neuro Re-Education Treatment Other Activities facilitation Reps/Duration 8 min Comments seated w/traction to RLE to improve wt acceptance in sitting PT-OP-T Assessment and Plan Start: 02/01/24 13:27 Freq: Status: Active Protocol: Document 04/03/24 10:27 [facility] (Rec: 04/03/24 12:26 [facility] [id number]) Physical Therapy Assessment Goals pain Tax Preparer Goal (LTG) Pt will report no pain in ant hip w/activity 04/03-feels it some in pool, occ in/out of car, occ at home LTG Duration 05/07/24 3 Impairment dec core strength and LE strength Short Term Goal (STG) Pt will be indep w/HEP STG Duration achieved advancing as able Tax Preparer Goal (LTG) Pt will score at least 4+/5 on all BLE MMT and 3/5 LPM in all planes to show inc stability to allow greater ease w/activity. 04/03-improved LTG Duration 05/07 2 Impairment . Intermediate Goal (LTG) pt will be able to resume walking and be able to walk at least 1.5 mile with changes in elevation w/o hip or back pain greater than 2/10 04/03-on flat surface can do . 25-.5 miles now LTG Duration 05/07 1 Impairment LEFS Impairment 38/80 Short Term Goal (STG) Pt will have improved LEFS to at least 45/80 to show improved functional ability.\ 04/03-n/t STG Duration 03/22 Intermediate Goal (LTG) Pt will have improved LEFS to at least 55/80 to show improved functional ability. LTG Duration 05/07/24 Assessment Summary Assessment Pt is making progress w/PT with improved strength and pt ability.She has started being able to work out with 2x/week in the pool and 2x/week walking about 15 min and feels like she can progress. Cont to have pain w/uphill and will benefit from cont PT to work on gait, strength and mobility . Pain in L hip noted w/RLE WB activities today Physical Therapy Plan Frequency and Duration Frequency of Treatment 1x/Week Duration of treatment (weeks) 12 Plan of Care Start Date 02/13/24 Plan of Care End Date 05/07/24 Therapeutic Interventions Therapeutic Interventions Balance Training,Gait Training ,Home Exercise Program,Joint Mobilizations,Manual Therapy, Neuromuscular Re-education, Orthotic/Prosthetic Management ,Patient/Caregiver Education, Self-Care/Home Management,Soft Tissue Mobilization,Taping, Therapeutic Activities, Therapeutic Exercises Modalities Cold Pack/Ice Massage,Hot Packs Next Visit Focus/Plan Next Note Type Treatment Note Next Visit Plan work on gait mechanics and wt acceptances on RLE and glute med activation, advance core
--- NOTE | 2024-04-10 12:50 | PT.OTN ---
Current Diagnoses Unilateral primary osteoarthritis, right hip (04/10/24) Low back pain, unspecified (04/10/24) Muscle weakness (generalized) (04/10/24) Difficulty in walking, not elsewhere classified (04/10/24) Abnormal posture (04/10/24) Presence of right artificial hip joint (04/10/24) Physical Therapy Treatment Note PT-OP-A Visit Information Start: 02/01/24 13:27 Freq: Status: Active Protocol: Document 04/10/24 08:11 AB (Rec: 04/10/24 12:50 AB [id number]) Out-Patient Physical Therapy Visit Information Visit Information Visit Type Treatment Note Visit Note Access Code [email or web address] Visit Start Time 10:35 Visit Stop Time 11:18 Visit Number 7 Number of PERSONAL FINANCIAL ADVISOR Visits 1 PT-OP-B Current Condition Start: 02/01/24 13:27 Freq: Status: Active Protocol: Document 02/13/24 11:19 [facility] (Rec: 02/13/24 13:40 [facility] [id number]) Current Condition History of Current Condition Current Complaints LBP & R hip groin pain History of Current Condition Pt reports had R hip replaced last February. Prior to surgery had sharp pains and that is much better and now still has groin pains that hasn't fully gone away and can last weeks. She is not very physical. Her has MS and she helps him. She is working on having someone come in to help him. She had her colon lifted in jun 2019 and got osteomyletis and was in hospital for 2 weeks. She has soreness in LB and buttocks since. She bends over and it tightens up. SHe has difficulty bridging in bed and it feels like there is no strength. She gets cramps in legs more often since hip replacement. Pt has dx of fibromyalgia. Pt has bladder incontence. She did have a prolapse which is why colon was lifted and that improved bowel incontinence. Bladder incontinence lisette w/coughing and sneezing and did have pelvic floor PT and it made only a little difference. Last year it has been worse but has been present for years. Has had a piece of her colon removed early and has uterus and cervix removed 1995 d/t pre cancer. per OBGYN note: ystocele, rectocele, and vaginal vault prolapse Mixed incontinence Increased urethrovesical angle with Valsalva Sees specialist in [place] May 06 for this. She used to love walking and only has done a couple smaller ones and that thightens up her back. Treatment Goals Patient/Caregiver Goals Get a little stronger; start walking again. Dec groin pain PT-OP-C Subjective Start: 02/01/24 13:27 Freq: Status: Active Protocol: Document 04/10/24 08:11 AB (Rec: 04/10/24 12:50 AB [id number]) OP-PT Subjective Patient Comments Patient Comments Patient reports she still has the area left SI gets her when she does too much PT-OP-F Manual Assessment Start: 02/01/24 13:27 Freq: Status: Active Protocol: Document 02/13/24 11:19 [facility] (Rec: 02/13/24 13:40 [facility] [id number]) Manual Assessments Soft Tissue Assessment Soft Tissue Mobility Assessment pain down ITB w/laying on R side. signficant restriction at hip scar & R lower abdomen scar Other Manual Assessments Other Manual Assessments Gait:dec stance time RLE and inc lumbar rot w/push off on R ; SLS: 9 sec L, 6sec R PT-OP-J Posture/Palpation/Skin Start: 02/01/24 13:27 Freq: Status: Active Protocol: Document 04/03/24 10:27 [facility] (Rec: 04/03/24 12:26 [facility] [id number]) Posture Evaluation [facility] Postural Classification System Lumbar Protective Mechanism Left AP 1 Lumbar Protective Mechanism Right AP 1 Lumbar Protective Mechanism Left PA 1 Lumbar Protective Mechanism Right PA 2 PT-OP-K Range of Motion Start: 02/01/24 13:27 Freq: Status: Active Protocol: Document 02/13/24 11:19 [facility] (Rec: 02/13/24 13:40 [facility] [id number]) Hip Goniometric Range of Motion Hip Left Active Flexion w/Knee Flexed 110 Abduction 41 Internal Rotation 40 External Rotation 26 Comments pulling on ant thigh Right Active Flexion w/Knee Flexed 100 Abduction 23 Internal Rotation 22 External Rotation 28 Comments groin pain w/flex PT-OP-L Special Tests Start: 02/01/24 13:27 Freq: Status: Active Protocol: Document 02/13/24 11:19 [facility] (Rec: 02/13/24 13:40 [facility] [id number]) Special Tests Lumbar Spine Special Tests Slump Test Results neg B PT-OP-M Strength Start: 02/01/24 13:27 Freq: Status: Active Protocol: Document 04/03/24 10:27 [facility] (Rec: 04/03/24 12:26 [facility] [id number]) Hip Strength Hip Manual Muscle Testing Right Flexion (L2) 4- Good- Extension (S1) 3+ Fair+ Abduction 4- Good- External Rotation 4- Good- Internal Rotation 4+ Good+ Left Flexion (L2) 4 Good Extension (S1) 4- Good- Abduction 4 Good External Rotation 4- Good- Internal Rotation 5 Normal Knee Strength Knee Manual Muscle Testing Right Flexion (S2) 4 Good Extension (L3) 5 Normal Left Flexion (S2) 4 Good Extension (L3) 5 Normal Ankle/Foot Strength Ankle and Foot Manual Muscle Testing Right Dorsiflexion (L4) 5 Normal Plantarflexion (S1) 3 Fair Left Dorsiflexion (L4) 5 Normal Plantarflexion (S1) 3 Fair Comments 1 heel raise w/knee bend B feels crampy PT-OP-Q Treatments Start: 02/01/24 13:27 Freq: Status: Active Protocol: Document 04/10/24 08:11 AB (Rec: 04/10/24 12:50 AB [id number]) Therapeutic Exercises Supine Exercises Sciatic nerve glide/HS stretch Side bilateral Reps/Minutes X10 each LE Comments Patient initiates with knee to chest X 1 commenting that if feels good, VC abdominal bracing with LE extension Side bilateral Reps/Minutes X10 each LE Comments verbal cues to brace as LE moves away from [facility] edge of mat Side bilateral Reps/Minutes 60 seconds X 2 Comments with AROM knee flexion bent knee fall out Reps/Minutes 4 Comments limited by HS cramping. Sitting Exercises hip abduction with band Side bilateral Resistance level 2 teal band Reps/Minutes X10 X 2 without hold one one minute hold for activation Standing Exercises sit to stand with band Resistance teal band level 2 Reps/Minutes 2x10 Pallof press Side bilateral Resistance level 2 teal band Reps/Minutes X10 Comments Verbal and visual cues patient ed push is only fwd Manual Therapy Treatment Soft Tissue Mobilization right hip flexor at groin and scar tissue Body Location left this session Mobilization Type Cross-Friction,Rolling Intensity/Depth Moderate Body Position Hooklying Comments monitored for pain, and patient ed to perform self STM to same area PT-OP-T Assessment and Plan Start: 02/01/24 13:27 Freq: Status: Active Protocol: Document 04/10/24 08:11 AB (Rec: 04/10/24 12:50 AB [id number]) Physical Therapy Assessment Goals pain Shelter Goal (LTG) Pt will report no pain in ant hip w/activity 04/03-feels it some in pool, occ in/out of car, occ at home LTG Duration 05/07/24 3 Impairment dec core strength and LE strength Short Term Goal (STG) Pt will be indep w/HEP STG Duration achieved advancing as able Shelter Goal (LTG) Pt will score at least 4+/5 on all BLE MMT and 3/5 LPM in all planes to show inc stability to allow greater ease w/activity. 04/03-improved LTG Duration 05/07 2 Impairment . Shelter Goal (LTG) pt will be able to resume walking and be able to walk at least 1.5 mile with changes in elevation w/o hip or back pain greater than 2/10 04/03-on flat surface can do . 25-.5 miles now LTG Duration 05/07 1 Impairment LEFS Impairment 38/80 Short Term Goal (STG) Pt will have improved LEFS to at least 45/80 to show improved functional ability.\ 04/03-n/t STG Duration 5/10 Shelter Goal (LTG) Pt will have improved LEFS to at least 55/80 to show improved functional ability. LTG Duration 05/07/24 Assessment Summary Assessment Patient reports feeling good end of session, was able to korey progression to level 2 band with Pallof press and seated hip abduction. Patient did report increased HS cramping with bent knee fallout. Physical Therapy Plan Frequency and Duration Frequency of Treatment 1x/Week Duration of treatment (weeks) 12 Plan of Care Start Date 02/13/24 Plan of Care End Date 05/07/24 Therapeutic Interventions Therapeutic Interventions Balance Training,Gait Training ,Home Exercise Program,Joint Mobilizations,Manual Therapy, Neuromuscular Re-education, Orthotic/Prosthetic Management ,Patient/Caregiver Education, Self-Care/Home Management,Soft Tissue Mobilization,Taping, Therapeutic Activities, Therapeutic Exercises Modalities Cold Pack/Ice Massage,Hot Packs Next Visit Focus/Plan Next Note Type Treatment Note Next Visit Plan work on gait mechanics and wt acceptances on RLE and glute med activation, advance core Possibly sit to stand with band to HEP>
--- NOTE | 2024-04-17 11:20 | PT.OTN ---
Current Diagnoses Unilateral primary osteoarthritis, right hip (04/17/24) Low back pain, unspecified (04/17/24) Muscle weakness (generalized) (04/17/24) Difficulty in walking, not elsewhere classified (04/17/24) Abnormal posture (04/17/24) Presence of right artificial hip joint (04/17/24) Physical Therapy Treatment Note PT-OP-A Visit Information Start: 02/01/24 13:27 Freq: Status: Active Protocol: Document 04/17/24 09:10 AB (Rec: 04/17/24 11:20 AB [id number]) Out-Patient Physical Therapy Visit Information Visit Information Visit Type Treatment Note Visit Note Access Code [email or web address] Visit Start Time 10:30 Visit Stop Time 11:15 Visit Number 8 Number of LOBSTER MAN Visits 2 PT-OP-B Current Condition Start: 02/01/24 13:27 Freq: Status: Active Protocol: Document 02/13/24 11:19 [facility] (Rec: 02/13/24 13:40 [facility] [id number]) Current Condition History of Current Condition Current Complaints LBP & R hip groin pain History of Current Condition Pt reports had R hip replaced last February. Prior to surgery had sharp pains and that is much better and now still has groin pains that hasn't fully gone away and can last weeks. She is not very physical. Her has MS and she helps him. She is working on having someone come in to help him. She had her colon lifted in jun 2019 and got osteomyletis and was in hospital for 2 weeks. She has soreness in LB and buttocks since. She bends over and it tightens up. SHe has difficulty bridging in bed and it feels like there is no strength. She gets cramps in legs more often since hip replacement. Pt has dx of fibromyalgia. Pt has bladder incontence. She did have a prolapse which is why colon was lifted and that improved bowel incontinence. Bladder incontinence lisette w/coughing and sneezing and did have pelvic floor PT and it made only a little difference. Last year it has been worse but has been present for years. Has had a piece of her colon removed early and has uterus and cervix removed 1995 d/t pre cancer. per OBGYN note: ystocele, rectocele, and vaginal vault prolapse Mixed incontinence Increased urethrovesical angle with Valsalva Sees specialist in [place] May 06 for this. She used to love walking and only has done a couple smaller ones and that thightens up her back. Treatment Goals Patient/Caregiver Goals Get a little stronger; start walking again. Dec groin pain PT-OP-C Subjective Start: 02/01/24 13:27 Freq: Status: Active Protocol: Document 04/17/24 09:10 AB (Rec: 04/17/24 11:20 AB [id number]) OP-PT Subjective Patient Comments Patient Comments Patient reports she is moving better. Patient reports the burning pain/electricle at the SI, comments that the sharp pain is more frequent, comments it happens more post PT and post using the pool. PT-OP-F Manual Assessment Start: 02/01/24 13:27 Freq: Status: Active Protocol: Document 02/13/24 11:19 [facility] (Rec: 02/13/24 13:40 [facility] [id number]) Manual Assessments Soft Tissue Assessment Soft Tissue Mobility Assessment pain down ITB w/laying on R side. signficant restriction at hip scar & R lower abdomen scar Other Manual Assessments Other Manual Assessments Gait:dec stance time RLE and inc lumbar rot w/push off on R ; SLS: 9 sec L, 6sec R PT-OP-J Posture/Palpation/Skin Start: 02/01/24 13:27 Freq: Status: Active Protocol: Document 04/03/24 10:27 [facility] (Rec: 04/03/24 12:26 [facility] [id number]) Posture Evaluation [facility] Postural Classification System Lumbar Protective Mechanism Left AP 1 Lumbar Protective Mechanism Right AP 1 Lumbar Protective Mechanism Left PA 1 Lumbar Protective Mechanism Right PA 2 PT-OP-K Range of Motion Start: 02/01/24 13:27 Freq: Status: Active Protocol: Document 02/13/24 11:19 [facility] (Rec: 02/13/24 13:40 [facility] [id number]) Hip Goniometric Range of Motion Hip Left Active Flexion w/Knee Flexed 110 Abduction 41 Internal Rotation 40 External Rotation 26 Comments pulling on ant thigh Right Active Flexion w/Knee Flexed 100 Abduction 23 Internal Rotation 22 External Rotation 28 Comments groin pain w/flex PT-OP-L Special Tests Start: 02/01/24 13:27 Freq: Status: Active Protocol: Document 02/13/24 11:19 [facility] (Rec: 02/13/24 13:40 [facility] [id number]) Special Tests Lumbar Spine Special Tests Slump Test Results neg B PT-OP-M Strength Start: 02/01/24 13:27 Freq: Status: Active Protocol: Document 04/03/24 10:27 [facility] (Rec: 04/03/24 12:26 [facility] [id number]) Hip Strength Hip Manual Muscle Testing Right Flexion (L2) 4- Good- Extension (S1) 3+ Fair+ Abduction 4- Good- External Rotation 4- Good- Internal Rotation 4+ Good+ Left Flexion (L2) 4 Good Extension (S1) 4- Good- Abduction 4 Good External Rotation 4- Good- Internal Rotation 5 Normal Knee Strength Knee Manual Muscle Testing Right Flexion (S2) 4 Good Extension (L3) 5 Normal Left Flexion (S2) 4 Good Extension (L3) 5 Normal Ankle/Foot Strength Ankle and Foot Manual Muscle Testing Right Dorsiflexion (L4) 5 Normal Plantarflexion (S1) 3 Fair Left Dorsiflexion (L4) 5 Normal Plantarflexion (S1) 3 Fair Comments 1 heel raise w/knee bend B feels crampy PT-OP-Q Treatments Start: 02/01/24 13:27 Freq: Status: Active Protocol: Document 04/17/24 09:10 AB (Rec: 04/17/24 11:20 AB [id number]) Therapeutic Exercises Supine Exercises piriformis stretch Side bilateral Reps/Minutes 60 X 1 each LE Bryant stretche edge of mat Side bilateral Reps/Minutes 60 seconds X1 Comments with AROM knee flexion Sitting Exercises hip abduction with band Side bilateral Resistance level 2 teal band Reps/Minutes one minute X 1 Standing Exercises sit to stand with band Standing Exercise Name squat with band this session/ towels under bands Resistance teal band level 2 Reps/Minutes 2x10 Comments Pat ed /review self tactile cues for hip hinge Manual Therapy Treatment Soft Tissue Mobilization STM right piriformis Body Location bilateral also sacral area Mobilization Type Cross-Friction,Rolling, Sustained Pressure Intensity/Depth Moderate Body Position Sidelying right hip flexor at groin and scar tissue Body Location bilateral this session Mobilization Type Cross-Friction,Rolling Intensity/Depth Moderate Body Position Hooklying Comments monitored for pain, and patient ed to perform self STM to same area PT-OP-T Assessment and Plan Start: 02/01/24 13:27 Freq: Status: Active Protocol: Document 04/17/24 09:10 AB (Rec: 04/17/24 11:20 AB [id number]) Physical Therapy Assessment Goals pain Care Home Goal (LTG) Pt will report no pain in ant hip w/activity 04/03-feels it some in pool, occ in/out of car, occ at home LTG Duration 05/07/24 3 Impairment dec core strength and LE strength Short Term Goal (STG) Pt will be indep w/HEP STG Duration achieved advancing as able Care Home Goal (LTG) Pt will score at least 4+/5 on all BLE MMT and 3/5 LPM in all planes to show inc stability to allow greater ease w/activity. 04/03-improved LTG Duration 05/07 2 Impairment . [employer] Professor Goal (LTG) pt will be able to resume walking and be able to walk at least 1.5 mile with changes in elevation w/o hip or back pain greater than 2/10 04/03-on flat surface can do . 25-.5 miles now LTG Duration 05/07 1 Impairment LEFS Impairment 38/80 Short Term Goal (STG) Pt will have improved LEFS to at least 45/80 to show improved functional ability.\ 04/03-n/t STG Duration 510 [employer] Professor Goal (LTG) Pt will have improved LEFS to at least 55/80 to show improved functional ability. LTG Duration 05/07/24 Assessment Summary Assessment Patient reports feeling a little bit better. Gracy able to perform squat with band with adequate hip hinge, does have increased tolerance to pressure of the band. Physical Therapy Plan Frequency and Duration Frequency of Treatment 1x/Week Duration of treatment (weeks) 12 Plan of Care Start Date 02/13/24 Plan of Care End Date 05/07/24 Next Visit Focus/Plan Next Note Type Treatment Note Next Visit Plan work on gait mechanics and wt acceptances on RLE and glute med activation, advance core/ HEP review
--- NOTE | 2024-04-24 15:41 | PT.OTN ---
Current Diagnoses Unilateral primary osteoarthritis, right hip (04/24/24) Low back pain, unspecified (04/24/24) Muscle weakness (generalized) (04/24/24) Difficulty in walking, not elsewhere classified (04/24/24) Abnormal posture (04/24/24) Presence of right artificial hip joint (04/24/24) Physical Therapy Treatment Note PT-OP-A Visit Information Start: 02/01/24 13:27 Freq: Status: Active Protocol: Document 04/24/24 09:44 [facility] (Rec: 04/24/24 10:32 [facility] [id number]) Out-Patient Physical Therapy Visit Information Visit Information Visit Type Discharge Summary Visit Start Time 09:52 Visit Stop Time 10:30 Visit Number 9 Number of SPACE PLANNER Visits 0 PT-OP-B Current Condition Start: 02/01/24 13:27 Freq: Status: Active Protocol: Document 02/13/24 11:19 [facility] (Rec: 02/13/24 13:40 [facility] [id number]) Current Condition History of Current Condition Current Complaints LBP & R hip groin pain History of Current Condition Pt reports had R hip replaced last February. Prior to surgery had sharp pains and that is much better and now still has groin pains that hasn't fully gone away and can last weeks. She is not very physical. Her has MS and she helps him. She is working on having someone come in to help him. She had her colon lifted in jun 2019 and got osteomyletis and was in hospital for 2 weeks. She has soreness in LB and buttocks since. She bends over and it tightens up. SHe has difficulty bridging in bed and it feels like there is no strength. She gets cramps in legs more often since hip replacement. Pt has dx of fibromyalgia. Pt has bladder incontence. She did have a prolapse which is why colon was lifted and that improved bowel incontinence. Bladder incontinence lisette w/coughing and sneezing and did have pelvic floor PT and it made only a little difference. Last year it has been worse but has been present for years. Has had a piece of her colon removed early and has uterus and cervix removed 1995 d/t pre cancer. per OBGYN note: ystocele, rectocele, and vaginal vault prolapse Mixed incontinence Increased urethrovesical angle with Valsalva Sees specialist in [place] [employer] May 06 for this. She used to love walking and only has done a couple smaller ones and that thightens up her back. Treatment Goals Patient/Caregiver Goals Get a little stronger; start walking again. Dec groin pain PT-OP-C Subjective Start: 02/01/24 13:27 Freq: Status: Active Protocol: Document 04/24/24 09:44 [facility] (Rec: 04/24/24 10:32 [facility] [id number]) OP-PT Subjective Patient Comments Patient Comments Pt reports PT-OP-F Manual Assessment Start: 02/01/24 13:27 Freq: Status: Active Protocol: Document 02/13/24 11:19 [facility] (Rec: 02/13/24 13:40 [facility] [id number]) Manual Assessments Soft Tissue Assessment Soft Tissue Mobility Assessment pain down ITB w/laying on R side. signficant restriction at hip scar & R lower abdomen scar Other Manual Assessments Other Manual Assessments Gait:dec stance time RLE and inc lumbar rot w/push off on R ; SLS: 9 sec L, 6sec R PT-OP-J Posture/Palpation/Skin Start: 02/01/24 13:27 Freq: Status: Active Protocol: Document 04/24/24 09:44 [facility] (Rec: 04/24/24 10:32 [facility] [id number]) Posture Evaluation Stef Postural Classification System Lumbar Protective Mechanism Left AP 1 Lumbar Protective Mechanism Right AP 3 Lumbar Protective Mechanism Left PA 4 Lumbar Protective Mechanism Right PA 2 PT-OP-K Range of Motion Start: 02/01/24 13:27 Freq: Status: Active Protocol: Document 02/13/24 11:19 [facility] (Rec: 02/13/24 13:40 [facility] [id number]) Hip Goniometric Range of Motion Hip Left Active Flexion w/Knee Flexed 110 Abduction 41 Internal Rotation 40 External Rotation 26 Comments pulling on ant thigh Right Active Flexion w/Knee Flexed 100 Abduction 23 Internal Rotation 22 External Rotation 28 Comments groin pain w/flex PT-OP-L Special Tests Start: 02/01/24 13:27 Freq: Status: Active Protocol: Document 02/13/24 11:19 [facility] (Rec: 02/13/24 13:40 [facility] [id number]) Special Tests Lumbar Spine Special Tests Slump Test Results neg B PT-OP-M Strength Start: 02/01/24 13:27 Freq: Status: Active Protocol: Document 04/24/24 09:44 [facility] (Rec: 04/24/24 10:32 [facility] [id number]) Hip Strength Hip Manual Muscle Testing Right Flexion (L2) 4 Good Extension (S1) 4 Good Abduction 4+ Good+ External Rotation 4+ Good+ Internal Rotation 4+ Good+ Left Flexion (L2) 4 Good Extension (S1) 4- Good- Abduction 4 Good External Rotation 4+ Good+ Internal Rotation 5 Normal Knee Strength Knee Manual Muscle Testing Right Flexion (S2) 4+ Good+ Extension (L3) 5 Normal Left Flexion (S2) 5 Normal Extension (L3) 5 Normal Ankle/Foot Strength Ankle and Foot Manual Muscle Testing Right Dorsiflexion (L4) 5 Normal Plantarflexion (S1) 3 Fair Left Dorsiflexion (L4) 5 Normal Plantarflexion (S1) 3 Fair Comments 3 heel raise w/knee bend B partial range PT-OP-Q Treatments Start: 02/01/24 13:27 Freq: Status: Active Protocol: Document 04/24/24 09:44 [facility] (Rec: 04/24/24 10:32 [facility] [id number]) Therapeutic Exercises Standing Exercises step up Side right Equipment Used 6in Reps/Minutes 10 Other Exercises isometrics Other Exercise Name MMT & LPM Side bilateral Reps/Minutes 10 min Manual Therapy Treatment Soft Tissue Mobilization piriformis Body Location L Mobilization Type Sustained Pressure Intensity/Depth Moderate Body Position Sidelying STM right lumbar paraspinals Body Location B paraspinals Mobilization Type Sustained Pressure Intensity/Depth Moderate Body Position Sidelying Joint Mobilizations sacrum Body Position Sidelying Comments R UPA Self-Care/Home Management Treatment Education Other Education 8 min: discussion re: cont HEP and cont movement to maintain her gains between now and pelvic floor care. Shown anatomy of visceral organs and how scaring d/t mult pelvic health concerns including colon lift could be related to hip pain also and how likely pelvic health PT will address these. PT-OP-T Assessment and Plan Start: 02/01/24 13:27 Freq: Status: Active Protocol: Document 04/24/24 09:44 [facility] (Rec: 04/24/24 10:32 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 04/03-improved 04/24*-much improved LTG Duration 05/07 2 Impairment . Group Home Goal (LTG) pt will be able to resume walking and be able to walk at least 1.5 mile with changes in elevation w/o hip or back pain greater than 2/10 04/03-on flat surface can do . 25-.5 miles now 04/24-.5-.75 mile now LTG Duration 05/07 1 Impairment LEFS Impairment 38/80 Short Term Goal (STG) Pt will have improved LEFS to at least 45/80 to show improved functional ability.\ 04/03-n/t STG Duration achieved 04/24 47 [employer] Goal (LTG) Pt will have improved LEFS to at least 55/80 to show improved functional ability. 04/24-47/80 LTG Duration 05/07/24 Assessment Summary Assessment pt has made a lot of progress towards goals and is currently indep w/HEP. She has a new referral to pelvic floor rehab and plan is to have pt dC this bout of PT at this time and cont her HEP. Pt cont to have pain but it is less and she is able to do more functional activities and has been able to progressively resume walks. Physical Therapy Plan Discharge Physical Therapy Discharge Comments goals mostly met
== END 2024-04-25 09:37 | disposition home or self-care (01) ==
LOC: PHYS 09:45
PROVIDERS: Family Provider Family Medicine; PCP Family Medicine; Referring Provider Orthopaedic Surgery; Visit Provider Orthopaedic Surgery
DX: M16.11 Unilateral primary osteoarthritis, right hip (principal); Z96.641 Presence of right artificial hip joint; M62.81 Muscle weakness (generalized); R29.3 Abnormal posture; R26.2 Difficulty in walking, not elsewhere classified; M54.50 Low back pain, unspecified
CPT/HCPCS: 97110; 97112; 97116; 97140; 97163; 97530; 97535

== ENCOUNTER → 2024-06-06 15:39 | Outpatient (CLI) | payer OTHER, SELFPAY ==
--- NOTE | 2024-06-06 15:40 | DI.MRI.S_ITS ---
PROCEDURE: MR LUMBAR SPINE WO CON INDICATIONS: SPINAL STENOSIS TECHNIQUE: Noncontrast sagittal T1 spin echo and T2 fast echo, sagittal STIR, and T2 fast spin echo through the lumbar spine. In cases with scoliosis, additional coronal T2 fast spin echo may be performed. COMPARISON: [facility], MR, MR LUMBAR SPINE WO/W CON, 06/13/2022, 16:22. [facility], MR, L-SPINE WITHOUT CONTRAST, 07/15/2016, 16:42. FINDINGS: Image quality: Excellent. Alignment and Curvature: There is trace anterolisthesis L3 on L4, L4-L5 Bone Marrow: Marrow is of normal overall signal. No acute vertebral body compression fractures. Spinal Cord: Conus medullaris terminates at the L1 level. Visualized cord demonstrates normal signal and size. Paraspinous Soft Tissues: No paravertebral masses. Discs: Multilevel disc desiccation severe at L5-S1. T12-L1: No disc bulge, spinal stenosis or foraminal narrowing. No interval change L1-L2: Minimal disc bulge without spinal stenosis or foraminal narrowing. Facet and ligamentum flavum hypertrophy are present relatively stable. L2-L3: Mild disc bulge with bwad-up-zdulsetc spinal stenosis. Moderate bilateral foraminal narrowing with and ligamentum hypertrophy. L3-L4: Mild disc bulge with severe spinal stenosis and canal compression relatively stable. Moderate bilateral foraminal narrowing with facet ligamentum hypertrophy left greater than right. No change. L4-L5: Mild disc bulge with moderate to severe spinal stenosis, minimally progressive. Moderate to severe bilateral foraminal narrowing with facet and ligamentum flavum hypertrophy, stable. L5-S1: Mild disc bulge without spinal stenosis. Moderate bilateral foraminal narrowing facet ligamentum hypertrophy, progressive. IMPRESSION: Multilevel degenerative changes including severe spinal stenosis at L3-4. Multilevel foraminal narrowing with progression at L5-S1. Dictated by: Maria Del Carmen Ibarra M.D. on 06/06/2024 at 19:54 Approved by: Maria Del Carmen Ibarra M.D. on 06/06/2024 at 20:03
== END ==
PROVIDERS: Family Provider Family Medicine; PCP Family Medicine; Referring Provider Physical Medicine & Rehabilitation; Visit Provider Physical Medicine & Rehabilitation
DX: M48.062 Spinal stenosis, lumbar region with neurogenic claudication (principal); M48.07 Spinal stenosis, lumbosacral region; M47.816 Spondylosis without myelopathy or radiculopathy, lumbar region; M47.817 Spondylosis without myelopathy or radiculopathy, lumbosacral region
CPT/HCPCS: 72148

== ENCOUNTER → 2024-06-28 13:32 | Outpatient (CLI) | payer OTHER, SELFPAY ==
--- NOTE | 2024-06-28 14:04 | EKG_ITS ---
[address] [id number] [address] [address] Test Date: 2024-06-28 Pat Name: Gracy Benites Department: DEFAULT Room: Gender: Female Secondary English Teacher: FRENCH : 1965 Requested By: Order Number: [id number] Reading MD: Les Hebert MD Measurements Intervals [place] Rate: 85 P: 48 NH: 144 QRS: 32 QRSD: 92 T: 35 QT: 346 QTc: 411 Interpretive Statements Normal sinus rhythm Possible Left atrial enlargement Electronically Signed On 06-28-2024 14:30:17 PDT by Les Hebert MD
[2024-06-28 14:40] LABS: Add Manual Diff / Slide Review NO; Basophils Absolute Auto 100 /uL (0-100); Eosinophils Absolute Auto 300 /uL (0-450); Eosinophils Percent Auto 3.1 % (2-4); Hematocrit 33.4 % (36-46); Hemoglobin 10.7 g/dL (12.0-16.0); Lymphocytes Absolute Auto 2700 /uL (1100-4500); Lymphocytes Percent Auto 31.4 % (25-40); Mean Corpuscular Hemoglobin 26.2 PG (26-34); Monocytes Absolute Auto 700 /uL (0-900); Monocytes Percent Auto 8.3 % (3-14); Neutrophils Absolute Auto 4900 /uL (1500-7000); Neutrophils Percent Auto 56.2 % (50-75); Platelet Count 368 X10^3/uL (150-400); Red Blood Cell Count 4.08 X10^6/uL (4.0-5.2); Red Cell Distribution Width 16.1 % (11.6-14.8); White Blood Cell Count 8.7 X10^3/uL (4.5-11.0)
[2024-06-28 14:49] LABS: Hemoglobin A1C% w Est Avg Glu 5.8 % (4.0-6.0)
[2024-06-28 15:05] LABS: BUN Creatinine Ratio 23.2 (6-22); Blood Urea Nitrogen 19 mg/dL (7-17); Calcium 9.4 mg/dL (8.4-10.2); Carbon Dioxide 25 mmol/L (22-32); Chloride 105 mmol/L (98-107); Estimated Glomerular Filt Rate > 60 mL/min (>60); Glucose 97 mg/dL (80-110); HEMOLYSIS < 15 (0-50); Potassium 4.1 mmol/L (3.4-5.1); Sodium 140 mmol/L (137-145)
--- NOTE | 2024-06-28 15:14 | DI.CT.S_ITS ---
PROCEDURE: CT LUMBAR SPINE WO CON INDICATIONS: SPINAL STENOSIS LUMBAR REGION TECHNIQUE: Noncontrast 3 mm thick sections acquired from the T12 level to the sacrum. Sagittal and coronal reformats were constructed. For radiation dose reduction, the following was used: automated exposure control. COMPARISON: None. FINDINGS: Image quality: Excellent. Bones: There is normal bony alignment. No acute vertebral body compression fractures. No suspicious lytic or blastic bony lesions. No pars defects. T12-L1: Normal L1-L2: Normal L2-L3: Disc bulge and ligamentum flavum laxity combined result in mild to moderate central stenosis. Moderate foraminal stenosis bilateral L3-L4: Disc bulge and arthropathy. Severe central stenosis. Moderate bilateral foraminal stenosis L4-L5: Disc bulge and arthropathy. Severe central stenosis. Moderate to severe bilateral foraminal stenosis. L5-S1: Normal Soft tissues: No retroperitoneal masses or hematomas. Visualized aorta is normal in caliber. IMPRESSION: Multilevel degenerative disc disease and arthropathy results in varying degrees of central and foraminal stenosis including severe central stenosis L3-4 and L4-5 Approved by: Oral Zarate M.D. on 07/01/2024 at 15:53
== END ==
LOC: CT 13:33
PROVIDERS: Family Provider Family Medicine; PCP Family Medicine; Referring Provider Orthopaedic Surgery Orthopaedic Surgery of the Spine; Visit Provider Orthopaedic Surgery Orthopaedic Surgery of the Spine
DX: Z01.818 Encounter for other preprocedural examination (principal); Z01.812 Encounter for preprocedural laboratory examination; M48.062 Spinal stenosis, lumbar region with neurogenic claudication; M51.36 Other intervertebral disc degeneration, lumbar region; M47.816 Spondylosis without myelopathy or radiculopathy, lumbar region; R73.9 Hyperglycemia, unspecified
CPT/HCPCS: 36415; 72131; 80048; 83036; 85025; 93005; 93010

== ENCOUNTER → 2024-07-16 08:30 | Outpatient (CLI) | payer OTHER, SELFPAY ==
[2024-07-16 10:20] LABS: Hematocrit 33.5 % (36-46); Hemoglobin 10.8 g/dL (12.0-16.0); Mean Corpuscular HGB Conc 32.2 % (30-36); Mean Corpuscular Hemoglobin 26.1 PG (26-34); Mean Corpuscular Volume 81.2 fL (80-100); Platelet Count 410 X10^3/uL (150-400); Red Blood Cell Count 4.13 X10^6/uL (4.0-5.2); White Blood Cell Count 6.9 X10^3/uL (4.5-11.0)
[2024-07-16 11:05] LABS: Alanine Aminotransferase 18 IU/L (<35); Albumin 3.9 g/dL (3.5-5.0); Albumin Globulin Ratio 1.2 (1.0-2.8); Alkaline Phosphatase 79 U/L (38-126); Aspartate Aminotransferase 21 IU/L (14-36); BUN Creatinine Ratio 28.6 (6-22); Bilirubin Total 0.5 mg/dL (0.2-1.3); Blood Urea Nitrogen 18 mg/dL (7-17); Calcium 9.2 mg/dL (8.4-10.2); Carbon Dioxide 26 mmol/L (22-32); Chloride 103 mmol/L (98-107); Cholesterol 160 mg/dL (140-199); Estimated Glomerular Filt Rate > 60 mL/min (>60); Globulin 3.2 g/dL (1.7-4.1); Glucose 93 mg/dL (80-110); HDL Cholesterol 52 mg/dL (40-60); HEMOLYSIS < 15 (0-50); LDL Cholesterol Calculated 87 mg/dL (<100); Potassium 3.9 mmol/L (3.4-5.1); Sodium 137 mmol/L (137-145); Total Protein 7.1 g/dL (6.3-8.2); Triglycerides 107 mg/dL (35-150)
[2024-07-16 14:22] LABS: Hemoglobin A1C% w Est Avg Glu 5.8 % (4.0-6.0)
== END ==
PROVIDERS: Family Provider Family Medicine; PCP Family Medicine; Referring Provider Family Medicine; Visit Provider Family Medicine
DX: Z13.1 Encounter for screening for diabetes mellitus (principal); Z00.00 Encounter for general adult medical examination without abnormal findings; E03.9 Hypothyroidism, unspecified; F32.5 Major depressive disorder, single episode, in full remission; K21.9 Gastro-esophageal reflux disease without esophagitis; K58.8 Other irritable bowel syndrome; E78.5 Hyperlipidemia, unspecified
CPT/HCPCS: 36415; 80053; 80061; 83036; 84443; 85027

== ENCOUNTER 2024-08-28 07:23 | Inpatient (IN) | payer OTHER, SELFPAY ==
[2024-08-20 09:33] VITALS: BMI 32.5
[2024-08-28] VITALS (13 sets, daily range): BP systolic 88–146; BP diastolic 43–84; PULSE 71–86; RESP 14–18; TEMP 36.1–36.5; O2SAT 94–98; BMI 32.5
--- NOTE | 2024-08-28 | DI.RAD.S_ITS ---
PROCEDURE: XR LUMBAR SPINE 2-3V INDICATIONS: S1-L5,L5-4,L4-3 TLIF TECHNIQUE: Intraoperative views of the lumbar spine were acquired. COMPARISON: [facility], CR, XR LUMBAR SPINE MIN 4V, 05/23/2022, 10:11. [facility], CR, XR LUMBAR SPINE MIN 4V, 03/17/2021, 12:33. FINDINGS: Bones: Intraoperative views during L3 through S1 TLIF. IMPRESSION: Intraoperative views during L3 through S1 TLIF. Hardware appears intact. Dictated by: Teddy Joel M.D. on 08/28/2024 at 18:04 Approved by: Teddy Joel M.D. on 08/28/2024 at 18:05
--- NOTE | 2024-08-28 08:26 | SUR.OPER ---
Prone on spine table, head in foam head support, padded chest and pelvic supports, gel pad at knees, lower legs supported by pillows; nipples, genitalia and toes free of pressure, arms secured on foam padded arm boards at <90 degrees abduction. Tape over blanket at thigh secured to table.
[2024-08-28] MEDS: LACTATED RINGERS 1,000 ML 42 ML IV ×2 (08:31→11:31)
--- NOTE | 2024-08-28 08:43 | PM.PREOP ---
Pre-operative Note Interval Note History & Physical reviewed/Exam performed by Physician: Yes Changes to H&P: No
[2024-08-28] MEDS: CEFAZOLIN 2 GM/100 ML PREMIX 100 ML IV ×3 (08:45→22:05)
[2024-08-28] MEDS: BUPIVACAINE 0.25% (PF) 60 ML, EPINEPHrine 0.15 MG INJ (09:29)
[2024-08-28] MEDS: BUPIVACAINE LIPOSOME 266 MG/20 ML VIAL INJ (09:30)
--- NOTE | 2024-08-28 13:51 | P.OP_ITS ---
Operative Date/Time/Diagnoses Date of procedure: 08/28/24 Time of procedure: 08:40 Pre-op diagnosis: 1. L3-4, L4-5, L5-S1 spinal stenosis with neurogenic claudication 2. L3-4, L4-5, L5-S1 spondylolisthesis Post-op diagnosis: same Procedure & Clinicians Procedure: 1. L3-4, L4-5, L5-S1 Postero-lateral and posterior interbody fusion 2. L3-4, L4-5, L5-S1 interbody cage placement. 3. L3-4, L4-5, L5-S1 decompressive laminectomy with bilateral facetecomies 4. L3-4, L4-5, L5-S1 Posterior segmental instrumentation 5. Trion of bone marrow from iliac crest 6. Utilization of microsurgical technique and operating microscope 7. Utilization of robotic assisted navigation Same procedure as scheduled: Yes Indications: Patient has been having chronic back pain and worsening lumbar radiculopathy and symptoms of neurogenic claudication. Patient was found to have significant lumbar instability with spondylolisthesis at L3-4 L4-5 as well as spinal stenosis with neurogenic claudication L3-4 L4-5 and L5-S1. Patient's imaging finding was correlating with her exam findings and symptoms. Patient failed multiple conservative management with worsening pain weakness and numbness in her lower extremity. Patient has been having difficulty performing activity of daily living. After discussing risks benefits of treatment options, patient elected proceed with surgery. Surgeon: Joann Oswald Rail Switchman: Mary Lilly Click Yes if Unassisted: No Anesthesia Type: General Operative Notes Closure Type: primary Specimen(s): none sent Prosthetic devices, grafts, tissues, transplants, or devices: Globus CREO MIS screws, Rise cages Applied: catheter Estimated Blood Loss (mL): 200 Blood products transfused: none Procedure in detail: Patient was seen in the preoperative area. Risks and benefits of the surgery was discussed with the patient. Informed consent was obtained from the patient and placed in the chart. Surgical site was marked. Patient was taken to the operative room. General anesthesia was administered. Prophylactic antibiotic was given to the patient less than 30 min before the incision was made. Patient was placed into a prone position on the Abhijeet table. Patient's back was then prepped and draped in the sterile fashion. Time-out was performed at this time. After patient was prepped and draped, patient's PSIS was palpated and marked bilaterally. Small 1 cm incision was made over the PSIS for placement of the reference probes. Two trocar was placed into the PSIS 1 on each side. The reference probe was attached to the trocar of the reference apparatus. At this time the C-arm imaging was used to confirm AP and lateral of L3-4, L4- L5, L5-S1 vertebrae and merged the C-arm imaging using the Edgeio navigation system with the CT of the lumbar spine. After successful merging was completed and confirmed, skin marker was used to ciara out the skin incision using the Eyestorm robotic arm. Bilateral incision was made at this time. Pre templated trajectory was used and guided using the Eyestorm robotic navigation system for bilateral L3, L4, L5, S1 pedicle screw placement. This was done by using the robotic arm to guide the high-speed bur to make a cortical entry point. Next a drill was placed also using the robotic arm and guided using the navigation system drilling partially through bilateral L3, L4, L5 and S1 pedicles. Next L3, L4, L5, S1 pedicle screws it was pre templated and measured was placed onto the power delivery truck driver and inserted into the pedicles bilaterally. After all 8 screws were placed C-arm imaging was taken of both AP and lateral to confirm the placement. Excellent placement of the screws were confirmed and a matched precisely with the pre planned screw placement using the navigation system. MARs retractor was inserted using [employer] guidence. Globus MARS retractors was placed inside the incision and docked onto the L3, L4 and L5 lamina. Using microsurgical technique and operating microscope, a L3, L4, L5 laminectomy and L3-4, L4-5, L5-S1 facetectomy was performed using a Kerrison rongeur. The laminectomy and facetectomy was performed in order to decompress patient's cauda equina as well as the nerve roots exiting at the L3-4, L4-5, L5- S1 level. Patient was found have severe lateral recess and neural foramen stenosis which was fully decompressed after the laminectomy facetectomy. More than 75% of the facets were removed during the process of decompression rendering L3-4, L4-5, L5-S1 level grossly unstable and required a fusion procedure at the same time. The disc space at L3-4, L4-5, L5-S1 was identified, and a total diskectomy was performed at L3-4, L4-5, L5-S1 level. The endplates were decorticated using a rasp and shaver. The total diskectomy and decortication was performed at L3-4, L4-5, L5-S1 level in order to to accomplish a L3-4, L4-5, L5-S1 fusion. The local bone from the laminectomy and facetectomy was saved for local bone grafting. After the total diskectomy and decortication was completed, Viacel bone graft material was combined with local bone that was harvested earlier. At this time, a separate skin is incision was made over the iliac crest. A Jamshidi needle was inserted into the iliac crest through a separate skin incision on the right. 5 cc of bone marrow aspiration was obtained through the separate skin incision using a Jamshidi needle from the iliac crest. The bone marrow aspiration was combined with local bone and the Viacel bone grafting material. The bone grafting material was placed into the L3-4, L4-5, L5-S1 interbody space along with a expandable cage. The cage was expanded to its maximum height using the torque limiting screwdriver. The disc preparation as well as the cage insertion were also performed under navigation guidance. After the cage was placed, AP and lateral C-arm imaging was taken to confirm placement of the cage and excellent position was confirmed. Globus MARS retractor was inserted and docked onto the L3-4, L4-5, L5-S1 posterolateral gutter on the right side. Using the power drill, posterior- lateral decortication was performed at L3-4, L4-5, L5-S1 level until bleeding cortical bone was identified. The remaining bone grafting material was placed into the L3-4, L4-5, L5-S1 posterior lateral gutter he order to accomplish posterolateral fusion at the L3-4, L4-5, L5-S1 level. At this time the tulips were attached to the L3, L4, L5, S1 pedicle screw shanks. After measuring the length of the rods, they were inserted into the tulips of the pedicle screws and locked in place using locking caps and torque limiting screwdriver bilaterally. Total 6 caps and 2 titanium rods was used in order to complete the posterior instrumentation construct. After all the hardware was placed, and confirmed with AP and lateral C-arm imaging, the wound was then irrigated with sterile normal saline and packed with Ray-Bella gauze for 3 min to accomplish hemostasis. After the gauze was removed the deep fascia was closed with #1 Vicryl suture. The subcutaneous layer was closed with 2-0 Vicryl. The skin was closed with skin vinnie. Patient tolerated the procedure well. There were no complications. Neuro monitoring system was used to monitor patient's neurologic status throughout entire procedure. There was no disturbance of the neural monitoring signals throughout the case. The Operation could not have been safely performed without compromising the technical result or length of the procedure, without the assistance of a skilled surgical attendant. The surgical attendant was medically necessary for proper positioning, retraction and manipulation of instruments, proper exposure, surgical preparation, and manipulation of tissue. Complications: none Post-operative Condition: stable Disposition: PACU Plan for aftercare: Admit to inpatient hospital
[2024-08-28] MEDS: hydrOXYzine 50 MG/ML INJ 25 MG IM (14:09)
[2024-08-28] MEDS: HYDROMORPHONE 1 MG INJ IV ×4 (14:10→14:38)
[2024-08-28] MEDS: fentaNYL 100 MCG/2 ML INJ IV ×3 (14:15→14:43)
[2024-08-28] MEDS: OXYCODONE IR 5 MG TABLET PO (14:41)
--- NOTE | 2024-08-28 15:30 | PT-IP ANOTE ---
PT eval received. EMR reviewed. checked pt and pt with nurse. nurse stated that pt is not ready for PT and pt agreed.
--- NOTE | 2024-08-28 16:16 | PC.NURSE ---
Pt arrived to room 203 via bed from PACU at 1515. Pt c/o out of control pain 10/10-writhing in bed and unable to find a comfortable position in bed. Repositioned Pt in bed repeatedly for approx. 1/2-3/4 hr with assist from a second RN. Applied ice packs to Pt's back and used pillows to provide support. Eventually able to find a moderately comfortable position and pain reduced to 6/10. Pt able to drink some ice water and have a snack. Pt's Spouse-Eb at the bedside. BP initially 88/43 with O2 sat 88-Placed Pt on 2L O2 and O2 sat increased to 94% on 2L. BP increased 114/68 and then 124/68. Oriented Pt to room, call light, bed controls, and tv controls. Warm blanket placed on Pt for comfort. Pt agrees to call for assistance and to not get up without assistance. Bed alarm on for safety, IV infusing as ordered, SCD's on and running.
[2024-08-28] MEDS: LACTATED RINGERS 1,000 ML 125 ML IV (16:33)
[2024-08-28] MEDS: BACLOFEN 10 MG TABLET PO (16:33)
[2024-08-28] MEDS: HYDROMORPHONE 0.5 MG INJ IV ×2 (18:42→21:25)
[2024-08-28] MEDS: ONDANSETRON 4 MG ODT SL (20:31)
[2024-08-28] MEDS: DOCUSATE 100 MG CAPSULE PO (20:32)
[2024-08-28] MEDS: PREGABALIN 75 MG CAPSULE 150 MG PO (20:32)
[2024-08-28] MEDS: FAMOTIDINE 20 MG TABLET 40 MG PO (20:32)
[2024-08-28] MEDS: CYCLOBENZAPRINE 10 MG TABLET PO (20:32)
[2024-08-28] MEDS: ACETAMINOPHEN 325 MG TABLET 650 MG PO (20:33)
[2024-08-28] MEDS: SENNOSIDES 8.6 MG TABLET 17.2 MG PO (20:33)
[2024-08-28] MEDS: ATORVASTATIN 20 MG TABLET PO (20:33)
[2024-08-29] MEDS: BACLOFEN 10 MG TABLET PO ×3 (00:09→17:52)
[2024-08-29] MEDS: ONDANSETRON 4 MG/2 ML INJ IV ×3 (00:12→17:52)
[2024-08-29] MEDS: HYDROMORPHONE 0.5 MG INJ IV ×4 (00:12→17:52)
[2024-08-29] MEDS: ACETAMINOPHEN 325 MG TABLET 650 MG PO ×2 (02:31→12:22)
[2024-08-29 06:20] LABS: Hematocrit 28.5 % (36-46); Hemoglobin 9.3 g/dL (12.0-16.0)
[2024-08-29] MEDS: LEVOTHYROXINE 75 MCG TABLET PO (06:23)
[2024-08-29] MEDS: PANTOPRAZOLE DR 40 MG TABLET PO (06:25)
[2024-08-29] MEDS: CEFAZOLIN 2 GM/100 ML PREMIX 100 ML IV (06:25)
--- NOTE | 2024-08-29 07:52 | PM.PNPO.1 ---
Subjective Subjective Date Patient Seen: 08/29/24 Time Patient Seen: 07:52 Interval history: Patient's pain has been moderate to severe. Patient had difficulty sleeping overnight. 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 Exam Vital Signs (past 8 hours): Oxygen Delivery Method Room Air Oxygen Flow Rate 2 Narrative Exam Narrative: 58-year-old female resting comfortably in bedside chair in no apparent distress. Neurovascular status is intact bilateral lower extremities. Const General: cooperative and comfortable Nutritional Appearance: average body habitus Orientation: alert Resp Effort & Inspection: normal respiratory effort and able to speak in complete sentences Objective Labs 08/29/24 06:07 Labs: Laboratory Results - last 24 hr 08/29/24 06:07 Hgb 9.3 L Hct 28.5 L PFSH Medical History Primary stress urinary incontinence Degenerative joint disease (DJD) of hip Cervical radiculopathy Herniated nucleus pulposus, L3-4 left Adhesive arachnoiditis Sacroiliac joint dysfunction Colitis due to Clostridioides difficile Coccydynia Pelvic pain in female Facet arthropathy, lumbar Osteomyelitis of lumbar spine Prolapse of intestine Obstructive sleep apnea of adult Villous adenoma of right colon (2010) Back tightness Neck tightness Colon polyps GERD (gastroesophageal reflux disease) (1997) IBS (irritable bowel syndrome) (1962) Abnormal Pap smear of cervix (1995) Hearing loss (2011) Chicken pox Acne (1975) Plantar warts (1991) Chronic back pain (1994) Fibromyalgia (1997) ADHD (attention deficit hyperactivity disorder) (1962) Chronic headaches (1991) Migraines (2009) Anxiety (1998) Depression (1998) Hayfever (~1991) Shoulder pain (1994) Hypothyroidism (~2003) Precancerous changes of the cervix (1995) Insomnia (06/21/16) Surgical History S/P total right hip arthroplasty (2022) History of rectopexy History of colonoscopy (08/2012) History of partial colectomy (2010) Anesthesia Status post appendectomy Status post vaginal hysterectomy (1995) Status post colectomy (2011) Family History Brother Coronary artery disease Father Coronary artery disease Grandfather Stroke Grandmother Cancer Colon cancer Mother Cancer Mental health problem Anxiety Dementia Fibromyalgia Colon cancer Grandmother Diabetes mellitus Grandfather No problems noted. Family/Other Colon cancer Social History marital status: details: rebecca Parson number of children: 2 household members: spouse lives independently: Yes caregiver/support person: No housing: house Smoking Status: Never smoker alcohol intake: never substance use type: does not use additional social history: Eb is wheelchair bound with Multiple Sclerosis. Patient's best friend this year. Assessment & Plan Post-op Postoperative Procedures: Procedures Operation Date: 08/28/24 08:45 Actual Procedure Side Surgeon p L3-4, L4-5, L5-S1 TLIF with posterior instrumentation-Robot Bilateral Joann Oswald MD Postoperative day: 1 Postoperative status: marginal pain control Postoperative plan narrative: Multimodal pain management, we will add tramadol today Mobilize with physical therapy, limit bending, twisting, lifting Discontinue Zuniga catheter Discharge home 1-2 days, may need home health assistance.
[2024-08-29 08:00] VITALS: BP 113/90; PULSE 77; RESP 16; TEMP 36.7; O2SAT 93
--- NOTE | 2024-08-29 08:15 | PT.IIE ---
Current Diagnoses Spondylolisthesis, lumbar region (08/28/24) Spinal stenosis, lumbar region with neurogenic claudication (08/28/24) Surgery Performed Operation Date: 08/28/24 08:45 Actual Procedures p L3-4, L4-5, L5-S1 TLIF with posterior instrumentation-Robot(Bilateral) - Joann Oswald MD Surgical History (Last Reviewed 08/29/24 @ 07:55 by Santos Franco PA-C) Anesthesia History of colonoscopy (08/2012) History of partial colectomy (2010) History of rectopexy S/P total right hip arthroplasty (2022) Status post appendectomy Status post colectomy (2011) Status post vaginal hysterectomy (1995) Medical History (Last Reviewed 08/29/24 @ 07:55 by Santos Franco PA-C) Abnormal Pap smear of cervix (1995) Acne (1975) ADHD (attention deficit hyperactivity disorder) (1962) Adhesive arachnoiditis Anxiety (1998) Back tightness Cervical radiculopathy Chicken pox Chronic back pain (1994) Chronic headaches (1991) Coccydynia Colitis due to Clostridioides difficile Colon polyps Degenerative joint disease (DJD) of hip Depression (1998) Facet arthropathy, lumbar Fibromyalgia (1997) GERD (gastroesophageal reflux disease) (1997) Hayfever (~1991) Hearing loss (2011) Herniated nucleus pulposus, L3-4 left Hypothyroidism (~2003) IBS (irritable bowel syndrome) (1962) Insomnia (06/21/16) Migraines (2009) Neck tightness Obstructive sleep apnea of adult Osteomyelitis of lumbar spine Pelvic pain in female Plantar warts (1991) Precancerous changes of the cervix (1995) Primary stress urinary incontinence Prolapse of intestine Sacroiliac joint dysfunction Shoulder pain (1994) Villous adenoma of right colon (2010) Physical Therapy Inpatient Evaluation/Re-Eval M1 PT/OT-IP Prior Functional Status Start: 08/29/24 07:27 Freq: NEEDED Status: Active Protocol: Document 08/29/24 07:30 MB (Rec: 08/29/24 08:15 MB [id number]) Medical Review Prior Functional Status Medical History Reviewed Yes Diet/Fluid Consistency Regular Communication WNLs Mobility and Gait I Activities of Daily Living and IADL's I, 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 She might have a friend who can come help her for a day or two at d /c but she does not know. Social History Household Members spouse Living Arrangements House Number of Floors (Floors) One Floor Number of Stairs To Enter/Railing? Ramp to enter, one step out back Home Environment High Toilet,Walk in Shower Home Equipment Four Wheel Walker,Shower Seat with Backrest,Hand Held Shower ,Sas Developer Analyst,Sock Aid,Hospital Bed ,Grab Bars Near Toilet,Grab Bars In Shower Additional Social History Comment Pt does not work M2 PT-IP Current Condition Start: 08/29/24 07:27 Freq: NEEDED Status: Active Protocol: Document 08/29/24 07:30 MB (Rec: 08/29/24 08:15 MB [id number]) Physical Therapy Current Condition Current Condition Evaluation Date 08/29/24 Treatment Diagnosis L3-S1 fusion M3 PT-IP Subjective Start: 08/29/24 07:27 Freq: NEEDED Status: Active Protocol: Document 08/29/24 07:30 MB (Rec: 08/29/24 08:15 MB [id number]) Subjective Physical Therapy Visit Type Type Initial Evaluation Visit Start Time 07:30 Visit Stop Time 07:55 Number of BANQUET MANAGER Visits 0 Physical Therapy Visit Comments Patient Comments Pt reports she only slept a few hours d/t pain. Therapy Pain Assessment Pain When Pain Assessed At Rest Pain Present Pain Present Pain Reported Location back Intensity 8 Scale Used Numeric (0 - 10) M4 PT-IP Mobility and Gait Start: 08/29/24 07:27 Freq: NEEDED Status: Active Protocol: Document 08/29/24 07:30 MB (Rec: 08/29/24 08:15 MB [id number]) PT-Bed Mobility Assessment Rolling Type of Rolling Roll to Right Level of Assist Contact Guard Assistance Supine to Sit Supine to Sit Contact Guard Assistance,1 Person Assistance,Bedrails Scooting Scooting to Edge of Bed Contact Guard Assistance PT-Transfer Assessment Sit to and From Stand Sit to and from Stand Minimal Assistance,1 Person Assistance,Use of Upper Extremities Equipment Transfer Assistive Device Gait Belt,Front Wheeled Walker Orthotic/Prosthetic Devices or Brace: No Transfers Transfer Destination Chair Transfer Technique Stepping Transfer Ability Level of Assist Minimal Assistance,1 Person Assistance,Use of Upper Extremities Gait Assessment Gait Gait Assistance Required: Minimum Assistance Distance (Feet) 3 Able to Maintain Weight Bearing Status Yes During Gait Assistive Devices Assistive Device Gait Belt,Front Wheeled Walker Orthotic/Prosthetic Devices or Brace: No Gait Deviations General Gait Pattern Antalgic,Decreased Stride Length,Decreased Feet Clearance,Step-to Gait,Wide Based Gait Factors Limiting Gait Function Factors Limiting Gait Function Decreased Activity Tolerance, Decreased Strength,Limited Range of Motion,Pain,Poor Balance,Poor Safety Awareness Comments Gait Comments Cues for stepping and moving walker and some assistance to move the walker PT-Balance Assessment Sitting Balance and Reactions Static Sitting Balance Ability Fair Dynamic Sitting Balance Ability Fair Standing Balance and Reactions Static Standing Balance Ability Fair Dynamic Standing Balance Ability Fair Device Used For sitting, grab bar towards bottom of mattress, for standing RW M5 PT-IP Objective Assessments Start: 08/29/24 07:27 Freq: NEEDED Status: Active Protocol: Document 08/29/24 07:30 MB (Rec: 08/29/24 08:15 MB [id number]) Orientation Orientation/Cognition Level of Alertness Alert Orientation Name,Birthday Language Function Ability No Deficits Noted Safety Awareness Decreased Safety Awareness Memory Description No Deficits Noted Gross Range of Motion Upper Extremity ROM Impairments Defer to OT Lower Extremity ROM Impairments Decreased B terminal knee extension in sitting, left more than right, and decreased B hip flexion sitting EOB Strength Lower Extremity Strength Hip NT in sitting d/t balance and pain Knee Poor tolerance to knee extension and at least 3/5 in available range Ankle B DF 4+/5, B great toe extension 4+/5 Coordination Assessment Gross Coordination Gross Coordination Impaired Sensation Assessment Comments Sensation Comments Pt reports paresthesias in B feet and is not clear about sensation in the rest of her legs, might be pain Muscle Tone Muscle Tone WNL Yes M6 PT-IP Treatment Start: 08/29/24 07:27 Freq: NEEDED Status: Active Protocol: Document 08/29/24 07:30 MB (Rec: 08/29/24 08:15 MB [id number]) Physical Therapy Treatment Exercises Exercises Ankle Pumps Education Education Provided Precautions,Post-Op Packet, Safety Other Treatments Other Treatment Performed Reviewed back precautions, provided booklet and practiced log rolling, ed in benefits of RW vs rollator at this time M7 PT-IP Assessment and Plan Start: 08/29/24 07:27 Freq: NEEDED Status: Active Protocol: Document 08/29/24 07:30 MB (Rec: 08/29/24 08:15 MB [id number]) PT Summary Assessment and Plan Potential Rehabilitation Potential Good Status of Condition at Evaluation Evolving Summary Impairments Pain,ROM,Strength,Balance, Coordination,Sensation,Bed Mobility,Transfers,Gait, Activity Tolerance Progress Towards Goals Slow Progress due to Pain,Slow Progress due to Medical Issues Assessment Summary Pt is a 58 y/o female presenting with back and leg pain this a.m. POD 1 L3-S1 fusions. Pt presents with orthostatic hypotension with BP and HR RUE sitting 118/68, 80; standing 92/55, 80. Pt reports some light-headedness and nausea when up and she tolerates mobility to recliner . 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 He does not have assistance while she is here and she did not set up assistance for herself at d/c before surgery. She would benefit from some assistance at d/c and she is requesting HHPT. Goals Bed Mobility Goal Independent Transfer Goal Independent,Front Wheeled Walker Gait Goal Independent,Front Wheel Walker Gait Distance 100 Days to Meet Goals 5 Frequency of Treatment Frequency Of Treatment Twice a Day Treatment Plan Physical Therapy Treatment Plan Bed Mobility Training,Transfer Training,Gait Training, Therapeutic Exercise,Balance Retraining,Post Op Education, Discharge Planning,Hot or Cold Pack,Neuromuscular Re-ed, Coordination Retraining,Manual Therapy Precautions Lumbar Precautions Log Roll,No Twisting,Limit Bending,Lifting Restriction of 10 lbs,Gait Belt above Incisional Area Recommendations To Nursing Amount of Assist Needed 1 Person Assist Discharge Recommendations PT Discharge Recommendations Home with Assistance,Home Health Transportation Needs at Discharge Private Vehicle
[2024-08-29 09:22] VITALS: PULSE 73; RESP 16; O2SAT 93
[2024-08-29] MEDS: ALBUTEROL 2.5 MG/3 ML NEB (ADULT) INH (09:22)
[2024-08-29] MEDS: PREGABALIN 75 MG CAPSULE 150 MG PO ×2 (09:54→20:23)
[2024-08-29] MEDS: FAMOTIDINE 20 MG TABLET 40 MG PO ×2 (09:54→20:23)
[2024-08-29] MEDS: DULOXETINE 30 MG CAPSULE 90 MG PO (09:54)
[2024-08-29] MEDS: DOCUSATE 100 MG CAPSULE PO ×2 (09:54→20:24)
[2024-08-29] MEDS: TRAMADOL 50 MG TABLET PO ×2 (09:57→20:23)
[2024-08-29] MEDS: CYCLOBENZAPRINE 10 MG TABLET PO ×2 (12:22→20:23)
--- NOTE | 2024-08-29 13:14 | OT.IPNOTE ---
Pt in too much pain today and wanting to do OT eval tomorrow. Pt just helped back to bed by nursing aid.
--- NOTE | 2024-08-29 14:26 | PT-IP ANOTE ---
Per nursing pt is not appropriate for PT, she needs to rest. PT will see her tomorrow.
--- NOTE | 2024-08-29 15:16 | CM.DANOTE ---
Initial DCP Assessment Visit Note Reviewed EMR and team rounds for status updates. Met with pt at bedside to introduce self and role, pt was found to be alert/oriented, and able to discuss her concerns and needs for when she is cleared for home d/c. Pt resides in her own home with spouse, who has MS and is wheelchair bound and whom she is the primary cg. They have recently hired a private cg to assist with his care while she is in the hospital and during her initial post-op recovery period. She has a friend who can transport her home once she's cleared for d/c. Payor: [facility] Attending: Dr. Oswald Pt is a 58 year-old F post-op day 1 from a laminectomy surgery. She has a hx of severe spinal stenosis with severe pain that radiates from her lumbar down her legs, which has become very limiting in her ability to do her ADL's and care for her . She's tried conservative measures such as steroid injections, PT, home exercises, heat/ice, and NSAIDS, all without lasting benefit or improvement. She has requested for to assist her with a referral to [facility], who already provide care for her . DCP will initiate referral on Monday for review. DCP will continue to monitor and assist with any further evolving needs prior to d/c home. Discharge Planning/Care Management Pre-Anesthesia Assessment Start: 08/20/24 09:33 Freq: Status: Active Protocol: Document 08/20/24 09:33 LB (Rec: 08/20/24 10:38 LB [id number]) Pre-Anesthesia Assessment PAC Comment 08/20/24 Phone assessment. Preferred Name Gracy Patient Information Reviewed Via Phone Assessment Assessment Completed With Patient Diagnostic Results BMP/CMP,CBC,EKG Comment 07/16/24 at . Primary Care Provider Li Avila Specialist Seen Orthopedist,Other Primary Language Danish Preferred Language Danish Public Health Representative Required No Height 165.1 cm Weight 88.904 kg Body Mass Index (BMI) 32.5 Hearing Ability Normal Visual Assist Glasses Dentition Type Teeth, Natural Present Barriers to Learning None Other Aids No Hx Anesthesia Reactions No Hx Family Anesthesia Reaction No Hx Malignant Hyperthermia No Hx Blood Transfusions No Anesthesia Review Requested No Silver Miner Blasting Yes: LM for Tonya in case management. Pt may need assistance post op alcohol intake never Smoking Status Never smoker Substance Use Type does not use Pain Present Pain Reported Comment chronic back pain. Musculoskeletal Symptoms Back Pain,Joint Pain,Numbness, Radiating Pain into Limb, Tingling History of Falling (Recent or History of No ) Patient is completely paralyzed or No completely immobile Mental Status Oriented to own ability Comment will bring walker. Is patient on oxygen? No Does patient have MEHTA/SOB No Hx Sleep Apnea Yes CPAP/BIPAP use prescribed and used routinely Currently Taking a Beta [place] No Can You Climb a Flight of Stairs Without Yes SOB Hx Chest Pain No Hx SOB Yes: wheezy at times. Hx Syncope or Dizziness No Anti-Coagulant Therapy No Has a Automation Analyst No Cardiac Testing No Hx Pacemaker/ICD No Cardiac Clearance Received Not Applicable Dysphagia No Gastrointestinal Symptoms Reflux Bladder Pattern Incontinent,Urgency Urinary Catheter Present No Hx Urinary Self Catheterization No Comment Wears a pad. Diabetes No HgbA1C 5.8 Date 07/16/24 Patient No Lactating No Hx Drug Resistant Organism Yes: Recurrent C-diff +. OK now. Presence of External or Internal Medical Yes: right hip Devices Have you had any close contact with No someone diagnosed with COVID-19? Are you experiencing any of these No symptoms symptoms? Received a COVID vaccine? Yes Marital Status Lives With spouse Current Living Arrangements House Number of Floors (Floors) Two Floors Number of Stairs To Enter/Railing? Ramps in home - has MS and is wheelchair bound. Support System Friend(s),Spouse Does the Patient Have Assistance After Yes: Friend lives 1 mile away Surgery and will be checking on pt. Comment Advised 2 night LOS per surgeon. Additional comment has MS and unable to care for pt. Friend will help pt. Health Care Proxy/Next of Kin Eb Benites - Health Care Proxy Emergency Contact Name Eneida Poole - friend Emergency Contact Advance Directives? No PAC Instructions Assistance for 24 hours post- op,Bring CPAP/BIPAP,Durable medical equipment,Medications to take/avoid,Nasal antibiotic ,No ETOH/petroleum product on skin DOS,NPO,Post-op transportation,Pre-surgical wash,Sensory aids,Sturdy shoes /comfortable clothes,Do not bring valuables and remove jewelry
[2024-08-29] MEDS: BUDESONIDE 0.5 MG/2 ML NEB INH (19:31)
[2024-08-29 20:00] VITALS: BP 123/76; PULSE 88; RESP 18; TEMP 37.1; O2SAT 94
[2024-08-29] MEDS: SENNOSIDES 8.6 MG TABLET 17.2 MG PO (20:23)
[2024-08-29] MEDS: ATORVASTATIN 20 MG TABLET PO (20:24)
[2024-08-30 01:06] VITALS: BP 115/69; PULSE 87; RESP 18; O2SAT 93
[2024-08-30] MEDS: HYDROMORPHONE 0.5 MG INJ IV (02:01)
[2024-08-30] MEDS: PANTOPRAZOLE DR 40 MG TABLET PO (05:38)
[2024-08-30] MEDS: LEVOTHYROXINE 75 MCG TABLET PO (05:38)
[2024-08-30] MEDS: TRAMADOL 50 MG TABLET PO ×2 (05:40→19:59)
--- NOTE | 2024-08-30 06:50 | PC.NURSE ---
cnc machinist 2nd shift: Patient is AxOx4, fatigued. Medicated as ordered for pain. OOB w/ max assist to BSC, patient did not tolerate well d/t pain & fatigue. Required reminders to keep eyes open. Patient urinated 300cc on BSC, however is still retaining. Unable to void via purewick. Bladder scan showed >400, notified MD Oswald, indwelling catheter placed until patient can work with PT. Oriented to call-light, plan of care ongoing.
--- NOTE | 2024-08-30 07:52 | P.PN_ITS ---
Subjective Subjective Date Patient Seen: 08/30/24 Time Patient Seen: 07:52 Interval history: Patient had difficulty getting her pain under control throughout the evening. She has been taking tramadol and requiring Dilaudid IV with little relief. Also complains of worsening of numbness into lower legs. She has only been able to work with physical therapy once yesterday. No complications bowel or bladder movements. Exam Vital Signs (past 8 hours): - 08/30/24 01:06 Pulse Rate 87 Respiratory Rate 18 Blood Pressure 115/69 Pulse Oximetry 93 Oxygen Flow Rate 2 Oxygen Delivery Method Room Air,CPAP Oxygen Flow Rate 2 Narrative Exam Narrative: Patient lying in bed acute pain. SCDs on lower extremities bilaterally. 4/5 strength in hip flexors, quadriceps, hamstrings, DF, PF, EHL bilaterally. Sensation to light touch intact throughout BLE. Calves soft, compressible, nontender. Resp Effort & Inspection: normal respiratory effort and able to speak in complete sentences Objective Labs 08/29/24 06:07 [facility] Medical History Primary stress urinary incontinence Degenerative joint disease (DJD) of hip Cervical radiculopathy Herniated nucleus pulposus, L3-4 left Adhesive arachnoiditis Sacroiliac joint dysfunction Colitis due to Clostridioides difficile Coccydynia Pelvic pain in female Facet arthropathy, lumbar Osteomyelitis of lumbar spine Prolapse of intestine Obstructive sleep apnea of adult Villous adenoma of right colon (2010) Back tightness Neck tightness Colon polyps GERD (gastroesophageal reflux disease) (1997) IBS (irritable bowel syndrome) (1962) Abnormal Pap smear of cervix (1995) Hearing loss (2011) Chicken pox Acne (1975) Plantar warts (1991) Chronic back pain (1994) Fibromyalgia (1997) ADHD (attention deficit hyperactivity disorder) (1962) Chronic headaches (1991) Migraines (2009) Anxiety (1998) Depression (1998) Hayfever (~1991) Shoulder pain (1994) Hypothyroidism (~2003) Precancerous changes of the cervix (1995) Insomnia (06/21/16) Surgical History S/P total right hip arthroplasty (2022) History of rectopexy History of colonoscopy (08/2012) History of partial colectomy (2010) Anesthesia Status post appendectomy Status post vaginal hysterectomy (1995) Status post colectomy (2011) Family History Brother Coronary artery disease Father Coronary artery disease Grandfather Stroke Grandmother Cancer Colon cancer Mother Cancer Mental health problem Anxiety Dementia Fibromyalgia Colon cancer Grandmother Diabetes mellitus Grandfather No problems noted. Family/Other Colon cancer Social History marital status: details: rebecca Parson number of children: 2 household members: spouse lives independently: Yes caregiver/support person: No housing: house Smoking Status: Never smoker alcohol intake: never substance use type: does not use additional social history: Eb is wheelchair bound with Multiple Sclerosis. Patient's best friend this year. Assessment & Plan Post-op Postoperative Procedures: Procedures Operation Date: 08/28/24 08:45 Actual Procedure Side Surgeon p L3-4, L4-5, L5-S1 TLIF with posterior instrumentation-Robot Bilateral Joann Oswald MD Postoperative day: 2 Postoperative plan: routine post-op care and ambulate Postoperative plan narrative: Patient is having difficulties postop with pain control and ambulation with physical therapy. Ordered 4 mg of dexamethasone to assist with pain control alleviate radicular symptoms in lower extremities. Ambulate with physical therapy. Multimodal pain control Keep SCDs on and functioning when resting in bed. Discussed with CM about discharging either into a SNF versus home health depending on how she progresses today. Re-evaluate tomorrow discharge. Time Spent With Patient Time with patient: 15-24 minutes Quality VTE Deep Vein Thrombosis/Pulmonary Embolism Present on Admission: No
[2024-08-30 08:00] VITALS: BP 146/84; PULSE 81; RESP 16; TEMP 36.7; O2SAT 95
[2024-08-30] MEDS: DEXAMETHASONE 4 MG/ML VIAL IV (09:14)
[2024-08-30] MEDS: DULOXETINE 30 MG CAPSULE 90 MG PO (09:15)
[2024-08-30] MEDS: PREGABALIN 75 MG CAPSULE 150 MG PO ×2 (09:15→21:12)
[2024-08-30] MEDS: CYCLOBENZAPRINE 10 MG TABLET PO ×2 (09:15→19:58)
[2024-08-30] MEDS: ACETAMINOPHEN 325 MG TABLET 650 MG PO ×2 (09:15→21:11)
[2024-08-30] MEDS: DOCUSATE 100 MG CAPSULE PO ×2 (09:15→21:10)
[2024-08-30] MEDS: BACLOFEN 10 MG TABLET PO ×2 (09:15→21:10)
[2024-08-30] MEDS: FAMOTIDINE 20 MG TABLET 40 MG PO ×2 (09:16→21:10)
[2024-08-30 09:34] VITALS: PULSE 78; O2SAT 98
[2024-08-30] MEDS: BUDESONIDE 0.5 MG/2 ML NEB INH ×2 (09:34→19:22)
[2024-08-30 09:37] VITALS: O2SAT 95
--- NOTE | 2024-08-30 10:05 | PT.IPTN ---
Current Diagnoses Spondylolisthesis, lumbar region (08/28/24) Spinal stenosis, lumbar region with neurogenic claudication (08/28/24) Surgery Performed Operation Date: 08/28/24 08:45 Actual Procedures p L3-4, L4-5, L5-S1 TLIF with posterior instrumentation-Robot(Bilateral) - Joann Oswald MD Physical Therapy Treatment Note M2 PT-IP Current Condition Start: 08/29/24 07:27 Freq: NEEDED Status: Active Protocol: Document 08/29/24 07:30 MB (Rec: 08/29/24 08:15 MB [id number]) Physical Therapy Current Condition Current Condition Evaluation Date 08/29/24 Treatment Diagnosis L3-S1 fusion M3 PT-IP Subjective Start: 08/29/24 07:27 Freq: NEEDED Status: Active Protocol: Document 08/30/24 10:45 TS (Rec: 08/30/24 10:58 TS [id number]) Subjective Physical Therapy Visit Type Type Treatment Note Visit Start Time 10:05 Visit Stop Time 10:43 Number of MANAGER FINANCIAL Visits 1 Physical Therapy Visit Comments Patient Comments Pt found resting in bed, reports pain is 7/10 and has some nausea, she is agreeable to PT. Therapy Pain Assessment Pain When Pain Assessed At Rest Pain Present Pain Present Pain Reported Location back Intensity 7 Scale Used Numeric (0 - 10) M4 PT-IP Mobility and Gait Start: 08/29/24 07:27 Freq: NEEDED Status: Active Protocol: Document 08/30/24 10:45 TS (Rec: 08/30/24 10:58 TS [id number]) PT-Bed Mobility Assessment Rolling Type of Rolling Roll to Right Level of Assist Moderate Assistance,1 Person Assistance Supine to Sit Supine to Sit Moderate Assistance,2 Person Assistance Scooting Scooting to Edge of Bed Moderate Assistance PT-Transfer Assessment Sit to and From Stand Sit to and from Stand Moderate Assistance,2 Person Assistance,Use of Upper Extremities Equipment Transfer Assistive Device Gait Belt,Front Wheeled Walker Orthotic/Prosthetic Devices or Brace: No Transfers Transfer Destination Chair,Bedside Commode Transfer Technique Stand Step Pivot Transfer Ability Level of Assist Moderate Assistance,1 Person Assistance Comments Mobility Comments BP in supine 134/75. Supine to sit ModA x2, pt requires cues for sequencing of logroll. She reports some lightheadedness sitting EOB, BP in sitting 110/68. STS with FWW ModA x2, pt is slow to stand and has some difficulty with TKE. She performs stand step pivot to commode ModA x1 with FWW and slow step to gait . OT assists pt with pericare on commode, pt has no BM. STS from commode ModA x1 with FWW. Pt sat in chair, all needs met, nursing in room. Gait Assessment Gait Gait Assistance Required: Moderate Assistance,1 Person Assist Distance (Feet) 8 Able to Maintain Weight Bearing Status Yes During Gait Assistive Devices Assistive Device Gait Belt,Front Wheeled Walker Orthotic/Prosthetic Devices or Brace: No Gait Deviations General Gait Pattern Antalgic,Decreased Stride Length,Decreased Feet Clearance,Step-to Gait,Wide Based Gait Factors Limiting Gait Function Factors Limiting Gait Function Decreased Activity Tolerance, Decreased Strength,Limited Range of Motion,Pain,Poor Balance,Poor Safety Awareness PT-Balance Assessment Sitting Balance and Reactions Static Sitting Balance Ability Fair Dynamic Sitting Balance Ability Fair Standing Balance and Reactions Static Standing Balance Ability Fair Dynamic Standing Balance Ability Fair M5 PT-IP Objective Assessments Start: 08/29/24 07:27 Freq: NEEDED Status: Active Protocol: Document 08/29/24 07:30 MB (Rec: 08/29/24 08:15 MB [id number]) Orientation Orientation/Cognition Level of Alertness Alert Orientation Name,Birthday Language Function Ability No Deficits Noted Safety Awareness Decreased Safety Awareness Memory Description No Deficits Noted Gross Range of Motion Upper Extremity ROM Impairments Defer to OT Lower Extremity ROM Impairments Decreased B terminal knee extension in sitting, left more than right, and decreased B hip flexion sitting EOB Strength Lower Extremity Strength Hip NT in sitting d/t balance and pain Knee Poor tolerance to knee extension and at least 3/5 in available range Ankle B DF 4+/5, B great toe extension 4+/5 Coordination Assessment Gross Coordination Gross Coordination Impaired Sensation Assessment Comments Sensation Comments Pt reports paresthesias in B feet and is not clear about sensation in the rest of her legs, might be pain Muscle Tone Muscle Tone WNL Yes M6 PT-IP Treatment Start: 08/29/24 07:27 Freq: NEEDED Status: Active Protocol: Document 08/30/24 10:45 TS (Rec: 08/30/24 10:58 TS [id number]) Physical Therapy Treatment Education Education Provided Precautions,Post-Op Packet, Safety M7 PT-IP Assessment and Plan Start: 08/29/24 07:27 Freq: NEEDED Status: Active Protocol: Document 08/30/24 10:45 TS (Rec: 08/30/24 10:58 TS [id number]) PT Summary Assessment and Plan Potential Rehabilitation Potential Good Summary Impairments Pain,ROM,Strength,Balance, Coordination,Sensation,Bed Mobility,Transfers,Gait, Activity Tolerance Progress Towards Goals Slow Progress due to Pain,Slow Progress due to Medical Issues Assessment Summary Gracy continues to make slow progress with her mobility. She is limited by pain, poor activity tolerance and hypotension. She is requiring ModA for most mobility with max cues. She has slow movement and difficulty initiating movement. PT is recommending SNF at this time. 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 Goals Bed Mobility Goal Independent Transfer Goal Independent,Front Wheeled Walker Gait Goal Independent,Front Wheel Walker Gait Distance 100 Days to Meet Goals 5 Frequency of Treatment Other frequency 1-2x/day Treatment Plan Physical Therapy Treatment Plan Bed Mobility Training,Transfer Training,Gait Training, Therapeutic Exercise,Balance Retraining,Post Op Education, Discharge Planning,Hot or Cold Pack,Neuromuscular Re-ed, Coordination Retraining,Manual Therapy Precautions Lumbar Precautions Log Roll,No Twisting,Limit Bending,Lifting Restriction of 10 lbs,Gait Belt above Incisional Area Recommendations To Nursing Amount of Assist Needed 2 Person Assist Discharge Recommendations PT Discharge Recommendations SNF Rehab Transportation Needs at Discharge Wheelchair/Cabulance
--- NOTE | 2024-08-30 10:43 | OT.IP.EVAL ---
Current Diagnoses Spondylolisthesis, lumbar region (08/28/24) Spinal stenosis, lumbar region with neurogenic claudication (08/28/24) Surgery Performed Operation Date: 08/28/24 08:45 Actual Procedures p L3-4, L4-5, L5-S1 TLIF with posterior instrumentation-Robot(Bilateral) - Joann Oswald MD Past Medical History (Last Reviewed 08/29/24 @ 07:55 by Santos Franco PA-C) Abnormal Pap smear of cervix (1995) Acne (1975) ADHD (attention deficit hyperactivity disorder) (1962) Adhesive arachnoiditis Anxiety (1998) Back tightness Cervical radiculopathy Chicken pox Chronic back pain (1994) Chronic headaches (1991) Coccydynia Colitis due to Clostridioides difficile Colon polyps Degenerative joint disease (DJD) of hip Depression (1998) Facet arthropathy, lumbar Fibromyalgia (1997) GERD (gastroesophageal reflux disease) (1997) Hayfever (~1991) Hearing loss (2011) Herniated nucleus pulposus, L3-4 left Hypothyroidism (~2003) IBS (irritable bowel syndrome) (1962) Insomnia (06/21/16) Migraines (2009) Neck tightness Obstructive sleep apnea of adult Osteomyelitis of lumbar spine Pelvic pain in female Plantar warts (1991) Precancerous changes of the cervix (1995) Primary stress urinary incontinence Prolapse of intestine Sacroiliac joint dysfunction Shoulder pain (1994) Villous adenoma of right colon (2010) Surgical History (Last Reviewed 08/29/24 @ 07:55 by Santos Franco PA-C) Anesthesia History of colonoscopy (08/2012) History of partial colectomy (2010) History of rectopexy S/P total right hip arthroplasty (2022) Status post appendectomy Status post colectomy (2011) Status post vaginal hysterectomy (1995) Occupational Therapy Inpatient Evaluation/Re-Eval M1 PT/OT-IP Prior Functional Status Start: 08/29/24 07:27 Freq: NEEDED Status: Active Protocol: Document 08/30/24 10:44 [facility] (Rec: 08/30/24 11:03 [facility] [id number]) Medical Review Prior Functional Status Medical History Reviewed Yes Diet/Fluid Consistency Regular Communication WNLs Mobility and Gait I Activities of Daily Living and IADL's I, 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 She might have a friend who can come help her for a day or two at d /c but she does not know. After OT eval pt now wanting to go to skilled rehab. Social History Household Members spouse Living Arrangements House Number of Floors (Floors) One Floor Number of Stairs To Enter/Railing? Ramp to enter, one step out back Home Environment High Toilet,Walk in Shower Home Equipment Four Wheel Walker,Shower Seat with Backrest,Hand Held Shower ,Orthotic/Prosthetic Practitioner,Sock Aid,Hospital Bed ,Grab Bars Near Toilet,Grab Bars In Shower Additional Social History Comment Pt does not work M2 OT-IP Current Condition Start: 08/30/24 10:43 Freq: Status: Active Protocol: Document 08/30/24 10:44 [facility] (Rec: 08/30/24 11:03 [facility] [id number]) Occupational Therapy Current Condition Current Condition Evaluation Date 08/30/24 Treatment Diagnosis S/P L3-4, L4-5, L5-S1 TLIF Diagnosis Onset Date 08/28/24 Post Operative Precautions Lumbar Precautions Log Roll,No Twisting,Limit Bending,Lifting Restriction of 10 lbs,Gait Belt above Incisional Area M3 OT- IP Subjective and Pain Start: 08/30/24 10:43 Freq: Status: Active Protocol: Document 08/30/24 10:44 [facility] (Rec: 08/30/24 11:03 [facility] [id number]) OT- Subjective Occupational Therapy Visit Type Type Initial Evaluation Visit Start Time 10:00 Visit Stop Time 10:43 Occupational Therapy Visit Comments Patient Comments Pt agreed to try to use the toilet, as has been constipated, nursing aware. Patient/Caregiver Goals TO go to skilled rehab OT Pain Assessment Pain When Pain Assessed At Rest Pain Present Pain Present Pain Reported Location back Intensity 7 Scale Used Numeric (0 - 10) M4 OT- IP ADL's Start: 08/30/24 10:43 Freq: Status: Active Protocol: Document 08/30/24 10:44 [facility] (Rec: 08/30/24 11:03 [facility] [id number]) OT [id number] Comments OT Self-Feeding Comments NO issues. OT ADL-Grooming General Evaluation Grooming Ability Standby Assistance Comments OT Grooming Comments Pt able to do while seated on the BSC. OT ADL-Oral Care General Eval Oral Care Ability Independent Comments Oral Care Comments Educated to pt best to spit into a cup to best follow her back precautions. OT ADL-Dressing General Eval Lower Body Dressing Ability Maximum Assistance Areas Needing Assistance Underpants/Brief,Socks Comments OT Dressing Comments Assist for brief and socks. OT ADL-Toileting General Evaluation Toileting Ability Maximum Assistance Areas Needing Assistance Manage Clothing,Perform Perineal Hygiene OT ADL-Bathing Comments OT Bathing Comments Sponge bath more appropriate at this time. M5 OT- IP IADL's Start: 08/30/24 10:43 Freq: Status: Active Protocol: Document 08/30/24 10:44 [facility] (Rec: 08/30/24 11:03 [facility] [id number]) OT-Instrumental Activities of Daily Living Deficits IADL Deficits Identified Deficits Home Safety Awareness Awareness of Need for Assistance at Home Good Awareness Home Safety Comments Pt well aware will not be able to care for herself at this time. M6 OT- IP Functional Cognition Start: 08/30/24 10:43 Freq: Status: Active Protocol: Document 08/30/24 10:44 [facility] (Rec: 08/30/24 11:03 [facility] [id number]) Cognitive Factors Limiting Selfcare Function Cognitive Ability Level of Alertness Alert,Drowsy Patient Orientation Name,Place,Situation Attention Span Ability Capable of Focused Attention, Capable of Sustained Attention Ability to Follow Commands Able to Follow One Step Commands Cognitive Comments Cognitive Assessment Comments Pt a bit groggy and needing increased time to follow directions. OT- Vision and Hearing OT- Vision Assessment Vision Assessment Comments Pt wears glasses. M7 OT- IP Mobility and Balance Start: 08/30/24 10:43 Freq: Status: Active Protocol: Document 08/30/24 10:44 [facility] (Rec: 08/30/24 11:03 [facility] [id number]) OT- Bed Mobility Assessment Supine to Sit Supine to Sit Assist Moderate Assistance,2 Person Assistance OT-Transfer Assessment Sit to and From Stand Sit to and from Stand Moderate Assistance,2 Person Assistance Transfers Transfer Ability Moderate Assistance,2 Person Assistance Technique Transfer Destination Bed,Chair Transfer Technique Stand Step Pivot Devices Transfer Assistive Devices Gait Belt,Front Wheeled Walker Comments Mobility Comments Pt MODA X 2 for all mobility and transfer needs at this time. Pt's BP supine 134/75, sitting 110/68, after transfer to the [facility] 107/68. Pt feeling woozy- nursing notified. OT- Balance Assessment Sitting Balance and Reactions Static Sitting Balance Ability Fair Dynamic Sitting Balance Ability Poor Standing Balance and Reactions Static Standing Balance Ability Poor Dynamic Standing Balance Ability Poor M8 OT- IP Objective Assessments Start: 08/30/24 10:43 Freq: Status: Active Protocol: Document 08/30/24 10:44 [facility] (Rec: 08/30/24 11:03 [facility] [id number]) OT Strength Comments Strength Comments Pt having IV in both hands and hard for her to use her BUE for mobility needs. M9 OT- IP Assessment and Plan Start: 08/30/24 10:43 Freq: Status: Active Protocol: Document 08/30/24 10:44 [facility] (Rec: 08/30/24 11:03 [facility] [id number]) OT Summary Assessment and Plan Potential Rehabilitation Potential Good Analytic Complexity at Evaluation Low Summary OT Impairments Pain,Balance,Functional Mobility,Grooming,Dressing, Toileting,Bathing,Toilet Transfers,Shower Transfers, Activity Tolerance Progress Towards Goals Slow Progress due to Pain,Slow Progress due to Medical Issues,Slow Progress due to Activity Tolerance Assessment Summary Pt still groggy, having lots of pain at this time and needing two person assist for most ADL and for mobility. Pt will benefit from skilled rehab prior to going home. Goals Self-Feeding Goal Independent Grooming Goal Independent Dressing Goal Independent,Orthotic/Prosthetic Practitioner,Sock Aid Toileting Goal Independent,Toilet Paper Aid Bathing Goal Standby Assistance Toilet Transfer Goal Independent Shower Transfer Goal Standby Assistance Days to Meet Goals 20 Frequency of Treatment Other frequency 5x/week Treatment Plan OT Treatment Plan ADL Training,Functional Mobility,Patient/Family Education,Discharge Planning Discharge Recommendations OT Discharge Recommendations SNF Rehab Transportation Needs at Discharge Wheelchair/Cabulance
--- NOTE | 2024-08-30 12:23 | CM.DPC ---
DCP Continued: Reviewed EMR and team rounds for pt?s medical status. Per handoff, [facility] referral needed to be initiated. DCP sent referral to [facility] , it was reported that pt is accepted for services, pending [id number] order. Per FINANCE PROFESSIONAL and Ortho PA, care plan is shifting to SNF Rehab. DCP met w/patient at bedside; introduced self and role. Present in the room is pt's , Eb. Pt stated she is agreeable with SNF Rehab plan for now, only willing to have referral sent to [facility] due to need to be in close proximity to . Pt is wheelchair bound and has MS, currently has additional support from [facility] in place while pt is in hospital. DCP sent referral to [facility], pt will need insurance authorization. Per [facility], no beds available until next week. PASSR completed and will require Ortho Provider signature. Plan: Anticipating SNF Rehab when bed available at [facility] vs. home with [facility] if pt status progresses for safe dc home. CM Team will continue to follow for coordination of discharge plans. MARIETTA Bautista
--- NOTE | 2024-08-30 12:45 | PT.IPTN ---
Current Diagnoses Spondylolisthesis, lumbar region (08/28/24) Spinal stenosis, lumbar region with neurogenic claudication (08/28/24) Surgery Performed Operation Date: 08/28/24 08:45 Actual Procedures p L3-4, L4-5, L5-S1 TLIF with posterior instrumentation-Robot(Bilateral) - Joann Oswald MD Physical Therapy Treatment Note M2 PT-IP Current Condition Start: 08/29/24 07:27 Freq: NEEDED Status: Active Protocol: Document 08/29/24 07:30 MB (Rec: 08/29/24 08:15 MB [id number]) Physical Therapy Current Condition Current Condition Evaluation Date 08/29/24 Treatment Diagnosis L3-S1 fusion M3 PT-IP Subjective Start: 08/29/24 07:27 Freq: NEEDED Status: Active Protocol: Document 08/30/24 13:18 TS (Rec: 08/30/24 13:31 TS [id number]) Subjective Physical Therapy Visit Type Type Treatment Note Visit Start Time 12:45 Visit Stop Time 13:10 Number of AIRCRAFT MECHANIC ARMAMENT Visits 2 Physical Therapy Visit Comments Patient Comments Pt found resting in the chair and falling asleep while trying to eat lunch. She would like to get back to bed, she is agreeable to PT. Therapy Pain Assessment Pain When Pain Assessed At Rest Pain Present Pain Present Pain Reported M4 PT-IP Mobility and Gait Start: 08/29/24 07:27 Freq: NEEDED Status: Active Protocol: Document 08/30/24 13:18 TS (Rec: 08/30/24 13:31 TS [id number]) PT-Bed Mobility Assessment Sit to Supine Sit to Supine Moderate Assistance,1 Person Assistance PT-Transfer Assessment Sit to and From Stand Sit to and from Stand Moderate Assistance,1 Person Assistance,Use of Upper Extremities Equipment Transfer Assistive Device Gait Belt,Front Wheeled Walker Orthotic/Prosthetic Devices or Brace: No Transfers Transfer Destination Chair Transfer Technique Stand Step Pivot Transfer Ability Level of Assist Moderate Assistance,1 Person Assistance Comments Mobility Comments Pt recalls 1/3 spinal precautions(no bending). STS with FWW ModA with cues for pushing fomr arms of the chair . She performs stand step pivot to the bed ModA with cues for step sequencing. Sit to supine into bed ModA for LE 's, pt requires cues for logroll technique. Pt was left in bed, all needs met. Gait Assessment Gait Gait Assistance Required: Moderate Assistance,1 Person Assist Distance (Feet) 3 Able to Maintain Weight Bearing Status Yes During Gait Assistive Devices Assistive Device Gait Belt,Front Wheeled Walker Orthotic/Prosthetic Devices or Brace: No Gait Deviations General Gait Pattern Antalgic,Decreased Stride Length,Decreased Feet Clearance,Step-to Gait,Wide Based Gait Factors Limiting Gait Function Factors Limiting Gait Function Decreased Activity Tolerance, Decreased Strength,Limited Range of Motion,Pain,Poor Balance,Poor Safety Awareness PT-Balance Assessment Sitting Balance and Reactions Static Sitting Balance Ability Fair Dynamic Sitting Balance Ability Fair Standing Balance and Reactions Static Standing Balance Ability Fair Dynamic Standing Balance Ability Fair Device Used FWW M5 PT-IP Objective Assessments Start: 08/29/24 07:27 Freq: NEEDED Status: Active Protocol: Document 08/29/24 07:30 MB (Rec: 08/29/24 08:15 MB [id number]) Orientation Orientation/Cognition Level of Alertness Alert Orientation Name,Birthday Language Function Ability No Deficits Noted Safety Awareness Decreased Safety Awareness Memory Description No Deficits Noted Gross Range of Motion Upper Extremity ROM Impairments Defer to OT Lower Extremity ROM Impairments Decreased B terminal knee extension in sitting, left more than right, and decreased B hip flexion sitting EOB Strength Lower Extremity Strength Hip NT in sitting d/t balance and pain Knee Poor tolerance to knee extension and at least 3/5 in available range Ankle B DF 4+/5, B great toe extension 4+/5 Coordination Assessment Gross Coordination Gross Coordination Impaired Sensation Assessment Comments Sensation Comments Pt reports paresthesias in B feet and is not clear about sensation in the rest of her legs, might be pain Muscle Tone Muscle Tone WNL Yes M6 PT-IP Treatment Start: 08/29/24 07:27 Freq: NEEDED Status: Active Protocol: Document 08/30/24 13:18 TS (Rec: 08/30/24 13:31 TS [id number]) Physical Therapy Treatment Education Education Provided Precautions,Post-Op Packet, Safety M7 PT-IP Assessment and Plan Start: 08/29/24 07:27 Freq: NEEDED Status: Active Protocol: Document 08/30/24 13:18 TS (Rec: 08/30/24 13:31 TS [id number]) PT Summary Assessment and Plan Potential Rehabilitation Potential Good Summary Impairments Pain,ROM,Strength,Balance, Coordination,Sensation,Bed Mobility,Transfers,Gait, Activity Tolerance Progress Towards Goals Slow Progress due to Pain,Slow Progress due to Medical Issues Assessment Summary Gracy continues to make slow progress with her mobility. She continues to require ModA for STS and for transfers to bed with FWW. She requires cues for bed mobility and for her precautions. She recalls 1 /3 spinal precautions this afternoon. PT continues to recommend SNF at this time. Goals Bed Mobility Goal Independent Transfer Goal Independent,Front Wheeled Walker Gait Goal Independent,Front Wheel Walker Gait Distance 100 Days to Meet Goals 5 Treatment Plan Physical Therapy Treatment Plan Bed Mobility Training,Transfer Training,Gait Training, Therapeutic Exercise,Balance Retraining,Post Op Education, Discharge Planning,Hot or Cold Pack,Neuromuscular Re-ed, Coordination Retraining,Manual Therapy Precautions Lumbar Precautions Log Roll,No Twisting,Limit Bending,Lifting Restriction of 10 lbs,Gait Belt above Incisional Area Recommendations To Nursing Amount of Assist Needed 2 Person Assist Discharge Recommendations PT Discharge Recommendations SNF Rehab Transportation Needs at Discharge Wheelchair/Cabulance
[2024-08-30 19:23] VITALS: PULSE 78; RESP 20; O2SAT 92
[2024-08-30 20:25] VITALS: BP 108/65; PULSE 91; RESP 18; TEMP 36.6; O2SAT 96
[2024-08-30] MEDS: SENNOSIDES 8.6 MG TABLET 17.2 MG PO (21:10)
[2024-08-30] MEDS: ATORVASTATIN 20 MG TABLET PO (21:11)
[2024-08-30] MEDS: ONDANSETRON 4 MG ODT SL (21:15)
[2024-08-30] MEDS: OXYCODONE IR 5 MG TABLET PO (22:14)
[2024-08-31] MEDS: ONDANSETRON 4 MG ODT SL ×6 (00:59→22:10)
[2024-08-31] MEDS: OXYCODONE IR 5 MG TABLET PO ×6 (01:21→22:40)
[2024-08-31] MEDS: LEVOTHYROXINE 75 MCG TABLET PO (05:42)
[2024-08-31] MEDS: PANTOPRAZOLE DR 40 MG TABLET PO (05:42)
[2024-08-31 08:00] VITALS: BP 106/67; PULSE 81; RESP 15; TEMP 36.8; O2SAT 96
[2024-08-31] MEDS: FAMOTIDINE 20 MG TABLET 40 MG PO ×2 (09:04→20:24)
[2024-08-31] MEDS: DULOXETINE 30 MG CAPSULE 90 MG PO (09:04)
[2024-08-31] MEDS: CYCLOBENZAPRINE 10 MG TABLET PO ×2 (09:05→20:24)
[2024-08-31] MEDS: DOCUSATE 100 MG CAPSULE PO ×2 (09:05→20:24)
[2024-08-31] MEDS: ACETAMINOPHEN 325 MG TABLET 650 MG PO ×2 (09:05→16:55)
[2024-08-31] MEDS: PREGABALIN 75 MG CAPSULE 150 MG PO ×2 (09:05→20:24)
[2024-08-31] MEDS: BUDESONIDE 0.5 MG/2 ML NEB INH ×2 (09:06→19:07)
[2024-08-31 09:07] VITALS: PULSE 86; RESP 16; O2SAT 95
--- NOTE | 2024-08-31 10:01 | P.PN_ITS ---
Subjective Subjective Interval history: Gracy is a pleasant 58 year old female who is POD#3 s/p L3-4, L4-5, L5-S1 Postero-lateral and posterior interbody fusion by Dr. Oswald. This morning patient reports she is still in a significant amount of pain, she reports her butt hurts, she admits she has not been up to walk around. She still reports having mild paresthesias in bilateral lower extremities, denies any gross sensory loss. Denies any shocking or shooting pain down her legs. Reports she did feel the dexamethasone dose she got yesterday helped her pain some. She has a Zuniga catheter in still d/t her limited mobility. She lives at home w/ but he has MS and is not able to provide much care/support for patient post-operatively, for this reason she feels best d/c to SNF for initial post-op rehab. Denies fever, chills, chest pain, SOB, nausea, vomiting. Exam Vital Signs (past 8 hours): - 08/31/24 09:07 Pulse Rate 86 Respiratory Rate 16 Pulse Oximetry 95 Oxygen Delivery Method Room Air Fraction of Inspired Oxygen 21 SaO2/FiO2 Ratio 438 Oxygen Delivery Method Room Air Oxygen Flow Rate 0 Narrative Exam Narrative: Patient lying in bed during our interview today. No acute distress. AOx3. 5/5 strength with DF, PF, EHL bilaterally. Gross sensation intact throughout bilateral lower extremities. Calves soft and non-tender bilaterally. SCDs are on and functioning. Unable to visualize post-surgical dressings at this time as patient was lying down and had significant pain w/ trying to sit up. Objective Labs 08/29/24 06:07 [facility] Medical History Primary stress urinary incontinence Degenerative joint disease (DJD) of hip Cervical radiculopathy Herniated nucleus pulposus, L3-4 left Adhesive arachnoiditis Sacroiliac joint dysfunction Colitis due to Clostridioides difficile Coccydynia Pelvic pain in female Facet arthropathy, lumbar Osteomyelitis of lumbar spine Prolapse of intestine Obstructive sleep apnea of adult Villous adenoma of right colon (2010) Back tightness Neck tightness Colon polyps GERD (gastroesophageal reflux disease) (1997) IBS (irritable bowel syndrome) (1962) Abnormal Pap smear of cervix (1995) Hearing loss (2011) Chicken pox Acne (1975) Plantar warts (1991) Chronic back pain (1994) Fibromyalgia (1997) ADHD (attention deficit hyperactivity disorder) (1962) Chronic headaches (1991) Migraines (2009) Anxiety (1998) Depression (1998) Hayfever (~1991) Shoulder pain (1994) Hypothyroidism (~2003) Precancerous changes of the cervix (1995) Insomnia (06/21/16) Surgical History S/P total right hip arthroplasty (2022) History of rectopexy History of colonoscopy (08/2012) History of partial colectomy (2010) Anesthesia Status post appendectomy Status post vaginal hysterectomy (1995) Status post colectomy (2011) Family History Brother Coronary artery disease Father Coronary artery disease Grandfather Stroke Grandmother Cancer Colon cancer Mother Cancer Mental health problem Anxiety Dementia Fibromyalgia Colon cancer Grandmother Diabetes mellitus Grandfather No problems noted. Family/Other Colon cancer Social History marital status: details: rebecca Parson number of children: 2 household members: spouse lives independently: Yes caregiver/support person: No housing: house Smoking Status: Never smoker alcohol intake: never substance use type: does not use additional social history: Eb is wheelchair bound with Multiple Sclerosis. Patient's best friend this year. Assessment & Plan Assessment & Plan narrative: 1) Plan to possibly d/c to SNF today vs tomorrow if approved by insurance and she is able to mobilize w/ PT. Remove Zuniga today after PT and replace w/ a purewik while she is in bed. Would like to see if patient can void on her own prior to d/c. I discussed with patient that getting up and moving around should help her pain. I encouraged her to get up and move positions even though she is in pain. 2) Continue multimodal pain management. May consider medrol dose pack if needed upon d/c. 3) Mechanical DVT prophylaxis, SCDs to be worn while in bed. 4) Work w/ PT on mobilizing/safe ambulation. Maintain BLT restrictions. 5) Keep dressing intact, clean, dry until 2 week postop appointment. No soaking the incision site in pools or tubs. No topical ointments or creams to the incision site. 6) Follow up at [facility] in 2 weeks for a postop appointment and wound check. All patient's questions were answered, they demonstrates understanding and are in agreement with the plan. Call our office if any questions or concerns arise. Time-Based Coding :: [TOTAL MINUTES] spent with patient and on the chart (including review of chart, obtaining history, exam, reviewing outside data, placing orders, documenting exam and treatment plan, and counseling patient) on [DATE]. Quality VTE Deep Vein Thrombosis/Pulmonary Embolism Present on Admission: No
--- NOTE | 2024-08-31 10:45 | PT.IPTN ---
Current Diagnoses Spondylolisthesis, lumbar region (08/28/24) Spinal stenosis, lumbar region with neurogenic claudication (08/28/24) Surgery Performed Operation Date: 08/28/24 08:45 Actual Procedures p L3-4, L4-5, L5-S1 TLIF with posterior instrumentation-Robot(Bilateral) - Joann Oswald MD Physical Therapy Treatment Note M2 PT-IP Current Condition Start: 08/29/24 07:27 Freq: NEEDED Status: Active Protocol: Document 08/29/24 07:30 MB (Rec: 08/29/24 08:15 MB [id number]) Physical Therapy Current Condition Current Condition Evaluation Date 08/29/24 Treatment Diagnosis L3-S1 fusion M3 PT-IP Subjective Start: 08/29/24 07:27 Freq: NEEDED Status: Active Protocol: Document 08/31/24 11:00 TS (Rec: 08/31/24 11:04 TS [id number]) Subjective Physical Therapy Visit Type Type Treatment Note Visit Start Time 10:45 Visit Stop Time 10:55 Number of MECHANICAL RESEARCH ENGINEER Visits 3 Physical Therapy Visit Comments Patient Comments Pt found resting in bed, reports high pain, would like to get to commode. M4 PT-IP Mobility and Gait Start: 08/29/24 07:27 Freq: NEEDED Status: Active Protocol: Document 08/31/24 11:00 TS (Rec: 08/31/24 11:04 TS [id number]) PT-Bed Mobility Assessment Supine to Sit Supine to Sit Maximum Assistance,1 Person Assistance Scooting Scooting to Edge of Bed Moderate Assistance PT-Transfer Assessment Sit to and From Stand Sit to and from Stand Moderate Assistance,1 Person Assistance,Use of Upper Extremities Equipment Transfer Assistive Device Gait Belt,Front Wheeled Walker Orthotic/Prosthetic Devices or Brace: No Transfers Transfer Destination Bedside Commode Transfer Technique Stand Step Pivot Transfer Ability Level of Assist Moderate Assistance,1 Person Assistance Comments Mobility Comments Supine to sit MaxA for uprighting trunk. Pt requires ModA to scoot to EOB. STS with FWW ModA. She performs transfer to commode CGA with FWW. Pt was left on commode, nursing in room. Gait Assessment Gait Gait Assistance Required: Moderate Assistance,1 Person Assist Distance (Feet) 3 Able to Maintain Weight Bearing Status Yes During Gait Assistive Devices Assistive Device Gait Belt,Front Wheeled Walker Orthotic/Prosthetic Devices or Brace: No Gait Deviations General Gait Pattern Antalgic,Decreased Stride Length,Decreased Feet Clearance,Step-to Gait,Wide Based Gait Factors Limiting Gait Function Factors Limiting Gait Function Decreased Activity Tolerance, Decreased Strength,Limited Range of Motion,Pain,Poor Balance,Poor Safety Awareness PT-Balance Assessment Sitting Balance and Reactions Static Sitting Balance Ability Fair Dynamic Sitting Balance Ability Fair Standing Balance and Reactions Static Standing Balance Ability Fair Dynamic Standing Balance Ability Fair Device Used FWW M5 PT-IP Objective Assessments Start: 08/29/24 07:27 Freq: NEEDED Status: Active Protocol: Document 08/29/24 07:30 MB (Rec: 08/29/24 08:15 MB [id number]) Orientation Orientation/Cognition Level of Alertness Alert Orientation Name,Birthday Language Function Ability No Deficits Noted Safety Awareness Decreased Safety Awareness Memory Description No Deficits Noted Gross Range of Motion Upper Extremity ROM Impairments Defer to OT Lower Extremity ROM Impairments Decreased B terminal knee extension in sitting, left more than right, and decreased B hip flexion sitting EOB Strength Lower Extremity Strength Hip NT in sitting d/t balance and pain Knee Poor tolerance to knee extension and at least 3/5 in available range Ankle B DF 4+/5, B great toe extension 4+/5 Coordination Assessment Gross Coordination Gross Coordination Impaired Sensation Assessment Comments Sensation Comments Pt reports paresthesias in B feet and is not clear about sensation in the rest of her legs, might be pain Muscle Tone Muscle Tone WNL Yes M6 PT-IP Treatment Start: 08/29/24 07:27 Freq: NEEDED Status: Active Protocol: Document 08/31/24 11:00 TS (Rec: 08/31/24 11:04 TS [id number]) Physical Therapy Treatment Education Education Provided Precautions,Post-Op Packet, Safety M7 PT-IP Assessment and Plan Start: 08/29/24 07:27 Freq: NEEDED Status: Active Protocol: Document 08/31/24 11:00 TS (Rec: 08/31/24 11:04 TS [id number]) PT Summary Assessment and Plan Potential Rehabilitation Potential Good Summary Progress Towards Goals Slow Progress due to Pain,Slow Progress due to Medical Issues Assessment Summary Pt continues to make slow progress. Pain appears to be her biggest limiting factor. She does not have much toelrance to activity and appears weak. PT is recommending SNF at this time. Goals Bed Mobility Goal Independent Transfer Goal Independent,Front Wheeled Walker Gait Goal Independent,Front Wheel Walker Gait Distance 100 Days to Meet Goals 5 Treatment Plan Physical Therapy Treatment Plan Bed Mobility Training,Transfer Training,Gait Training, Therapeutic Exercise,Balance Retraining,Post Op Education, Discharge Planning,Hot or Cold Pack,Neuromuscular Re-ed, Coordination Retraining,Manual Therapy Precautions Lumbar Precautions Log Roll,No Twisting,Limit Bending,Lifting Restriction of 10 lbs,Gait Belt above Incisional Area Recommendations To Nursing Amount of Assist Needed 2 Person Assist Discharge Recommendations PT Discharge Recommendations SNF Rehab Transportation Needs at Discharge Wheelchair/Cabulance
--- NOTE | 2024-08-31 12:28 | CM.DPC ---
DCP SNF Planning: Per [facility] [facility], pt still requiring 2PA with mobility and pain/sleepiness issues and still recommending SNF. Per pt's first preference [facility], they will review but currently no female bed anticipated until Wed this coming week. Per [facility], they are contracted with her insurance and have some available rehab beds but pt's commercial insurance has a 20% copay for their contracted facility unless she has met her deductible. [facility] willing to submit for [facility] SNF auth today. SW met bedside with pt and explained role and she confirms that she still feels she cannot safely d/c directly home at discharge since she is in pain, needing assist, and her spouse is w/c bound. SW discussed that [facility] currently is full and [facility] and pt hesitant as it is farther from their home in [place] but SW explained that likely her insurance will stop covering her hospital stay once she is medically stable to discharge to lower level of care and b/u plan in case she cannot safely go home and if [facility] does not have female bed. Pt agreeable with [facility] and understands she might have 20% copay depending on her deductible. Pt becoming drowsy and requesting SW update her spouse as well when he arrives bedside. PASRR done and signed. Plan: SW to follow for likely discharge to [facility] once insurance auth obtained (submitted today Sat) before safe discharge home pending progress with PT. TEE Davis
[2024-08-31 13:26] LABS: Appearance Urine UA CLEAR; Bilirubin Urine UA NEGATIVE (NEGATIVE); Color Urine UA YELLOW; Glucose Urine UA NEGATIVE (Negative); Ketones Urine UA TRACE (NEGATIVE); Leukocyte Esterase Urine UA NEGATIVE (NEGATIVE); Nitrite Urine UA NEGATIVE (Negative); Occult Blood Urine UA 1+ (Negative); Protein Urine UA 1+ (Negative)
[2024-08-31 13:33] LABS: Urine Volume 10mL (spun)
[2024-08-31 13:35] LABS: Bacteria Urine Few (2-10); RBC Urine 1-5/HPF (0-5/HPF); WBC Urine 5-10/HPF (0-5/HPF)
[2024-08-31 13:36] LABS: Calcium Oxalate Crystals Urine Occasional; Culture Indicated Urine Specimen Cultured; Mucus Urine 3+ (Negative); Squamous Epithelial Cell Urine 5-10 /HPF (0-5/HPF)
[2024-08-31] MEDS: CEVIMELINE 30 MG 30 EACH PO ×2 (14:29→20:25)
[2024-08-31] MEDS: MAGNESIUM HYDROXIDE 30 ML UDC PO (14:29)
[2024-08-31] MEDS: TRAMADOL 50 MG TABLET PO (16:56)
[2024-08-31] MEDS: BACLOFEN 10 MG TABLET PO (16:56)
[2024-08-31 19:07] VITALS: PULSE 89; RESP 14; O2SAT 97
[2024-08-31 20:21] VITALS: BP 110/64; PULSE 84; RESP 18; TEMP 36.4; O2SAT 94
[2024-08-31] MEDS: ATORVASTATIN 20 MG TABLET PO (20:24)
[2024-08-31] MEDS: SENNOSIDES 8.6 MG TABLET 17.2 MG PO (20:25)
[2024-09-01] MEDS: ONDANSETRON 4 MG ODT SL ×5 (02:25→20:37)
[2024-09-01] MEDS: OXYCODONE IR 5 MG TABLET PO ×5 (02:57→20:52)
[2024-09-01] MEDS: PANTOPRAZOLE DR 40 MG TABLET PO (06:06)
[2024-09-01] MEDS: LEVOTHYROXINE 75 MCG TABLET PO (06:06)
[2024-09-01 09:52] VITALS: PULSE 103; RESP 16; O2SAT 94
[2024-09-01] MEDS: BUDESONIDE 0.5 MG/2 ML NEB INH ×2 (09:52→20:07)
[2024-09-01] MEDS: CEVIMELINE 30 MG 30 EACH PO ×3 (10:14→20:52)
[2024-09-01] MEDS: DOCUSATE 100 MG CAPSULE PO ×2 (10:14→20:52)
--- NOTE | 2024-09-01 10:14 | P.PN_ITS ---
Exam Vital Signs (past 8 hours): - 09/01/24 09:52 Pulse Rate 103 H Respiratory Rate 16 Pulse Oximetry 94 Oxygen Delivery Method Room Air Fraction of Inspired Oxygen 21 SaO2/FiO2 Ratio 438 Oxygen Delivery Method Room Air Oxygen Flow Rate 0 Objective Labs 08/29/24 06:07 Labs: Laboratory Results - last 24 hr 08/31/24 13:00 Urine Color Yellow Urine Appearance Clear Urine pH 6.0 Ur Specific [place] 1.020 Urine Protein 1+ H Urine Glucose (UA) Negative Urine Ketones Trace H Urine Occult Blood 1+ H Urine Nitrate Negative Urine Bilirubin Negative Urine Urobilinogen 1.0 Ur Leukocyte Esterase Negative Urine RBC 1-5/hpf Urine WBC 5-10/hpf H Ur Squamous Epith Cells 5-10 /hpf H Calcium Oxalate Crystal Occasional H Urine Bacteria Few (2-10) H Urine Mucus 3+ H D Ur Culture Indicated? Specimen cultured Vol Urine Centrifuged 10ml (spun) [facility] Medical History Primary stress urinary incontinence Degenerative joint disease (DJD) of hip Cervical radiculopathy Herniated nucleus pulposus, L3-4 left Adhesive arachnoiditis Sacroiliac joint dysfunction Colitis due to Clostridioides difficile Coccydynia Pelvic pain in female Facet arthropathy, lumbar Osteomyelitis of lumbar spine Prolapse of intestine Obstructive sleep apnea of adult Villous adenoma of right colon (2010) Back tightness Neck tightness Colon polyps GERD (gastroesophageal reflux disease) (1997) IBS (irritable bowel syndrome) (1962) Abnormal Pap smear of cervix (1995) Hearing loss (2011) Chicken pox Acne (1975) Plantar warts (1991) Chronic back pain (1994) Fibromyalgia (1997) ADHD (attention deficit hyperactivity disorder) (1962) Chronic headaches (1991) Migraines (2009) Anxiety (1998) Depression (1998) Hayfever (~1991) Shoulder pain (1994) Hypothyroidism (~2003) Precancerous changes of the cervix (1995) Insomnia (06/21/16) Surgical History S/P total right hip arthroplasty (2022) History of rectopexy History of colonoscopy (08/2012) History of partial colectomy (2010) Anesthesia Status post appendectomy Status post vaginal hysterectomy (1995) Status post colectomy (2012) Family History Brother Coronary artery disease Father Coronary artery disease Grandfather Stroke Grandmother Cancer Colon cancer Mother Cancer Mental health problem Anxiety Dementia Fibromyalgia Colon cancer Grandmother Diabetes mellitus Grandfather No problems noted. Family/Other Colon cancer Social History marital status: details: rebecca Parson number of children: 2 household members: spouse lives independently: Yes caregiver/support person: No housing: house Smoking Status: Never smoker alcohol intake: never substance use type: does not use additional social history: Eb is wheelchair bound with Multiple Sclerosis. Patient's best friend this year. Assessment & Plan Assessment & Plan narrative: Patient is admitted after surgery. POD#4 s/p L3-S1 TLIF. Patient has been stable and progressing with physical therapy. Patient is neurovascularly intact on exam. Patient has no signs or symptoms of DVT. Patient's dressing is clean dry and intact. Will need additional PT and possible SNF placement. Time-Based Coding :: [TOTAL MINUTES] spent with patient and on the chart (including review of chart, obtaining history, exam, reviewing outside data, placing orders, documenting exam and treatment plan, and counseling patient) on [DATE]. Quality VTE Deep Vein Thrombosis/Pulmonary Embolism Present on Admission: No
[2024-09-01] MEDS: PREGABALIN 75 MG CAPSULE 150 MG PO ×2 (10:15→20:52)
[2024-09-01] MEDS: DULOXETINE 30 MG CAPSULE 90 MG PO (10:15)
[2024-09-01] MEDS: FAMOTIDINE 20 MG TABLET 40 MG PO ×2 (10:15→20:52)
[2024-09-01] MEDS: DEXTROAMPHETAMINE AMPHETAMINE 15 MG 15 EACH PO (10:15)
--- NOTE | 2024-09-01 10:42 | PT.IPTN ---
Current Diagnoses Spondylolisthesis, lumbar region (08/28/24) Spinal stenosis, lumbar region with neurogenic claudication (08/28/24) Surgery Performed Operation Date: 08/28/24 08:45 Actual Procedures p L3-4, L4-5, L5-S1 TLIF with posterior instrumentation-Robot(Bilateral) - Joann Oswald MD Physical Therapy Treatment Note M2 PT-IP Current Condition Start: 08/29/24 07:27 Freq: NEEDED Status: Active Protocol: Document 08/29/24 07:30 MB (Rec: 08/29/24 08:15 MB [id number]) Physical Therapy Current Condition Current Condition Evaluation Date 08/29/24 Treatment Diagnosis L3-S1 fusion M3 PT-IP Subjective Start: 08/29/24 07:27 Freq: NEEDED Status: Active Protocol: Document 09/01/24 09:20 MB (Rec: 09/01/24 10:42 MB [id number]) Subjective Physical Therapy Visit Type Type Treatment Note Visit Start Time 09:20 Visit Stop Time 09:45 Number of LIVESTOCK FEEDER Visits 4 Physical Therapy Visit Comments Patient Comments Pt sitting up in chair, c/o increased pain in her tail bone area, is reluctantly agreeable to mobility. Asks for a shower. Therapy Pain Assessment Pain When Pain Assessed At Rest Pain Present Pain Present Pain Reported Location Buttocks/tailbone Intensity 7 M4 PT-IP Mobility and Gait Start: 08/29/24 07:27 Freq: NEEDED Status: Active Protocol: Document 09/01/24 09:20 MB (Rec: 09/01/24 10:42 MB [id number]) PT-Bed Mobility Assessment Rolling Type of Rolling Log Rolling,Bilateral Level of Assist Contact Guard Assistance,1 Person Assistance Supine to Sit Supine to Sit Contact Guard Assistance,1 Person Assistance,Bedrails Sit to Supine Sit to Supine Contact Guard Assistance,1 Person Assistance,Bedrails Scooting Scooting to Edge of Bed Contact Guard Assistance PT-Transfer Assessment Sit to and From Stand Sit to and from Stand Minimal Assistance,Moderate Assistance,1 Person Assistance ,Use of Upper Extremities Equipment Transfer Assistive Device Gait Belt,Front Wheeled Walker Orthotic/Prosthetic Devices or Brace: No Transfers Transfer Destination Bed,Chair Transfer Technique Ambulation Transfer Ability Level of Assist Minimal Assistance,Moderate Assistance,1 Person Assistance ,Use of Upper Extremities Comments Mobility Comments Ongoing cues to push up from the chair and bed and to reach for them rather than holding onto the walker, cues to bend at knees and sit gluteal area back. Pt with c/o left leg pain after log rolling into bed and she straigthens out left leg and shakes and rocks it, appears to have high pain into the left leg. Ongoing encouragement and cues to participate with mobility. Pt reports 2/3 back precautions and must be reminded about no lifting. Gait Assessment Gait Gait Assistance Required: Contact Guard Assist,1 Person Assist Distance (Feet) 25 Able to Maintain Weight Bearing Status Yes During Gait Assistive Devices Assistive Device Gait Belt,Front Wheeled Walker Orthotic/Prosthetic Devices or Brace: No Gait Deviations General Gait Pattern Antalgic,Decreased Stride Length,Decreased Feet Clearance,Step-to Gait,Wide Based Gait Factors Limiting Gait Function Factors Limiting Gait Function Decreased Activity Tolerance, Decreased Strength,Limited Range of Motion,Pain,Poor Balance,Poor Safety Awareness Comments Gait Comments 25'x1, 5'x1, 3'x1, slow mobility and encouragement to walk PT-Balance Assessment Sitting Balance and Reactions Static Sitting Balance Ability Fair Dynamic Sitting Balance Ability Fair Standing Balance and Reactions Static Standing Balance Ability Fair Dynamic Standing Balance Ability Fair Device Used FWW M5 PT-IP Objective Assessments Start: 08/29/24 07:27 Freq: NEEDED Status: Active Protocol: Document 08/29/24 07:30 MB (Rec: 08/29/24 08:15 MB [id number]) Orientation Orientation/Cognition Level of Alertness Alert Orientation Name,Birthday Language Function Ability No Deficits Noted Safety Awareness Decreased Safety Awareness Memory Description No Deficits Noted Gross Range of Motion Upper Extremity ROM Impairments Defer to OT Lower Extremity ROM Impairments Decreased B terminal knee extension in sitting, left more than right, and decreased B hip flexion sitting EOB Strength Lower Extremity Strength Hip NT in sitting d/t balance and pain Knee Poor tolerance to knee extension and at least 3/5 in available range Ankle B DF 4+/5, B great toe extension 4+/5 Coordination Assessment Gross Coordination Gross Coordination Impaired Sensation Assessment Comments Sensation Comments Pt reports paresthesias in B feet and is not clear about sensation in the rest of her legs, might be pain Muscle Tone Muscle Tone WNL Yes M6 PT-IP Treatment Start: 08/29/24 07:27 Freq: NEEDED Status: Active Protocol: Document 09/01/24 09:20 MB (Rec: 09/01/24 10:42 MB [id number]) Physical Therapy Treatment Exercises Exercises Ankle Pumps,Gluteal Sets,Quad Sets Education Education Provided Precautions Other Treatments Other Treatment Performed Practiced log rolling in and out of bed M7 PT-IP Assessment and Plan Start: 08/29/24 07:27 Freq: NEEDED Status: Active Protocol: Document 09/01/24 09:20 MB (Rec: 09/01/24 10:42 MB [id number]) PT Summary Assessment and Plan Potential Rehabilitation Potential Fair Status of Condition at Evaluation Evolving Summary Impairments Pain,ROM,Strength,Balance, Coordination,Sensation,Bed Mobility,Transfers,Gait, Activity Tolerance Progress Towards Goals Slow Progress due to Pain Assessment Summary Pt con't with reports of high pain. She may have decreased insight/questionable expectations about ability to exercise and pain post-op as she comments that she hasn't been able to exercise much d/t pain. PT ed pt that she is in the acute hospital after planned surgery and goal is to be able to mobilize well enough to get home. She is still unable to verbalize any plan for assistance at home and is wondering who makes the decision about d/c location/ possible SNF. Overall, pt can mobilize with pain and requires consistent encouragement to do so. She will need assistance at d/c. Goals Bed Mobility Goal Independent Transfer Goal Independent,Front Wheeled Walker Gait Goal Independent,Front Wheel Walker Gait Distance 100 Days to Meet Goals 5 Frequency of Treatment Other frequency 1-2x/day Treatment Plan Physical Therapy Treatment Plan Bed Mobility Training,Transfer Training,Gait Training, Therapeutic Exercise,Balance Retraining,Post Op Education, Discharge Planning,Hot or Cold Pack,Neuromuscular Re-ed, Coordination Retraining,Manual Therapy Precautions Lumbar Precautions Log Roll,No Twisting,Limit Bending,Lifting Restriction of 10 lbs,Gait Belt above Incisional Area Recommendations To Nursing Amount of Assist Needed 1 Person Assist Discharge Recommendations PT Discharge Recommendations Home vs SNF Transportation Needs at Discharge Private Vehicle,Wheelchair/ Cabulance
[2024-09-01 12:00] VITALS: BP 109/66; PULSE 104; RESP 15; TEMP 37.3; O2SAT 94
--- NOTE | 2024-09-01 13:39 | PT-IP ANOTE ---
PT checks on pt for a second treatment today. Her family has arrived and she states that she just got back into bed and she declines PT. PT obtains ice for pt's back. PT lets pt know that if she is still here tomorrow, PT will check back. Pt states, I'll be here for a while yet.
--- NOTE | 2024-09-01 14:09 | CM.DPC ---
Spoke with PT, RN, Dr. Oswald, patient family and patient re: d/c plan. Patient does not wish to go to SNF and wants to return home with hired caregivers to assist at night and with ADLS, along with HHC for PT/OT needs. Patient family asking for resources for hired caregivers- provided them with all available resources for hiring help, and patient sister in law and are contacting to hire. PT and Dr. Oswald agreeable to this plan. Patient to d/c Monday, 09/02 with [facility] and hired caregivers. Patient family to transport at d/c.
[2024-09-01] MEDS: CYCLOBENZAPRINE 10 MG TABLET PO (15:51)
[2024-09-01 20:00] VITALS: BP 113/69; PULSE 96; RESP 24; TEMP 37.6; O2SAT 93
[2024-09-01 20:07] VITALS: PULSE 96; RESP 16; O2SAT 97
[2024-09-01] MEDS: SENNOSIDES 8.6 MG TABLET 17.2 MG PO (20:52)
[2024-09-01] MEDS: ATORVASTATIN 20 MG TABLET PO (20:52)
[2024-09-02] MEDS: ACETAMINOPHEN 325 MG TABLET 650 MG PO ×2 (01:34→09:24)
[2024-09-02] MEDS: PANTOPRAZOLE DR 40 MG TABLET PO (06:02)
[2024-09-02] MEDS: LEVOTHYROXINE 75 MCG TABLET PO (06:02)
--- NOTE | 2024-09-02 06:52 | PM.DS.1 ---
History of Present Illness History of Present Illness Date Patient Seen: 09/02/24 Time Patient Seen: 06:52 Chief complaint: [place] Intrbody Fus./Laminotomy -Robot Narrative: Operative Date/Time/Diagnoses Date of procedure: 08/28/24 Time of procedure: 08:40 Pre-op diagnosis: 1. L3-4, L4-5, L5-S1 spinal stenosis with neurogenic claudication 2. L3-4, L4-5, L5-S1 spondylolisthesis Post-op diagnosis: same Procedure & Clinicians Procedure: 1. L3-4, L4-5, L5-S1 Postero-lateral and posterior interbody fusion 2. L3-4, L4-5, L5-S1 interbody cage placement. 3. L3-4, L4-5, L5-S1 decompressive laminectomy with bilateral facetecomies 4. L3-4, L4-5, L5-S1 Posterior segmental instrumentation 5. [place] of bone marrow from iliac crest 6. Utilization of microsurgical technique and operating microscope 7. Utilization of robotic assisted navigation Same procedure as scheduled: Yes Indications: Patient has been having chronic back pain and worsening lumbar radiculopathy and symptoms of neurogenic claudication. Patient was found to have significant lumbar instability with spondylolisthesis at L3-4 L4-5 as well as spinal stenosis with neurogenic claudication L3-4 L4-5 and L5-S1. Patient's imaging finding was correlating with her exam findings and symptoms. Patient failed multiple conservative management with worsening pain weakness and numbness in her lower extremity. Patient has been having difficulty performing activity of daily living. After discussing risks benefits of treatment options, patient elected proceed with surgery. Surgeon: Joann Oswald Vault Person: Mary Lilly Click Yes if Unassisted: No Anesthesia Type: General Operative Notes Closure Type: primary Specimen(s): none sent Prosthetic devices, grafts, tissues, transplants, or devices: Globus CREO MIS screws, Rise cages Applied: catheter Estimated Blood Loss (mL): 200 Blood products transfused: none Discharge Providers Provider Date of admission: 08/28/24 07:23 Discharge Date: 09/02/24 Primary care physician: Li Avila MD Consults: 08/28/24 15:00 Consult to Occupational Therapy Evaluate & Treat Comment: Physician Instructions: Evaluate and treat Consult to Physical Therapy Evaluate & Treat Comment: Physician Instructions: Evaluate and Treat 08/30/24 08:24 Consult to Home Health Routine Comment: PT, OT, HH Aide Reason For Exam: s/p Laminectomy, MS Discharge provider: Mary Lilly PA-C Summary Hospital Course Discharge Diagnosis: L3-4, L4-5, L5-S1 spinal stenosis with neurogenic claudication and spondylolisthesis; s/p L3-S1 fusion Hospital Course: Ms Benites's hospital course was remarkable for significant postop pain that slowed her progress w/ PT. She was adamant that she did not want to go to SNF. On the morning of POD# 5, arrangements had been made to d/c home w/ private help as well as HHPT. Pain was fairly controlled w/ oxycodone, baclofen, and cyclobenzaprine. She was eating and voiding without difficulty. Exam Vital Signs (past 8 hours): Fraction of Inspired Oxygen 21 SaO2/FiO2 Ratio 461 Oxygen Delivery Method Room Air Oxygen Flow Rate 0 Narrative Exam Narrative: 5/5 strength in hip flexors, quadriceps, hamstrings, DF, PF, EHL bilaterally. Sensation to light touch intact throughout BLE, calves soft and compressible. Low back dressing CDI. Objective Labs 08/29/24 06:07 [facility] Medical History Primary stress urinary incontinence Degenerative joint disease (DJD) of hip Cervical radiculopathy Herniated nucleus pulposus, L3-4 left Adhesive arachnoiditis Sacroiliac joint dysfunction Colitis due to Clostridioides difficile Coccydynia Pelvic pain in female Facet arthropathy, lumbar Osteomyelitis of lumbar spine Prolapse of intestine Obstructive sleep apnea of adult Villous adenoma of right colon (2010) Back tightness Neck tightness Colon polyps GERD (gastroesophageal reflux disease) (1997) IBS (irritable bowel syndrome) (1962) Abnormal Pap smear of cervix (1995) Hearing loss (2011) Chicken pox Acne (1975) Plantar warts (1991) Chronic back pain (1994) Fibromyalgia (1997) ADHD (attention deficit hyperactivity disorder) (1962) Chronic headaches (1991) Migraines (2009) Anxiety (1998) Depression (1998) Hayfever (~1991) Shoulder pain (1994) Hypothyroidism (~2003) Precancerous changes of the cervix (1995) Insomnia (06/21/16) Surgical History S/P total right hip arthroplasty (2022) History of rectopexy History of colonoscopy (08/2012) History of partial colectomy (2010) Anesthesia Status post appendectomy Status post vaginal hysterectomy (1995) Status post colectomy (2011) Family History Brother Coronary artery disease Father Coronary artery disease Grandfather Stroke Grandmother Cancer Colon cancer Mother Cancer Mental health problem Anxiety Dementia Fibromyalgia Colon cancer Grandmother Diabetes mellitus Grandfather No problems noted. Family/Other Colon cancer Social History marital status: details: rebecca Parson number of children: 2 household members: spouse lives independently: Yes caregiver/support person: No housing: house Smoking Status: Never smoker alcohol intake: never substance use type: does not use additional social history: Eb is wheelchair bound with Multiple Sclerosis. Patient's best friend this year. Discharge Assessment & Plan Assessment and Plan Assessment: L3-4, L4-5, L5-S1 spinal stenosis with neurogenic claudication and spondylolisthesis; s/p L3-S1 fusion Plan of Treatment: Discharge home w/ private caregiver and HHPT. Multimodal pain control, f/u in office in 2 weeks as scheduled. Discharge Plan Discharge Plan Patient Disposition: Home Health Service Transfer to: Home Health, Other Discharge orders & Medications Prescriptions: New oxycodone 5 mg Tablet 5 mg PO Q3H PRN (Reason: Pain, Moderate (4-6)) Qty: 60 0RF docusate sodium 100 mg Capsule 100 mg PO BID PRN (Reason: constipation) Qty: 60 1RF bisacodyl 10 mg Suppository 10 mg [place] PRN PRN (Reason: Constipation) Qty: 30 1RF ondansetron 4 mg Tablet,Disintegrating 4 mg sublingual Q6HR PRN (Reason: nausea and vomiting) Qty: 30 0RF acetaminophen 325 mg Tablet 650 mg PO Q6H PRN (Reason: Fever/Mild Pain (1-3)) Qty: 240 0RF cyclobenzaprine 10 mg Tablet 10 mg PO Q8HR PRN (Reason: muscle spasm) Qty: 60 0RF Continued duloxetine 60 mg capsule,delayed release(DR/EC) 90 mg PO DAILY albuterol sulfate [Ventolin HFA] 90 mcg/actuation HFA aerosol inhaler 2 puff INHALATION Q4-6H PRN (Reason: cough) Qty: 18 2RF atorvastatin 20 mg tablet 20 mg PO ONCE PM Qty: 90 3RF Pulmicort Flexhaler 180 mcg/actuation aerosol powdr breath activated 1 - 2 inh inhalation BID Qty: 2 3RF estradiol 10 mcg tablet 10 mcg vaginal 2XW Qty: 24 3RF levothyroxine 75 mcg tablet 75 mcg PO DAILY Qty: 90 3RF levalbuterol tartrate 45 mcg/actuation HFA aerosol inhaler 1 puff inhalation Q4-6H PRN (Reason: shortness of breath or wheezing) Qty: 15 3RF famotidine 40 mg tablet 40 mg PO BID Qty: 180 3RF omeprazole 40 mg capsule,delayed release(DR/EC) 40 mg PO DAILY Qty: 14 0RF Rx Instructions: for 2 weeks. epinephrine 0.3 mg/0.3 mL auto-injector 0.3 mg IM ONCE Qty: 2 2RF Patient Comments: last taken a year ago d/t PEG allergy Rx Instructions: as a single dose; may repeat once hyoscyamine sulfate 0.125 mg tablet,disintegrating 0.125 mg Sublingual PRN PRN (Reason: cramps) Qty: 50 1RF Rx Instructions: DISSOLVE 1 TABLET SUBLINGUALLY EVERY 4 HOURS NEEDED FOR CRAMPING ondansetron 8 mg tablet,disintegrating 8 mg PO Q4H PRN (Reason: nausea and vomiting) Qty: 90 1RF baclofen 10 mg tablet 10 mg PO TID PRN (Reason: muscle spasm) Qty: 240 3RF pregabalin 150 mg capsule 150 mg PO BID Qty: 180 3RF cevimeline 30 mg capsule 1 cap PO DAILY Qty: 90 3RF tacrolimus 0.1 % ointment 1 applic topical BID PRN (Reason: Rash) nystatin 100,000 unit/gram powder 1 applic TOP TID PRN (Reason: Rash) naltrexone 4.5 mg Capsule 4.5 mg PO QAM cyclobenzaprine 10 mg tablet 10 mg PO BID PRN (Reason: muscle spasm) Qty: 60 1RF dextroamphetamine-amphetamine [Adderall XR] 15 mg capsule,extended release 24hr 15 mg PO DAILY Follow up/Referrals: Joann Oswald MD [Physician] - Li Avila MD [Primary Care Provider] - Diet/Activity/Treatments Diet: Diet as Tolerated Activity: No deep bending or twisting at the waist. No lifting more than 10 pounds. Skin/Wound/Dressing Care Report to your healthcare provider any signs of infection, such as:: chills, fever, night sweats, unusual drainage and unusual redness Dressing: May shower. Keep dressing as dry as possible. If dressing becomes wet or dirty, may remove and replace with clean, dry gauze. No bathing or otherwise soaking incisions. Do not apply any creams, lotions, or ointments to incisions. Visit Report/Discharge Packet Instructions: DI for Transforaminal Lumbar Interbody Fusion, DI for Prescription Opioid Use Stand Alone Forms: Patient Portal/API, Stroke Signs & Symptoms, Surgery Discharge Discharge Data Primary Care Provider: Li Avila Quality VTE Deep Vein Thrombosis/Pulmonary Embolism Present on Admission: No
[2024-09-02 08:00] VITALS: BP 95/65; PULSE 90; RESP 18; TEMP 37.6; O2SAT 94
[2024-09-02 08:50] VITALS: PULSE 90; RESP 16; O2SAT 98
[2024-09-02] MEDS: BUDESONIDE 0.5 MG/2 ML NEB INH (08:50)
[2024-09-02] MEDS: DEXTROAMPHETAMINE AMPHETAMINE 15 MG 15 EACH PO (09:20)
[2024-09-02] MEDS: CEVIMELINE 30 MG 30 EACH PO (09:20)
[2024-09-02] MEDS: PREGABALIN 75 MG CAPSULE 150 MG PO (09:20)
[2024-09-02] MEDS: DOCUSATE 100 MG CAPSULE PO (09:20)
[2024-09-02] MEDS: FAMOTIDINE 20 MG TABLET 40 MG PO (09:20)
[2024-09-02] MEDS: DULOXETINE 30 MG CAPSULE 90 MG PO (09:20)
[2024-09-02] MEDS: OXYCODONE IR 5 MG TABLET PO ×2 (09:24→14:08)
[2024-09-02] MEDS: ONDANSETRON 4 MG ODT SL ×2 (09:25→14:07)
--- NOTE | 2024-09-02 11:07 | CM.DPC ---
DCP Discharge Home with HH Per Ortho PA, pt medically stable to now discharge home with HH today and no identified barriers to discharge. SW confirmed that [facility] can accept pt's insurance and has earlier start of care than [facility] and secure emailed F2F and HH orders and they will get pt on their schedule. SW met bedside with pt and she confirms that she now feels discharge home with her friend to stay and provide assist and HH is manageable and does not want SNF at this time. Friend can provide transport around 1400 today. SW provided the [facility] brochure and pt is agreeable with [facility] as her 's [facility] is ending. Pt does not anticipate any further needs at this time. SW updated [facility] on d/c to home and they will take pt off their list for SNF bed. Updated RN. Plan: Patient to d/c home today via friend POV and friend will stay in their spare bedroom and provide assist and new [facility] to follow. TEE Davis
--- NOTE | 2024-09-02 14:43 | PC.NURSE ---
Addendum entered by Leigh Malhotra R.N. 09/02/24 14:47: Pharmacist Licha gave Pt her home meds prior to d/c. Original Note: D/c instructions reviewed with Pt. Discussed no driving or operating heavy machinery while taking narcotics. Pt agreeable to d/c, and confirmed she had all of her belongings. IV removed. Pt exited via w/c with friend and ADULT NEUROLOGIST, to private vehicle.
== END 2024-09-02 14:48 | disposition home health service (06) | DRG 428 ==
PROVIDERS: Physician Assistant Surgical; Admitting Provider Orthopaedic Surgery Orthopaedic Surgery of the Spine; Family Provider Family Medicine; PCP Family Medicine; Referring Provider Orthopaedic Surgery Orthopaedic Surgery of the Spine; Visit Provider Orthopaedic Surgery Orthopaedic Surgery of the Spine
PROC: 0SG10AJ Fusion of 2 or more Lumbar Vertebral Joints with Interbody Fusion Device, Posterior Approach, Anterior Column, Open Approach (ICD-10-PCS; principal; 2024-08-28 08:45)
DX: M48.062 Spinal stenosis, lumbar region with neurogenic claudication (principal); M43.16 Spondylolisthesis, lumbar region; M48.07 Spinal stenosis, lumbosacral region; M43.17 Spondylolisthesis, lumbosacral region; M54.16 Radiculopathy, lumbar region; G89.18 Other acute postprocedural pain; F32.A Depression, unspecified; E03.9 Hypothyroidism, unspecified; K21.9 Gastro-esophageal reflux disease without esophagitis; E66.9 Obesity, unspecified; G47.33 Obstructive sleep apnea (adult) (pediatric); Z68.32 Body mass index [BMI] 32.0-32.9, adult
CPT/HCPCS: 36415; 72100; 76000; 81001; 85014; 85018; 87086; 94640; 94760; 94762; 97110; 97116; 97161; 97165; 97530; 97535; A9270; C1713; C1821; C9290; J0171; J0330; J0690; J1100; J1171; J2405; J2704; J3010; J3410; J7613

== ENCOUNTER → 2025-01-30 13:55 | Outpatient (CLI) | payer OTHER, SELFPAY ==
[2024-08-28 15:09] VITALS: BMI 32.5
--- NOTE | 2025-01-30 13:56 | DI.MG.S_ITS ---
MM screening mammo BI: 01/30/2025. BI-RADS: 1 CLINICAL: 59-year old female for bilateral screening mammogram. Tyrer-Cuzick lifetime risk of 5.3%. No personal or first-degree family history of breast cancer. PRIOR EXAMS 12/26/2023, 12/16/2022, 08/14/2021, 07/24/2020, 05/28/2019, 05/23/2018, 05/15/2017, 04/25/2016, 04/23/2015. MAMMOGRAPHY TECHNIQUE: 2D and 3D (tomosynthesis) digital mammographic views obtained, with additional images as needed for full coverage. Current study was also evaluated with a Computer Aided Detection (CAD) system. DENSITY A. The breasts are almost entirely fatty. MAMMOGRAPHY FINDINGS Bilateral: No suspicious mass, asymmetry, microcalcification, or other abnormality seen. IMPRESSION: * No evidence of malignancy. RECOMMENDATIONS Bilateral * Annual screening mammography. OVERALL ASSESSMENT CATEGORY BI-RADS-1: Negative. The [employer] recommends annual screening mammography beginning at age 40 for women with average risk of breast cancer. ELECTRONICALLY SIGNED: Becca Odonnell M.D. on 01/30/2025 at 04:46:37 PM PT Interpreting Station ID: [id number]
== END ==
LOC: MAMMO 13:56
PROVIDERS: Family Provider Family Medicine; PCP Family Medicine; Referring Provider Family Medicine; Visit Provider Family Medicine
DX: Z12.31 Encounter for screening mammogram for malignant neoplasm of breast (principal); R92.313 Mammographic fatty tissue density, bilateral breasts
CPT/HCPCS: 77063; 77067

== ENCOUNTER 2025-03-13 06:34 | Day surgery (SDC) | payer OTHER, SELFPAY ==
[2024-08-28 15:09] VITALS: BMI 32.5
--- NOTE | 2025-03-13 | PATH_ITS ---
[facility] Accession Number: [id number] No. of containers..02 Tissue . 01 Material submitted: . PART A: stomach - STOMACH, ANTRUM PART B: esophagus - ESOPHAGUS, DISTAL . 01 Diagnosis: A. STOMACH, ANTRUM, BIOPSY: Antral mucosa with mild reactive gastropathy. Negative for Helicobacter organisms and intestinal metaplasia. Negative for dysplasia and malignancy. . B. DISTAL ESOPHAGUS, BIOPSY: Histologically unremarkable squamous epithelium. Negative for intraepithelial eosinophils, dysplasia, and malignancy. [facility] 03/19/2025 1039 Local . 01 Electronically signed: . Fany Beasley DO, Pathologist NPI- [id number] . 01 Gross description: . Part A: STOMACH, ANTRUM: Received in formalin are 3 fragment(s) of elizabeth, soft tissue measuring 0.1 x 0.1 x 0.1 cm to 0.3 x 0.3 x 0.3 cm submitted entirely in 1 cassette(s) Part B: ESOPHAGUS, DISTAL: Received in formalin are 3 fragment(s) of elizabeth, soft tissue measuring 0.2 x 0.2 x 0.1 cm to 0.5 x 0.2 x 0.1 cm submitted entirely in 1 cassette(s) /KATHERINE 03/13/2025 2357 Local . 01 Pathologist provided ICD-10: R13.10 . 01 CPT . 199406, [id number] Specimen Comment: A courtesy copy of this report has been sent to [phone] Performed at: [address] [id number] MD Sergio Pak MD Phone: [phone]
[2025-03-13 07:07] VITALS: BP 125/84; PULSE 93; RESP 16; TEMP 36.2; O2SAT 95
[2025-03-13] MEDS: LACTATED RINGERS 1,000 ML 84 ML IV (07:20)
--- NOTE | 2025-03-13 07:40 | PM.HP.IH.1 ---
History of Present Illness History of Present Illness Chief complaint: EGD/Colonoscopy Narrative: Gracy is here for her EGD for dysphagia and colonoscopy. Her alternative prep did not seem to be very effective. See the March office note for more details. [facility] Medical History Primary stress urinary incontinence Degenerative joint disease (DJD) of hip Cervical radiculopathy Herniated nucleus pulposus, L3-4 left Adhesive arachnoiditis Sacroiliac joint dysfunction Colitis due to Clostridioides difficile Coccydynia Pelvic pain in female Facet arthropathy, lumbar Osteomyelitis of lumbar spine Prolapse of intestine Obstructive sleep apnea of adult Villous adenoma of right colon (2010) Back tightness Neck tightness Colon polyps GERD (gastroesophageal reflux disease) (1997) IBS (irritable bowel syndrome) (1962) Abnormal Pap smear of cervix (1995) Hearing loss (2011) Chicken pox Acne (1975) Plantar warts (1991) Chronic back pain (1994) Fibromyalgia (1997) ADHD (attention deficit hyperactivity disorder) (1962) Chronic headaches (1991) Migraines (2009) Anxiety (1998) Depression (1998) Hayfever (~1991) Shoulder pain (1994) Hypothyroidism (~2003) Precancerous changes of the cervix (1995) Insomnia (06/21/16) Surgical History S/P total right hip arthroplasty (2022) History of rectopexy History of colonoscopy (08/2012) History of partial colectomy (2010) Anesthesia Status post appendectomy Status post vaginal hysterectomy (1995) Status post colectomy (2011) Family History Brother Coronary artery disease Father Coronary artery disease Grandfather Stroke Grandmother Cancer Colon cancer Mother Cancer Mental health problem Anxiety Dementia Fibromyalgia Colon cancer Grandmother Diabetes mellitus Grandfather No problems noted. Family/Other Colon cancer Social History marital status: details: rebecca Parson number of children: 2 household members: spouse lives independently: Yes caregiver/support person: No housing: house Smoking Status: Never smoker alcohol intake: never substance use type: does not use additional social history: Eb is wheelchair bound with Multiple Sclerosis. Patient's best friend this year. Meds Home Medications and Allergies Home Medications Medication Instructions Recorded Confirmed Type dextroamphetamine-amphetamine ER 15 mg PO DAILY 07/04/22 02/10/25 History 15 mg 24hr capsule,extend release (Adderall XR) epinephrine 0.3 mg/0.3 mL 0.3 mg (0.3 mL) IM ONCE #2 ea 12/13/22 02/10/25 Rx injection, auto-injector ondansetron 8 mg disintegrating 8 mg PO Q4H PRN nausea and 04/24/23 02/10/25 Rx tablet vomiting #90 tabs baclofen 10 mg tablet 10 mg PO TID PRN muscle spasm #240 12/19/23 02/10/25 Rx tabs albuterol sulfate 90 mcg/actuation 2 puff inhalation Q4-6H PRN cough 08/05/24 03/13/25 Rx aerosol inhaler (Ventolin HFA) #18 grams atorvastatin 20 mg tablet 20 mg PO ONCE PM #90 tabs 08/05/24 02/10/25 Rx estradiol 10 mcg vaginal tablet 10 mcg vaginal 2XW Vaginal atrophy 08/05/24 02/10/25 Rx #24 tabs famotidine 40 mg tablet 40 mg PO BID #180 tabs 08/05/24 02/10/25 Rx levalbuterol tartrate 45 1 puff inhalation Q4-6H PRN 08/05/24 02/10/25 Rx mcg/actuation aerosol inhaler shortness of breath or wheezing #15 grams levothyroxine 75 mcg tablet 75 mcg PO DAILY #90 tabs 08/05/24 02/10/25 Rx nystatin 100,000 unit/gram topical 1 applic topical TID PRN Rash 08/20/24 02/10/25 History powder tacrolimus 0.1 % topical ointment 1 applic topical BID PRN Rash 08/20/24 02/10/25 History naltrexone 4.5 mg capsule 4.5 mg PO QAM 08/28/24 02/10/25 History acetaminophen 325 mg tablet 650 mg (2 x 325 mg) PO Q6H PRN 09/02/24 02/10/25 Rx Fever/Mild Pain (1-3) #240 tabs bisacodyl 10 mg rectal suppository 10 mg [place] PRN PRN Constipation #30 09/02/24 02/10/25 Rx ea docusate sodium 100 mg capsule 100 mg PO BID PRN constipation #60 09/02/24 02/10/25 Rx caps ondansetron 4 mg disintegrating 4 mg sublingual Q6HR PRN nausea 09/02/24 02/10/25 Rx tablet and vomiting #30 tabs oxycodone 5 mg tablet 5 mg PO Q3H PRN Pain, Moderate 09/02/24 02/10/25 Rx (4-6) #60 tabs nystatin 100,000 unit/gram topical 1 applic topical TID #15 grams 09/23/24 02/10/25 Rx ointment cevimeline 30 mg capsule 1 cap PO DAILY #90 caps 11/18/24 02/10/25 Rx hyoscyamine sulfate 0.125 mg 0.125 mg sublingual PRN PRN cramps 12/25/24 02/10/25 Rx disintegrating tablet #50 tabs sodium sul 1.479 gram-potas ch See Rx Instructions PO PER PKG DIR 01/13/25 02/10/25 Rx 0.188 gram-magnes sul 0.225 gram #24 tabs tablet (Sutab) budesonide 180 mcg/actuation 1 - 2 inh inhalation BID #2 ea 01/20/25 02/10/25 Rx breath activated powder inhaler (Pulmicort Flexhaler) cyclobenzaprine 10 mg tablet 10 mg PO Q8HR PRN muscle spasm #60 02/10/25 02/10/25 Rx tabs duloxetine 30 mg capsule,delayed 30 mg PO DAILY 02/10/25 02/10/25 History release ibuprofen 800 mg tablet mg PO 02/10/25 02/10/25 History omeprazole 40 mg capsule,delayed 40 mg PO DAILY #90 caps 02/10/25 02/10/25 Rx release pregabalin 150 mg capsule 150 mg PO BID #30 caps 02/10/25 02/10/25 Rx Allergies Allergy/AdvReac Type Severity Reaction Status Date / Time vancomycin Allergy Intermediate ITCHING Verified 03/13/25 07:04 polyethylene glycol Allergy Verified 03/13/25 07:04 wheat Allergy Verified 03/13/25 07:04 nonoxynol 9 AdvReac Severe severe Verified 03/13/25 07:04 [From [place] Plus Spermicidal itching Jelly] morphine AdvReac Mild pt Verified 03/13/25 07:04 becomes loopy magnesium sulfate AdvReac ITCHING Verified 03/13/25 07:04 [From Sutab] potassium chloride AdvReac ITCHING Verified 03/13/25 07:04 [From Sutab] sodium sulfate [From Sutab] AdvReac ITCHING Verified 03/13/25 07:04 COLONOSCOPY PREP Allergy Severe ITCHING Uncoded 03/13/25 07:04 Exam Vital Signs (past 8 hours): - 03/13/25 07:07 Temperature 97.2 F L Pulse Rate 93 H Respiratory Rate 16 Blood Pressure 125/84 Pulse Oximetry 95 Oxygen Delivery Method Room Air Oxygen Delivery Method Room Air Const General: No acute distress Resp Effort & Inspection: normal respiratory effort Assessment & Plan Assessment and plan (1) History of colon polyps: Status: Acute (2) Dysphagia: Qualifiers: Dysphagia type: esophageal phase Qualified Code(s): R13.19 - Other dysphagia Status: Acute Plan EGD and colonoscopy Time-Based Coding :: [TOTAL MINUTES] spent with patient and on the chart (including review of chart, obtaining history, exam, reviewing outside data, placing orders, documenting exam and treatment plan, and counseling patient) on [DATE]. PROFEE Raisin Separator Operator Document charge(s): No
--- NOTE | 2025-03-13 08:03 | PM.OP.EC ---
Operative Date/Time/Diagnoses Date of procedure: 03/13/25 Time of procedure: 08:03 Pre-op diagnosis: Dysphagia and history of polyps Post-op diagnosis: same Procedure & Clinicians Study performed: EGD and colonoscopy (aborted) Same procedure as scheduled: Yes Surgeon: Silvio Johnston Procedure Notes Procedure in detail: Surgeon: Silvio Johnston MD Anesthesia: Stepan Coleman MD Procedure in detail: A timeout was performed. A bite blocked was placed and monitors were attached to the patient. The patient was positioned in the left lateral decubitus position. Sedation was administered. Once the patient was sedated the endoscope was inserted through the bite block and passed through the esophagus and stomach and into the duodenum. Duodenum appeared normal. We then withdrew the scope into the stomach. There was mild antritis and random biopsies were taken with cold forceps from the antrum mucosa. The endoscope was retroflexed and no hiatal hernia was seen. The rest of the stomach normal.. The endoscope was straightned and withdrawn into the esophagus. There was mild distal esophagitis and random biopsies were taken with the cold forceps. The rest of the esophagus was normal. There was no evidence of a stricture. EGD findings: Mild antritis and mild distal esophagitis Next we repositioned the patient for a colonoscopy. A digital rectal exam was performed and was normal. The colonoscope was inserted into the rectum. The prep was inadequate to safely proceed and procedure was terminated. Patient was awakened and brought to recovery room. Colonoscopy findings: Inadequate prep Total procedural EBL: 5 mL Scope withdrawal time: Not applicable Sedation minutes: 11 minutes Post-procedure Disposition: PACU
[2025-03-13 08:07] VITALS: BP 117/70; PULSE 76; RESP 16; TEMP 36.3; O2SAT 96
[2025-03-13 08:12] VITALS: BP 107/68; PULSE 77; RESP 16; O2SAT 98
[2025-03-13 08:17] VITALS: BP 109/66; PULSE 77; RESP 16; TEMP 36.3; O2SAT 96
[2025-03-13 08:30] VITALS: BP 118/66; PULSE 82; RESP 16; TEMP 36.3; O2SAT 98
== END 2025-03-13 08:45 | disposition home or self-care (01) ==
PROVIDERS: Family Provider Family Medicine; PCP Family Medicine; Referring Provider Surgery; Visit Provider Surgery
PROC: 0DJ08ZZ Inspection of Upper Intestinal Tract, Via Natural or Artificial Opening Endoscopic (ICD-10-PCS; CPT 43239; principal; 2025-03-13 07:45)
PROC: 0DJD8ZZ Inspection of Lower Intestinal Tract, Via Natural or Artificial Opening Endoscopic (ICD-10-PCS; CPT 45378; 2025-03-13 07:45)
DX: Z12.11 Encounter for screening for malignant neoplasm of colon (principal); Z86.0100 Personal history of colon polyps, unspecified; R13.10 Dysphagia, unspecified; Z53.09 Procedure and treatment not carried out because of other contraindication; K31.9 Disease of stomach and duodenum, unspecified
CPT/HCPCS: 43239; 45378; J2704

== ENCOUNTER → 2025-06-12 08:58 | Outpatient (CLI) | payer OTHER, SELFPAY ==
[2024-08-28 15:09] VITALS: BMI 32.5
--- NOTE | 2025-06-12 08:59 | DI.RAD.S_ITS ---
PROCEDURE: XR HIP W PEL IF DONE RT 2V INDICATIONS: right groin pain TECHNIQUE: 2 views of the hip were acquired. COMPARISON: [facility], CR, XR HIP W PEL IF DONE RT 2V, 10/25/2022, 13:45. FINDINGS: Bones: No fractures or dislocations. No suspicious bony lesions. The visualized pelvic ring appears intact. Well-aligned, intact right total hip arthroplasty without hardware complication. Surgical fusion of the lumbosacral spine. Soft tissues: No suspicious soft tissue calcifications or masses. IMPRESSION: Well-aligned, intact right total hip arthroplasty without hardware complication. Dictated by: Flakito Gordon M.D. on 06/12/2025 at 10:55 Approved by: Flakito Gordon M.D. on 06/12/2025 at 11:09
--- NOTE | 2025-06-12 08:59 | DI.RAD.S_ITS ---
PROCEDURE: XR LUMBAR SPINE 2-3V INDICATIONS: lower extremity paresthesias TECHNIQUE: 3 views of the lumbar spine were acquired. COMPARISON: [facility], CR, XR LUMBAR SPINE 2-3V, 08/28/2024, 13:20. [facility], CR, XR LUMBAR SPINE MIN 4V, 05/23/2022, 10:11. FINDINGS: Bones: 5 [id number] vertebrae are present. There is normal bony alignment. No vertebral body compression fractures. No suspicious bony lesions. Posterior and interbody surgical fusion from L3 through S1. No hardware complication. Soft tissues: Overlying bowel gas pattern is normal. No suspicious soft tissue calcifications. IMPRESSION: Posterior and interbody surgical fusion of L3 through S1, without hardware complication. No advanced degenerative changes above the surgical fusion levels. Dictated by: Flakito Gordon M.D. on 06/12/2025 at 11:09 Approved by: Flakito Gordon M.D. on 06/12/2025 at 11:10
[2025-06-12 10:03] LABS: Add Manual Diff / Slide Review NO; Hematocrit 34.8 % (36-46); Hemoglobin 11.2 g/dL (12.0-16.0); Lymphocytes Absolute Auto 2200 /uL (1100-4500); Mean Corpuscular HGB Conc 32.1 % (30-36); Mean Corpuscular Hemoglobin 26.0 PG (26-34); Mean Corpuscular Volume 81.1 fL (80-100); Platelet Count 414 X10^3/uL (150-400)
[2025-06-12 10:13] LABS: Hemoglobin A1C% w Est Avg Glu 5.9 % (4.0-6.0)
[2025-06-12 10:22] LABS: Alanine Aminotransferase 16 IU/L (<35); Albumin 4.2 g/dL (3.5-5.0); Albumin Globulin Ratio 1.5 (1.0-2.8); Alkaline Phosphatase 78 U/L (38-126); Blood Urea Nitrogen 20 mg/dL (7-17); Calcium 9.6 mg/dL (8.4-10.2); Carbon Dioxide 26 mmol/L (22-32); Chloride 104 mmol/L (98-107); Cholesterol 155 mg/dL (140-199); Estimated Glomerular Filt Rate > 60 mL/min (>60); Globulin 2.8 g/dL (1.7-4.1); Glucose 98 mg/dL (70-99); HDL Cholesterol 48 mg/dL (40-60); HEMOLYSIS < 15 (0-50); Potassium 4.6 mmol/L (3.4-5.1); Sodium 139 mmol/L (137-145); Total Protein 7.0 g/dL (6.3-8.2); Triglycerides 130 mg/dL (35-150)
[2025-06-12 10:48] LABS: Thyroid Stimulating Hormone 1.99 uIU/mL (0.47-4.68)
[2025-06-12 11:06] LABS: Vitamin B12 584 pg/mL (239-931)
== END ==
PROVIDERS: Family Provider Family Medicine; PCP Family Medicine; Referring Provider Family Medicine; Visit Provider Family Medicine
DX: R20.2 Paresthesia of skin (principal); E78.5 Hyperlipidemia, unspecified; R10.31 Right lower quadrant pain; Z96.641 Presence of right artificial hip joint; Z98.1 Arthrodesis status
CPT/HCPCS: 36415; 72100; 73502; 80053; 80061; 82607; 83036; 84443; 85025

== ENCOUNTER → 2025-08-01 09:19 | Outpatient (CLI) | payer OTHER, SELFPAY ==
[2024-08-28 15:09] VITALS: BMI 32.5
--- NOTE | 2025-08-01 09:21 | DI.CT.S_ITS ---
PROCEDURE: CT LUMBAR SPINE WO CON INDICATIONS: SPINAL STENOSIS TECHNIQUE: Noncontrast 3 mm thick sections acquired from the T12 level to the sacrum. Sagittal and coronal reformats were constructed. For radiation dose reduction, the following was used: automated exposure control. COMPARISON: [facility], CT, CT LUMBAR SPINE WO CON, 06/28/2024, 15:25. FINDINGS: Image quality: Excellent. Bones: In the interval since the prior exam, there has been posterior fusion from L3 through S1 with intervertebral prosthetic discs at L3-4, L4-5 and L5-S1. Hardware is intact without hardware fracture or periprosthetic lucency to suggest loosening. Alignment is stable. There is good anatomic alignment. Disc bulges are present at L1-L2, L2-3. Postsurgical changes are present at L3- 4, L4-5 and L5-S1. Nbvn-th-dqvyaule spinal stenosis is present at L2-3. Interval resolution of previous spinal stenosis at L3-4, L4-5. Moderate bilateral foraminal narrowing L2-3, [id number]-cq-[id number] L3-4, moderate to severe L4-5 and L5-S1. Foraminal narrowing is similar versus questionably minimally less prominent L3-4 and L4-5 compared to prior exam. Multilevel facet and ligamentum flavum hypertrophy are present. Soft tissues: No retroperitoneal masses or hematomas. Visualized aorta is normal in caliber. Nonobstructing 4 mm as well as punctate right renal calculi. IMPRESSION: Interval fusion from L3 through S1. Notable improvement in spinal stenosis at L3-4 and L4-5 compared to prior exam. Dictated by: Maria Del Carmen Ibarra M.D. on 08/01/2025 at 12:46 Approved by: Maria Del Carmen Ibarra M.D. on 08/01/2025 at 12:53
== END ==
LOC: CT 09:19
PROVIDERS: Family Provider Family Medicine; PCP Family Medicine; Referring Provider Physician Assistant; Visit Provider Physician Assistant
DX: M48.062 Spinal stenosis, lumbar region with neurogenic claudication (principal); N20.0 Calculus of kidney; Z98.1 Arthrodesis status
CPT/HCPCS: 72131

== ENCOUNTER → 2025-08-19 11:06 | Outpatient (CLI) | payer OTHER, SELFPAY ==
[2024-08-28 15:09] VITALS: BMI 32.5
--- NOTE | 2025-08-19 11:10 | DI.RAD.S_ITS ---
PROCEDURE: XR CERVICAL SPINE 2V OR 3V INDICATIONS: neck pain TECHNIQUE: Two views) of the cervical spine were acquired. COMPARISON: [facility], CR, XR CERVICAL SPINE 4V OR 5V, 05/23/2022, 10:11. FINDINGS: Cervical spine curvature and alignment: 3 mm of C3 and C4 anterior subluxation due to facet degeneration noted. Slight reversal normal lordotic curve Bones: Mild chronic wedging C5 and C6 vertebral bodies is unchanged from 202. Disc spaces: Moderate C4-5, severe C5-6 C6-7 degenerative disc disease and severe C2-3 C3-4 moderate C4-5 through C7-T1 degenerative facet disease has progressed . Soft tissues: No soft tissue swelling, calcification or mass. IMPRESSION: Multilevel degeneration progressing since the comparison examination over 3 years ago. Other chronic findings stable Dictated by: Les Baker M.D. on 08/20/2025 at 10:32 Approved by: Les Baker M.D. on 08/20/2025 at 10:34
== END ==
PROVIDERS: Family Provider Family Medicine; PCP Family Medicine; Referring Provider Family Medicine; Visit Provider Family Medicine
DX: M47.812 Spondylosis without myelopathy or radiculopathy, cervical region (principal); M50.321 Other cervical disc degeneration at C4-C5 level; M48.52XA Collapsed vertebra, not elsewhere classified, cervical region, initial encounter for fracture
CPT/HCPCS: 72040

== ENCOUNTER → 2025-10-15 08:46 | Outpatient (CLI) | payer OTHER, SELFPAY ==
[2024-08-28 15:09] VITALS: BMI 32.5
--- NOTE | 2025-10-15 | DI.MRI.S_ITS ---
PROCEDURE: MR LUMBAR SPINE WO CON INDICATIONS: Spinal stenosis TECHNIQUE: Noncontrast sagittal T1 spin echo and T2 fast echo, sagittal STIR, and T2 fast spin echo through the lumbar spine. In cases with scoliosis, additional coronal T2 fast spin echo may be performed. COMPARISON: [facility], CT, CT LUMBAR SPINE WO CON, 08/01/2025, 9:27. [facility], MR, MR LUMBAR SPINE WO CON, 06/06/2024, 15:51. FINDINGS: Image quality: Excellent. Alignment and Curvature: There is normal bony alignment. Alignment has improved when compared to the preoperative MRI. Bone Marrow: Postsurgical changes are seen at L3 through S1 with bilateral pedicle screws and interbody rods as well as disc spacers. Marrow is of normal overall signal. No acute vertebral body compression fractures. Spinal Cord: Conus medullaris terminates at the L1 level. Visualized cord demonstrates normal signal and size. Paraspinous Soft Tissues: No paravertebral masses. T12-L1: No significant spinal canal stenosis or neural foraminal narrowing. L1-L2: No significant spinal canal stenosis or neural foraminal narrowing. L2-L3: Disc desiccation and circumferential disc bulging as well as mild bilateral facet hypertrophy and buckling of the ligamentum flavum. Findings result in kvxa-sx-npttddlm narrowing of the spinal canal and mild narrowing of the bilateral neural foramina. L3-L4: Postsurgical changes with decompression of the spinal canal. No significant neural foraminal narrowing. L4-L5: Postsurgical changes with decompression of the spinal canal. No significant neural foraminal narrowing. L5-S1: Postsurgical changes with decompression of the spinal canal. The left neural foramen is obscured by metal artifact although there is expected at least mild residual neural foraminal narrowing, not significantly changed when compared to the CT from 07/31/2025. No significant right neural foraminal narrowing. IMPRESSION: 1. Postsurgical changes at L4 through S1 with decompression of the spinal canal. 2. At L2-3, there is [id number] narrowing of the spinal canal and mild bilateral neural foraminal narrowing. Approved by: Jim Enriquez M.D. on 10/15/2025 at 10:45
== END ==
LOC: MRI 08:47
PROVIDERS: PCP Family Medicine; Referring Provider Orthopaedic Surgery; Visit Provider Physician Assistant
DX: M48.062 Spinal stenosis, lumbar region with neurogenic claudication (principal)
CPT/HCPCS: 72148